=== PATIENT | female | born 1945 | race Caucasian/White ===

== ENCOUNTER 2018-03-30 08:35 | Outpatient (CLI) | payer MEDICARE, SELFPAY ==
[2018-03-30 09:56] LABS: Anion Gap 0.9 mmol/L (3-11); BUN 16 mg/dL (7-18); CO2 32.1 mmol/L (21.0-32.0); Calcium 8.9 mg/dL (8.5-10.1); Chloride 104 mmol/L (98-107); Estimated GFR 44.41 (mL/min/1.73m2); Glucose 84 mg/dL (70-100); Potassium 4.5 mmol/L (3.5-5.1); Sodium 137 mmol/L (136-145)
== END 2018-03-30 08:55 ==
PROVIDERS: PCP Family Medicine
DX: Z87.448 Personal history of other diseases of urinary system (principal)
CPT/HCPCS: 36415; 80048

== ENCOUNTER 2019-04-04 14:50 | Outpatient (CLI) | payer MEDICARE, SELFPAY ==
--- NOTE | 2019-04-04 13:00 | DI.RAD_ITS ---
SYMPTOMS/DIAGNOSIS: SHORTNESS OF BREATH, H/O OVARIAN CANCER IN REMISSION, R06.02 PA AND LATERAL CHEST: The heart is not enlarged. On the lateral view, there are streaky radiodensities projected anteriorly at the level of the cardiac silhouette; these could represent infiltrates in the lingula or right middle lobe. Otherwise, the lungs are generally clear. No pleural effusion is seen. Little if any evidence of infiltrate identified on the funnel film. CONCLUSION: Question lingular or right middle lobe areas of atelectasis, scarring or consolidation. These findings were not present on previous chest radiograph of 04/18/16. Chest CT may be considered for further evaluation considering the patient's history of ovarian carcinoma.
[2019-04-04 14:04] LABS: HCT 37.4 % (36.0-46.0); HGB 12.2 g/dL (12.0-15.5); Mean Corp. HGB Concentration 32.6 g/dL (32.0-36.0); Mean Corpuscular Hemoglobin 30.1 pg (27.0-33.0); Mean Corpuscular Volume 92.3 fL (80-95); Mean Platelet Volume 10.5 fL (8.0-11.0); Platelet Count 198 x1000/uL (130-400); RBC 4.05 m/cumm (4.00-5.20); RBC Distribution Width 13.4 % (11.7-14.6); White Blood Cell Count 5.74 k/cumm (4.4-10.8)
[2019-04-04 14:55] LABS: Iron 79 ug/dL (50-175)
[2019-04-04 15:03] LABS: ALT 40 U/L (14-59); AST 24 U/L (15-37); Albumin 3.4 g/dL (3.4-5.0); Alkaline Phosphatase 77 U/L (46-116); Anion Gap 7.3 mmol/L (3-11); BUN 19 mg/dL (7-18); Bilirubin, Total 0.4 mg/dL (0.2-1.0); CO2 28.7 mmol/L (21.0-32.0); CREATININE 1.19 mg/dL (0.55-1.02); Calcium 8.8 mg/dL (8.5-10.1); Chloride 105 mmol/L (98-107); Estimated GFR 44.72 (mL/min/1.73m2); Glucose 158 mg/dL (70-100); Sodium 141 mmol/L (136-145); TSH (W/Ref FT4) 1.43 uIU/mL (0.36-3.74); Total Protein 6.3 g/dL (6.4-8.2)
== END 2019-04-04 15:10 ==
PROVIDERS: PCP Family Medicine; Visit Provider Family Medicine
DX: R06.02 Shortness of breath (principal); C56.9 Malignant neoplasm of unspecified ovary; E78.00 Pure hypercholesterolemia, unspecified; J98.4 Other disorders of lung
CPT/HCPCS: 36415; 80053; 85027; 71046; 83540; 84443

== ENCOUNTER 2019-04-21 01:25 | Outpatient (CLI) | payer MEDICARE, SELFPAY ==
--- NOTE | 2019-04-21 09:30 | MERGE_ITS ---
*[facility]* *[facility]* [address] [place] [address] Date of study: 04/21/2019 Transthoracic Echocardiography M-mode, complete 2D, complete spectral Doppler, and color Doppler *STUDY CONCLUSIONS* Summary: 1. Left ventricle: The cavity size was normal. Wall thickness was normal. Systolic function was normal. The estimated ejection fraction was 60-65%. Wall motion was normal; there were no regional wall motion abnormalities. 2. Right ventricle: The cavity size was normal. Systolic function was normal. 3. Aortic valve: Trileaflet; normal thickness leaflets. There was mild regurgitation. 4. Mitral valve: There was mild regurgitation. 5. Inferior vena cava: The vessel was normal in size. The respirophasic diameter changes were in the normal range (greater than or equal to 50%), consistent with normal central venous pressure. *PATIENT PRESENTATION* Height: 165.1cm (65in ) S/D Pressure: 139 / 70 Weight: 60.8kg (133.7lb ) BSA: 1.67m^2 Test start time: 09:30 AM. Test stop time: 10:30 AM. CONSULTING Marilyn Kidd ORDERING Marilyn Kidd REFERRING Marilyn Kidd PERFORMING [facility] FIELD INSTALLATION TECHNICIAN Nadia Melvin *PROCEDURE DATA* Procedure information: This study was interpreted by [facility]. Pertinent images and digital data are archived for permanent storage and are available for subsequent review. Comparison was made to the study of June 2011. Study status: Routine. Transthoracic echocardiography. M-mode, complete 2D, complete spectral Doppler, and color Doppler. A Transthoracic Echocardiogram was performed. Scanning was performed from the parasternal, apical, subcostal, and suprasternal notch acoustic windows. Images were obtained using an [employer] 2000 cardiac ultrasound machine. Image quality was adequate. Study completion: The patient tolerated the procedure well. There were no complications. History: PMH: SOB. *CARDIAC ANATOMY* Left ventricle: The cavity size was normal. Wall thickness was normal. Systolic function was normal. The estimated ejection fraction was 60-65%. Wall motion was normal; there were no regional wall motion abnormalities. Findings consistent with diastolic dysfunction. There was no evidence of elevated ventricular filling pressure by Doppler parameters. Aortic valve: Trileaflet; normal thickness leaflets. Mobility was not restricted. Doppler: Transvalvular velocity was within the normal range. There was no stenosis. There was mild regurgitation. VTI ratio of LVOT to aortic valve: 0.89. Valve area (VTI): 2.6cm^2. Indexed valve area (VTI): 1.5cm^2/m^2. Peak velocity ratio of LVOT to aortic valve: 0.82. Valve area (Vmax): 2.4cm^2. Indexed valve area (Vmax): 1.4cm^2/m^2. Mean velocity ratio of LVOT to aortic valve: 0.8. Valve area (Vmean): 2.3cm^2. Indexed valve area (Vmean): 1.4cm^2/m^2. Mean gradient (S): 3.4mm Hg. Peak gradient (S): 7mm Hg. Aorta: Aortic root: The aortic root was normal in size. Ascending aorta: The ascending aorta was normal in size. Mitral valve: Mildly thickened leaflets. Mobility was not restricted. Doppler: Transvalvular velocity was within the normal range. There was no evidence for stenosis. There was mild regurgitation. Valve area by pressure half-time: 4cm^2. Indexed valve area by pressure half-time: 2.4cm^2/m^2. Peak gradient (D): 2.9mm Hg. Left atrium: The atrium was normal in size. Right ventricle: The cavity size was normal. Systolic function was normal. Pulmonic valve: Poorly visualized. Doppler: Transvalvular velocity was within the normal range. There was no evidence for stenosis. There was no significant regurgitation. Tricuspid valve: Structurally normal valve. Doppler: Transvalvular velocity was within the normal range. There was no evidence for stenosis. There was trivial regurgitation. Pulmonary artery: Poorly visualized. Pulmonary systolic pressure was within the normal range, in the range of 20mm Hg to 25mm Hg. Right atrium: The atrium was normal in size. Pericardium: There was no pericardial effusion. Systemic veins: Inferior vena cava: The vessel was normal in size. The respirophasic diameter changes were in the normal range (greater than or equal to 50%), consistent with normal central venous pressure. Measurements Left ventricle Value Reference LV ID, ED, PLAX 4.4 cm 3.5 - 6.0 LV ID, ES, PLAX 2.9 cm 2.1 - 4.0 LV PW thickness, ED, PLAX 0.8 cm LV end-diastolic volume, 1-p A2C 77 ml LV ejection fraction, 1-p A2C 69 % LV end-diastolic volume, 1-p A4C 68 ml LV ejection fraction, 1-p A4C 59 % LV e', lateral 0.081 m/sec LV E/e', lateral 11 LV e', medial 0.076 m/sec LV E/e', medial 11 LV e', average 0.078 m/sec LV E/e', average 11 Ventricular septum Value Reference IVS thickness, ED, PLAX 0.8 cm LVOT Value Reference LVOT ID, A-P 1.9 cm LVOT area 2.9 cm^2 LVOT peak velocity, S 1.08 m/sec LVOT mean velocity, S 0.68 m/sec LVOT VTI, S 26.7 cm LVOT peak gradient, S 4.6 mm Hg LVOT mean gradient, S 2.2 mm Hg Stroke volume (SV), LVOT DP 77 ml Stroke index (SV/bsa), LVOT DP 46 ml/m^2 Aortic valve Value Reference Aortic valve peak velocity, S 1.3 m/sec Aortic valve mean velocity, S 0.9 m/sec Aortic valve VTI, S 30.0 cm Aortic mean gradient, S 3.4 mm Hg Aortic peak gradient, S 7 mm Hg VTI ratio, LVOT/AV 0.89 Aortic valve area, VTI 2.6 cm^2 Velocity ratio, peak, LVOT/AV 0.82 Aortic valve area, peak velocity 2.4 cm^2 Velocity ratio, mean, LVOT/AV 0.8 Aortic valve area, mean velocity 2.3 cm^2 Aortic valve area/bsa, mean velocity 1.4 cm^2/m^2 Aortic regurg deceleration 140 cm/s^2 Aortic regurg pressure half-time 809 ms Aorta Value Reference Aortic root ID, ED 2.3 cm Ascending aorta ID, A-P, S 3.2 cm Left atrium Value Reference LA ID, A-P, ES 3.5 cm LA ID/bsa, A-P 2.1 cm/m^2 <=2.2 LA volume, ES, 2-p 28 ml LA volume/bsa, ES, 2-p 17 ml/m^2 LA/aortic root ratio 1.5 Mitral valve Value Reference Mitral E-wave peak velocity 0.85 m/sec Mitral A-wave peak velocity 0.58 m/sec Mitral deceleration time 191 ms 150 - 230 Mitral pressure half-time 55 ms Mitral peak gradient, D 2.9 mm Hg Mitral E/A ratio, peak 1.46 Mitral valve area, PHT, DP 4 cm^2 Tricuspid valve Value Reference Tricuspid regurg peak velocity 2.3 m/sec Tricuspid peak RV-RA gradient 22 mm Hg Right atrium Value Reference RA area, ES, A4C (L) 8.1 cm^2 8.3 - 19.5 Legend: (L) and (H) milla values outside specified reference range. I have personally reviewed the images and have reviewed and edited the reported findings. Electronically signed by Markus Bailon 04/21/2019 12:37
== END 2019-04-21 01:45 ==
PROVIDERS: PCP Family Medicine; Visit Provider Family Medicine
DX: R06.02 Shortness of breath (principal); I35.1 Nonrheumatic aortic (valve) insufficiency; I34.0 Nonrheumatic mitral (valve) insufficiency
CPT/HCPCS: 93306

== ENCOUNTER 2019-06-17 09:28 | Emergency (ER) | payer MEDICARE, SELFPAY ==
[2019-06-17 09:37] VITALS: BP 132/60; PULSE 71; RESP 18; TEMP 36.6; O2SAT 98
--- NOTE | 2019-06-17 10:01 | W.ED.GENAD ---
Discharge Plan Disposition Patient Disposition: HOME Condition: Stable Discharge Details Chief Complaint: Laceration Clinical Impression: Avulsion of skin of finger Primary Care Provider: Marilyn Kidd ED Provider: Shari June Home Meds and New Rx's Prescriptions: Continued Shingrix Adjuvant Component-PF Suspension 1 ml IM ONCE Qty: 0.5 RF: 1 calcium-magnesium 300-300 mg tablet 1 tab PO TID RF: 0 Co Q-10 (with Vit E) 1 EACH capsule 1 cap PO QPM RF: 0 cholecalciferol (vitamin D3) [Vitamin D3] 2,000 UNIT capsule 2,000 unit PO DAILY RF: 0 Fish Oil 1 EACH capsule,delayed release(DR/EC) 1 ea PO DAILY RF: 0 Green Tea (w/Met.Enhan.Blend) 1 EACH tablet 1 ea PO DAILY RF: 0 coriolus versicolor DAILY RF: 0 melatonin 10 mg tablet,ext release multiphase 20 mg PO HS RF: 0 polyethylene glycol 3350 [Miralax] 17 gram powder in packet 17 g PO BID Qty: 255 RF: 0 red yeast rice 600 mg capsule 1,200 mg PO QPM RF: 0 Discharge Instructions Instructions: Laceration (ED) Additional Instructions: Keep wound clean and dry. Do not remove the Gelfoam, let it fall off naturally as the skin heals underneath. If your dressing becomes wet or dirty, you may change the outer dressing but keep the Gelfoam in place. If the Gelfoam falls off, you can replace it and hold pressure and recover with outer dressing. Alternate Tylenol and Motrin as needed and directed for pain. If you notice any surrounding redness or swelling, apply topical antibiotic ointment. Follow-up with your primary care doctor in 1 week for wound check. Return to the emergency department or follow-up with your primary care doctor as soon as possible if you develop any fever, swelling or red line streaking up your extremity, or significant pain. Discharge Data Discharge Date/Time-TO BE ENTERED AT DEPARTURE: 06/17/19 10:58 Discharge Physician: Shari June Medical Decision Making 73-year-old female who presents with right fifth finger skin laceration sustained with a mandolin string when she was fixing her mandolin at home this morning. Right fifth finger with 1 x 2 cm skin avulsion extending through subcu tissue noted on medial aspect of finger pad. Oozing noted but no pulsatile bleeding. No bony injury or deformity noted. Neurovascular intact. Wound appears clean and dry. Area soaked and Gelfoam covered with phenylephrine applied and covered with tube gauze. Tetanus up-to-date. Patient advised to keep area clean and dry. Advised to follow-up with a primary care doctor in 1 week for reevaluation and to return here with any concerns. HPI General Mode of arrival: ambulatory. Date/Time Provider Initiated Documentation: 06/17/19 09:41. Limitations to Documentation: no limitations. Information obtained by: patient. History of Present Illness 73 year old F presents to the emergency department with the chief complaint of Finger laceration, Quality is described as aching, and is localized to the right and upper extremity. Patient reports no radiation. Patient started experiencing this hour(s) and it has been constant. No relieving factors improve symptom(s), No exacerbating factors reported . Patient did receive the following treatments prior to arrival, none Related Data Home Medications Medication Instructions Recorded Confirmed Co Q-10 (with Vit E) 1 cap PO QPM 12/07/12 06/17/19 Coriolus Versicolor DAILY 03/18/17 04/04/19 Fish Oil 1 ea PO DAILY 03/18/17 06/17/19 Green Tea (w/Met.Enhan.Blend) 1 ea PO DAILY 03/18/17 06/17/19 cholecalciferol (vitamin D3) 2,000 unit PO DAILY 03/18/17 06/17/19 [Vitamin D3] melatonin 10 mg tablet,extended 20 mg PO HS tab 04/04/18 06/17/19 release,multiphase adjuvant AS01B (PF)vial 1 of 2 1 ml IM ONCE #0.5 ml 04/04/19 06/17/19 calcium-magnesium 300 mg-300 mg 1 tab PO TID 04/04/19 06/17/19 tablet polyethylene glycol 3350 17 gram 17 g PO BID #255 gm 04/04/19 06/17/19 oral powder packet red yeast rice 600 mg capsule 1,200 mg PO QPM cap 04/04/19 06/17/19 Previous Rx's Medication Instructions Recorded adjuvant AS01B (PF)vial 1 of 2 1 ml IM ONCE #0.5 ml 04/04/19 Allergies Allergy/AdvReac Type Severity Reaction Status Date / Time adhesive Allergy Mild Skin Rash Unverified 06/17/19 09:40 General Stated Complaint: Laceration IAN: 4 Review of Systems All systems reviewed & are unremarkable except as noted in HPI and below PFSH Medical History Actinic dermatitis (Resolved 02/17/16) Acute pain of right shoulder (Resolved 01/24/16) Ankle pain (Resolved 02/15/14) Breast lump (Resolved) biopsy neg. Breast lump (Inactive) Carpal tunnel syndrome (Acute) R>L Cellulitis of right axilla (Resolved 01/28/16) Epithelial ovarian cancer, FIGO stage IIIC (Acute 06/06/15) History of tobacco use (Resolved) quit after 10 years History of tobacco use (Inactive) Hypercholesterolemia (Acute) on Red Rice Yeast Osteopenia (Acute) Other and unspecified angina pectoris (Resolved) 04/04/11 ED visit; unstable angina Ovarian mass (Resolved) 04/22/[address] 03/2015 Scarlet fever (Resolved) Scarlet fever (Inactive) Surgical History Appendectomy (~1965) Arthroplasty of knee (~1988) RIGHT Biopsy of breast NEG Bowel resection (04/18/16) Complete Hysterectomy large pelvic mass;ovarian carcinoma;omentum removal Extraction of cataract 09/03/17 RIGHT EYE; DR. RAINEY 09/17/17 LEFT EYE; DR. RAINEY H/O arthroscopy of knee (Resolved) 07/26/88 right H/O exploratory laparotomy (Resolved) 04/18/16 lysis of adhesions; resection of necrotic small intestine w/anastomosis; repair of an incidental ventral incisional hernia H/O eye surgery (Resolved) 04/23/16 intravitreal injection with Avastin Hernia Repair, Incisional (04/18/16) History of appendectomy (Inactive) History of arthroscopy of knee (Inactive) History of exploratory laparotomy (Inactive 04/18/16) History of eye surgery (Inactive 04/23/16) Hx of appendectomy (Resolved) S/P breast biopsy (Resolved) neg Status post breast biopsy (Inactive) Family History Mother , age 78 Essential hypertension Heart disease Hyperlipidemia Breast cancer Father , age 80 Heart disease Brother Hyperlipidemia Alcohol abuse Maternal Grandfather Heart disease Paternal Grandfather Heart disease Maternal Grandmother Cancer Paternal Grandmother Heart disease Brother Hyperlipidemia Melanoma Brother Heart attack Heart disease Alcohol abuse Stroke Social History Smoking/Tobacco Use Status: Former Tobacco Use Quit Date: 07/26/79 Tobacco: How many years used: 10 Alcohol Intake: former Drug use: Never Substance use type: does not use Household members: significant other Housing: house Communication Needs: None Do you need help understanding health information?: Rarely Pets and animals: No Sexually active: No Do you think of yourself as: lesbian/jarvis/homosexual What is your relationship status?: living with partner How often do you talk on the phone with friends or family?: three or more times per week How often do you get together with friends or relatives?: once per week How often do you attend mandaeism or roman catholic services?: decline to answer Do you belong to any clubs or organized social groups?: yes Panel score (0-1 are the most socially isolated patients): 3 What type of physical activity do you participate in: walking Duration: 45-60 minutes/day Frequency: 5-6 times per week Cat/Hindu: None Special cat needs: No Seatbelt use: always Helmet use: Yes Helmet use: always Drive intox or ride w/intox explosives truck driver: No Do you feel safe at home: Yes Exam Const General: cooperative, healthy appearing and no acute distress HENVT Head: normal to inspection Mouth: oral mucosae normal Eyes General: appearance normal, both eyes and all related structures Neck Neck: normal visual inspection Resp Effort & Inspection: normal respiratory effort and able to speak in complete sentences Cardio Rate: regular rate Skin General skin exam: no rashes or lesions noted Neuro General: alert, awake and oriented x3 Motor: muscle tone normal throughout Other: Motor/sensory grossly intact to left fifth finger. Extrem Hand/finger images: 1. 1 x 2 cm skin avulsion noted on the right medial aspect of the fifth finger pad. Moderate active oozing. No pulsatile bleeding. No obvious foreign bodies noted. No bony deformities or open bony injuries noted. Psych Appearance: grossly normal Affect: normal affect Course Vital Signs Vital signs: Vital Signs Temperature 97.9 F 06/17/19 09:37 Pulse 71 06/17/19 09:37 Respiratory Rate 18 06/17/19 09:37 Blood Pressure 132/60 06/17/19 09:37 Pulse Oximetry 98 06/17/19 09:37 Temperature 97.9 F 06/17/19 09:37 Temperature Source Skin 06/17/19 09:37 Pulse 71 06/17/19 09:37 Respiratory Rate 18 06/17/19 09:37 Respiratory Effort Non-Labored 06/17/19 09:40 Blood Pressure 132/60 06/17/19 09:37 Blood Pressure Position Sitting 06/17/19 09:37 Pulse Oximetry 98 06/17/19 09:37 Oxygen Delivery Method Room Air 06/17/19 09:37 Oxygen Flow Rate 0 06/17/19 09:37 Pain Level 2 06/17/19 09:37
[2019-06-17] MEDS: Gelatin SPONGE 12-7 MM PKT 1 EACH TP (10:37)
[2019-06-17 10:59] VITALS: BP 132/60; PULSE 71; RESP 18; TEMP 36.6; O2SAT 98
== END 2019-06-17 10:58 | disposition home or self-care (01) ==
PROVIDERS: Emergency Provider Physician Assistant; PCP Family Medicine
DX: S61.216A Laceration without foreign body of right little finger without damage to nail, initial encounter (principal); W27.4XXA Contact with kitchen utensil, initial encounter; Y93.G1 Activity, food preparation and clean up
CPT/HCPCS: 12001

== ENCOUNTER → 2019-06-29 11:22 | Outpatient (BNVA) | payer MEDICARE, SELFPAY | PROVIDERS: PCP Family Medicine; Referring Provider Family Medicine; Visit Provider Physical Therapy Assistant | DX: Z12.11 Encounter for screening for malignant neoplasm of colon (principal) ==

== ENCOUNTER 2020-05-01 01:08 | Outpatient (CLI) | payer MEDICARE, SELFPAY ==
[2020-05-01 11:51] LABS: ALT 40 U/L (14-59); AST 25 U/L (15-37); Albumin 3.6 g/dL (3.4-5.0); Alkaline Phosphatase 86 U/L (46-116); Anion Gap 3.8 mmol/L (3-11); BUN 20 mg/dL (7-18); Bilirubin, Total 0.4 mg/dL (0.2-1.0); CO2 31.2 mmol/L (21.0-32.0); CREATININE 1.09 mg/dL (0.55-1.02); Calcium 9.1 mg/dL (8.5-10.1); Chloride 106 mmol/L (98-107); Estimated GFR 49.34 (mL/min/1.73m2); Glucose 99 mg/dL (74-106); Potassium 4.5 mmol/L (3.5-5.1); Sodium 141 mmol/L (136-145); Total Protein 6.5 g/dL (6.4-8.2); Vitamin B12 217 pg/mL (193-986)
[2020-05-02 05:05] LABS: Vitamin D 25 Total 83.5 ng/ml (30-100)
== END 2020-05-01 01:28 ==
PROVIDERS: PCP Family Medicine; Visit Provider Family Medicine
DX: R53.83 Other fatigue (principal); M85.80 Other specified disorders of bone density and structure, unspecified site
CPT/HCPCS: 36415; 80053; 82306; 82607

== ENCOUNTER 2021-11-14 01:04 | Outpatient (CLI) | payer MEDICARE, SELFPAY ==
[2021-11-14 13:36] LABS: Source Nasal/Nares
[2021-11-14 21:40] LABS: COVID-19 PCR Negative (Negative)
== END 2021-11-14 01:05 | disposition home or self-care (01) ==
PROVIDERS: PCP Family Medicine; Visit Provider Surgery
DX: Z20.822 Contact with and (suspected) exposure to COVID-19 (principal); Z01.818 Encounter for other preprocedural examination
CPT/HCPCS: 87635; U0005

== ENCOUNTER 2022-02-09 02:12 | Outpatient (CLI) | payer MEDICARE, SELFPAY ==
--- OUTSIDE RECORDS SUMMARY | 2022-02-09 02:19 | XMS_ITS | Encounter Summary ---
:1945 [place] [address] Care Team Providers Name Role Phone Marilyn Kidd MD Primary Care Provider Reason for Visit Reason Comments Skin Lesion Follow-up Encounter Details Date Type Department Care Team Description 09/28/2018 Office Visit Dermatology at [facility] Shakira Fregoso [place] (actinic keratosis); Guillermo WALLACE Ink spot lentigo; [address] [facility] (seborrheic keratosis); [place] [address] [address] Lentigines; [phone] [facility] History of basa l cell carcinoma (BCC) [facility] [place], [place] [address] Social History Tobacco Use Types Packs/Day Years Used Date Former Smoker Cigarettes 0.5 12 Quit: 08/02/18 82 Smokeless Tobacco: Never Used Alcohol Use Standard Drinks/Week Comments No 0 (1 standard drink = 0.6 oz pure alcoho l) rare Alcohol Habits Answer Date Recorded How often do you have a drink containing alcohol? Not asked How many drinks containing alcohol do you have on a typical Not asked day when you are drinking? How often do you have six or more drinks on one occasion? No t asked Comment: rare 05/02/2015 Sex Assigned at Date Recorded Not on file documented as of this encounter Progress Notes Shakira Fregoso MD - 09/28/2018 7:30 AM EST DERMATOLOGY ESTABLISHED PATIENT NOTE Date of service: 09/28/2018 Neisha White : 1945 Provider: Shakira Fregoso MD Chief Complaint Patient presents with ??? Skin Lesion ??? Follow-up SKIN HX Patient prefers to minimize treatments unless absolutely necessary Left shoulder: Nodular BCC - biopsied by PCP (see can doc) Other: - Eczema - Hand dermatitis (ACD vs dyshidrotic eczema) - Acne rosacea - Actinic keratoses - Seborrheic keratoses - Harman angiomas Relevant Medical History: - Ovarian cancer ?? Family History: Skin cancer: Aunts, uncles Melanoma: Brother?, first cousin ?? Social History: Occupation: Retired HPI Neisha White is a 73 y.o. female, established patient last seen by Dr. Conway on 12/02/17 for a full skin exam. Here today to recheck an actinic keratosis on her left cheek. This lesion has never been treated as the patient prefers clinical monitoring. She also request a full skin exam while she is here today, no other concerns. ADR Allergies Allergen Reactions ??? Tegaderm [Transparent Dressings] Redness noted around skin from initial dressing. MEDS Current Outpatient Medications Medication Sig Dispense Refill ??? cholecalciferol, Vitamin D3, (VITAMIN D-3) 2,000 unit Tablet Take by mouth daily. ??? magnesium hydroxide (MAGNESIA ORAL) Take 500 mg by mouth daily. ??? fish oil-omega-3 fatty acids 1,000 mg Capsule Take 1 g by mouth daily. ??? Red Yeast Rice Extract 600 mg Capsule Take 1 capsule by mouth daily. ??? TURMERIC (CURCUMIN MISC) by Misc.(Non-Drug; Combo Route) route daily. ??? melatonin 5 mg Tablet Take 4 tablets by mouth nightly. ??? COLOSTRUM/SE/GR TEA/MUSH CMB1 ([id number]-[id number] ORAL) Take 2 Cans by mouth daily. ??? polyethylene glycol (MIRALAX) 17 gram Powder in Packet Take 17 g by mouth as needed. ??? Coenzyme H36-Wcpikde E 50-5 mg-unit Capsule Take 1 capsule by mouth daily. No current facility-administered medications for this visit. ROS General: feeling well Skin: denies other skin complaints EXAM General: NAD, pleasant, cooperative Skin: Patient was asked to undress to the level of her comfort. Verbalized that the provider's preference is for the patient to remove all clothing and that the provider will not examine areas patient elects to keep covered. Patient's decision was to remove bra and underwear for a total body skin exam. This includes examination of the scalp, hair, face, ears, neck, chest, breasts, abdomen, back, axillae, upper and lower extremities, hands, and feet. Buttocks and genitalia were examined with patient's consent. Significant skin findings: A. Right mid cheek x 1 right angle of the jaw x 1: 0.2-0.3cm scaly irregular pink papules. B. Left upper vermilion border: 3 mm brown macule composed of brown evenly pigmented macules C. Trunk and extremities: Scattered 0.4-0.6 cm pink-brown papules/plaques with waxy stuck-on appearance. D. Sun-exposed areas of the trunk and extremities: Scattered 0.3-0.6 cm light- brown, evenly pigmented, well-demarcated macules. E. Left shoulder tip: Well-healed surgical scar. ASSESSMENT/PLAN A. Actinic Keratoses - Explained etiology, natural history and premalignent potential of these lesions. - Discussed treatment options (LN2, 5-FU, PDT) and their respective risks and benefits. - Patient declined treatment today and prefers to watch and wait. - Noted that a surgical procedure would likely be needed if these were to progress to skin cancer. B. Ink Spot Lentigo - Discussed benign nature of lesion and provided reassurance. No treatment necessary at this time. C.Seborrheic Keratoses - Explained that these are hereditary and adult-acquired. Reassured patient of benign nature. No treatment necessary. - Discussed cosmetic removal with cryotherapy. Patient quoted $100 for removal of 1-10, and $200 forremoval of 11-20. Patient declined cosmetic removal today. - Advised patient to call if they become inflamed or irritated. D. Lentigines - Discussed benign nature of lesions and provided reassurance. No treatment necessary at this time. - Discussed nature of sun-induced photo-aging and skin cancers. Advised sun avoidance, protective clothing, and use of SPF 30+ broad-spectrum sunscreens. - Instructed patient to observe closely for skin damage/changes and call if such occur. E. H/O BCC - NER; will continue to monitor. FOLLOW UP: Based on pathology results. RTC in 1 year for a full skin exam; sooner if needed. Reminder placed in system to schedule. Instructed patient to call with questions or concerns. Note initiated by: Joanne Navarrete CMA ? Karmen Cagle, Clinical Scribe has performed the documentation for this encounter in the presence of and acting as a scribe for Dr. Shakira Fregoso. I performed the above scribed service and agree with the accuracy of the documentation in this encounter. 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
--- OUTSIDE RECORDS SUMMARY | 2022-02-09 02:19 | XMS_ITS | Encounter Summary ---
:1945 Author Organization [facility] [place] [address] Care Team Providers Name Role Phone Marilyn Kidd MD Primary Care Provider Encounter Details Date Type Department Care Team Description 11/24/2021 Orders Only Gynecology Oncology at [facility] O varian carcinosarcoma [facility] [place] [address] Social History Tobacco Use Types Packs/Day Years [...] on file documented as of this encounter Plan of Treatment Upcoming Encounters Date Type Specialty Care Team Description 02/27/2022 Appointment Radiology Marilyn Kidd MD [address] [place] [address] (Wo rk) documented as of this encounter Results (ABNORMAL) BUN (11/28/2021 4:23 PM EDT) athologist Signature BUN 21 (H) 8 - 18 [facility] mg/dL [facility] Specimen Anatomical Collection Method Collection Time Receive d Time (Source) Location / / Volume Laterality Blood 11/28/2021 4:23 PM 2 4:46 EDT PM EDT Resulting Agency Comment Spec In Lab Genie Garcia MD CHEMISTRY ORDERABLES Performing Organization Address City/State/[place] [address] (ABNORMAL) Creatinine (11/28/2021 4:23 PM EDT) Analysis Performed At [facility]o [facility] Time Signature Creatinine 1.26 (H) 0.70 - [place] 1.20 mg/dL [facility] Estimated GFR 42 (L) >=60 [place] mL/min/1.7 [facility] 3 [facility] LAB[facility]ATORY Comment: This patient? s estimated glomerular filtration rate (eGFR) is between 42 mL/min/1.73 m2 (patients with less muscl e mass) and 49 mL/min/1.73 m2 (patients with more muscle mass) as determined by the CKD-EPI equation. Assessment of eGFR is not appropriate when creatinine concentrations are rapidly changing. For clinical decisions where creatinine clearance will affect therapy, a 24-hour urine creatinine clearance may b e advised. Assignment of CKD stage 1 - 5 for patien ts with an eGFR near the transition point between stages may be based on cli nical assessment of muscle mass and symptoms in addition to eGFR. 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
--- OUTSIDE RECORDS SUMMARY | 2022-02-09 02:19 | XMS_ITS | Encounter Summary ---
:1945 Author Organization [facility] [place] [address] Care Team Providers Name Role Phone Marilyn Kidd MD Primary Care Provider Encounter Details Date Type Department Care Team Description 11/29/2020 Telephone Gynecology Oncology at [facility] [place] [address] Social History Tobacco Use Types Packs/Day [...] MD [address] [place] [address] (Wo rk) documented as of this encounter Visit Diagnoses Not on filedocumented in this encounter Care Teams Candles Pourer Relationship Specialty Start Date End Date Marilyn Kidd MD PCP - General 06/17/[address] [place] [address] documented as of this encounter
--- OUTSIDE RECORDS SUMMARY | 2022-02-09 02:19 | XMS_ITS | Encounter Summary ---
:1945 Author Organization [facility] [place] [address] Care Team Providers Name Role Phone Marilyn Kidd MD Primary Care Provider Reason for Referral Diagnostic Test (Routine) - Closed Specialty Diagnoses / Procedures Referred By Contact Refer red To Contact Radiology Diagnoses Malignant neoplasm of ovary, unspecified laterality Genie Garcia MD [facility] Rad Ct Scan Procedures CT Chest Abdomen Pelvis w Contrast (Generic) [facility] [place] [address] [place] [address] Referral ID Status Reason Start Date Expiration Date Visits V isits Requested Authorized [id number] Closed Specialty 11/29/2020 05/31/2022 1 1 Service Requested Reason for Visit Reason Onset Date Comments Other 11/28/2020 Encounter Details Date Type Department Care Team Description 11/28/2020 Telephone Gynecology Oncology at [facility] Genie Garcia MD Other [facility] [place] [address] GYNECOLOGIC ONCOLOGY [phone] [place] [id number] (Wo rk) Social History Tobacco Use Types Packs/Day Years [...] on file documented as of this encounter Miscellaneous Notes Telephone Encounter - Maggi Lindsey - 11/28/2020 4:03 PM EDT Please sign order Telephone Encounter - Maggi Lindsey - 11/28/2020 4:03 PM EDT Please sign order documented in this encounter Plan of Treatment Upcoming Encounters Date Type Specialty Care Team Description 02/27/2022 Appointment Radiology Marilyn Kidd MD [address] [place] [address] (Wo rk) documented as of this encounter Results CT Chest Abdomen Pelvis w Contrast (Generic) (11/28/2021 6:31 PM EDT) Anatomical Region Laterality Modality Abdomen, Pelvis Computed Tomography Specimen (Source) Anatomical Collection Method Collection Time Re ceived Time Location / / Volume Laterality 11/28/2021 6:49 PM EDT Impressions 12/01/2021 9:12 AM EDT 1. ??New tree-in-bud nodule within the a nterior aspect left upper lobe, could be infectious or inflammatory. Recommend co ntinued follow-up. 2. ??No evidence of metastatic disease. 3. ??Bowel containing ventral abdominal wall hernia without evidence of strangulation. I have personally reviewed the image(s) and the resident's interpretation and agree with the findings, Brandan Nix MD at 12/01/2021 9:12 AM Thank you for letting us participate in the care of this patient. ??If you are a health care provider and have any questi ons regarding this report, please contact the number below. ??For patients who have questions please contact the health respiratory care assistant that requested your imaging first. ? Electronically signed by: Brandan Nix MD , [facility] ([phone]), at 12/01/2021 9:12 AM Narrative 12/01/2021 9:12 AM EDT EXAMINATION: CT CHEST ABDOMEN PELVIS W CONTRAST (GENERIC) CLINICAL HISTORY: Ovarian cancer, assess treatment response assess for any disease progression TECHNIQUE: Helical CT of the chest, abdo men, and pelvis was performed following the intravenous administration of contra st. Administered 90.0 ml of OMNIPAQUE 350.00 mg/ml. Oral contrast was not admi nistered. COMPARISON: Chest abdomen and pelvis kennedy ing back to 12/07/2017 and March 2019 FINDINGS: Chest: Lungs and large airways: Slight improvem ent opacity at the medial segment of the right middle lobe. At the anterior aspec t of the left upper lobe, there is a new 10 x 3 mm tree-in-bud nodule series 4 im age 196.. Unchanged 8 mm nodule abutting the left major fissure, likely represent s a lymph node. No new pulmonary nodules. Pleura: No effusion. No pneumothorax. Heart/vasculature: No pericardial effusi on. Normal heart size. Lymph nodes: No enlarged lymph nodes. Mediastinum and chet: Symmetric thyroid gland without nodules. Abdomen/pelvis: Liver: Normal size and attenuation witho ut lesions. Bile ducts: No intrahepatic or extrahepa tic ductal dilatation. Gallbladder: No calcified gallstones. No rmal caliber wall. Pancreas: Normal attenuation without yon lyndsey dilatation. Spleen: Normal size and attenuation. Adrenals: Normal. Kidneys: Symmetric nephrograms. Normal s ize and location. There is a sub-5 mm area of low attenuation within the right interpolar kidney that is too small to characterize, but is favored to represen t benign simple cyst. Urinary Bladder: Normal contour. No foca l wall thickening. Vasculature: Moderate atherosclerosis wi thout significant stenosis. The celiac, common hepatic, splenic, SMA and MADISON are patent. Lymph Nodes: ??No enlarged lymph nodes. Bowel: Nondilated, no wall thickening. ? ? Peritoneum and mesentery: No ascites, fr ee air, or loculated fluid collection. No mesenteric inflammation. Abdominal wall: Unchanged unchanged austin l containing ventral abdominal wall hernia without bowel wall thickening or proximal bowel dilatation. Reproductive organs: Status post hystere ctomy. No adnexal masses. Osseous structures: No suspicious lesion s. Unchanged mild thoracolumbar degenerative changes. Procedure Note Brandan Nix MD - 12/01/2021Formatting o f this note might be different from the original. EXAMINATION: CT CHEST ABDOMEN PELVIS W C ONTRAST (GENERIC) CLINICAL HISTORY: Ovarian cancer, assess treatment response assess for any disease progression TECHNIQUE: Helical CT of the chest, abdo men, and pelvis was performed following the intravenous administration of contra st. Administered 90.0 ml of OMNIPAQUE 350.00 mg/ml. Oral contrast was not admi nistered. COMPARISON: Chest abdomen and pelvis kennedy ing back to 12/07/2017 and March 2019 FINDINGS: Chest: Lungs and large airways: Slight improvem ent opacity at the medial segment of the right middle lobe. At the anterior aspec t of the left upper lobe, there is a new 10 x 3 mm tree-in-bud nodule series 4 im age 196.. Unchanged 8 mm nodule abutting the left major fissure, likely represent s a lymph node. No new pulmonary nodules. Pleura: No effusion. No pneumothorax. Heart/vasculature: No pericardial effusi on. Normal heart size. Lymph nodes: No enlarged lymph nodes. Mediastinum and chet: Symmetric thyroid gland without nodules. Abdomen/pelvis: Liver: Normal size and attenuation witho ut lesions. Bile ducts: No intrahepatic or extrahepa tic ductal dilatation. Gallbladder: No calcified gallstones. No rmal caliber wall. Pancreas: Normal attenuation without yon lyndsey dilatation. Spleen: Normal size and attenuation. Adrenals: Normal. Kidneys: Symmetric nephrograms. Normal s ize and location. There is a sub-5 mm area of low attenuation within the right interpolar kidney that is too small to characterize, but is favored to represen t benign simple cyst. Urinary Bladder: Normal contour. No foca l wall thickening. Vasculature: Moderate atherosclerosis wi thout significant stenosis. The celiac, common hepatic, splenic, SMA and MADISON are patent. Lymph Nodes: No enlarged lymph nodes. Bowel: Nondilated, no wall thickening. Peritoneum and mesentery: No ascites, fr ee air, or loculated fluid collection. No mesenteric inflammation. Abdominal wall: Unchanged unchanged austin l containing ventral abdominal wall hernia without bowel wall thickening or proximal bowel dilatation. Reproductive organs: Status post hystere ctomy. No adnexal masses. Osseous structures: No suspicious lesion s. Unchanged mild thoracolumbar degenerative changes. IMPRESSION 1. New tree-in-bud nodule within the ant erior aspect left upper lobe, could be infectious or inflammatory. Recommend co ntinued follow-up. 2. No evidence of metastatic disease. 3. Bowel containing ventral abdominal wa ll hernia without evidence of strangulation. I have personally reviewed the image(s) and the resident's interpretation and agree with the findings, Brandan Nix MD at 12/01/2021 9:12 AM Thank you for letting us participate in the care of this patient. If you are a health care provider and have any questi ons regarding this report, please contact the number below. For patients w ho have questions please contact the health respiratory care assistant that requested your imaging first. Electronically signed by: Brandan Nix MD , [facility] ([phone]), at 12/01/2021 9:12 AM Genie Garcia MD IMG CT ORDERABLES documented in this encounter Visit Diagnoses Diagnosis Malignant neoplasm of ovary, unspecified laterality - Primary Malignant neoplasm of ovary, unspecified laterality documented in this encounter Care Teams Glue Wheel Operator Relationship Specialty Start Date End Date Marilyn Kidd MD PCP - General 06/17/[address] [place] [address] documented as of this encounter
--- OUTSIDE RECORDS SUMMARY | 2022-02-09 02:19 | XMS_ITS | Encounter Summary ---
:1945 [place] [address] Care Team Providers Name Role Phone Marilyn Kidd MD Primary Care Provider Encounter Details Date Type Department Care Team Description 11/28/2021 Laboratory Lab 3[address] [place] Ovarian [place] [address] Social History Tobacco Use Types Packs/Day Years [...] MD [address] [place], [place] [address] (Wo rk) documented as of this encounter Procedures Procedure Name Priority Date/Time Associated Diagnosis Comme nts HC CREATININE STAT 11/28/2021 4:23 PM Ovarian carcinosarcom a Results for this EDT procedure are i n the results section. HC UREA NITROGEN, STAT 11/28/2021 4:23 PM Ovarian carcinosa rcoma Results for this SERUM EDT procedure are i n the results section. documented in this encounter Results (ABNORMAL) Creatinine (11/28/2021 4:23 PM EDT) Analysis Performed At Patho logist Time Signature Creatinine 1.26 (H) 0.70 - [place] 1.20 mg/dL [facility] Estimated GFR 42 (L) >=60 [place] mL/min/1.[address] LABORATORY Comment: This patient? s estimated glomerular [...] Garcia MD CHEMISTRY ORDERABLES Performing Organization Address City/[facility]/[place] [address] (ABNORMAL) BUN (11/28/2021 4:23 PM EDT) P athologist Signature BUN 21 (H) 8 - 18 [place] mg/dL 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
--- OUTSIDE RECORDS SUMMARY | 2022-02-09 02:19 | XMS_ITS | Encounter Summary ---
:1945 Author Organization [facility] [place] [address] Care Team Providers Name Role Phone Marilyn Kidd MD Primary Care Provider Encounter Details Date Type Department Care Team Description 12/02/2021 Telephone Gynecology Oncology at [facility] Ursula Payne, [place] [address] Social History Tobacco Use Types Packs/Day [...] this encounter Miscellaneous Notes Telephone Encounter - Ursula Payne RN - 12/02/2021 9:23 AM EDT Nurse called patient and informed her that CT is negative for cancer. Unclear significance of lung finding, will defer follow up of lung to her PCP as it is not consistent with a metastasis of her cancer. Patient verbalized understanding and will follow up with PCP as recommended by MD. No further questions at this time. documented in this encounter Plan of Treatment Upcoming Encounters Date Type Specialty Care Team Description 02/27/2022 Appointment Radiology Marilyn Kidd MD [address] [place] [address] (Wo rk) documented as of this encounter Visit Diagnoses Not on filedocumented in this encounter Care Teams Comic Book Artist Relationship Specialty Start Date End Date Marilyn Kidd MD PCP - General 06/17/[address] [place], [place] [id number] documented as of this encounter
--- OUTSIDE RECORDS SUMMARY | 2022-02-09 02:19 | XMS_ITS | Encounter Summary ---
:1945 Author Organization [place] [address] Care Team Providers Name Role Phone Marilyn Kidd MD Primary Care Provider Reason for Referral Diagnostic Test (Routine) - Closed Specialty Diagnoses / Procedures Referred By Contact Refer red To Contact Radiology Diagnoses Ovarian carcinosarcoma Genie Garcia MD [facility] Rad Ct Scan Procedures CT Chest Abdomen Pelvis w Contrast (Generic) [facility] DR Lee [facility] GYNECOLOGIC ONCOLOGY [place], [place] [address] [place] [phone] Referral ID Status Reason Start Date Expiration Date Visits V isits Requested Authorized [id number] Closed Specialty 04/10/2019 04/09/2020 1 1 Service Requested Reason for Visit Diagnostic Test (Routine) - Closed Specialty Diagnoses / Procedures Referred By Contact Refer red To Contact Radiology Diagnoses Ovarian carcinosarcoma Genie Garcia MD [facility] Rad Ct Scan Procedures CT Chest Abdomen Pelvis w Contrast (Generic) [facility] GYNECOLOGIC ONCOLOGY [place], [place] [id number] [place] [phone] Referral ID Status Reason Start Date Expiration Date Visits V isits Requested Authorized [id number] Closed Specialty 04/10/2019 04/09/2020 1 1 Service Requested Encounter Details Date Type Department Care Team Description 04/12/[address] Scan at [facility] [place], Ovarian carcinosarcoma [facility] MD [address] [place], [place] C[place] [address] GYNECOLOGIC [phone] [place] [address] Social History Tobacco Use Types Packs/Day Years [...] on file documented as of this encounter Medications at Time of Discharge Medication Sig Dispensed Refills Start Date End Date Calcium-Magnesium 300-300 Take 1 tablet by 0 03/26 mg Tablet mouth. chromium/herbal complex Take by mouth. 0 03/18/20 17 no.238 (CHROMIUM-HERB NO.238 ORAL) cholecalciferol, Vitamin Take by mouth daily. 0 D3, (VITAMIN D-3) 2,000 unit Tablet magnesium hydroxide Take 500 mg by mouth 0 (MAGNESIA ORAL) daily. fish oil-omega-3 fatty Take 1 g by mouth 0 acids 1,000 mg Capsule daily. Red Yeast Rice Extract 600 Take 1 capsule by 0 mg Capsule mouth daily. TURMERIC (CURCUMIN MISC) by Misc.(Non-Drug; 0 Combo Route) route daily. melatonin 5 mg Tablet Take 4 tablets by 0 mouth nightly. COLOSTRUM/SE/GR TEA/MUSH Take 2 Cans by mouth 0 CMB1 daily. (PBVLDKWKK-SZ-OCLUE-MUSHRO OMCMB ORAL) polyethylene glycol Take 17 g by mouth as 0 (MIRALAX) 17 gram Powder needed. in Packet Coenzyme R45-Nyyhvnt E Take 1 capsule by 0 2012 50-5 mg-unit Capsule mouth daily. documented as of this encounter Plan of Treatment Upcoming Encounters Date Type Specialty Care Team Description 02/27/2022 Appointment Radiology Marilyn Kidd MD [address] [place] [address] (Wo rk) documented as of this encounter Procedures Procedure Name Priority Date/Time Associated Diagnosis Comme nts CT CHEST ABDOMEN Routine 04/12/2019 5:03 PM Ovarian carcinosar coma Results for this PELVIS W CONTRAST EDT procedure are in (GENERIC) the results section. documented in this encounter Results CT Chest Abdomen Pelvis w Contrast (Generic) (04/12/2019 5:03 PM EDT) Anatomical Region Laterality Modality Abdomen, Pelvis Computed Tomography Specimen (Source) Anatomical Location Collection Method / Collectio n Time Received Time / Laterality Volume Impressions 04/12/2019 6:05 PM EDT 1. ??New midline anterior pelvic wall hernia containing nonstrangulated loops of small bowel. 2. ?? Stable 8 mm lingular nodule, likel y in intrapulmonic lymph node. 3. ??Otherwise stable exam. No evidence of intra-abdominal or pelvic metastasis. Thank you for letting us participate in the care of this patient. For questions regarding this report, please contact e number below. ? Narrative 04/12/2019 6:05 PM EDT EXAMINATION: CT CHEST ABDOMEN PELVIS W CONTRAST (GENERIC) CLINICAL HISTORY: ovarian cancer with ne w dyspnea; assess disease NO oral contrast TECHNIQUE: Helical CT of the chest, abdo men, and pelvis was performed following the intravenous administration of contra st. Administered 59.0 ml of ??-- mg/ml. Oral contrast was administered. COMPARISON: 07/14/2018 FINDINGS: Chest: Lungs and large airways: Stable, 8 mm ov al nodule in the lingula, abutting the major fissure, likely in intrapulmonic l ymph node. RIGHT middle lobe focal scarring/atelectasis. No suspicious pulm onary nodules. Pleura: No effusion. Heart/vasculature: Normal. No gross pulm onary embolism. Lymph nodes: No enlarged lymph nodes. Mediastinum and chet: Normal. Abdomen/pelvis: Liver: Normal size and attenuation witho ut lesions. Bile ducts: Nondilated. Gallbladder: No calcified gallstones. No rmal caliber wall. Pancreas: Normal attenuation without yon lyndsey dilatation. Spleen: Normal. Adrenals: Normal. Kidneys: Normal. No renal collecting sys tem obstruction bilaterally. Stable. Urinary Bladder: Normal. Vasculature: No aneurysm. Lymph Nodes: ??No enlarged lymph nodes. Bowel: Nondilated, no wall thickening. ? ? Peritoneum and mesentery: No ascites, fr ee air, or loculated fluid collection. No mesenteric inflammation. Abdominal wall: Midline anterior pelvic wall hernia containing nonstrangulated loops of small bowel. This is new since the previous study. No small bowel obstruction. Reproductive organs: Surgically absent Osseous structures: No suspicious lesion s. Procedure Note Elia Hearn MD - 04/12/2019Form atting of this note might be different from the original. EXAMINATION: CT CHEST ABDOMEN PELVIS W CONTRAST (GENERIC) CLINICAL HISTORY: ovarian cancer with ne w dyspnea; assess disease NO oral contrast TECHNIQUE: Helical CT of the chest, abdo men, and pelvis was performed following the intravenous administration of contra st. Administered 59.0 ml of -- mg/ml. Oral contrast was administered. COMPARISON: 07/14/2018 FINDINGS: Chest: Lungs and large airways: Stable, 8 mm ov al nodule in the lingula, abutting the major fissure, likely in intrapulmonic l ymph node. RIGHT middle lobe focal scarring/atelectasis. No suspicious pulm onary nodules. Pleura: No effusion. Heart/vasculature: Normal. No gross pulm onary embolism. Lymph nodes: No enlarged lymph nodes. Mediastinum and chet: Normal. Abdomen/pelvis: Liver: Normal size and attenuation witho ut lesions. Bile ducts: Nondilated. Gallbladder: No calcified gallstones. No rmal caliber wall. Pancreas: Normal attenuation without yon lyndsey dilatation. Spleen: Normal. Adrenals: Normal. Kidneys: Normal. No renal collecting sys tem obstruction bilaterally. Stable. Urinary Bladder: Normal. Vasculature: No aneurysm. Lymph Nodes: No enlarged lymph nodes. Bowel: Nondilated, no wall thickening. Peritoneum and mesentery: No ascites, fr ee air, or loculated fluid collection. No mesenteric inflammation. Abdominal wall: Midline anterior pelvic wall hernia containing nonstrangulated loops of small bowel. This is new since the previous study. No small bowel obstruction. Reproductive organs: Surgically absent Osseous structures: No suspicious lesion s. IMPRESSION 1. New midline anterior pelvic wall dean ia containing nonstrangulated loops of small bowel. 2. Stable 8 mm lingular nodule, likely i n intrapulmonic lymph node. 3. Otherwise stable exam. No evidence of intra-abdominal or pelvic metastasis. Thank you for letting us participate in the care of this patient. For questions regarding this report, please contact e number below. Genie Garcia MD IMG CT ORDERABLES documented in this encounter Visit Diagnoses Diagnosis Ovarian carcinosarcoma Malignant neoplasm of ovary documented in this encounter Administered Medications Inactive Administered Medications - up to 3 most recent administrations Medication Order MAR Action Action Date Dose Rate Site iohexol (OMNIPAQUE) 350 mg/mL Given 04/12/2019 5:04 PM EDT 59 mL s solution 0-200 mL 0-200 mL, Intravenous, ONCE PRN, 1 dose, Starting on Wed04/12/19 at 1703, Until Wed04/12/19 at 1704, Per Protocol, Warning Vesicant/Irritant Medication , Radiology Contrast, Routine documented in this encounter Care Teams Machine Hose Cutter Relationship Specialty Start Date End Date Marilyn Kidd MD PCP - General 06/17/[address] [place] [address] documented as of this encounter
--- OUTSIDE RECORDS SUMMARY | 2022-02-09 02:19 | XMS_ITS | Encounter Summary ---
:1945 Author Organization [facility] [place] [address] Care Team Providers Name Role Phone Marilyn Kidd MD Primary Care Provider Reason for Visit Reason Comments Skin Check Encounter Details Date Type Department Care Team Description 10/17/2020 Office Visit Dermatology at [facility] Shakira Fregoso Le ntigines; Road MD History of basal cell carcinoma (BCC); [address] [facility] Seborrheic dermatitis; [place] [address] Seborrheic keratoses; [phone] [facility] Actinic keratos es; RD-DERMATOLOGY Ink spot lentigo [place], [place] [address] Social History Tobacco Use Types [...] encounter Progress Notes Shakira Fregoso MD - 10/17/2020 1:00 PM EDT DERMATOLOGY ESTABLISHED PATIENT CLINIC NOTE Date of Service: 10/17/2020 Neisha White : 1945 Provider: Shakira Fregoso MD Chief Complaint Patient presents with ??? Skin Check SKIN HX Personal History Y/N Date, location, treatment Melanoma No DN No SCC No BCC Yes 03/18/2017: left shoulder: nodular BCC (ED&C) AK or field cancerization therapy Yes 5FU/Carac: PDT: nicotinamide: [] Yes [] No Immunosuppression or malignancy Yes Ovarian cancer Blistering sunburns or tanning bed use Yes Blistering sunburns as a child Other (i.e., eczema, psoriasis) Yes Hand dermatitis (ACD vs dyshidrotic eczema), acne rosacea, eczema Relevant social history Family History Y/N Parents, siblings, children Melanoma Yes Brother (?), first cousin NMSC Yes Aunts, uncles Other Patient Preferences Preferred name Preferred contact method [] Home [] Cell [] myD-H [] Other: Permission to leave detailed message including results [x] Yes [] No Permission to discuss care with Ragini Jin Preferred pharmacy [facility] Procedure Screening Questions Y/N Allergies to lidocaine or epinephrine No Blood thinners No Pacemaker or defibrillator No HPI Neisha White is a 75 y.o. female, established patient last seen by me on 09/28/2018. Here today for a full skin exam with the following concerns: - She has concerning lesions on her face that were evaluated last visit that she would like looked at again today. The lesions are not bothersome to the patient but are still present. Last FSE: 09/28/2018 MEDS Current Outpatient Medications Medication Sig Dispense [...] by mouth nightly. ??? COLOSTRUM/SE/GR TEA/MUSH CMB1 (DMANYDTMJ-MR-JAFIC-MUSHROOMCMB ORAL) Take 2 Cans by mouth daily. ??? polyethylene glycol (MIRALAX) 17 gram Powder in Packet Take 17 g by mouth as needed. ??? Coenzyme Z62-Pgycfaq E 50-5 mg-unit Capsule Take 1 capsule by mouth daily. No current facility-administered medications for this visit. ADR Allergies Allergen Reactions ??? Tegaderm [Transparent Dressings] Redness noted around skin from initial dressing. ROS General: Feeling well Skin: Denies other skin complaints EXAM General: NAD, pleasant, cooperative Skin: Patient was asked to undress to the level of her comfort. Verbalized that the provider's preference is for the patient to remove all clothing and that the provider will not examine areas patient elects to keep covered. Patient's decision was to remove bra and keep underwear on and have the following examined: skin of the scalp, hair, face, ears, neck, chest, breasts, abdomen, back, axillae, upper and lower extremities, hands, and feet. Buttocks and genitalia were not examined. Areas of face under mask examined (COVID-19): [x] Yes [] No Significant Skin Findings: A. Scattered on the face: 0.2-0.3 cm scaly irregular pink papules. ?? B. Left upper vermilion border: 3 mm brown macule composed of brown evenly pigmented macules ?? C. Trunk and extremities: Scattered 0.4-0.6 cm pink-brown papules/plaques with waxy stuck-on appearance. ?? D. Sun-exposed areas of the trunk and extremities: Scattered 0.3-0.6 cm light- brown, evenly pigmented, well-demarcated macules. ?? E. Left shoulder tip: Well-healed surgical scar. F. Diffuse greasy, loosely adherent scale throughout scalp. ?? ASSESSMENT/PLAN A. Actinic Keratoses - Explained etiology, natural history and premalignent potential of these lesions. - Patient declined treatment today and prefers to watch and wait. ?? B. Ink Spot Lentigo C. Seborrheic Keratoses D. Lentigines ?? E. H/O BCC - NER; will continue to monitor. F. Seborrheic Dermatitis - Discussed etiology and therapeutic options. - Recommended using OTC anti-dandruff shampoo if desired several times weekly. Advised lathering it on and letting it sit for 5 minutes before rinsing. Follow Up: RTC in 1 year for: [x] FSE [] Follow up [] Note routed to unit secretary to schedule [x] Recall placed in scheduling system [] Appointment scheduled before exiting Note initiated by: Maggi Wellington I am documenting this encounter acting as the scribe for and in the presence of Dr. Fregoso: Yulisa MITTAL I performed the above scribed service and agree with the accuracy of the documentation in this encounter. Shakira Fregoso MD Department of Dermatology [facility] cc: Marilyn Kidd MD documented in this encounter Plan of Treatment Upcoming Encounters Date Type Specialty Care Team Description 02/27/2022 Appointment Radiology Marilyn Kidd MD [address] [place], [place] [address] (Wo rk) documented as of this encounter Visit Diagnoses Diagnosis Lentigines Other dyschromia History of basal cell carcinoma (BCC) Seborrheic dermatitis Seborrheic dermatitis, unspecified Seborrheic keratoses Actinic keratoses Actinic keratosis Ink spot lentigo documented in this encounter Care Teams Lacquer Spray Booth Operator Relationship Specialty Start Date End Date Marilyn Kidd MD PCP - General 06/17/[address] [place], [place] [address] documented as of this encounter
--- OUTSIDE RECORDS SUMMARY | 2022-02-09 02:19 | XMS_ITS | Encounter Summary ---
:1945 Author Organization [facility] [place] [address] Care Team Providers Name Role Phone Marilyn Kidd MD Primary Care Provider Reason for Visit Reason Comments Established f/u Encounter Details Date Type Department Care Team Description 11/22/2020 Office Visit Gynecology Oncology Placido Whipple an carcinosarcoma at [facility] MD Jr [facility] [address] [place] GYNECOLOGIC [address] ONCOLOGY [phone] [place], [place] [address] Social History Tobacco Use Types [...] on file documented as of this encounter Last Filed Vital Signs Vital Sign Reading Time Taken Comments Blood Pressure 138/56 11/22/2020 11:37 AM EDT Pulse 60 11/22/2020 11:37 AM EDT Temperature 36.6 ??C (97.9 ??F) 11/22/2020 11:37 AM EDT Respiratory Rate 16 11/22/2020 11:37 AM EDT Oxygen Saturation 100% 11/22/2020 11:37 AM EDT Inhaled Oxygen Concentration - - Weight 64.5 kg (142 lb 1.6 oz) 11/22/2020 11:37 AM EDT Height 162.6 cm (5' 4) 11/22/2020 11:37 AM EDT Body Mass Index 24.39 11/22/2020 11:37 AM EDT documented in this encounter Progress Notes Jr Whipple MD - 11/22/2020 11:40 AM EDT Division [place] [address] Follow up Visit: Patient Active Problem List Diagnosis Code ??? 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 CA-125 304 05/06/15- Debulking to no gross residual of IIIC ovarian carcinosarcoma 06/03/15- IP port placed following MD Esequiel consult 06/06/15- 07/2015: 3 cycyles of IV/IP chemo switch to IV chemo 2/2 toxicity 08/09/15-09/2015 IV carbo AUC 5 and taxol 175mg/m2, completed 3 cycels then switched to IV for increasing creatinine, fatigue, and electrolyte abnormalities 11/01/15- completion CT with no evidence of disease 02/2016- Small bowel obstruction 2/2 hernia. Repaired at OSH with small bowel resection Subjective: Neisha White comes to the office today for worsening shortness of breath. 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 She continues to feel well overall, but has gradually worsening shortness of breath. She hasnoticed that she now becomes short of breath with less exertion now than she did a year ago. No chest pain. She occasionally has coughing fits, which is new for her, but these are generally rare. She has also noted increasing fatigue with feeling like she needs frequent naps. She has been moving her bowels regularly. She does have periodic abdominal cramping pain that lasts for ~6hrs that she relates to intermittent bowel obstructions. Review of Systems All other systems reviewed and are negative. Objective: Vitals: 11/22/20 1137 BP: 138/56 Patient Position: Sitting Pulse: 60 Resp: 16 Temp: 36.6 ??C (97.9 ??F) TempSrc: Temporal SpO2: 100% Weight: 64.5 kg (142 lb 1.6 oz) Height: 162.6 cm (5' 4) Body mass index is 24.39 kg/m??. Body surface area is 1.71 meters squared. Physical Exam Constitutional: She is oriented to person, place, and time. She appears well- developed and well-nourished. Cardiovascular: Normal rate, regular rhythm, normal heart sounds and intact distal pulses. Exam reveals no gallop and no friction rub. No murmur heard. Pulmonary/Chest: Effort normal and breath sounds normal. No respiratory distress. She has no wheezes. She has no rales. She exhibits no tenderness. Abdominal: Soft. She exhibits no distension and no mass. There is no abdominal tenderness. There is no rebound and no guarding. Palpable 2cm hernia just inferior to her umbilicus under her prior incision Genitourinary: Genitourinary Comments: declined Musculoskeletal: General: No tenderness, deformity or edema. Neurological: She is alert and oriented to person, place, and time. GOG performance status= 0 Assessment and Plan: Neisha White is a 75 y.o. year old with stage IIIC ovarian carcinosarcoma who is here today with worsening shortness of breath and fatigue. Plan for a CT scan to assess for any disease progression. If this is negative she will seek a work up for SOB. JR WHIPPLE MD documented in this encounter Plan of Treatment Upcoming Encounters Date Type Specialty Care Team Description 02/27/2022 Appointment Radiology Marilyn Kdid MD [address] [place] [address] (Wo rk) documented as of this encounter Visit Diagnoses Diagnosis Ovarian carcinosarcoma Malignant neoplasm of ovary documented in this encounter Care Teams Corporate Director Relationship Specialty Start Date End Date Marilyn Kidd MD PCP - General 06/17/10 [address] [place] [address] documented as of this encounter
--- OUTSIDE RECORDS SUMMARY | 2022-02-09 02:19 | XMS_ITS | Encounter Summary ---
:1945 Author Organization [facility] [place] [address] Care Team Providers Name Role Phone Marilyn Kidd MD Primary Care Provider Encounter Details Date Type Department Care Team Description 05/27/2020 Telephone [place]ology [place] [facility] [place] [address] Social History Tobacco Use Types Packs/Day [...] this encounter Miscellaneous Notes Telephone Encounter - Jac Collins - 05/27/2020 4:31 PM EST Placed outgoing phone call to patient in order to schedule a procedure. Phone Call Outcome: Left voicemail asking for return call. This was the 2nd attempt documented in this encounter Plan of Treatment Upcoming Encounters Date Type Specialty Care Team Description 02/27/2022 Appointment Radiology Marilyn Kidd MD [address] [place], [place] [phone] (Wo rk) documented as of this encounter Visit Diagnoses Not on filedocumented in this encounter Care Teams Multiple Drum Sander Relationship Specialty Start Date End Date Marilyn Kidd MD PCP - General 06/17/[address] [place], [place] [id number] documented as of this encounter
--- OUTSIDE RECORDS SUMMARY | 2022-02-09 02:19 | XMS_ITS | Encounter Summary ---
:1945 Author Organization [facility] [place] [address] Care Team Providers Name Role Phone Marilyn Kidd MD Primary Care Provider Encounter Details Date Type Department Care Team Description 05/14/2020 Telephone Gastroenterology at [facility] [place] [address] Social History Tobacco Use Types Packs/Day [...] Notes Telephone Encounter - Jac Collins - 05/14/2020 4:30 PM EDT Placed outgoing phone call to patient in order to schedule a procedure. Phone Call Outcome: Left voicemail asking for return call. This was the 1st attempt documented in this encounter Plan of Treatment Upcoming Encounters Date Type Specialty Care Team Description 02/27/2022 Appointment Radiology Marilyn Kidd MD [address] [place], [place] [id number] (Wo rk) documented as of this encounter Visit Diagnoses Not on filedocumented in this encounter Care Teams Oil [employer] Principal Relationship Specialty Start Date End Date Marilyn Kidd MD PCP - General 06/17/[address] [place] [address] documented as of this encounter
--- OUTSIDE RECORDS SUMMARY | 2022-02-09 02:19 | XMS_ITS | Clinical Summary ---
:1945 Author Organization [facility] [place] [address] Care Team Providers Name Role Phone Marilyn Kidd MD Primary Care Provider Allergies Active Allergy Reactions Severity Noted Date Comments Transparent Dressings 06/07/2015 Rednes s noted around skin from initial dressin g. Medications Medication Sig Dispensed Refills Start Date End Date Status Coenzyme F48-[id number] E Take 1 capsule by 0 3 Active 50-5 mg-unit Capsule mouth daily. polyethylene glycol Take 17 g by 0 Active (MIRALAX) 17 gram mouth as needed. Powder in Packet Red Yeast Rice Extract Take 1 capsule by 0 Active 600 mg Capsule mouth daily. TURMERIC (CURCUMIN by 0 A ctive MISC) Misc.(Non-Drug; Combo Route) route daily. melatonin 5 mg Tablet Take 4 tablets by 0 Active mouth nightly. COLOSTRUM/SE/GR Take 2 Cans by 0 Active TEA/MUSH CMB1 mouth daily. (VPAMWHKUC-HT-USRSK-MUS HROOMB ORAL) fish oil-omega-3 fatty Take 1 g by mouth 0 Active acids 1,000 mg Capsule daily. cholecalciferol, Take by mouth 0 Active Vitamin D3, (VITAMIN daily. D-3) 2,000 unit Tablet magnesium hydroxide Take 500 mg by 0 Active (MAGNESIA ORAL) mouth daily. Calcium-Magnesium Take 1 tablet by 0 04/04/2019 Active 300-300 mg Tablet mouth. bisacodyl EC (Dulcolax, Take by mouth. 0 06/29/2019 Active bisacodyl,) 5 mg Tablet, Delayed Release (E.C.) chromium/herbal complex Take by mouth. 0 03/18/2017 Active no.238 (CHROMIUM-HERB NO.238 ORAL) Active Problems Problem Noted Date Ovarian carcinosarcoma 06/13/2015 Overview: 05/02/15- seen in office for palpable abd ominal mass concerning for malignancy on CT. CA-125 304 05/06/15- Debulking to no gross residual of IIIC ovarian carcinosarcoma 06/03/15- IP port placed following MD And erson consult 06/06/15- 07/2015: 3 cycyles of IV/IP lucho mo switch to IV chemo 2/2 toxicity 08/09/15-09/2015 IV carbo AUC 5 and taxol 175mg/m2, completed 3 cycels then switched to IV for increasing creatinine, fatigue, and electrolyte abnormalities Resolved Problems Problem Noted Date Resolved Date Ovarian carcinosarcoma 06/13/2015 08/30/2015 Epithelial ovarian cancer, FIGO stage IIIC 06/05/2015 06/13/2015 Pelvic mass 05/02/2015 09/20/2015 Encounters Date Type Specialty Care Team Description 12/02/2021 Telephone Gynecology Oncology Ursula Payne, EVER 11/28/2021 Laboratory Lab Ovarian carcino sarcoma Appointment 11/28/2021 Hospital Encounter Radiology Horton-Rya Malignan t neoplasm of nGenie MD ovary, unspecif ied laterality 11/24/2021 Orders Only Gynecology Oncology Kerry, Ovarian carcinosarcoma Ursula, EVER from Last 3 Months Immunizations Name Administration Dates Next Due Influenza Vaccine PF, Quadrivalent 05/27/2020, 06/14/2019, 1 08/21/2017, 05/11/2017, 04/23/2016, 04/26/2015 Influenza Vaccine, Unspecified 05/02/2015 Formulation Pneumococcal Polyvalent 23 01/22/2014 Td Vaccine, Absorbed, PF, Adult 04/04/2018, 11/28/2007 Tdap Vaccine 11/28/2007 Zoster Vaccine, Live 07/05/2020 Zoster, Recombinant 04/18/2020 Family History Medical History Relation Comments Melanoma Brother Breast Cancer Maternal Aunt 1 Breast Cancer Maternal Aunt 2 Skin Cancer Maternal Aunt 3 Cancer Maternal Aunt 4 Mesothelioma Breast Cancer Maternal Cousin 1 Cervical Cancer Maternal Cousin 1 Lymphoma Maternal Cousin 1 Breast Cancer Maternal Cousin 2 Skin Cancer Maternal Cousin 3 Cancer Maternal Cousin 4 Eye cancer Breast Cancer Mother Relation Status Comments Brother Alive Father Alive Maternal Aunt 1 Maternal Aunt 2 Maternal Aunt 3 Maternal Aunt 4 Maternal Cousin 1 Maternal Cousin 2 Maternal Cousin 3 Maternal Cousin 4 Maternal Grandfather Maternal Grandmother Mother Paternal Grandfather Paternal Grandmother Social History Tobacco Use Types Packs/Day Years [...] Assigned at Date Recorded Not on file Last Filed Vital Signs Vital Sign Reading [...] Mass Index 24.39 11/22/2020 11:37 AM EDT Plan of Treatment Upcoming Encounters Date Type Specialty Care Team Description 02/27/2022 Appointment Radiology Marilyn Kidd MD [address] [place] [address] (Wo rk) Health Maintenance Due Date Last Done Comments Covid-19 Vaccine (#1) 1952 Hepatitis C Screening 1965 Breast Cancer Share Decision 1987 Needed Colonoscopy 1992 Bone Density Scan 2012 Pneumoccocal Vaccine: 65+ (2 - 01/22/2015 01/22/2014 PCV) Zoster vaccine (2 of 2) 08/30/2020 07/05/2020, 04/18/2020 Influenza (Flu) vaccine (1 of 1 - 03/26/2022 05/27/2020, , Influenza standard series) 06/21/2018, Additiona l history exists Breast Cancer screening 10/17/2022 10/17/2020, 08/10/2018, 08/09/2017, Additional history exists Tetanus vaccine 04/04/2028 04/04/2018, 11/28/2007, 11/28/2007 Tdap adult Completed 11/28/2007 Medical Devices Implanted Type Area Crisis Mental Health Therapist Device Shelf Model / Identifier Expiration Serial / Date Lot Port,Ifsn,Mri,Plst,1 Lmn,9.6fr ([id number]) - [id number] Bard Access 08/26/2019 [id number] / Implanted: Qty: 1 on 06/03/2015 by Genie Garcia MD at [facility] Systems - 12 / Explanted Type Area Crisis Mental Health Therapist Device Shelf Model / Identifier Expiration Serial / Date Lot Port,Ct,Low Profile,Vaccess ([id number])-06/03/2015 IMPLANTS Left: Bard Access 03/24/2017 / Implanted: Qty: 1 on 06/03/2015 by Kevan Carrasco APRN [employer] - 611 / Explanted: Qty: 1 on 02/04/2018 by Jung Rogers, ARIEL [id number] Description: left IJ Vaccess low profile 6f power injectable Procedures Procedure Name Priority Date/Time Associated Diagnosis Comme nts ORDS - PROVIDER 01/21/2022 12:00 CARE SCAN AM EDT CT CHEST ABDOMEN Routine 11/28/2021 6:31 PM Malignant neoplasm of Results for this PELVIS W CONTRAST EDT ovary, unspecified proc edure are in (GENERIC) laterality the results section. HC CREATININE STAT 11/28/2021 4:23 PM Ovarian carcinosarcom a Results for this EDT procedure are i n the results section. HC UREA NITROGEN, STAT 11/28/2021 4:23 PM Ovarian carcinosa rcoma Results for this SERUM EDT procedure are i n the results section. from Last 3 Months Results SCAN DOC: ORDS - PROVIDER CARE (01/21/2022 12:00 AM EDT) Narrative This result has an attachment that is no t available. Unknown MEDIA MGR SCAN EXT ORDR/RSLT CT Chest Abdomen Pelvis w Contrast (Generic) [...] who have questions please contact the health career development engineer that requested your imaging first. ? Narrative 12/01/2021 9:12 AM EDT EXAMINATION: CT [...] ho have questions please contact the health career development engineer that requested your imaging first. Genie Garcia MD IMG CT ORDERABLES (ABNORMAL) Creatinine (11/28/2021 4:23 PM EDT) Analysis Performed At Patho logist Time Signature Creatinine 1.26 (H) 0.70 - [place] KO 1.20 mg/dL [facility] Estimated GFR 42 (L) >=60 [facility] mL/min/1.7 [facility] 3 [facility] LABORATORY Comment: This patient? s estimated glomerular [...] Organization Address City/State/[place] [address] (ABNORMAL) BUN (11/28/2021 4:23 PM EDT) athologist Signature BUN 21 (H) 8 - 18 [place] KO mg/dL [facility] Specimen Anatomical Collection Method Collection Time Receive d Time (Source) Location / / Volume Laterality Blood 11/28/2021 4:23 PM 2 4:46 EDT PM EDT Resulting Agency Comment Spec In Lab Genie Garcia MD CHEMISTRY ORDERABLES Performing Organization Address City/State/ZIP [place] [address] from Last 3 Months Insurance Payer Benefit Plan / Subscriber ID Effective Phone Address T ype Group Dates MEDICARE MEDICARE PART A [id number] 2012-Prese [phone] [facility] [place] [id number] AARP SUPPLEMENT AARP SUPPLEMENT [id number] 2012-[place]se [address] [place] [address] (Home) [place] [address] Advance Directives Documents on File Type Date Recorded Patient Machine Adjuster Leader Explanati on Advance Directives and Living 05/06/2015 2:14 PM Will Latest Code Status on File Code Status Date Activated Date Inactivated Comments Full Code 02/04/2018 12:46 PM 02/05/2018 4:40 AM Does patient have capacity to make decision: Yes Full Code 06/03/2015 10:17 AM 06/04/2015 4:38 AM Does patient have capacity to make decision: Yes Full Code 06/03/2015 7:23 AM 06/03/2015 10:17 AM Does patient have capacity to make decision: Yes Full Code 05/06/2015 6:05 PM 05/12/2015 12:50 PM Does patient have capacity to make decision: Yes Care Teams Administrative Coordinator Relationship Specialty Start Date End Date Marilyn Kidd MD PCP - General 06/17/[address] [place] [address]
--- OUTSIDE RECORDS SUMMARY | 2022-02-09 02:20 | XMS_ITS | Encounter Summary ---
:1945 Author Organization [facility] [place] [address] Care Team Providers Name Role Phone Marilyn Kidd MD Primary Care Provider Reason for Visit Reason Comments Dermatitis Encounter Details Date Type Department Care Team Description 08/09/2017 [facility] dermat[facility] [address] [place] [address] [facility] [place], [place] [address] (Wo rk) Social History Tobacco Use Types [...] on file documented as of this encounter Patient Instructions Patient InstructionsGayle Concepcion LPN - 08/09/2017 3:20 PM EST Sensitive Skin Care You have been diagnosed with a condition that requires a sensitive skin care regimen. It is very important to follow this plan as outlined below. ?? Discontinue ALL current personal care products. This includes soap, body wash, shampoo and conditioner, fragrance, nail frisian, lotions and creams, laundry soap and fabric softener. ?? Take short, cool showers. Use soap only where absolutely needed. Pat skin dry. ?? Immediately after bathing, apply moisturizing cream to body and hands. ?? Use only the following personal care products. They are are recommended by our clinic because they have been extensively tested and are least likely to cause distress to your skin. ?? Soap: Dove Unscented Bar Soap or Vanicream bar soap ?? Moisturizer: CeraVe cream, CeraVe lotion, CeraVe lite lotion, Vanicream cream ?? Clothing detergent: All Free and Clear. Do not use dry sheets or fabric softener. Rx: Augmented betamethasone cream twice daily for flares x 3 - 4 days - may wear cotton gloves with cream at night documented in this encounter Progress Notes Debra Conway W - 08/09/2017 3:20 PM EST Images from the original note were not included. DERMATOLOGY - ESTABLISHED PATIENT FOLLOW-UP Date of service: 08/09/2017 Neisha White : 1945, 71 y.o. CC: hand dermatitis HPI: Neisha White is a 71 y.o. female last seen by Dr. Fregoso on 03/31/17. - she has had two flares of hand dermatitis, with the first being in April of 2017. The second occurred in recent weeks. It begins with itchy blisters which eventually break from scratching, dry up and peel. She has been treating with OTC Cortisone cream with minimal improvement. She uses multiple soaps for cleansing and does not moisturize after every hand washing. She has Cetaphil moisturizing cream which she uses on occasion. She denies any eczema or other skin diseases. No history of sensitive skin. She does ride a bike and kayak but not at this time of year. She does drive her Prius, uses two hands. She does swim in an indoor pool. No personal or family history of psoriasis. Relevant Skin History: Eczema Acne / rosacea Nodular BCC, left shoulder, recently bx by PCP(scan doc) ? Family History: Aunts and uncles -skin cancers Brother -melanoma? First cousin- melanoma Current Outpatient Prescriptions: ??? docusate sodium (COLACE) 100 mg Capsule, Take 100 mg by mouth 2 times daily., Disp: , Rfl: ??? fish oil-omega-3 fatty acids 1,000 mg Capsule, Take 1 g by mouth daily., Disp: , Rfl: ??? ergocalciferol (DRISDOL) 8,000 unit/mL Drops, Take 4,000 Units by mouth 2 times daily., Disp: , Rfl: ??? Red Yeast Rice Extract 600 mg Capsule, Take 1 capsule by mouth daily., Disp: , Rfl: ??? TURMERIC (CURCUMIN MISC), by Misc.(Non-Drug; Combo Route) route daily., Disp: , Rfl: ??? melatonin 5 mg Tablet, Take 4 tablets by mouth nightly., Disp: , Rfl: ??? COLOSTRUM/SE/GR TEA/MUSH CMB1 ([id number]-NO-RXBCU-MUSHROOMCMB ORAL), Take 2 Cans by mouth daily., Disp: , Rfl: ??? polyethylene glycol (MIRALAX) 17 gram Powder in Packet, Take 17 g by mouth as needed., Disp: , Rfl: ??? Coenzyme O16-Soxexce E 50-5 mg-unit Capsule, Take 1 capsule by mouth daily., Disp: , Rfl: Allergies Allergen Reactions ??? Tegaderm [Transparent Dressings] Redness noted around skin from initial dressing. Review of Systems: - General: Feels well. - Skin: No other skin concerns. Examination: - Constitutional: Patient was alert, well-appearing and in no noticeable distress. - Skin: an abbreviated exam of her hands was done. Diagnosis/Skin findings/Assessment/Plan: 1. Hand dermatitis, favor allergic contact dermatitis vs dyshidrotic eczema - [place] lichenified plaques on bilateral thenar eminences. No psoriasiform nail changes. - reviewed sensitive skin care: short luke-warm showers, minimal soap use, heavy daily moisturization with bland lotion, reviewed list of recommended skin products - patch testing is discussed as a potential testing tool in the future. - Rx: Augmented betamethasone cream twice daily for flares x 3 days - may wear cotton gloves with cream at night - keep a diary of flares and possible exposures RTC: 4 months, sooner as needed The following photos were obtained with patient consent: Note initiated by GAYLE CONCEPCION LPN. I am documenting this encounter acting as the scribe for and in the presence of Debra Conway MD I performed the above scribed service and agree with the accuracy of the documentation in this encounter. Reviewed and signed by Debra Conway MD Resident in Dermatology [facility] Patient seen and evaluated with staff hse advisor: Odalys Gomez MD Section of Dermatology [facility] Odalys Gomez MD - 08/09/2017 3:20 PM EST I directly supervised Dr. Debra Conway during this office visit. Dr. Conway presented the history and physical exam to me. I then saw and examined this patient with Dr. Conway. We reviewed the history and pertinent details and I confirmed the physical findings. I agree with the details of the history and physical exam as documented in Dr. Forte note. Odalys Gomez MD Staff Physician documented in this encounter Plan of Treatment Upcoming Encounters Date Type Specialty Care Team Description 02/27/2022 Appointment Radiology Marilyn Kidd MD [address] [place] [address] (Wo rk) documented as of this encounter Visit Diagnoses Diagnosis Hand dermatitis Contact dermatitis and other eczema, due to unspecified cause documented in this encounter Care Teams Teacher Education Director Relationship Specialty Start Date End Date Marilyn Kidd MD PCP - General 06/17/[address] [place] [address] documented as of this encounter
--- OUTSIDE RECORDS SUMMARY | 2022-02-09 02:20 | XMS_ITS | Encounter Summary ---
:1945 Author Organization [facility] Address [address] [place] [address] Care Team Providers Name Role Phone Marilyn Kidd MD Primary Care Provider Reason for Visit Reason Comments Follow-up Encounter Details Date Type Department Care Team Description 05/22/2016 Office Visit Gynecology Oncology Placido Whipple at [facility] [place] Jr carcinosarcoma, [facility] uns pecified laterality [address] [place] [address] ONCOLOGY [phone] [place], [place] [address] Social History Tobacco Use Types [...] Sign Reading Time Taken Comments Blood Pressure 115/51 05/22/2016 10:34 AM EDT Pulse 68 05/22/2016 10:34 AM EDT Temperature 36.6 ??C (97.9 ??F) 05/22/2016 10:34 AM EDT Respiratory Rate 18 05/22/2016 10:34 AM EDT Oxygen Saturation 99% 05/22/2016 10:34 AM EDT Inhaled Oxygen Concentration - - Weight 63.3 kg (139 lb 8.8 oz) 05/22/2016 10:34 AM EDT Height 164.4 cm (5' 4.72) 05/22/2016 10:34 AM EDT Body Mass Index 23.42 05/22/2016 10:34 AM EDT documented in this encounter Progress Notes Jr Whipple MD - 05/22/2016 10:30 AM EDT Division [place] [address] Follow up Visit: Patient Active Problem List [...] White comes to the office today for her surveillance exam 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 She has intermittent pain and discomfort related to eating. She continues to require stool softeners. She has had significant improvementin her GI symptoms from alternative therapies. ROS is otherwise negative. Review of Systems HENT: Negative. Eyes: Negative. Respiratory: Negative. Cardiovascular: Negative. Gastrointestinal: Negative. Endocrine: Negative. Genitourinary: Negative. Musculoskeletal: Negative. Skin: Negative. Allergic/Immunologic: Negative. Hematological: Negative. Psychiatric/Behavioral: Negative. Objective: Vitals: 05/22/16 1034 BP: 115/51 Patient Position: Sitting Pulse: 68 Resp: 18 Temp: 36.6 ??C (97.9 ??F) TempSrc: Oral SpO2: 99% Weight: 63.3 kg (139 lb 8.8 oz) Height: 164.4 cm (5' 4.72) Body mass index is 23.42 kg/(m^2). Body surface area is 1.7 meters squared. Physical Exam Constitutional: She is oriented to person, place, and time. She appears well- developed and well-nourished. Cardiovascular: Normal rate, regular rhythm, normal heart sounds and intact distal pulses. Pulmonary/Chest: Effort normal and breath sounds normal. No respiratory distress. She has no wheezes. She has no rales. Abdominal: Soft. Bowel sounds are normal. She exhibits no distension. There is no tenderness. There is no rebound and no guarding. Genitourinary: Genitourinary Comments: Normal external genitalia (labia majora and minora, vaginal introitus, urethral meatus). Atrophic vaginal mucosa. Vaginal cuff is well healed. No visible lesions or nodularity. On bimanual exam no palpable nodules or pelvic masses. On rectovaginal exam no palpable masses or nodularity. No thickening of the rectovaginal septum. Musculoskeletal: Normal range of motion. She exhibits no edema or tenderness. Neurological: She is alert and oriented to person, place, and time. GOG performance status= 0 Labs: Within normal limits CA 125 Date Value Ref Range Status 02/06/2016 17.7 <=35.0 unit/mL Final 11/01/2015 15.0 <=35.0 unit/mL Final Assessment and Plan: Neisha White is a 70 y.o. year old with stage IIIC ovarian carcinosarcoma who is here today [facility]. She is doing well. She has declined to get surveillance CA-125s. She would like to seeme in 4 months. LALIT on exam today. - RTC 4 mos - Refer to genetic counselor JR WHIPPLE MD documented in this encounter Plan of Treatment Upcoming Encounters Date Type Specialty Care Team Description 02/27/2022 Appointment Radiology Marilyn Kidd MD [address] [place] [address] (Wo rk) documented as of this encounter Visit Diagnoses Diagnosis Ovarian carcinosarcoma, unspecified late rality documented in this encounter Care Teams Farm Mechanic Relationship Specialty Start Date End Date Marilyn Kidd MD PCP - General 06/17/[address] [place], [place] [id number] documented as of this encounter
--- OUTSIDE RECORDS SUMMARY | 2022-02-09 02:20 | XMS_ITS | Encounter Summary ---
:1945 Author Organization [facility] Address [address] [place] [address] Care Team Providers Name Role Phone Marilyn Kidd MD Primary Care Provider Reason for Visit Reason Comments Established p/chemo f/u with ctscan Encounter Details Date Type Department Care Team Description 11/01/2015 Office Visit Gynecology Oncology Placido Whipple [place] [facility] MD Jr carcinosarcoma, [facility] uns pecified laterality Drive [address] [place]YNECOLOGIC [address] ONCOLOGY [phone] [place], [place] [address] Social History Tobacco Use Types [...] Sign Reading Time Taken Comments Blood Pressure 124/68 11/01/2015 11:44 AM EDT Pulse 66 11/01/2015 11:44 AM EDT Temperature 36.8 ??C (98.2 ??F) 11/01/2015 11:44 AM EDT Respiratory Rate 18 11/01/2015 11:44 AM EDT Oxygen Saturation 98% 11/01/2015 11:44 AM EDT Inhaled Oxygen Concentration - - Weight 65.3 kg (143 lb 15.4 oz) 11/01/2015 11:44 AM EDT Height - - Body Mass Index 24.16 09/20/2015 9:00 AM EST documented in this encounter Progress Notes Jr Whipple MD - 11/04/2015 1:48 PM EDT Division of [place] [address] Follow up Visit: Patient Active Problem List Diagnosis Code ??? 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 She is doing well. She does have some neuropathy in her feet, but declines medications at this point. No nausea, early satiety, abdominal pain, vaginal bleeding, diarrhea or constipation. Review of Systems Constitutional: Positive for fatigue. HENT: Negative. Eyes: Negative. Respiratory: Negative. Cardiovascular: Negative. Gastrointestinal: Negative. Endocrine: Negative. Genitourinary: Negative. Musculoskeletal: Negative. Skin: Negative. Allergic/Immunologic: Negative. Neurological: Positive for numbness. Hematological: Negative. Psychiatric/Behavioral: Negative. Objective: Filed Vitals: 11/01/15 1144 BP: 124/68 Pulse: 66 Temp: 36.8 ??C (98.2 ??F) Resp: 18 Weight: 65.3 kg (143 lb 15.4 oz) SpO2: 98% Body mass index is 24.16 kg/(m^2). There is no height on file to calculate BSA. Physical Exam Constitutional: She is oriented to [...] is no rebound and no guarding. Genitourinary: Atrophic vaginal mucosa, no lesions within vagina or at vaginal apex. On bimanual exam there are no palpable masses. No thickening of the rectovaginal septum or nodularity felt on rectovaginal exam. Musculoskeletal: Normal range of motion. She exhibits no edema or tenderness. Neurological: She is alert and oriented to person, place, and time. GOG performance status= 0 Labs: Within normal limits CA 125 Date Value Ref Range Status 11/01/2015 15.0 <=35.0 unit/mL Final 09/18/2015 15* Final Assessment and Plan: Neisha White is a 70 y.o. year old with stage IIIC ovarian carcinosarcoma who is here today [facility]. She is doing well aside from some residual fatigue and neuropathy. CA-125 is wnl. We reviewed symptoms of recurrence and surveillance plan for q 3 month exam and CA-125 for 2 years then every 6 months for a total of 5 years. - RTC 3 mos for exam and CA-125 - will call if needs to be seen sooner JR WHIPPLE MD documented in this encounter Plan of Treatment Upcoming Encounters Date Type Specialty Care Team Description 02/27/2022 Appointment Radiology Marilyn Kidd MD [address] [facility] [place] [address] (Wo rk) documented as of this encounter Visit Diagnoses Diagnosis Ovarian carcinosarcoma, unspecified late rality documented in this encounter Care Teams Medical Doctor Relationship Specialty Start Date End Date Marilyn Kidd MD PCP - General 06/17/[address] [place] [address] documented as of this encounter
--- OUTSIDE RECORDS SUMMARY | 2022-02-09 02:20 | XMS_ITS | Encounter Summary ---
:1945 Author Organization [facility] [place] [address] Care Team Providers Name Role Phone Marilyn Kidd MD Primary Care Provider Encounter Details Date Type Department Care Team Description 12/03/2017 Orders Only Gynecology Oncology at [facility] Genie Garcia MD [facility] [place] [address] GYNECOLOGIC ONCOLOGY [phone] [place], [place] [address] (Wo rk) Social History Tobacco [...] MD [address] [place], [place] [address] (Wo rk) documented as of this encounter Visit Diagnoses Not on filedocumented in this encounter Care Teams Investor Relations Manager Relationship Specialty Start Date End Date Marilyn Kidd MD PCP - General 06/17/[address] [place] [address] documented as of this encounter
--- OUTSIDE RECORDS SUMMARY | 2022-02-09 02:20 | XMS_ITS | Encounter Summary ---
:1945 Author Organization [facility] [place] [address] Care Team Providers Name Role Phone Marilyn Kidd MD Primary Care Provider Reason for Referral Diagnostic Test (Routine) - Closed Specialty Diagnoses / Procedures Referred By Contact Refer red To Contact Radiology Diagnoses Malignant neoplasm of ovary, unspecified laterality Genie Garcia Mh Interventionl Rad Procedures [place] [address] [place] [address] Referral ID Status Reason Start Date Expiration Date Visits V isits Requested Authorized [id number] Closed Specialty 01/31/2018 01/31/2019 1 1 Service Requested Reason for Visit Diagnostic Test (Routine) - Closed Specialty Diagnoses / Procedures Referred By Contact Refer red To Contact Radiology Diagnoses Malignant neoplasm of ovary, unspecified laterality Genie Garcia Mh Interventionl Rad Procedures [place] [address] [place] [address] Referral ID Status Reason Start Date Expiration Date Visits V isits Requested Authorized [id number] Closed Specialty 01/31/2018 01/31/2019 1 1 Service Requested Encounter Details Date Type Department Care Team Description 02/04/2018 Hospital Encounter Radiology at [facility] [place] Radha, Pre-op testing; [facility] MD Genie Malignant neoplasm of ovary, unspecified laterality [address] [place], [place] [address] GYNECOLOGIC [phone] [place] [address] Social History Tobacco Use Types Packs/Day Years [...] Sign Reading Time Taken Comments Blood Pressure 127/48 02/04/2018 2:30 PM EDT Pulse 54 02/04/2018 1:00 PM EDT Temperature 36.4 ??C (97.6 ??F) 02/04/2018 2:30 PM EDT Respiratory Rate 16 02/04/2018 2:30 PM EDT Oxygen Saturation 96% 02/04/2018 2:30 PM EDT Inhaled Oxygen Concentration - - Weight - - Height - - Body Mass Index - - documented in this encounter Discharge Instructions Discharge InstructionsElia Rivero RN - 02/04/2018 2:36 PM EDT [facility] V[facility] and Interventional Radiology Discharge Instructions for your Chest Port Removal Activity: ??? Relax for the next 24 hours Diet: ??? Drink plenty of fluids. ??? Resume your regular diet Bandage: There is a sterile dressing consisting of small gauze with a clear dressing (Tegaderm or [id number]). This dressing should be left in place for 48 hours. If the clear dressing becomes loose you should place tape over the edges to secure it in place. No tub baths, swimming or whirlpools for 1 week. No showering for 48 hours. Note: If you have steri-strips beneath your dressing, simply allow them to fall off. Do not peel them off. There may be [place]-castaneda (skin glue) also, allow this to flake off. Do not pick this off. Bathing: Do not take a shower until 48 hours after your port is removed; after this time you may shower with the dressing in place, then remove it and pat your skin dry. After 48 hours, we recommend that you cover the area with THE AQUA GUARD PROVIDED for 1 week while showering, facing away from the shower stream. You may use a bandaid to cover the site after the 48 hours are up if there is any drainage. No tub baths, whirlpools or swimming for one week following port removal. Pain: Apply ice bag to site (s) at 30 minute intervals (30 minutes on and 30 minutes off) for 24 hours?? . May use as needed for pain and/or bruising after 24 hours. When to call your healthcare provider: ??? If you notice bleeding from the incision on your chest, you should lie flat and apply firm pressure over the site for 10-15 minutes, keeping the site covered and call your doctor. If you are still bleeding after 10-15 minutes, reapply pressure, and have someone drive you to the nearest Emergency De partment, or call 911. ??? If you develop pain, redness, drainage or swelling at or around chest incision site. ??? If you develop a fever equal to or greater than 101 degrees Fahrenheit. When to call the Interventional Radiology Department: Please call with any questions or concerns. Ifit is during regular office hours, please call [phone]. If it is after regular office hours, oron weekends or holidays, please call [phone] and ask to speak to the Hand Sign Writer on callfor Interventional Radiology. You have received medication during your procedure to help lessen anxiety and keep you comfortable.These medications affect judgement and reaction time. We recommend that you do not drive, operate equipment, sign any important documents, or smoke unattended for 24 hours following your procedure. Because of the sedation, be careful on stairs, as you may be unsteady on your feet. You may resume your regular diet as tolerated. Revised 08/09/15 documented in this encounter Medications at Time of Discharge Medication Sig Dispensed Refills Start Date End Date chromium/herbal complex Take by mouth. 0 03/18/20 17 no.238 (CHROMIUM-HERB NO.238 ORAL) fish oil-omega-3 fatty Take 1 g by mouth 0 acids 1,000 mg Capsule daily. Red Yeast Rice Extract 600 Take 1 capsule by 0 mg Capsule mouth daily. TURMERIC (CURCUMIN MISC) by Misc.(Non-Drug; 0 Combo Route) route daily. melatonin 5 mg Tablet Take 4 tablets by 0 mouth nightly. COLOSTRUM/SE/GR TEA/MUSH Take 2 Cans by mouth 0 CMB1 daily. (DVZRNYWVM-AM-UCXVT-MUSHRO OMCMB ORAL) polyethylene glycol Take 17 g by mouth as 0 (MIRALAX) 17 gram Powder needed. in Packet Coenzyme T72-Qvqanre E Take 1 capsule by 0 2012 50-5 mg-unit Capsule mouth daily. documented as of this encounter Progress Notes Nazario Smith RN - 02/04/2018 2:06 PM EDT PT SUPINE FOR PORT REMOVAL WITH NO SEDAITON. NO ISSUES. Nazario Smith RN - 02/01/2018 9:29 AM EDT [facility] NURSING DATABASE Name: NEISHA WHITE Date of : 1945 AGE 72 y.o. Address: [address] [place] [phone] (home) Mobile: Telephone Information: Referring Provider: Genie Garcia REASON FOR VISIT: Order Questions Answers Where will study be performed? [facility] [120] Reason for exam and clinical history: pt request Exam/Procedure requested: mediport removal Is the patient on anticoagulant / anitplatelet therapy ? No Date/time of procedure: Pertinent info from Pre-call (if any): Labs ordered: Med's stopped: COPY/PASTE Procedure Plan from provider's note, bottom of MD workup Allergies Allergen Reactions ??? Tegaderm [Transparent Dressings] Redness noted around skin from initial dressing. Pertinent PMH: Patient Active Problem List Diagnosis Code ??? 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 BREAST BIOPSY Right 09/2004 FCD ??? HYSTERECTOMY ??? OVARY REMOVAL ??? PRO AMANDA SALP-OOPH W/OMENTECT, [place], RAD DISSECT N/A 05/06/2015 @HYSTERECTOMY, [place]AR[place], BSO, DEBULKING performed by Genie Garcia MD at [facility] OR ??? PRO INSERTION TUNNEL INTRAPERITONEAL CATH W SUBQ PORT N/A 06/03/2015 INTRAPERITONEAL CATHETER INSERTION W\SUB-Q PORT performed by Genie Garcia MD at [facility] MAIN OR ??? PRO RELEASE URETER, RETROPER FIBROSIS Left 05/06/2015 @URETEROLYSIS WITH OR WITHOUT REPOSITIONING OF URETER FOR RETROPERITONEAL FIBROSIS performed by Genie Garcia MD at [facility] MAIN OR ??? PRO REMOVAL OF OMENTUM N/A 05/06/2015 @OMENECTOMY performed by Genie Garcia MD at [facility] OR ? ? PRO UNLISTED PX ABD PRTM&OMENTUM N/A 05/06/2015 LAPAROTOMY, EXCISION LESION, PERITONEUM performed by Genie Garcia MD at [facility] OR Date/Procedure Med's given/comments 06/03/15 Single lumen mediport placement LOT#:[id number] Local lidocaine only, per pt's request. Pt received 2g Ancef IV for procedure just BUSINESS ASSISTANT to angio dept. Tolerated well. 02/04/18 PORT REMOVAL NO ISSUES ??2 GRAMS ANCEF NO SEDATION PER PT REQUEST ? Laboratory Results: Lab Results Component Value Date CREATININE 1.14 (EXTERNAL/ABN) 09/18/2015 Lab Results Component Value Date K 3.9 (External Lab) 09/18/2015 Lab Results Component Value Date PLATELET 212 (External Lab) 09/18/2015 Medications: Prior to Admission medications Medication Sig Start Date End Date Taking? Authorizing Provider fish oil-omega-3 fatty acids 1,000 mg Capsule Take 1 g by mouth daily. PROVIDER, HISTORICAL Red Yeast Rice Extract 600 mg Capsule Take 1 capsule by mouth daily. PROVIDER, HISTORICAL TURMERIC (CURCUMIN MISC) by Misc.(Non-Drug; Combo Route) route daily. PROVIDER, HISTORICAL melatonin 5 mg Tablet Take 4 tablets by mouth nightly. PROVIDER, HISTORICAL COLOSTRUM/SE/GR TEA/MUSH CMB1 (WIHLHCYNY-JX-SGYZM-MUSHROOMCMB ORAL) Take 2 Cans by mouth daily. PROVIDER, HISTORICAL polyethylene glycol (MIRALAX) 17 gram Powder in Packet Take 17 g by mouth as needed. PROVIDER, HISTORICAL Coenzyme Z84-Hcgkpfa E 50-5 mg-unit Capsule Take 1 capsule by mouth daily. 12/07/12 PROVIDER, HISTORICAL documented in this encounter H&P Notes Jung Rogers APRN - 02/01/2018 12:44 PM EDT Images from the original note were not included. INTERVENTIONAL RADIOLOGY FOCUSED H&P and PRE-PROCEDURE NOTE: PCP: Marilyn Kidd MD Referring Provider: Genie Garcia Planned Procedure: Mediport removal Procedure Indication: Patient request Presenting Diagnosis/ Complaint: Neisha White is a 72 y.o. female with a PMHx significant for stage IIIc ovarian carcinosarcoma s/p debulking, 3 cycles of IV/IP chemo and 3 cycles IV chemo. The patient has requested removal of the Mediport and has elected not to pursue additional imaging or laboratory f/u with FISCAL ANALYST Onc at this time. Note: Tegaderm allergy Past Medical/Surgical History: Patient Active Problem List Diagnosis Code ??? 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 Ovarian cancer 2014 chemo/[place] Past Surgical History: Procedure Laterality Date ??? BREAST BIOPSY Right 09/2004 FCD ??? HYSTERECTOMY ??? OVARY REMOVAL ??? PRO AMANDA SALP-OOPH W/OMENTECT, [place], RAD DISSECT N/A 05/06/2015 @HYSTERECTOMY, [place], BSO, DEBULKING performed by Genie Garcia MD at [facility] MAIN OR ??? PRO INSERTION TUNNEL INTRAPERITONEAL CATH W SUBQ PORT N/A 06/03/2015 INTRAPERITONEAL CATHETER INSERTION W\SUB-Q PORT performed by Genie Garcia MD at [facility] MAIN OR ??? PRO RELEASE URETER, RETROPER FIBROSIS Left 05/06/2015 @URETEROLYSIS WITH OR WITHOUT REPOSITIONING OF URETER FOR RETROPERITONEAL FIBROSIS performed by Genie Garcia MD at [facility] MAIN OR ??? PRO REMOVAL OF OMENTUM N/A 05/06/2015 @OMENECTOMY performed by Genie Garcia MD at [facility] MAIN OR ? ? PRO UNLISTED PX ABD PRTM&OMENTUM N/A 05/06/2015 LAPAROTOMY, EXCISION LESION, PERITONEUM performed by Genie Garcia MD at [facility] MAIN OR Medications: Current Outpatient Prescriptions on File Prior to Encounter Medication Sig Dispense Refill ??? fish oil-omega-3 fatty acids 1,000 mg Capsule Take 1 g by mouth daily. ??? Red Yeast Rice Extract 600 mg Capsule Take 1 capsule by mouth daily. ??? TURMERIC (CURCUMIN MISC) by Misc.(Non-Drug; Combo Route) route daily. ??? melatonin 5 mg Tablet Take 4 tablets by mouth nightly. ??? COLOSTRUM/SE/GR TEA/MUSH CMB1 (CLCYGQMOI-BO-GOUXN-MUSHROOMCMB ORAL) Take 2 Cans by mouth daily. ??? polyethylene glycol (MIRALAX) 17 gram Powder in Packet Take 17 g by mouth as needed. ??? Coenzyme R88-Nilspmp E 50-5 mg-unit Capsule Take 1 capsule by mouth daily. No current facility-administered medications on file prior to encounter. Allergies: Tegaderm [transparent dressings] Social History and Habits: Social History Social History ??? Marital status: Single Spouse name: N/A ??? Number of children: N/A ??? Years of education: N/A Occupational History ??? Not on file. Social History Main Topics ??? Smoking status: Former Smoker Packs/day: 0.50 Years: 12.00 Types: Cigarettes Quit date: 08/02/1979 ??? Smokeless tobacco: Never Used ??? Alcohol use No Comment: rare ??? Drug use: No ??? Sexual activity: Not on file Other Topics Concern ??? Not on file Social History Narrative Significant Family History: Family History Problem Relation Age of Onset ??? Breast Cancer Mother 60 ??? Breast Cancer Maternal Aunt 50 ??? Breast Cancer Maternal Aunt 50 ??? Melanoma Brother 60 ??? Skin Cancer Maternal Aunt ??? Cancer Maternal Aunt 88 Mesothelioma ??? Cervical Cancer Maternal Cousin 30 ??? Lymphoma Maternal Cousin 40 ??? Breast Cancer Maternal Cousin 60 ??? Breast Cancer Maternal Cousin 50 ??? Skin Cancer Maternal Cousin ??? Cancer Maternal Cousin 30 Eye cancer Pertinent ROS: as per HPI Labs: Lab Results Component Value Date WBC 3.52 (EXTERNAL/ABN) 09/18/2015 ANC 2310 (External Lab) 09/18/2015 HCT 30.2 (EXTERNAL/ABN) 09/18/2015 PLATELET 212 (External Lab) 09/18/2015 BUN 30 (EXTERNAL/ABN) 09/18/2015 CREATININE 1.14 (EXTERNAL/ABN) 09/18/2015 ALKPHOS 77 (External Lab) 09/18/2015 AST 19 (External Lab) 09/18/2015 ALBUMIN 3.5 (External Lab) 09/18/2015 BILIDIR 0.1 06/07/2015 BILITOT 0.29 (External Lab) 09/18/2015 ALT 36 (External Lab) 09/18/2015 PROT 6.5 (External Lab) 09/18/2015 Imaging: IR Mediport placement 06/03/15 Physical Exam: Pending (to be performed in angio the day of procedure) ASA: Pending (to be assessed in angio the day of procedure) Mallampati Class: Pending (to be assessed in angio the day of procedure) Assessment: 72 y.o. female who presents to IR for Mediport removal. Plan: Plan Planned procedure: Mediport removal Labs to be performed day of procedure: PLT Prophylactic antibiotic : Ancef Additional medications for procedure: Lidocaine (bupivacaine with epinephrine ) Planned access site: R chest wall Position: Supine Consent: Pending 02/01/2018 documented in this encounter Plan of Treatment Upcoming Encounters Date Type Specialty Care Team Description 02/27/2022 Appointment Radiology Marilyn Kidd MD [address] [address] (Wo rk) documented as of this encounter Procedures Procedure Name Priority Date/Time Associated Diagnosis Comme nts IR MEDIPORT REMOVAL Routine 02/04/2018 2:33 PM Malignant neopl asm Results for this EDT of ovary, procedure are i n unspecified the results laterality section. documented in this encounter Results IR Mediport Removal (02/04/2018 2:33 PM EDT) Anatomical Region Laterality Modality X-Ray Angiography Specimen (Source) Anatomical Location Collection Method / Collectio n Time Received Time / Laterality Volume Narrative 02/04/2018 5:08 PM EDT VASCULAR AND INTERVENTIONAL RADIOLOGY PROCEDURE NOTE Procedure: Removal of right chest port Indication for Procedure: Patient to dis continue therapy. ?? Consent: After discussing the risks (inc luding infection, hemorrhage, damage to surrounding structures) and be nefits, the patient consented to the procedure. Method of Sedation: None Technique: Prior to beginning the proced ure, a standard time out Moment of Truth was performed to confirm all k aspects (including the patient's identity, informed consent, wa dical record number, allergies, planned procedure and laterality if appr opriate) all of which were correct. The right chest over the port w as prepped sterile. Maximum sterile barrier technique was used throu gh out the procedure. The skin anesthetized with 1% lidocaine as well a s bupivacaine 0.25% with epinephrine. Blunt and sharp dissection used to remove, intact, the single lumen port. Removal of the port reservoi r, hub, and catheter from the patient were confirmed by their identifi cation outside the patient. The wound was copiously irrigated. The pocke t was closed using a two layer technique with absorbable suture materia l (2-0 vicryl deep interrupted and 4-0 vicryl running subcuticular). Skin c losed with indermil. Medications: Lidocaine 1% <10 mL SQ, BUp ivacaine-EPINEPHrine 0.25 %-1:200,000 ??< 20 mL SQ Antibiotic Prophylaxis: none EBL: <5 cc Complications: ??No immediate Impression: Successful removal of the multicare healtht chest port. ?? Sql Ssis Developer(s): Resident/Fellow: ??Lupe Associate Provider: Jung Rogers APRN Attending: Andrews Nation, Dr. Sparrow, was not present for th e procedure. Genie Garcia MD IMG IR ORDERABLES Platelet count (02/04/2018 11:54 AM EDT) P athologist Signature Platelets 206 145 - 357 ESTEVAN CONNELL x10(3)/[facility] LABORATORY Plat Immature 2.9 0.0 - 7.4 ESTEVAN CONNELL % % [facility] LABORATORY Comment: Limitation of the Immature Platelet Frac tion (IPF)-May be less reliable when the platelet count is less than 83p554/u L due to statistical imprecision. The IPF value provides an assessment of the Bone Marrow production status. ??It is useful in differentiating Thrombocyto penia caused by platelet destruction/consumption versus decreased production. It also helps to determine the imminent release of platelets and ca n be therefore a helpful parameter in Chemotherapy and Bone marrow transplant patients. ELEVATED IPF value: ?? When the bone marrow is in a state of over production such as when increased destruction and consumption are the unde rlying issue. ?? When the marrow is recovering post ch emotherapy or bone marrow transplant. LOW to NORMAL IPF value: ?? When the bone marrow in not respondin g and is in a decreased state of production. References: [employer] The Clinical Value of the Immature Platelet Fraction (IPF) in Cell Recovery Document Number 10-1143 12/2010 [employer] The Role of the Imm ature Platelet Fraction (IPF) in the Differential Diagnosis of Thrombocytopen ia, Document [id number] V012/04/13 P012/06 Specimen Anatomical Collection Method Collection Time Receive d Time (Source) Location / / Volume Laterality Blood specimen 02/04/2018 11:54 8 (specimen) AM EDT 12:16 PM EDT Resulting Agency Comment Spec In Lab Genie Garcia MD HEMATOLOGY ORDERABLES Performing Organization Address City/State/ZIP Code Phon e Number [facility] [place] [address] documented in this encounter Visit Diagnoses Diagnosis Pre-op testing Preoperative examination, unspecified Malignant neoplasm of ovary, unspecified laterality documented in this encounter Administered Medications Inactive Administered Medications - up to 3 most recent administrations Medication Order MAR Action Action Date Dose Rate Site ceFAZolin (ANCEF) 2g in New Bag 02/04/2018 1:00 PM EDT 2 g 200 mL/hr dextrose 5% 100 mL 2 g, Intravenous, ONCE, 1 dose, On Wed02/04/18 at 1300, Administer over 30 Minutes, Redose every 3 hours if CrCl is greater than 20. Redose every 8 hours if CrCl is less than 20., Day of Surgery (Day of Procedure), Indication for (Active or Suspected): Prophylaxis documented in this encounter Care Teams Lumber Carrier Relationship Specialty Start Date End Date Marilyn Kidd MD PCP - General 06/17/[address] [place] [address] documented as of this encounter
--- OUTSIDE RECORDS SUMMARY | 2022-02-09 02:20 | XMS_ITS | Encounter Summary ---
:1945 Author Organization [facility] [place] [address] Care Team Providers Name Role Phone Marilyn Kidd MD Primary Care Provider Reason for Visit Reason Comments Follow-up Encounter Details Date Type Department Care Team Description 09/25/2016 Office Visit Gynecology Oncology Placido Whipple at [facility] MD Jr carcinosarcoma, left [facility] [address] [place] GYNECOLOGIC [address] ONCOLOGY [phone] [place], [place] [address] Social History Tobacco Use Types [...] Sign Reading Time Taken Comments Blood Pressure 141/63 09/25/2016 11:04 AM EST Pulse 63 09/25/2016 11:04 AM EST Temperature - - Respiratory Rate 18 09/25/2016 11:04 AM EST Oxygen Saturation 97% 09/25/2016 11:04 AM EST Inhaled Oxygen Concentration - - Weight 64.1 kg (141 lb 5 oz) 09/25/2016 11:04 AM EST Height 164.4 cm (5' 4.72) 09/25/2016 11:04 AM EST Body Mass Index 23.72 09/25/2016 11:04 AM EST documented in this encounter Progress Notes Jr Whipple MD - 09/25/2016 11:00 AM EST Division [place] [address] Follow up Visit: Patient Active Problem List [...] and 3 cycles IV chemo. She is now1 year s/p completion of her treatment. 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 She has otherwise had an uneventful remission. She continues to feel well overall. She has regular bowel movements as long as she is careful with her diet. No chest/pain/shortness of breath. No nausea, emesis. Review of Systems HENT: Negative. Eyes: Negative. Respiratory: Negative. Cardiovascular: Negative. Gastrointestinal: Negative. Endocrine: Negative. Genitourinary: Negative. Musculoskeletal: Negative. Skin: Negative. Allergic/Immunologic: Negative. Hematological: Negative. Psychiatric/Behavioral: Negative. Objective: Vitals: 09/25/16 1104 BP: 141/63 Pulse: 63 Resp: 18 SpO2: 97% Weight: 64.1 kg (141 lb 5 oz) Height: 164.4 cm (5' 4.72) Body mass index is 23.72 kg/(m^2). Body surface area is 1.71 meters squared. [...] distension and no mass. There is no tenderness. There is no reboundand no guarding. Genitourinary: Genitourinary Comments: Normal external genitalia (labia majora and minora, vaginal introitus, urethral meatus). Atrophic vaginal mucosa. Vaginal cuff is well healed. No visible lesions or nodularity. On bimanual exam no palpable nodules or pelvic masses. On rectovaginal exam no palpable masses or nodularity. No thickening of the rectovaginal septum. Neurological: She is alert and oriented to person, place, and time. GOG performance status= 0 Assessment and Plan: Neisha White is a 71 y.o. year old with stage IIIC ovarian carcinosarcoma who is here today [facility]. She is doing well. She has declined to get surveillance CA-125s. At this point she will plan to call with issues and does not feel that she would like to get surveillance exams. - Will call the office if she experiences symptoms of recurrence. JR WHIPPLE MD documented in this encounter Plan of Treatment Upcoming Encounters Date Type Specialty Care Team Description 02/27/2022 Appointment Radiology Marilyn Kidd MD [address] [place] [address] (Wo rk) documented as of this encounter Visit Diagnoses Diagnosis Ovarian carcinosarcoma, left documented in this encounter Care Teams Bobbin Stripper Relationship Specialty Start Date End Date Marilyn Kidd MD PCP - General 06/17/[address] [place], [place] [address]Y [facility] [address] [place] [address] documented as of this encounter
--- OUTSIDE RECORDS SUMMARY | 2022-02-09 02:20 | XMS_ITS | Encounter Summary ---
:1945 Author Organization [facility] [place] [address] Care Team Providers Name Role Phone Marilyn Kidd MD Primary Care Provider Encounter Details Date Type Department Care Team Description 10/18/2015 Orders Only [facility] MD Genie unspecified laterality [facility] [place] [address] GYNECOLOGIC [phone] ONCOLOGY [place] [id number] Social History Tobacco Use Types Packs/Day Years [...] MD [address] [place], [place] [id number] (Wo rk) documented as of this encounter Results Cancer Antigen 125 (11/01/2015 9:36 AM EDT) P athologist Signature CA 125 15.0 <=35.0 [facility] unit/mL [facility] Specimen Anatomical Collection Method Collection Time Receive d Time (Source) Location / / Volume Laterality Blood specimen 11/01/2015 9:36 AM 016 9:51 (specimen) EDT AM EDT Resulting Agency Comment Spec In Lab Genie Garcia MD CHEMISTRY ORDERABLES Performing Organization Address City/State/Z[place] [address] documented in this encounter Visit Diagnoses Diagnosis Ovarian CA, unspecified laterality documented in this encounter Care Teams Line Fisher Relationship Specialty Start Date End Date Marilyn Kidd MD PCP - General 06/17/[address] [place] [address] documented as of this encounter
--- OUTSIDE RECORDS SUMMARY | 2022-02-09 02:20 | XMS_ITS | Encounter Summary ---
:1945 Author Organization [facility] [place] [address] Care Team Providers Name Role Phone Marilyn Kidd MD Primary Care Provider Encounter Details Date Type Department Care Team Description 01/07/2017 Orders Only [facility] MD Genie unspecified laterality [facility] [address] [place] [address] GYNECOLOGIC [phone] ONCOLOGY [place] [phone] Social History Tobacco Use Types Packs/Day Years [...] MD [address], [place] [phone] (Wo rk) documented as of this encounter Results Cancer Antigen 125 (01/11/2017 11:28 AM EDT) P athologist Signature CA 125 15.3 <=38.1 [facility] unit/mL [facility] Comment: CA 125 Reference Interval ??Postmenopausal: 6.2 to 31.5 U/mL. ??Premenopausal: 6.9 to 45.9 U/mL. ??Pre and Postmenopausal subjects combi pippa: 6.4 to 38.1 U/mL. Specimen Anatomical Collection Method Collection Time Receive d Time (Source) Location / / Volume Laterality Blood specimen 01/11/2017 11:28 7 (specimen) AM EDT 11:41 AM EDT Resulting Agency Comment Spec In Lab Genie Garcia MD CHEMISTRY ORDERABLES Performing Organization Address City/State/ZIP Code Phon e Number [place] [phone] [address] documented in this encounter Visit Diagnoses Diagnosis Ovarian CA, unspecified laterality documented in this encounter Care Teams [employer] Counter Person Relationship Specialty Start Date End Date Marilyn Kidd MD PCP - General 06/17/[address] [place] [address] documented as of this encounter
--- OUTSIDE RECORDS SUMMARY | 2022-02-09 02:20 | XMS_ITS | Encounter Summary ---
:1945 Author Organization [facility] [place] [address] Care Team Providers Name Role Phone Marilyn Kidd MD Primary Care Provider Reason for Visit Reason Comments Established pain Encounter Details Date Type Department Care Team Description 11/24/2017 Office Visit Gynecology Oncology Ryan Whipple mixed at [facility] MD Jr Mullerian tumor of [facility] rig ht ovary Drive [address] [place] GYNECOLOGIC [address] ONCOLOGY [phone] [place], [place] [address] Social History Tobacco Use Types [...] Sign Reading Time Taken Comments Blood Pressure 120/61 11/24/2017 12:52 PM EDT Pulse 56 11/24/2017 12:52 PM EDT Temperature 37.2 ??C (98.9 ??F) 11/24/2017 12:52 PM EDT Respiratory Rate 14 11/24/2017 12:52 PM EDT Oxygen Saturation 100% 11/24/2017 12:52 PM EDT Inhaled Oxygen Concentration - - Weight 66.7 kg (147 lb 0.8 oz) 11/24/2017 12:52 PM EDT Height 164.4 cm (5' 4.72) 11/24/2017 12:52 PM EDT Body Mass Index 24.68 11/24/2017 12:52 PM EDT documented in this encounter Progress Notes Jr Whipple MD - 11/24/2017 1:00 PM EDT Division [place] [address] Follow up Visit: Patient Active Problem List [...] White comes to the office today for follow up 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 She continues to feel well overall, but has noticed more fatigue recently. She set up this appointment specifically for back pain, but that has resolved. No chest/pain/shortness of breath. No nausea, emesis. She is eating a regular diet and having regular BMs. Review of Systems HENT: Negative. Eyes: Negative. Respiratory: Negative. Cardiovascular: Negative. Gastrointestinal: Negative. Endocrine: Negative. Genitourinary: Negative. Musculoskeletal: Negative. Skin: Negative. Allergic/Immunologic: Negative. Hematological: Negative. Psychiatric/Behavioral: Negative. Objective: Vitals: 11/24/17 1252 BP: 120/61 Patient Position: Sitting Pulse: 56 Resp: 14 Temp: 37.2 ??C (98.9 ??F) SpO2: 100% Weight: 66.7 kg (147 lb 0.8 oz) Height: 164.4 cm (5' 4.72) Body mass index is 24.68 kg/(m^2). Body surface area is 1.75 meters squared. Physical Exam Constitutional: She is [...] tenderness. There is no reboundand no guarding. Palpable 2cm hernia just inferior to her umbilicus under her prior incision Genitourinary: Genitourinary Comments: declined Musculoskeletal: She exhibits no edema, tenderness or deformity. Neurological: She is alert and oriented to person, place, and time. GOG performance status= 0 Assessment and Plan: Neisha White is a 72 y.o. year old with stage IIIC ovarian carcinosarcoma who is here today forfollow up. I offered her labs including a CA-125 and/or a CT scan. We discussed the pros and cons ofa CT scan. She is now >1yr s/p her treatment and therefore may be a candidate for secondary debulking, but unclear if this would lead to any survival advantage. Currently she does not want to proceed with labs or CT. She will call the office if she does want to pursue a CT scan. 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
--- OUTSIDE RECORDS SUMMARY | 2022-02-09 02:20 | XMS_ITS | Encounter Summary ---
:1945 Author Organization [facility] [place] [address] Care Team Providers Name Role Phone Marilyn Kidd MD Primary Care Provider Reason for Visit Reason Onset Date Comments Chest Pain 07/04/2018 Encounter Details Date Type Department Care Team Description 07/04/2018 Telephone Hematology and Oncol ogy at [facility] [place] [address] Social History Tobacco Use Types Packs/Day [...] this encounter Miscellaneous Notes Telephone Encounter - Kenzie Harvey RN - 07/04/2018 9:36 AM EST Pt calls concerned about a new chest pain. States it started over a week ago after doing some activity that I don't usually do. States the pain is under her left breast and has been consistent. Asking if she can have a CT scan and an appointment with Dr Garcia. documented in this encounter Plan of Treatment Upcoming Encounters Date Type Specialty Care Team Description 02/27/2022 Appointment Radiology Marilyn Kidd MD [address] [place], [place] [phone] (Wo rk) documented as of this encounter Visit Diagnoses Not on filedocumented in this encounter Care Teams Interface Developer Relationship Specialty Start Date End Date Marilyn Kidd MD PCP - General 06/17/[address] [place], [place] [phone] documented as of this encounter
--- OUTSIDE RECORDS SUMMARY | 2022-02-09 02:20 | XMS_ITS | Encounter Summary ---
:1945 Author Organization [facility] [place] [address] Care Team Providers Name Role Phone Marilyn Kidd MD Primary Care Provider Encounter Details Date Type Department Care Team Description 08/10/2018 Hospital Encounter Mammography/DXA at Marilyn Kidd , Screening breast [facility] [place] MD examination [address] [address] [phone] Social History Tobacco Use Types Packs/Day Years [...] 2 Cans by mouth 0 CMB1 daily. (GCVHVBRLK-SV-ZLTUA-MUSHRO OMCMB ORAL) polyethylene glycol Take 17 g by mouth as 0 (MIRALAX) 17 gram Powder needed. in Packet Coenzyme J75-Vevhjsq E Take 1 capsule by 0 2012 50-5 mg-unit Capsule mouth daily. documented as of this encounter Plan of Treatment Upcoming Encounters Date Type Specialty Care Team Description 02/27/2022 Appointment Radiology Marilyn Kidd MD [address] [facility] [place] [address] (Wo rk) documented as of this encounter Procedures Procedure Name Priority Date/Time Associated Diagnosis Comme nts MAMMO SCREENING CAD Routine 08/10/2018 9:20 AM Screening breas t Results for this AND FEDERICO BILATERAL EST examination procedure are in the results section. documented in this encounter Results Mammo Screening Cad and Federico Bilateral (08/10/2018 9:20 AM EST) Anatomical Region Laterality Modality Breast Bilateral Mammography Specimen (Source) Anatomical Location Collection Method / Collectio n Time Received Time / Laterality Volume Narrative 08/10/2018 9:37 AM EST BILATERAL MAMMOGRAPHY REASON FOR EXAM: Screening TECHNIQUE: CC and MLO views were obtaine d of each breast using standard 2-D mammography as well as 3-D tomosynth esis. Computer aided detection was used. This is compared with prior images . FINDINGS: There are scattered areas of f ibroglandular density. There are no suspicious microcalcifications, bozena s, or areas of distortion. The pattern is stable. CONCLUSION: No mammographic evidence of malignancy. RECOMMENDATION: Medical organizations ag ree that annual screening mammography beginning at age 40 saves th e most lives. The risks of screening are negligible compared to dyi ng from breast cancer or suffering from more aggressive treatment required when detected at a later stage. No woman is at low risk for breast cancer. Some women, because of their family history, a genetic tendency, or c ertain other factors, should be screened with breast MRI along with mamm ograms. (The number of women who fall into this category is very small). The patient and health care provider should discuss the patient hist ory and decide if earlier screening and breast MRI are appropriate . Screening should continue as long as a woman is in good health and is expected to live 10 years or longer. Screening mammography may not de tect 10-15% of breast cancers. Women should report any breast changes t o a health care provider right away. A result letter has been sent to this pa mati by the [facility]. BIRADS CATEGORY 1: NEGATIVE Marilyn Kidd MD IMG MAMMO ORDERABLES documented in this encounter Visit Diagnoses Diagnosis Screening breast examination (Not by Claritza mogram) Other screening breast examination documented in this encounter Care Teams Beading Sawyer Relationship Specialty Start Date End Date Marilyn Kidd MD PCP - General 06/17/[address] [place] [address] documented as of this encounter
--- OUTSIDE RECORDS SUMMARY | 2022-02-09 02:20 | XMS_ITS | Encounter Summary ---
:1945 Author Organization [facility] [place] [address] Care Team Providers Name Role Phone Marilyn Kidd MD Primary Care Provider Encounter Details Date Type Department Care Team Description 11/01/2015 Orders Only Gynecology Oncology at [facility] [place], unspecified laterality; [facility] MD Genie Vitamin D deficiency [facility] [place] [address] GYNECOLOGIC [phone] ONCOLOGY [place] [address] Social History Tobacco Use Types Packs/Day Years [...] MD [address] [place] [address] (Wo rk) documented as of this encounter Results (ABNORMAL) VIT D Total Evaluation (11/01/2015 12:50 PM EDT) P athologist Signature 25-OH Vit D 25 (L) 30 - 100 [facility] Total ng/mL [facility] Comment: Deficient <10 ng/mL Insufficient 10 to 29 ng/mL Sufficient 30 to 100 ng/mL Potential Intoxication >100 ng/mL According to the US National Osteoporosi s Foundation, Vitamin D concentrations >30 ng/mL are sufficient to protect bone health. ??The National Kidney Foundation has similarly stated that pat ients with Vitamin D concentrations <30ng/mL should be considered to be insu fficient or deficient. http://iPAYst/CoContestnatlkidneyfoundat ion http://iPAYst/CoContestVitD The [employer] Vitamin D Immunoassay detec ts both 25-OH Vitamin D2 and 25-OH Vitamin D3, but only a total Vitamin D c oncentration is reported. Specimen Anatomical Collection Method Collection Time Receive d Time (Source) Location / / Volume Laterality Blood specimen 11/01/2015 12:50 6 1:05 (specimen) PM EDT PM EDT Resulting Agency Comment Spec In Lab Genie Garcia MD CHEMISTRY ORDERABLES Performing Organization Address City/State/[place] [address] documented in this encounter Visit Diagnoses Diagnosis Ovarian CA, unspecified laterality Vitamin D deficiency Unspecified vitamin D deficiency documented in this encounter Care Teams Collision Worker Relationship Specialty Start Date End Date Marilyn Kidd MD PCP - General 06/17/[address] [place] [address] documented as of this encounter
--- OUTSIDE RECORDS SUMMARY | 2022-02-09 02:20 | XMS_ITS | Encounter Summary ---
:1945 Author Organization [facility] [place] [address] Care Team Providers Name Role Phone Marilyn Kidd MD Primary Care Provider Reason for Referral Diagnostic Test (Routine) - Closed Specialty Diagnoses / Procedures Referred By Contact Refer red To Contact Radiology Diagnoses Ovarian cancer, unspecified laterality [facility] [employer] [address] [facility] Rad Ct Scan Procedures CT Chest, Abdomen, & Pelvis With Contrast (GENERIC) [place] [address] [place] [address] Referral ID Status Reason Start Date Expiration Date Visits V isits Requested Authorized [id number] Closed Specialty 11/01/2015 10/31/2016 1 1 Service Requested Reason for Visit Reason Onset Date Comments Other 09/20/2015 Encounter Details Date Type Department Care Team Description 09/20/2015 Telephone Gynecology Oncology at [facility] [place] [address] Social History Tobacco Use Types Packs/Day [...] this encounter Miscellaneous Notes Telephone Encounter - Marzena Camarillo - 09/20/2015 11:24 AM EST Please sign order documented in this encounter Plan of Treatment Upcoming Encounters Date Type Specialty Care Team Description 02/27/2022 Appointment Radiology Marilyn Kidd MD [address] [place] [address] (Wo rk) documented as of this encounter Results CT Chest, Abdomen, & Pelvis With Contrast (GENERIC) (11/01/2015 10:03 AM EDT) Anatomical Region Laterality Modality Computed Tomography Specimen (Source) Anatomical Location Collection Method / Collectio n Time Received Time / Laterality Volume Impressions 11/01/2015 10:13 AM EDT IMPRESSION: No evidence of local or distant disease recurrence. Narrative 11/01/2015 10:13 AM EDT EXAMINATION: CT CHEST ABDOMEN AND PELVIS WITH CONTRAST CLINICAL HISTORY: ovarian cancer, p/chem o, ? response TECHNIQUE: Helical CT of the chest, abdo men, and pelvis was performed following intravenous administration of 110 ml of Omnipaque 350 and oral contrast. COMPARISON: None FINDINGS: Chest Lungs and large airways: No pulmonary me tastasis. Small foci of scarring seen in the right middle lobe and lingula. Pleura: No effusion Heart: Normal size, no pericardial effus ion Mediastinum and chet: No lymphadenopathy . MediPort catheter noted with tip in the superior vena cava. Abdomen/pelvis Liver: Within normal limits. Bile ducts: Normal caliber Gallbladder: No calcified gallstones. No rmal caliber wall. Pancreas: Normal Spleen: Normal Adrenals: Normal Kidneys: Normal Lymph nodes: No enlarged abdominal or pe lvic lymph nodes Bowel: Normal caliber, no wall thickenin g Peritoneum and mesentery: No ascites or free air, no fluid collection. No evidence of peritoneal metastasis. A per itoneal MediPort is noted with the tip abutting the inferior surface of the drew er. Reproductive organs: Surgically absent t here has been interval surgical removal of a previously noted large pelvic mass. Osseous structures: No suspicious lesion s. Procedure Note Elia Hearn MD - 11/01/2015Form atting of this note might be different from the original. EXAMINATION: CT CHEST ABDOMEN AND PELVI S WITH CONTRAST CLINICAL HISTORY: ovarian cancer, p/chem o, ? response TECHNIQUE: Helical CT of the chest, abdo men, and pelvis was performed following intravenous administration of 110 ml of Omnipaque 350 and oral contrast. COMPARISON: None FINDINGS: Chest Lungs and large airways: No pulmonary me tastasis. Small foci of scarring seen in the right middle lobe and lingula. Pleura: No effusion Heart: Normal size, no pericardial effus ion Mediastinum and chet: No lymphadenopathy . MediPort catheter noted with tip in the superior vena cava. Abdomen/pelvis Liver: Within normal limits. Bile ducts: Normal caliber Gallbladder: No calcified gallstones. No rmal caliber wall. Pancreas: Normal Spleen: Normal Adrenals: Normal Kidneys: Normal Lymph nodes: No enlarged abdominal or pe lvic lymph nodes Bowel: Normal caliber, no wall thickenin g Peritoneum and mesentery: No ascites or free air, no fluid collection. No evidence of peritoneal metastasis. A per itoneal MediPort is noted with the tip abutting the inferior surface of the drew er. Reproductive organs: Surgically absent t here has been interval surgical removal of a previously noted large pelvic mass. Osseous structures: No suspicious lesion s. IMPRESSION IMPRESSION: No evidence of local or distant disease recurrence. Authorizing Provider Result Nae Garcia MD IMG CT ORDERABLES documented in this encounter Visit Diagnoses Diagnosis Ovarian cancer, unspecified laterality Ovarian cancer, unspecified laterality documented in this encounter Care Teams Change House Attendant Relationship Specialty Start Date End Date Marilyn Kidd MD PCP - General 06/17/[address] [place] [address] [address] [place] [address] documented as of this encounter
--- OUTSIDE RECORDS SUMMARY | 2022-02-09 02:20 | XMS_ITS | Encounter Summary ---
:1945 Author Organization [facility] [place] [address] Care Team Providers Name Role Phone Marilyn Kidd MD Primary Care Provider Encounter Details Date Type Department Care Team Description 02/06/2016 Hospital Encounter Hematology and Ovarian carcinosarcoma, Oncology at [facility] unspecified laterality [facility] (Primary Dx) [place] [address] Social History Tobacco Use Types Packs/Day [...] Sig Dispensed Refills Start Date End Date fish oil-omega-3 fatty Take 1 g by mouth 0 acids 1,000 mg Capsule daily. Red Yeast Rice Extract 600 Take 1 capsule by 0 mg Capsule mouth daily. TURMERIC (CURCUMIN MISC) by Misc.(Non-Drug; 0 Combo Route) route daily. melatonin 5 mg Tablet Take 4 tablets by 0 mouth nightly. COLOSTRUM/SE/GR TEA/MUSH Take 2 Cans by 0 CMB1 mouth daily. (FJGVAJAIM-CW-BOECQ-MUSHRO OMCMB ORAL) polyethylene glycol Take 17 g by mouth 0 (MIRALAX) 17 gram Powder as needed. in Packet Coenzyme J70-Xctjkyu E Take 1 capsule by 0 2012 50-5 mg-unit Capsule mouth daily. ergocalciferol (DRISDOL) Take 4,000 Units by 0 11/24/2017 8,000 unit/mL Drops mouth 2 times daily. documented as of this encounter Progress Notes Amanda Montana RN - 02/06/2016 8:52 AM EDT Patient Name: Neisha White Patient Age: 70 y.o. Birthdate: 1945 Admit date: 02/06/2016 Attending Physician: No att. providers found Access visit. See MAR and/or flowsheet. documented in this encounter Plan of Treatment Upcoming Encounters Date Type Specialty Care Team Description 02/27/2022 Appointment Radiology Marilyn Kidd MD [address] [facility] [address] [place] [address] (Wo rk) documented as of this encounter Procedures Procedure Name Priority Date/Time Associated Diagnosis Comme nts CANCER ANTIGEN 125 Routine 02/06/2016 8:45 AM Ovarian Res ults for this EDT carcinosarcoma, procedure ar e in unspecified the results laterality section. documented in this encounter Results Cancer Antigen 125 (02/06/2016 8:45 AM EDT) athologist Signature CA 125 17.7 <=35.0 [facility] unit/mL [facility] Specimen Anatomical Collection Method Collection Time Receive d Time (Source) Location / / Volume Laterality Blood specimen 02/06/2016 8:45 AM 016 9:02 (specimen) EDT AM EDT Resulting Agency Comment Spec In Lab Genie Garcia MD CHEMISTRY ORDERABLES Performing Organization Address City/State/ZIP [place] [address] documented in this encounter Visit Diagnoses Diagnosis Ovarian carcinosarcoma, unspecified late rality - Primary documented in this encounter Administered Medications Inactive Administered Medications - up to 3 most recent administrations Medication Order MAR Action Action Date Dose Rate Site heparin, porcine 100 unit/mL Given 02/06/2016 8:51 AM EDT 500 Un its flush 500 Units 500 Units, Intravenous, ONCE, 1 dose, On Alejandra 02/06/16 at 0845, Routine sodium chloride 0.9 % flush 20 mL New Bag 02/06/2016 8:51 AM EDT 20 mLs 20 mL, Intravenous, CONTINUOUS PRN, Starting on Alejandra 02/06/16 at 0828, Until Wed02/07/16 at 0435, Pharmacy Grad Intern, Routine documented in this encounter Care Teams House Mover Relationship Specialty Start Date End Date Marilyn Kidd MD PCP - General 06/17/[address] [place] [address] documented as of this encounter
--- OUTSIDE RECORDS SUMMARY | 2022-02-09 02:20 | XMS_ITS | Encounter Summary ---
:1945 Author Organization [facility] [place] [address] Care Team Providers Name Role Phone Marilyn Kidd MD Primary Care Provider Reason for Visit Reason Onset Date Comments Basal Cell Carcinoma 03/26/2017 of shoulder Encounter Details Date Type Department Care Team Description 03/26/2017 Telephone Gynecology Oncology at Hanna Rubio Basal Cell Carcinoma [facility] Marquez RN (of shoulder) [place] [address] Social History Tobacco Use Types Packs/Day [...] this encounter Miscellaneous Notes Telephone Encounter - Hanna Rubio RN - 03/26/2017 10:57 AM EDT Neisha White called to report that she has been diagnosed with basal cell cancer from a site on her shoulder. Biopsy taken by her PCP. She will be seeing Shakira Hameed, a operating theatre technician. documented in this encounter Plan of Treatment Upcoming Encounters Date Type Specialty Care Team Description 02/27/2022 Appointment Radiology Marilyn Kidd MD [address] [place], [place] [id number] (Wo rk) documented as of this encounter Visit Diagnoses Not on filedocumented in this encounter Care Teams Locomotive Engineer Diesel Relationship Specialty Start Date End Date Marilyn Kidd MD PCP - General 06/17/[address] [place], [place] [id number] documented as of this encounter
--- OUTSIDE RECORDS SUMMARY | 2022-02-09 02:20 | XMS_ITS | Encounter Summary ---
:1945 [place] [address] Care Team Providers Name Role Phone Marilyn Kidd MD Primary Care Provider Reason for Visit Reason Comments Skin Check Encounter Details Date Type Department Care Team Description 12/02/2017 Office Visit Dermatology at Debra [place], [place] (actinic keratosis); Guillermo WALLACE Harman angioma; [address] [facility] [place] (seborrheic keratosis); [place] [address] [address] [address] History of basal cell carcinoma [phone] [facility] [place], [place] [address] Social History Tobacco Use Types [...] documented as of this encounter Progress Notes Debra Conway - 12/02/2017 11:30 AM EDT Images from the original note were not included. DERMATOLOGY - ESTABLISHED PATIENT FOLLOW-UP Date of service: 12/02/2017 Neisha White : 1945, 72 y.o. Chief Complaint: Chief Complaint Patient presents with ??? Skin Check HPI: Neisha White is a 72 y.o. female last seen by myself on 08/09/2017. Ms. White returns today for a full skin exam. She had a pre cancer on her right cheek that she would like checked today. Is pretty good about her sun protection. Relevant Skin History: Eczema Acne / rosacea Nodular BCC, left shoulder, recently bx by PCP(scan doc) Prefers to minimize treatments unless absolutely necessary Hx ovarian cancer ?? Family History: Aunts and uncles -skin cancers Brother -melanoma? First cousin- melanoma Social History: - Retired Medications: Current Outpatient Prescriptions Medication Sig Dispense Refill ??? fish oil-omega-3 fatty acids 1,000 mg Capsule Take 1 g by mouth daily. ??? Red Yeast Rice Extract 600 mg Capsule Take 1 capsule by mouth daily. ??? TURMERIC (CURCUMIN MISC) by Misc.(Non-Drug; Combo Route) route daily. ??? melatonin 5 mg Tablet Take 4 tablets by mouth nightly. ??? COLOSTRUM/SE/GR TEA/MUSH CMB1 (KUWACDEUN-DI-UOLHC-MUSHROOMCMB ORAL) Take 2 Cans by mouth daily. ??? polyethylene glycol (MIRALAX) 17 gram Powder in Packet Take 17 g by mouth as needed. ??? Coenzyme F45-Fkumhwr E 50-5 mg-unit Capsule Take 1 capsule by mouth daily. No current facility-administered medications for this visit. Allergies: Allergies Allergen Reactions ??? Tegaderm [Transparent Dressings] Redness noted around skin from initial dressing. Review of Systems: - General: Feels well. - Skin: No other skin concerns. Examination: - Constitutional: Patient was alert, well-appearing and in no noticeable distress. - Skin: Skin examination of the scalp, face, ears, neck, back, chest, abdomen, right and left upper extremities, right and left lower extremities, hands, feet, and buttocks was normal with the exception of the findings listed below. Genitalia not examined. Diagnosis/Skin findings/Assessment/Plan: 1. AK - left cheek,left scientology,right cheek:pink gritty papules - Pt chooses not to treat today and monitor clinically 2. SK- extremities:Multiple 0.4-0.6cm brown papules with waxy, stuck-on appearance. Milia-like cysts, comedone-like openings and/or fissuring on dermoscopy. - Benign; reassurance provided 3. Harman Angioma(s) - Multiple 0.2-0.4cm bright red, well-demarcated papules - Benign; reassurance provided 4. History of BCC - Left Shoulder Tip:well healed scar - no evidence of reoccurance RTC: 1 year,FSE Note initiated by Linda Austin LPN. I performed the above scribed service and agree with the accuracy of the documentation in this encounter. Reviewed and signed by: Debra Conway MD Resident in Dermatology [facility] Patient seen and evaluated with staff senior abap developer: Odalys Gomez MD Section of Dermatology [facility] Odalys Gomez MD - 12/02/2017 11:30 AM EDT I directly supervised Dr. Debra Conway during [...] 02/27/2022 Appointment Radiology Marilyn Kidd MD [address] [facility] [address] [place] [address] (Wo rk) documented as of this encounter Visit Diagnoses Diagnosis [place] (actinic keratosis) Actinic keratosis Harman angioma Nevus, non-neoplastic SK (seborrheic keratosis) Other seborrheic keratosis History of basal cell carcinoma Personal history of other malignant neop lasm of skin documented in this encounter Care Teams Store Shopper Relationship Specialty Start Date End Date Marilyn Kidd MD PCP - General 06/17/[address] [place] [address] documented as of this encounter
--- OUTSIDE RECORDS SUMMARY | 2022-02-09 02:20 | XMS_ITS | Encounter Summary ---
:1945 Author Organization [facility] [place] [address] Care Team Providers Name Role Phone Marilyn Kidd MD Primary Care Provider Encounter Details Date Type Department Care Team Description 02/06/2016 Orders Only Gynecology Oncology [facility]anna [facility] [place] [facility] [place], RN carcinosarcoma, [facility] [place] [id number] Social History Tobacco Use Types Packs/Day Years [...] Marilyn Kidd MD [address] [facility] 1 [place] [address] (Wo rk) documented as of this encounter Results Cancer Antigen 125 (02/06/2016 8:45 AM EDT) athologist Signature CA 125 17.7 <=35.0 [place] unit/mL [facility] Specimen Anatomical Collection Method Collection Time Receive d Time (Source) Location / / Volume Laterality Blood specimen 02/06/2016 8:45 AM 016 9:02 (specimen) EDT AM EDT Resulting Agency Comment Spec In Lab Genie Garcia MD CHEMISTRY ORDERABLES Performing Organization Address City/State/[place] [address] documented in this encounter Visit Diagnoses Diagnosis Ovarian carcinosarcoma, unspecified late rality documented in this encounter Care Teams Restaurant And Bar Manager Relationship Specialty Start Date End Date Marilyn Kidd MD PCP - General 06/17/[address] [place] [address] documented as of this encounter
--- OUTSIDE RECORDS SUMMARY | 2022-02-09 02:20 | XMS_ITS | Encounter Summary ---
:1945 Author Organization [facility] [place] [address] Care Team Providers Name Role Phone Marilyn Kidd MD Primary Care Provider Reason for Referral Diagnostic Test (Routine) - Closed Specialty Diagnoses / Procedures Referred By Contact Refer red To Contact Radiology Diagnoses Ovarian cancer, unspecified laterality [facility] Sales Audit Clerk [address]k [facility] Rad Ct Scan Procedures CT Chest, Abdomen, & Pelvis With Contrast (GENERIC) [place] [address] [place] [address] Referral ID Status Reason Start Date Expiration Date Visits V isits Requested Authorized [id number] Closed Specialty 11/01/2015 10/31/2016 1 1 Service Requested Reason for Visit Diagnostic Test (Routine) - Closed Specialty Diagnoses / Procedures Referred By Contact Refer red To Contact Radiology Diagnoses Ovarian cancer, unspecified laterality [facility] Sales Audit Clerk 3k [facility] Rad Ct Scan Procedures CT Chest, Abdomen, & Pelvis With Contrast (GENERIC) [place] [address] [place] [address] Referral ID Status Reason Start Date Expiration Date Visits V isits Requested Authorized [id number] Closed Specialty 11/01/2015 10/31/2016 1 1 Service Requested Encounter Details Date Type Department Care Team Description 11/01/[address] [place] [facility] [place]Le[facility]ardo, Ovarian cancer, [facility] MD Genie [address] [facility] laterality [place], [place] CENTER [address] GYNECOLOGIC [phone] [place] [address] Social History Tobacco Use Types Packs/Day Years [...] Sig Dispensed Refills Start Date End Date polyethylene glycol Take 17 g by mouth as 0 (MIRALAX) 17 gram Powder needed. in Packet Coenzyme U73-Zwyyvvd E Take 1 capsule by 0 2012 50-5 mg-unit Capsule mouth daily. documented as of this encounter Plan of Treatment Upcoming Encounters Date Type Specialty Care Team Description 02/27/2022 Appointment Radiology Marilyn Kidd MD [address] [place] [address] (Wo rk) documented as of this encounter Procedures Procedure Name Priority Date/Time Associated Diagnosis Comme nts CT CHEST ABDOMEN Routine 11/01/2015 10:03 AM Ovarian cancer, R esults for this PELVIS W CONTRAST EDT unspecified procedure are in (GENERIC) laterality the results section. documented in this encounter Results CT Chest, Abdomen, & [...] evidence of local or distant disease recurrence. Genie Garcia MD IMG CT ORDERABLES documented in this encounter Visit Diagnoses Diagnosis Ovarian cancer, unspecified laterality documented in this encounter Administered Medications Inactive Administered Medications - up to 3 most recent administrations Medication Order MAR Action Action Date Dose Rate Site iohexol (OMNIPAQUE) 350 mg/mL Given 11/01/2015 10:00 AM EDT 17,5 00 mg solution 17,500 mg 17,500 mg (50 mL), Oral, ONCE PRN, 1 dose, Starting on Wed11/01/15 at 0959, Until Wed11/01/15 at 1000, Per Protocol, Routine iohexol (OMNIPAQUE) 350 mg/mL solution Given 11/01/2015 10:01 AM EDT 38,500 mg 38,500 mg 38,500 mg (110 mL), Intravenous, ONCE PRN, 1 dose, Starting on Wed11/01/15 at 0959, Until Wed11/01/15 at 1001, Per Protocol, Routine documented in this encounter Care Teams Brick Setter Relationship Specialty Start Date End Date Marilyn Kidd MD PCP - General 06/17/[address] [place] [address] documented as of this encounter
--- OUTSIDE RECORDS SUMMARY | 2022-02-09 02:20 | XMS_ITS | Encounter Summary ---
:1945 Author Organization [facility] [place] [address] Care Team Providers Name Role Phone Marilyn Kidd MD Primary Care Provider Encounter Details Date Type Department Care Team Description 10/06/2016 [facility] [place] [address] HEMATOLOGY/ONCOLOGY [phone] [address]PT[address] [place] [phone] (Wo rk) Social History Tobacco Use Types [...] this encounter Miscellaneous Notes Telephone Encounter - Lore Arango - 10/06/2016 10:06 AM EDT Left message asking Neisha to call me back to go over her genetic test results. documented in this encounter Plan of Treatment Upcoming Encounters Date Type Specialty Care Team Description 02/27/2022 Appointment Radiology Marilyn Kidd MD [address] [place] [address] (Wo rk) documented as of this encounter Visit Diagnoses Not on filedocumented in this encounter Care Teams Rhit Relationship Specialty Start Date End Date Marilyn Kidd MD PCP - General 06/17/10 [facility] [address] [place], [place] [id number] documented as of this encounter
--- OUTSIDE RECORDS SUMMARY | 2022-02-09 02:20 | XMS_ITS | Encounter Summary ---
:1945 Author Organization [facility] [place] [address] Care Team Providers Name Role Phone Marilyn Kidd MD Primary Care Provider Encounter Details Date Type Department Care Team Description 04/17/2016 External Results Radiology Library at [facility] Provider, [place] [address] Social History Tobacco Use Types Packs/Day [...] MD [address] [place], [place] [address] (Wo rk) documented as of this encounter Procedures Procedure Name Priority Date/Time Associated Diagnosis Comme nts MAMMOGRAM SCAN Routine 04/09/2015 documented in this encounter Results Scan Doc: Mammogram (04/09/2015) Anatomical Region Laterality Modality Other Narrative This result has an attachment that is no t available. Scanning Provider MEDIA MGR SCAN EXT ORDR/RSLT documented in this encounter Visit Diagnoses Not on filedocumented in this encounter Care Teams Quality Assurance Monitor Final Relationship Specialty Start Date End Date Marilyn Kidd MD PCP - General 06/17/[address] [place] [address] documented as of this encounter
--- OUTSIDE RECORDS SUMMARY | 2022-02-09 02:20 | XMS_ITS | Encounter Summary ---
:1945 [place] [address] Care Team Providers Name Role Phone Marilyn Kidd MD Primary Care Provider Encounter Details Date Type Department Care Team Description 04/09/2016 Hospital Encounter Radiology Library at [facility] [place] [address] DIAGNOSIC RADIOLOGY [phone] [place] [id number] (Wo rk) Social History Tobacco Use Types [...] 2 Cans by 0 CMB1 mouth daily. (TLAHHGEVE-WD-LMUPU-MUSHRO OMCMB ORAL) polyethylene glycol Take 17 g by mouth 0 (MIRALAX) 17 gram Powder as needed. in Packet Coenzyme N10-Slsbdrj E Take 1 capsule by 0 2012 50-5 mg-unit Capsule mouth daily. ergocalciferol (DRISDOL) Take 4,000 Units by 0 11/24/2017 8,000 unit/mL Drops mouth 2 times daily. documented as of this encounter Plan of Treatment Upcoming Encounters Date Type Specialty Care Team Description 02/27/2022 Appointment Radiology Marilyn Kidd MD [address] [place] [address] (Wo rk) documented as of this encounter Procedures Procedure Name Priority Date/Time Associated Diagnosis Comme nts FILM LIBRARY Routine 04/09/2016 12:00 AM Pain Results for this STORAGE ONLY MAMMO EDT procedure are in the results section. documented in this encounter Results Film Library- Storage only Mammo (04/09/2016 12:00 AM EDT) Specimen (Source) Anatomical Location Collection Method / Collectio n Time Received Time / Laterality Volume Narrative [facility] - 04/21/2016 11:59 AM EDT This exam is for storage only and is aut o-finalizing. Jose Nunez MD IMG FILM LIBRARY ORDERABLES Performing Organization Address City/State/ZIP Code Phon e Number [place], [place] documented in this encounter Visit Diagnoses Diagnosis Pain Generalized pain documented in this encounter Care Teams Fisheries Officer Relationship Specialty Start Date End Date Marilyn Kidd MD PCP - General 06/17/[address] [place] [address] documented as of this encounter
--- OUTSIDE RECORDS SUMMARY | 2022-02-09 02:20 | XMS_ITS | Encounter Summary ---
:1945 Author Organization [facility] [place] [address] Care Team Providers Name Role Phone Marilyn Kidd MD Primary Care Provider Reason for Visit Reason Onset Date Comments Back Pain 11/23/2017 Encounter Details Date Type Department Care Team Description 11/23/2017 Telephone Hematology and Oncol ogy at [facility] [place] [address] Social History Tobacco Use Types Packs/Day [...] Telephone Encounter - Kenzie Harvey RN - 11/23/2017 9:29 AM EDT Neisha returned my call stating she has been having right back and butt pain. She has been seeing achiropractor for this but it is not getting better. Declines a CT scan at this time stating nothingis bothering me enough to get chemo. Neisha will see Dr Garcia tomorrow. documented in this encounter Plan of Treatment Upcoming Encounters Date Type Specialty Care Team Description 02/27/2022 Appointment Radiology Marilyn Kidd MD [address] [place], [place] [phone] (Wo rk) documented as of this encounter Visit Diagnoses Not on filedocumented in this encounter Care Teams Roustabout Head Relationship Specialty Start Date End Date Marilyn Kidd MD PCP - General 06/17/[address] [place], [place] [phone] documented as of this encounter
--- OUTSIDE RECORDS SUMMARY | 2022-02-09 02:20 | XMS_ITS | Encounter Summary ---
:1945 Author Organization [facility] [place] [address] Care Team Providers Name Role Phone Marilyn Kidd MD Primary Care Provider Reason for Visit Reason Comments Established f/u; CT Encounter Details Date Type Department Care Team Description 07/15/2018 Office Visit Gynecology Oncology Ryan Whipple mixed at [facility] MD Jr Mullerian tumor of [facility] ova ry, unspecified Drive [address] [place] G[place]OLOGIC [address] ONCOLOGY [phone] [place] [place], [place] [address] Social History Tobacco Use Types [...] Sign Reading Time Taken Comments Blood Pressure 166/70 07/15/2018 11:52 AM EST Pulse 63 07/15/2018 11:52 AM EST Temperature 36.7 ??C (98.1 ??F) 07/15/2018 11:52 AM EST Respiratory Rate 14 07/15/2018 11:52 AM EST Oxygen Saturation 100% 07/15/2018 11:52 AM EST Inhaled Oxygen Concentration - - Weight 59.9 kg (132 lb 0.9 oz) 07/15/2018 11:52 AM EST Height 164.4 cm (5' 4.72) 07/15/2018 11:52 AM EST Body Mass Index 22.16 07/15/2018 11:52 AM EST documented in this encounter Progress Notes Jr Whipple MD - 07/15/2018 11:00 AM EST Division [place] [address] Follow up Visit: Patient Active Problem List [...] White comes to the office today for new chest pain. 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 She continues to feel well overall. Over the past ~1-2 weeks she has developed pain in her left inferior/anterior chest adjacent to her sternum . The pain is exacerbated by turning and is reproduced with palpation. No associated skin changes. No shortness of breath. Review of Systems HENT: Negative. Eyes: Negative. Respiratory: Negative. Cardiovascular: Negative. Gastrointestinal: Negative. Endocrine: Negative. Genitourinary: Negative. Musculoskeletal: Negative. Skin: Negative. Allergic/Immunologic: Negative. Hematological: Negative. Psychiatric/Behavioral: Negative. Objective: Vitals: 07/15/18 1152 BP: 166/70 Patient Position: Sitting Pulse: 63 Resp: 14 Temp: 36.7 ??C (98.1 ??F) TempSrc: Tympanic SpO2: 100% Weight: 59.9 kg (132 lb 0.9 oz) Height: 164.4 cm (5' 4.72) Body mass index is 22.16 kg/m??. Body surface area is 1.65 meters squared. Physical Exam Constitutional: She is oriented to person, place, and time. She appears well- developed and well-nourished. Cardiovascular: Normal rate, regular rhythm, normal heart sounds and intact distal pulses. Exam reveals no gallop and no friction rub. No murmur heard. Pulmonary/Chest: Effort normal and breath sounds normal. No respiratory distress. She has no wheezes. She has no rales. She exhibits tenderness (tender to palpation of left sterocoastal joint. No palpable nodule.). Abdominal: Soft. She exhibits no distension and no mass. There is no tenderness. There is no reboundand no guarding. Palpable 2cm hernia just inferior to her umbilicus under her prior incision Genitourinary: Genitourinary Comments: declined Musculoskeletal: She exhibits no edema, tenderness or deformity. Neurological: She is alert and oriented to person, place, and time. GOG performance status= 0 EXAMINATION: CT CHEST ABDOMEN PELVIS W CONTRAST (GENERIC) ?? CLINICAL HISTORY: ovarian cancer with new pain under left breast; assess disease ?? TECHNIQUE: Helical CT of the chest, abdomen, and pelvis was performed following intravenous administration of 73 ml of Omnipaque 350 Oral contrast was administered. ?? COMPARISON: CT chest abdomen pelvis 12/07/2017, and 11/01/2015 ?? FINDINGS: ?? Chest: Lungs and large airways: Stable triangular 7-8mm density abutting the major fissure in the lingula. Previously seen nodular density adjacent to this appears less conspicuous on today's examination and measures approximately 3 mm compared to 5 mm previously (series 4, image 46). Stable focal scarring in the right middle lobe. No new pulmonary nodules. Pleura: No effusion. Heart/vasculature: Normal. Interval removal of right chest port. Lymph nodes: No enlarged lymph nodes. Mediastinum and chet: Normal. ?? Abdomen/pelvis: Liver: Stable area of hypodensity within the right hepatic lobe near the falciform ligament, which likely represents focal fatty sparing. Bile ducts: Nondilated. Gallbladder: No calcified gallstones. Normal caliber wall. Pancreas: Normal attenuation without ductal dilatation. Spleen: Normal. Adrenals: Normal. Kidneys: Stable subcentimeter hypodensity within the left midpole, too small to characterize, but likely represent simple cysts. No collecting system dilation. Urinary Bladder: Normal. ?? Vasculature: No aneurysm. Scattered calcified atherosclerotic plaque throughout the abdominal aorta. Lymph Nodes: No enlarged lymph nodes. Bowel: Nondilated, no wall thickening. Moderate fecal load. Peritoneum and mesentery: No ascites, free air, or loculated fluid collection. No mesenteric inflammation. No evidence of peritoneal metastases. Abdominal wall: Focal right anterior abdominal wall defect measuring approximately 2.3 cm, with a small loop of small bowel adjacent to it, with no herniation. ?? Reproductive organs: Post hysterectomy. No adnexal masses present. Osseous structures: No suspicious lesions. ?? IMPRESSION 1. No evidence of intra-abdominal or pelvic metastasis. 2. Stable 7 mm triangular nodule within the lingula. The nodular density adjacent to it appears less conspicuous on today's examination. Recommend 6 month follow-up to evaluate for stability. 3. No abnormality in the region of the LEFT breast to explain the patient's pain. ?? I have personally reviewed the image(s) and the residents interpretation and agree with the findings, Jd Sparrow at 07/14/2018 5:40 PM ?? Assessment and Plan: Neisha White is a 72 y.o. year old with stage IIIC ovarian carcinosarcoma who is here today left chest wall pain. Most consistent with costochondritis. CT with few stable pulmonary nodules, but otherwise LALIT. Neisha continues to wish to follow up prn pain/sx of recurrence. JR WHIPPLE MD documented in this encounter Plan of Treatment Upcoming Encounters Date Type Specialty Care Team Description 02/27/2022 Appointment Radiology Marilyn Kidd MD [address] [place] [address] (Wo rk) documented as of this encounter Visit Diagnoses Diagnosis Malignant mixed Mullerian tumor of ovary , unspecified laterality documented in this encounter Care Teams Electric Transfer Operator Relationship Specialty Start Date End Date Marilyn Kidd MD PCP - General 06/17/[address] [place], [place] [phone] documented as of this encounter
--- OUTSIDE RECORDS SUMMARY | 2022-02-09 02:20 | XMS_ITS | Encounter Summary ---
:1945 Author Organization [facility] [place] [address] Care Team Providers Name Role Phone Marilyn Kidd MD Primary Care Provider Reason for Visit Reason Comments Follow-up ip port removal Encounter Details Date Type Department Care Team Description 12/04/2015 Procedure visit Gynecology [place]cology [place]sy [place] [facility] [place] Genie carcin[place], [facility] [address] [place], [place] GYNECOLOGIC [id number] ONCOLOGY [phone] [place], [place] [address] Social History Tobacco Use Types [...] Sign Reading Time Taken Comments Blood Pressure 135/94 12/04/2015 2:09 PM EDT Pulse 81 12/04/2015 2:09 PM EDT Temperature 36.9 ??C (98.4 ??F) 12/04/2015 2:09 PM EDT Respiratory Rate 20 12/04/2015 2:09 PM EDT Oxygen Saturation 98% 12/04/2015 2:09 PM EDT Inhaled Oxygen Concentration - - Weight 64.9 kg (143 lb 1.3 oz) 12/04/2015 2:09 PM EDT Height 164.4 cm (5' 4.72) 12/04/2015 2:09 PM EDT Body Mass Index 24.01 12/04/2015 2:09 PM EDT documented in this encounter Progress Notes Linda Smith MD - 12/04/2015 2:09 PM EDT Division of [place] [address] Follow up Visit: Patient Active Problem List Diagnosis Code ??? 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 She is doing well. Looking forward to traveling this weekend. Objective: Filed Vitals: 12/04/15 1409 BP: 135/94 Pulse: 81 Temp: 36.9 ??C (98.4 ??F) TempSrc: Temporal Resp: 20 Height: 164.4 cm (5' 4.72) Weight: 64.9 kg (143 lb 1.3 oz) SpO2: 98% Body mass index is 24.01 kg/(m^2). Body surface area is 1.72 meters squared. Procedure Note Preop Diagnosis: Desires IP port removal Postop Diagnosis: Same After verbal consent and confirmation of the patient's identity and a verbal time out, the IP Port was removed. The skin was prepped with alcohol and the incision overlying the port was infiltrated was1% Lidocaine and Epinephrine. The skin was then prepped with Betadine and draped. The previous incision was entered with a scalpel. The prolene anchoring sutures were removed x 3 and then the port withthe attached tubing was removed. The pocket was closed with 3-0 Vicryl in the deep layer and a running subcuticular of 4-0 Vicryl was used to close the skin. Steri-strips and a dry sterile dressings were then applied. The patient tolerated the procedure well and was instructed in the care of the dressing and incision. Signs of infection were reviewed. GOG performance status= 0 Labs: Within normal limits CA 125 Date Value Ref Range Status 11/01/2015 15.0 <=35.0 unit/mL Final 09/18/2015 15* Final Assessment and Plan: Neisha White is a 70 y.o. year old with stage IIIC ovarian carcinosarcoma who is here today forport removal. Uncomplicated. We reviewed symptoms of recurrence and surveillance plan for q 3 month exam and CA-125 for 2 years then every 6 months for a total of 5 years. - RTC 3 mos from last exam for exam and CA-125 - will call if needs to be seen sooner Patient was seen and discussed with Dr. Genie SMITH MD PGY3 12/04/2015 I was present for the entire above procedure. Genie Garcia MD documented in this encounter Plan of Treatment Upcoming Encounters Date Type Specialty Care Team Description 02/27/2022 Appointment Radiology Marilyn Kidd MD [address] [place] [address] (Wo rk) documented as of this encounter Visit Diagnoses Diagnosis Ovarian carcinosarcoma, unspecified late rality documented in this encounter Care Teams Dust Collector Attendant Relationship Specialty Start Date End Date Marilyn Kidd MD PCP - General 06/17/[address] [place] [address] documented as of this encounter
--- OUTSIDE RECORDS SUMMARY | 2022-02-09 02:20 | XMS_ITS | Encounter Summary ---
:1945 Author Organization [facility] [place] [address] Care Team Providers Name Role Phone Marilyn Kidd MD Primary Care Provider Reason for Referral Diagnostic Test (Routine) - Closed Specialty Diagnoses / Procedures Referred By Contact Refer red To Contact Radiology Diagnoses Malignant neoplasm of ovary, unspecified laterality Genie Garcia Mh mh Interventionl Rad Procedures IR Medipedro [place] [address] [place] [address] Referral ID Status Reason Start Date Expiration Date Visits V isits Requested Authorized [id number] Closed Specialty 01/31/2018 01/31/2019 1 1 Service Requested Encounter Details Date Type Department Care Team Description 01/31/2018 Orders Only Gynecology Oncology at Karla Garcia lignant neoplasm of [facility] MD Genie ovary, unspecified [facility] [place] [address] GYNECOLOGIC [phone] ONCOLOGY [place], [place] [address] Social History Tobacco Use Types [...] MD [address] [place] [address] (Wo rk) documented as of this encounter Results IR Mediport Removal (02/04/2018 [...] Truth was performed to confirm all k ey aspects (including the patient's identity, informed consent, wi dical record number, allergies, planned procedure and [...] ??No immediate Impression: Successful removal of the ri ght chest port. ?? Education And Outreach Coordinator(s): Resident/Fellow: ??Lupe Associate Provider: Jung Rogers APRN Attending: Andrews Nation, Dr. Sparrow, was not present for th e procedure. Genie Garcia MD IMG IR ORDERABLES documented in this encounter Visit Diagnoses Diagnosis Malignant neoplasm of ovary, unspecified laterality Pre-op testing Preoperative examination, unspecified Malignant neoplasm of ovary, unspecified laterality documented in this encounter Care Teams Television News Photographer Relationship Specialty Start Date End Date Marilyn Kidd MD PCP - General 06/17/10 [address] [place] [address] documented as of this encounter
--- OUTSIDE RECORDS SUMMARY | 2022-02-09 02:20 | XMS_ITS | Encounter Summary ---
:1945 Author Organization [facility] [place] [address] Care Team Providers Name Role Phone Marilyn Kidd MD Primary Care Provider Reason for Visit Reason Onset Date Comments Results 01/12/2017 Encounter Details Date Type Department Care Team Description 01/12/2017 Telephone [place]cology [place] [facility] [place] [address] Social History Tobacco Use Types Packs/Day [...] Telephone Encounter - Kenzie Harvey RN - 01/12/2017 8:27 AM EDT Relayed normal CA-125 to pt Telephone Encounter - Hanna Rubio RN - 01/12/2017 8:23 AM EDT Telephone call to Rocael White to report CA 125 result as listed below. Mailbox is full on mobile phone and home phone is busy. Will continue to try to call. Results for ROCAEL WHITE ( ) as of 01/12/2017 08:24 Ref. Range 01/11/2017 11:28 CA 125 Latest Ref Range: <=38.1 unit/mL 15.3 documented in this encounter Plan of Treatment Upcoming Encounters Date Type Specialty Care Team Description 02/27/2022 Appointment Radiology Marilyn Kdid MD [address] [place] [address] (Wo rk) documented as of this encounter Visit Diagnoses Not on filedocumented in this encounter Care Teams Box Spring Maker Relationship Specialty Start Date End Date Marilyn Kidd MD PCP - General 06/17/[address] [place], [place] [id number] documented as of this encounter
--- OUTSIDE RECORDS SUMMARY | 2022-02-09 02:20 | XMS_ITS | Encounter Summary ---
:1945 Author Organization [facility] [address] Care Team Providers Name Role Phone Marilyn Kidd MD Primary Care Provider Encounter Details Date Type Department Care Team Description 09/18/2016 Notes Only Hematology and Oncology at Gamaliel Zazueta MD [facility] [facility] HEMATOLOGY/[place] [address] [place] [address] [phone] (Wo rk) Social History Tobacco Use Types [...] documented as of this encounter Progress Notes Gamaliel Randle MD - 09/18/2016 10:19 AM EST I have reviewed the patient's record and given personal and/or family history of cancer she should be seen by genetic counselor. This will be scheduled for next week. documented in this encounter Plan of Treatment Upcoming Encounters Date Type Specialty Care Team Description 02/27/2022 Appointment Radiology Marilyn Kidd MD [address] [place], [place] [id number] (Wo rk) documented as of this encounter Visit Diagnoses Not on filedocumented in this encounter Care Teams Program Admin Relationship Specialty Start Date End Date Marilyn Kidd MD PCP - General 06/17/10 [facility] [address] [place], [place] [id number] documented as of this encounter
--- OUTSIDE RECORDS SUMMARY | 2022-02-09 02:20 | XMS_ITS | Encounter Summary ---
:1945 Author Organization [facility] [place] [address] Care Team Providers Name Role Phone Marilyn Kidd MD Primary Care Provider Encounter Details Date Type Department Care Team Description 01/11/2017 Hospital Encounter Hematology and Ovarian ca, unspecified laterality; [place] [facility] [place]varian carcinosarcoma, [place] [address] Social History Tobacco Use Types Packs/Day [...] 2 Cans by 0 CMB1 mouth daily. (BDZBKOIPE-DD-SWMFY-MUSHRO OMCMB ORAL) polyethylene glycol Take 17 g by mouth 0 (MIRALAX) 17 gram Powder as needed. in Packet Coenzyme N38-Lzispbf E Take 1 capsule by 0 2012 50-5 mg-unit Capsule mouth daily. docusate sodium (COLACE) Take 100 mg by 0 11/24/2017 100 mg Capsule mouth 2 times daily. ergocalciferol (DRISDOL) Take 4,000 Units by 0 11/24/2017 8,000 unit/mL Drops mouth 2 times daily. documented as of this encounter Progress Notes Claudia Reza RN - 01/11/2017 11:24 AM EDT Patient Name: Neisha White Patient Age: 71 y.o. Birthdate: 1945 Admit date: 01/11/2017 Attending Physician: No att. providers found Access visit. See MAR and/or flowsheet. documented in this encounter Plan of Treatment Upcoming Encounters Date Type Specialty Care Team Description 02/27/2022 Appointment Radiology Marilyn Kidd MD [address] [facility] [address] [place] [address] (Wo rk) documented as of this encounter Procedures Procedure Name Priority Date/Time Associated Diagnosis Comme nts CANCER ANTIGEN 125 Routine 01/11/2017 11:28 AM Ovarian ca, Re sults for this EDT unspecified procedure are i n laterality the results section. documented in this encounter Results Cancer Antigen 125 (01/11/2017 11:28 AM EDT) athologist Signature CA 125 15.3 <=38.1 ESTEVAN KO unit/mL [facility] Comment: CA 125 Reference Interval ??Postmenopausal: 6.2 to 31.5 U/mL. ??Premenopausal: 6.9 to 45.9 U/mL. ??Pre and Postmenopausal subjects combi pippa: 6.4 to 38.1 U/mL. Specimen Anatomical Collection Method Collection Time Receive d Time (Source) Location / / Volume Laterality Blood specimen 01/11/2017 11:28 01/11/201 7 (specimen) AM EDT 11:41 AM EDT Resulting Agency Comment Spec In Lab Genie Garcia MD CHEMISTRY ORDERABLES Performing Organization Address City/State/ZIP Code Phon e Number [place] [phone] documented in this encounter Visit Diagnoses Diagnosis Ovarian CA, unspecified laterality Ovarian carcinosarcoma, unspecified late rality documented in this encounter Care Teams Lead Python Developer Relationship Specialty Start Date End Date Marilyn Kidd MD PCP - General 06/17/[address] [place] [address] documented as of this encounter
--- OUTSIDE RECORDS SUMMARY | 2022-02-09 02:20 | XMS_ITS | Encounter Summary ---
:1945 Author Organization [facility] [address] Care Team Providers Name Role Phone Marilyn Kidd MD Primary Care Provider Encounter Details Date Type Department Care Team Description 01/15/2017 Office Visit Gynecology Oncology Placido Whipple at [facility] MD Jr carcinosarcoma, right [facility] [address] [place], [place] GYNECOLOGIC [address] ONCOLOGY [phone] [place], [place] [address] Social History Tobacco Use Types [...] Sign Reading Time Taken Comments Blood Pressure 132/72 01/15/2017 12:13 PM EDT Pulse 54 01/15/2017 12:13 PM EDT Temperature 36.7 ??C (98.1 ??F) 01/15/2017 12:13 PM EDT Respiratory Rate 14 01/15/2017 12:13 PM EDT Oxygen Saturation 100% 01/15/2017 12:13 PM EDT Inhaled Oxygen Concentration - - Weight 64.6 kg (142 lb 6.7 oz) 01/15/2017 12:13 PM EDT Height - - Body Mass Index 23.9 09/25/2016 11:04 AM EST documented in this encounter Progress Notes Jr Whipple MD - 01/15/2017 12:00 PM EDT Division [place] [address] Follow up Visit: Patient Active Problem List [...] to the office today for her surveillance 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 She continues to feel well overall. She has regular bowel movements as long as she is careful with her diet. No chest/pain/shortness of breath. No nausea, emesis. She does have abdominal pain ~ once per month that usually resolves spontaneously. She cannot identify any triggers for the pain. She was not planning to pursue surveillance, but her ovarian cancer support group encouraged her to return to see me. Review of Systems HENT: Negative. Eyes: Negative. Respiratory: Negative. Cardiovascular: Negative. Gastrointestinal: Negative. Endocrine: Negative. Genitourinary: Negative. Musculoskeletal: Negative. Skin: Negative. Allergic/Immunologic: Negative. Hematological: Negative. Psychiatric/Behavioral: Negative. Objective: Vitals: 01/15/17 1213 BP: 132/72 Patient Position: Sitting Pulse: 54 Resp: 14 Temp: 36.7 ??C (98.1 ??F) SpO2: 100% Weight: 64.6 kg (142 lb 6.7 oz) Body mass index is 23.9 kg/(m^2). Body surface area is 1.72 meters squared. Physical Exam Constitutional: She is [...] no reboundand no guarding. Genitourinary: Genitourinary Comments: declined Neurological: She is alert and oriented to person, place, and time. GOG performance status= 0 CA-125 15.3 Assessment and Plan: Neisha White is a 71 y.o. year old with stage IIIC ovarian carcinosarcoma who is here today [facility]. She is doing well. She would like to return prn for symptoms. I did offer to order a CT to further work up her abdominal pain and evaluate if cancer is a cause of her pain, but she is declining at this time. She will call the office if her pain becomes worse. JR WHIPPLE MD documented in this encounter Plan of Treatment Upcoming Encounters Date Type Specialty Care Team Description 02/27/2022 Appointment Radiology Marilyn Kidd MD [address] [place] [address] (Wo rk) documented as of this encounter Visit Diagnoses Diagnosis Ovarian carcinosarcoma, right documented in this encounter Care Teams Jewelry Jobber Relationship Specialty Start Date End Date Marilyn Kidd MD PCP - General 06/17/[address] [place] [address] documented as of this encounter
--- OUTSIDE RECORDS SUMMARY | 2022-02-09 02:20 | XMS_ITS | Encounter Summary ---
:1945 Author Organization [facility] [place] [address] Care Team Providers Name Role Phone Marilyn Kidd MD Primary Care Provider Reason for Visit Reason Onset Date Comments Hip Pain 11/02/2017 Encounter Details Date Type Department Care Team Description 11/02/2017 Telephone Hematology and Oncol ogy at [facility] [place] [address] Social History Tobacco Use Types Packs/Day [...] Telephone Encounter - Kenzie Harvey RN - 11/02/2017 9:33 AM EDT Pt calls c/o right hip, pelvis and low back pain for the last couple of months. Asking to be seen. Appointment made. documented in this encounter Plan of Treatment Upcoming Encounters Date Type Specialty Care Team Description 02/27/2022 Appointment Radiology Marilyn Kidd MD [address] [place] [address] (Wo rk) documented as of this encounter Visit Diagnoses Not on filedocumented in this encounter Care Teams Senior Quality Manager Relationship Specialty Start Date End Date Marilyn Kidd MD PCP - General 06/17/[address] [place] [address] documented as of this encounter
--- OUTSIDE RECORDS SUMMARY | 2022-02-09 02:20 | XMS_ITS | Encounter Summary ---
:1945 Author Organization [facility] [place] [address] Care Team Providers Name Role Phone Marilyn Kidd MD Primary Care Provider Encounter Details Date Type Department Care Team Description 09/25/2016 Hospital Encounter Hematology [place] [address] Social History Tobacco Use Types Packs/Day [...] 2 Cans by 0 CMB1 mouth daily. (XGJERBFQZ-KO-ECIPO-MUSHRO OMCMB ORAL) polyethylene glycol Take 17 g by mouth 0 (MIRALAX) 17 gram Powder as needed. in Packet Coenzyme Y89-Hzprdrp E Take 1 capsule by 0 2012 [...] MD [address] [place] [address] (Wo rk) documented as of this encounter Visit Diagnoses Not on filedocumented in this encounter Care Teams Check Processing Clerk Relationship Specialty Start Date End Date Marilyn Kidd MD PCP - General 06/17/[address] [place], [place] [id number] documented as of this encounter
--- OUTSIDE RECORDS SUMMARY | 2022-02-09 02:20 | XMS_ITS | Encounter Summary ---
:1945 Author Organization [facility] [place] [address] Care Team Providers Name Role Phone Marilyn Kidd MD Primary Care Provider Reason for Visit Reason Comments Genetic Evaluation Ovarian Carcinosarcoma Consultation (Routine) - Closed Specialty Diagnoses / Procedures Referred By Contact Refer red To Contact Genetics / Hematology Diagnoses Ovarian cancer Genie Garcia, [facility] Hem Onc 3k and Oncology Procedures Consult [facility] [address] [place] GYNECOLOGIC ONCOLOGY [address] [place] [address] Referral ID Status Reason Start Date Expiration Date Visits Requ ested Visits Authorized [id number] Closed 05/25/2016 05/25/2017 1 1 Encounter Details Date Type Department Care Team Description 09/25/2016 Office Visit Hematology and [place], Ovarian cancer, unspecified laterality; Oncology at [facility] Lore Aiken Family history of malignant neoplasm of breast [place], [place] HEMATOLOGY/ONCOLOG [address] [address] DEPT. [phone] [place], [place] [address] Social History Tobacco Use Types [...] documented as of this encounter Progress Notes Lore Arango - 09/25/2016 9:00 AM EST Ms. White was seen by Lore Arango MS, [facility] at the request of Genie Garcia MD,to advise regarding possible heritable predisposition to cancer. I spent 35 minutes of this face to face encounter with the patient gathering medical and family history and discussing the likelihood of a genetic predisposition to cancer and the option of genetic testing. Reason for referral/Chief complaint Personal history of ovarian cancer and family history of breast cancer. Medical history Cancer hx and treatment: Ovarian carcinosarcoma diagnosed at 69, treated with surgery and chemo therapy Age at 1st menses: 14 Age at 1st child: N/A Menopause status: Postmenopausal Oral contraceptive use: None Hormone replacement therapy use: None Current cancer screening: Colonoscopy, mammography Family History of Cancer Problem Relation Age of Onset ??? Breast Cancer Mother 60's ??? Breast Cancer Maternal Aunt #1 50 ??? Breast Cancer Maternal Aunt #2 50 ??? Melanoma Brother 60's ??? Skin Cancer Maternal Aunt #3 ??? Mesothelioma Maternal Aunt #4 88 ??? Cervical Cancer Maternal Cousin #1, Whitney 30's ??? Lymphoma Maternal Cousin #1, Whitney 40's ??? Breast Cancer Maternal Cousin #1, Whitney 60's ??? Breast Cancer Maternal Cousin #2 50's ??? Skin Cancer Maternal Cousin #3 ??? Eye Cancer Maternal Cousin #4 30's Maternal ethnic background is [place], non-Nondenominational. Paternal ethnic background is Nan, [place], non-Nondenominational. Genetic risk assessment Panel genetic testing for an inherited predisposition to ovarian cancer was discussed. The risks, benefits and limitations of panel genetic testing were reviewed. Neisha opted for testing with the Breast/Trolley Car Overhauler Panel, a next generation sequencing panel that simultaneously analyzes 23 genes, including BRCA1 and BRCA2, that contribute to increased risk for ovarian and other cancers. Neisha opted for testing and was consented. Her blood sample was drawn today and sent to [facility]. Insurance pre-authorization and testing will take approximately 3-4 weeks. Neisha will be contactedvia telephone once her test results become available. If positive, we will schedule an in person follow-up appointment. At that time, we will discuss with Neisha the implications that this test resultmay have for her, as well as her family members. We will also provide Neisha with screening guidelines for cancer prevention and early detection, as well as answer any questions she may have. Screening Recommendations We will readdress the issue of screening upon the receipt of Neisha???s genetic test result. documented in this encounter Plan of Treatment Upcoming Encounters Date Type Specialty Care Team Description 02/27/2022 Appointment Radiology Marilyn Kidd MD [address] [place], [place] [id number] (Wo rk) documented as of this encounter Visit Diagnoses Diagnosis Ovarian cancer, unspecified laterality Family history of malignant neoplasm of breast documented in this encounter Care Teams Enrobing Machine Corder Relationship Specialty Start Date End Date Marilyn Kidd MD PCP - General 06/17/[address] [place], [place] [id number] documented as of this encounter
--- OUTSIDE RECORDS SUMMARY | 2022-02-09 02:20 | XMS_ITS | Encounter Summary ---
:1945 Author Organization [facility] [place] [address] Care Team Providers Name Role Phone Marilyn Kidd MD Primary Care Provider Encounter Details Date Type Department Care Team Description 05/22/2016 Hospital Encounter Mammography at [facility] Marilyn Kidd, Visit for screening [facility] MD mammogram Drive [address] [place] [address] [address] [facility] 1 [address] [place], [place] [phone] [id number] Social History Tobacco Use Types Packs/Day Years [...] 2 Cans by 0 CMB1 mouth daily. (FJCNCNEBI-RD-QAOTU-MUSHRO OMCMB ORAL) polyethylene glycol Take 17 g by mouth 0 (MIRALAX) 17 gram Powder as needed. in Packet Coenzyme T74-Mjkvnnb E Take 1 capsule by 0 2012 [...] Radiology Marilyn Kidd MD [address] [facility] 1 [place] [address] (Wo rk) documented as of this encounter Procedures Procedure Name Priority Date/Time Associated Diagnosis Comme nts MAMMO SCREENING CAD Routine 05/22/2016 9:37 AM Visit for margarito varma Results for this AND FEDERICO BILATERAL EDT mammogram procedure are in the results section. documented in this encounter Results Mammo Screen CAD and Federico Bilat (Generic) (05/22/2016 9:37 AM EDT) Anatomical Region Laterality Modality Breast Bilateral Mammography Specimen (Source) Anatomical Location Collection Method / Collectio n Time Received Time / Laterality Volume Narrative 05/22/2016 10:57 AM EDT BILATERAL MAMMOGRAPHY REASON FOR EXAM: Screening TECHNIQUE: [...] CONCLUSION: No mammographic evidence of malignancy. RECOMMENDATION: The [employer] and The Society of Breast Imaging recommend annual screenin g beginning at age 40 for the general female population. Screening amanda uld continue as long as a woman is in good health and is expected to live 1 0 more years or longer. All women should be familiar with the known benefi ts, limitations, and potential harms linked to breast cancer screening. They should also know how their breasts normally look and feel and repor t any breast changes to a health care provider right away. Some women - b ecause of their family history, a genetic tendency, or certain other facto rs - should be screened with MRIs along with mammograms. (The number of wo men who fall into this category is very small.) The patient and health care provider should discuss the patient history and decide if earlier sc reening and breast MRI are appropriate. A result letter has been sent to this pa katherinent by the [facility]. BIRADS CATEGORY 1: NEGATIVE Marilyn Kidd MD IMG MAMMO ORDERABLES documented in this encounter Visit Diagnoses Diagnosis Visit for screening mammogram Other screening mammogram documented in this encounter Care Teams Seismograph Chief Relationship Specialty Start Date End Date Marilyn Kidd MD PCP - General 06/17/[address] [place] [address] [address] [place] [address] documented as of this encounter
--- OUTSIDE RECORDS SUMMARY | 2022-02-09 02:20 | XMS_ITS | Encounter Summary ---
:1945 Author Organization [facility] Address [place] [id number] Care Team Providers Name Role Phone Marilyn Kidd MD Primary Care Provider Reason for Referral Diagnostic Test (Routine) - Closed Specialty Diagnoses / Procedures Referred By Contact Refer red To Contact Radiology Diagnoses Malignant mixed Mullerian tumor of ovary, unspecified laterality Genie Garcia MD [facility] Rad Ct Scan Procedures CT Chest Abdomen Pelvis w Contrast (Generic) [facility] [place] [address] [place] [address] Referral ID Status Reason Start Date Expiration Date Visits V isits Requested Authorized [id number] Closed Specialty 07/04/2018 07/04/2019 1 1 Service Requested Encounter Details Date Type Department Care Team Description 07/04/2018 Orders Only Gynecology Oncology at Karla Garcia lignant mixed [facility] [place] Genie Mullerian tumor of [facility] ova ry, unspecified [place] [address] GYNECOLOGIC [phone] ONCOLOGY [place], [place] [address] Social History Tobacco Use Types [...] MD [address] [place] [address] (Wo rk) documented as of this encounter Results CT Chest Abdomen Pelvis w Contrast (Generic) (07/14/2018 3:43 PM EST) Anatomical Region Laterality Modality Abdomen, Pelvis Computed Tomography Specimen (Source) Anatomical Location Collection Method / Collectio n Time Received Time / Laterality Volume Impressions 07/14/2018 5:40 PM EST 1. ??No evidence of intra-abdominal or pelvic metastasis. 2. ??Stable 7 mm triangular nodule withi n the lingula. The nodular density adjacent to it appears less conspicuous on today's examination. Recommend 6 month follow-up to evaluate for stabilit y. 3. ??No abnormality in the region of the LEFT breast to explain the patient's pain. I have personally reviewed the image(s) and the residents interpretation and agree with the findings, Jd le at 07/14/2018 5:40 PM Narrative 07/14/2018 5:40 PM EST EXAMINATION: CT CHEST ABDOMEN PELVIS W CONTRAST (GENERIC) CLINICAL HISTORY: ovarian cancer with ne w pain under left breast; assess disease TECHNIQUE: Helical CT of the chest, abdo men, and pelvis was performed following intravenous administration of 73 ml of O mnipaque 350 Oral contrast was administered. COMPARISON: CT chest abdomen pelvis 12/07, and 11/01/2015 FINDINGS: Chest: Lungs and large airways: Stable triangul ar 7-8mm density abutting the major fissure in the lingula. Previously seen nodular density adjacent to this appears less conspicuous on today's examination and measures approximately 3 mm compared to 5 mm previously (series 4, image 46). Stable focal scarring in the right middle lobe. No new pulmonary nodules. Pleura: No effusion. Heart/vasculature: Normal. Interval manjit elke of right chest port. Lymph nodes: No enlarged lymph nodes. Mediastinum and chet: Normal. Abdomen/pelvis: Liver: Stable area of hypodensity within the right hepatic lobe near the falciform ligament, which likely represe nts focal fatty sparing. Bile ducts: Nondilated. Gallbladder: No calcified gallstones. No rmal caliber wall. Pancreas: Normal attenuation without yon lyndsey dilatation. Spleen: Normal. Adrenals: Normal. Kidneys: Stable subcentimeter hypodensit y within the left midpole, too small to characterize, but likely represent simpl e cysts. No collecting system dilation. Urinary Bladder: Normal. Vasculature: No aneurysm. Scattered calc ified atherosclerotic plaque throughout the abdominal aorta. Lymph Nodes: ??No enlarged lymph nodes. Bowel: Nondilated, no wall thickening. M oderate fecal load. Peritoneum and mesentery: No ascites, fr ee air, or loculated fluid collection. No mesenteric inflammation. No evidence of peritoneal metastases. Abdominal wall: Focal right anterior abd ominal wall defect measuring approximately 2.3 cm, with a small loop of small bowel adjacent to it, with no herniation. Reproductive organs: Post hysterectomy. No adnexal masses present. Osseous structures: No suspicious lesion s. Procedure Note Jd Sparrow MD - 07/14/2018Form atting of this note might be different from the original. EXAMINATION: CT CHEST ABDOMEN PELVIS W CONTRAST (GENERIC) CLINICAL HISTORY: ovarian cancer with ne w pain under left breast; assess disease TECHNIQUE: Helical CT of the chest, abdo men, and pelvis was performed following intravenous administration of 73 ml of O mnipaque 350 Oral contrast was administered. COMPARISON: CT chest abdomen pelvis 12/07, and 11/01/2015 FINDINGS: Chest: Lungs and large airways: Stable triangul ar 7-8mm density abutting the major fissure in the lingula. Previously seen nodular density adjacent to this appears less conspicuous on today's examination and measures approximately 3 mm compared to 5 mm previously (series 4, image 46). Stable focal scarring in the right middle lobe. No new pulmonary nodules. Pleura: No effusion. Heart/vasculature: Normal. Interval manjit elke of right chest port. Lymph nodes: No enlarged lymph nodes. Mediastinum and chet: Normal. Abdomen/pelvis: Liver: Stable area of hypodensity within the right hepatic lobe near the falciform ligament, which likely represe nts focal fatty sparing. Bile ducts: Nondilated. Gallbladder: No calcified gallstones. No rmal caliber wall. Pancreas: Normal attenuation without yon lyndsey dilatation. Spleen: Normal. Adrenals: Normal. Kidneys: Stable subcentimeter hypodensit y within the left midpole, too small to characterize, but likely represent simpl e cysts. No collecting system dilation. Urinary Bladder: Normal. Vasculature: No aneurysm. Scattered calc ified atherosclerotic plaque throughout the abdominal aorta. Lymph Nodes: No enlarged lymph nodes. Bowel: Nondilated, no wall thickening. M oderate fecal load. Peritoneum and mesentery: No ascites, fr ee air, or loculated fluid collection. No mesenteric inflammation. No evidence of peritoneal metastases. Abdominal wall: Focal right anterior abd ominal wall defect measuring approximately 2.3 cm, with a small loop of small bowel adjacent to it, with no herniation. Reproductive organs: Post hysterectomy. No adnexal masses present. Osseous structures: No suspicious lesion s. IMPRESSION 1. No evidence of intra-abdominal or pel candido metastasis. 2. Stable 7 mm triangular nodule within the lingula. The nodular density adjacent to it appears less conspicuous on today's examination. Recommend 6 month follow-up to evaluate for stabilit y. 3. No abnormality in the region of the L EFT breast to explain the patient's pain. I have personally reviewed the image(s) and the residents interpretation and agree with the findings, Jd le at 07/14/2018 5:40 PM Genie Garcia MD IMG CT ORDERABLES documented in this encounter Visit Diagnoses Diagnosis Malignant mixed Mullerian tumor of ovary , unspecified laterality Malignant mixed Mullerian tumor of ovary , unspecified laterality documented in this encounter Care Teams Exercise Physiology Professor Relationship Specialty Start Date End Date Marilyn Kidd MD PCP - General 06/17/[address] [place] [address] documented as of this encounter
--- OUTSIDE RECORDS SUMMARY | 2022-02-09 02:20 | XMS_ITS | Encounter Summary ---
:1945 Author Organization [facility] [place] [address] Care Team Providers Name Role Phone Marilyn Kidd MD Primary Care Provider Reason for Referral Diagnostic Test (Routine) - Closed Specialty Diagnoses / Procedures Referred By Contact Refer red To Contact Radiology Diagnoses Malignant mixed Mullerian tumor of ovary, unspecified laterality Genie Garcia MD [facility] Rad Ct Scan Procedures CT Chest Abdomen Pelvis w Contrast (Generic) [facility] [place] [address] [place] [address] Referral ID Status Reason Start Date Expiration Date Visits V isits Requested Authorized [id number] Closed Specialty 07/04/2018 07/04/2019 1 1 Service Requested Reason for Visit Diagnostic Test (Routine) - Closed Specialty Diagnoses / Procedures Referred By Contact Refer red To Contact Radiology Diagnoses Malignant mixed Mullerian tumor of ovary, unspecified laterality Genie Garcia MD [facility] Rad Ct Scan Procedures CT Chest Abdomen Pelvis w Contrast (Generic) [facility] [place] [address] [place] [address] Referral ID Status Reason Start Date Expiration Date Visits V isits Requested Authorized [id number] Closed Specialty 07/04/2018 07/04/2019 1 1 Service Requested Encounter Details Date Type Department Care Team Description 07/14/[address] Scan at [facility] Horton-Leobardo, Malignant mixed [facility] MD Genie Mullerian tumor of [facility] ovary, unspecified [place], [place] [address] laterality [address] GYNECOLOGIC [phone] [place] [address] Social History Tobacco Use Types Packs/Day Years [...] 2 Cans by mouth 0 CMB1 daily. (OFHZIXHWB-WT-FQJPJ-MUSHRO OMCMB ORAL) polyethylene glycol Take 17 g by mouth as 0 (MIRALAX) 17 gram Powder needed. in Packet Coenzyme Y76-Dqpiflw E Take 1 capsule by 0 2012 50-5 mg-unit Capsule mouth daily. documented as of this encounter Plan of Treatment Upcoming Encounters Date Type Specialty Care Team Description 02/27/2022 Appointment Radiology Marilyn Kidd MD [address] [place] [address] (Wo rk) documented as of this encounter Procedures Procedure Name Priority Date/Time Associated Diagnosis Comme nts CT CHEST ABDOMEN Routine 07/14/2018 3:43 PM Malignant mixed Re sults for this PELVIS W CONTRAST EST Mullerian tumor of proc edure are in (GENERIC) ovary, unspecified the resul ts laterality section. documented in this encounter Results CT [...] , unspecified laterality documented in this encounter Administered Medications Inactive Administered Medications - up to 3 most recent administrations Medication Order MAR Action Action Date Dose Rate Site iohexol (OMNIPAQUE) 350 mg/mL Given 07/14/2018 3:44 PM EST 73 mL s solution 0-200 mL 0-200 mL, Intravenous, ONCE PRN, 1 dose, Starting on Alejandra 18 at 1543, Until Alejandra 1218 at 1544, Per Protocol, Warning Vesicant/Irritant Medication , Radiology Contrast, Routine iohexol (OMNIPAQUE) 350 mg/mL solution 0-50 Given 07/14/2018 1:30 PM EST 50 mLs mL 0-50 mL, Oral, ONCE PRN, 1 dose, Starting on Alejandra 07/14/18 at 1543, Until Alejandra 07/14/18 at 1330, Per Protocol, Warning Vesicant/Irritant Medication , Radiology Contrast, Routine documented in this encounter Care Teams Audio Production Engineer Relationship Specialty Start Date End Date Marilyn Kidd MD PCP - General 06/17/[address] [place] [address] documented as of this encounter
--- OUTSIDE RECORDS SUMMARY | 2022-02-09 02:20 | XMS_ITS | Encounter Summary ---
:1945 Author Organization [facility] [place] [address] Care Team Providers Name Role Phone Marilyn Kidd MD Primary Care Provider Encounter Details Date Type Department Care Team Description 09/21/2016 Orders Only Gynecology Oncology at Arlin Garcia vitamin D level [facility] MD Genie [facility] [place] [address] GYNECOLOGIC [phone] ONCOLOGY [place] [id number] (Wo rk) Social History Tobacco Use Types [...] MD [address] [place], [place] [address] (Wo rk) documented as of this encounter Results Vitamin D, 25-Hydroxy (09/25/2016 10:58 AM EST) P athologist Signature 25-OH Vit D 40 30 - 100 [facility] Total ng/mL [facility] Comment: Deficient <10 ng/mL Insufficient 10 to 29 ng/mL Sufficient 30 to 100 ng/mL Potential Intoxication >100 ng/mL According to the US National Osteoporosi s Foundation, Vitamin D concentrations >30 ng/mL are sufficient to protect bone health. ??The National Kidney Foundation has similarly stated that pat ients with Vitamin D concentrations <30ng/mL should be considered to be insu fficient or deficient. http://[employer]/Weever Appsnatlkidneyfoundat ion http://[employer]/Weever AppsVitD The IDS iSYS Vitamin D Immunoassay detec ts both 25-OH Vitamin D2 and 25-OH Vitamin D3, but only a total Vitamin D c oncentration is reported. Specimen Anatomical Collection Method Collection Time Receive d Time (Source) Location / / Volume Laterality Blood specimen 09/25/2016 10:58 7 3:37 (specimen) AM EST PM EST Resulting Agency Comment Spec In Lab Genie Garcia MD CHEMISTRY ORDERABLES Performing Organization Address City/State/[place] [address] documented in this encounter Visit Diagnoses Diagnosis Low vitamin D level documented in this encounter Care Teams Weight Calculator Relationship Specialty Start Date End Date Marilyn Kidd MD PCP - General 06/17/[address] [place] [address] documented as of this encounter
--- OUTSIDE RECORDS SUMMARY | 2022-02-09 02:20 | XMS_ITS | Encounter Summary ---
:1945 Author Organization [facility] [place] [address] Care Team Providers Name Role Phone Marilyn Kidd MD Primary Care Provider Encounter Details Date Type Department Care Team Description 02/04/2018 Hospital Encounter Hematology and Oncology [place] [address] Social History Tobacco Use Types Packs/Day [...] 2 Cans by mouth 0 CMB1 daily. (WHHNAYYUA-NL-FWFHE-MUSHRO OMCMB ORAL) polyethylene glycol Take 17 g by mouth as 0 (MIRALAX) 17 gram Powder needed. in Packet Coenzyme S55-Erprysr E Take 1 capsule by 0 2012 50-5 mg-unit Capsule mouth daily. documented as of this encounter Plan of Treatment Upcoming Encounters Date Type Specialty Care Team Description 02/27/2022 Appointment Radiology Marilyn Kidd MD [address] [place] [address] (Wo rk) documented as of this encounter Procedures Procedure Name Priority Date/Time Associated Diagnosis Comme nts PLATELET COUNT STAT 02/04/2018 11:54 AM Pre-op testing Resu lts for this EDT procedure are i n the results section . documented in this encounter Results Platelet count (02/04/2018 11:54 AM EDT) athologist Signature Platelets 206 145 - 357 [facility] KO x10(3)/[facility] LABORATORY Plat Immature 2.9 0.0 - 7.4 VuzixCK % % [facility] Comment: Limitation of the Immature Platelet Frac tion (IPF)-May be less reliable when the platelet count is less than 90a376/u L due to statistical imprecision. The IPF [...] in a decreased state of production. References: [employer] The Clinical Value of the Immature Platelet Fraction (IPF) in Cell Recovery Document Number [id number] 12/2010 [employer] The Role of the Imm ature Platelet Fraction (IPF) in the Differential Diagnosis of Thrombocytopen ia, Document [id number] V05 P0514 Specimen Anatomical Collection Method Collection Time Receive d Time (Source) Location / / Volume Laterality Blood specimen 02/04/2018 11:54 8 (specimen) AM EDT 12:16 PM EDT Resulting Agency Comment Spec In Lab Genie Garcia MD HEMATOLOGY ORDERABLES Performing Organization Address City/State/[place] [address] documented in this encounter Visit Diagnoses Diagnosis Pre-op testing Preoperative examination, unspecified documented in this encounter Care Teams Locomotive Mechanic Apprentice Relationship Specialty Start Date End Date Marilyn Kidd MD PCP - General 06/17/[address] [place] [address] documented as of this encounter
--- OUTSIDE RECORDS SUMMARY | 2022-02-09 02:20 | XMS_ITS | Encounter Summary ---
:1945 Author Organization [facility] [place] [address] Care Team Providers Name Role Phone Marilyn Kidd MD Primary Care Provider Encounter Details Date Type Department Care Team Description 09/25/2016 Hospital Encounter Hematology and Ovarian carcinosarcoma, unspecified laterality; Oncology at [facility] Low vitamin D level; [facility] Ovarian c ancer, unspecified laterality; Drive Family history of [place] [address] Social History Tobacco Use Types Packs/Day [...] 2 Cans by 0 CMB1 mouth daily. (VIUMBLCEF-IE-VKWDW-MUSHRO OMCMB ORAL) polyethylene glycol Take 17 g by mouth 0 (MIRALAX) 17 gram Powder as needed. in Packet Coenzyme R90-Oicnilx E Take 1 capsule by 0 2012 50-5 mg-unit Capsule mouth daily. docusate sodium (COLACE) Take 100 mg by 0 11/24/2017 100 mg Capsule mouth 2 times daily. ergocalciferol (DRISDOL) Take 4,000 Units by 0 11/24/2017 8,000 unit/mL Drops mouth 2 times daily. documented as of this encounter Progress Notes Dolores Hamilton RN - 09/25/2016 12:08 PM EST Cath chi removed. Brisk blood return noted. Port terminally flushed. Dolores Hamilton RN - 09/25/2016 10:44 AM EST Patient Name: Neisha White Patient Age: 71 y.o. Birthdate: 1945 Admit date: 09/25/2016 Attending Physician: No att. providers found Patient's port accessed. Flushed well. No blood return noted. Cath chi instilled. Patient to have labs drawn peripherally and return to have cath chi taken out after MD appt. documented in this encounter Plan of Treatment Upcoming Encounters Date Type Specialty Care Team Description 02/27/2022 Appointment Radiology Marilyn Kidd MD [address] [place] [address] (Wo rk) documented as of this encounter Procedures Procedure Name Priority Date/Time Associated Diagnosis Comme nts VITAMIN D, Routine 09/25/2016 10:58 AM Low vitamin D level R esults for this 25-HYDROXY EST procedure are i n the results section. documented in this encounter Results Vitamin D, 25-Hydroxy (09/25/2016 10:58 AM EST) P athologist Signature 25-OH Vit D 40 30 - 100 [facility] Total ng/mL [facility] Comment: Deficient <10 ng/mL Insufficient 10 to 29 ng/mL Sufficient 30 to 100 ng/mL Potential Intoxication >100 ng/mL According to the US National Osteoporosi s Foundation, Vitamin D concentrations >30 ng/mL are sufficient to protect bone health. ??The National Kidney Foundation has similarly stated that pat ients with Vitamin D concentrations <30ng/mL should be considered to be insu fficient or deficient. http://uchoose/DHStartupxplorenatlkidneyfoundat ion http://uchoose/ProactaVitD The IDS iSYS Vitamin D Immunoassay detec [...] Organization Address City/State/ZIP Code Phon e Number [place] [phone] [address] documented in this encounter Visit Diagnoses Diagnosis Ovarian carcinosarcoma, unspecified late rality Low vitamin D level Ovarian cancer, unspecified laterality Family history of malignant neoplasm of breast documented in this encounter Administered Medications Inactive Administered Medications - up to 3 most recent administrations Medication Order MAR Action Action Date Dose Rate Site alteplase (CATHFLO) injection 2 mg Given 09/25/2016 10:44 AM EST 2 mg 2 mg, INTRA-CATHETER, ONCE, 1 dose, On Wed09/25/16 at 1100, Instill into occluded lumen as directed., Routine documented in this encounter Care Teams Cardiology Teacher Relationship Specialty Start Date End Date Marilyn Kidd MD PCP - General 06/17/[address] [place] [address] documented as of this encounter
--- OUTSIDE RECORDS SUMMARY | 2022-02-09 02:21 | XMS_ITS | Encounter Summary ---
:1945 Author Organization [facility] [place] [address] Care Team Providers Name Role Phone Marilyn Kidd MD Primary Care Provider Encounter Details Date Type Department Care Team Description 07/18/2015 Office Visit Gynecology Oncology [place] Whipple [place] [facility], [facility] uns pecified later[address] [place] G[place]OLOGIC [phone] ONCOLOGY [phone] [place] [address] Social History Tobacco Use Types Packs/Day Years [...] documented as of this encounter Progress Notes Jr Whipple MD - 07/18/2015 10:09 AM EST Division of [place] [address] Pre-chemotherapy Visit: Patient Active Problem List Diagnosis Code ??? Pelvic mass R19.00 ??? 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 Oncology history: 05/02/15- seen in office for palpable abdominal mass concerning for malignancy on CT. CA-125 304 05/06/15- Debulking to no gross residual of IIIC ovarian carcinosarcoma 06/03/15- IP port placed following MD Esequiel consult 06/06/15- present: IV/IP chemo Subjective: Neisha White comes to the office today before cycle # 3 of IV/IP chemotherapy. She did better this cycle than last and in particular has felt great the past week. She denies nausea, vomiting, diarrhea, fever, chills, dysuria, shortness of breath, rashes, cough/cold symptoms, mouth sores or sore throat. Stable numbness/tingling in her hands/feet, not dropping anything, no tripping. Grade 1 neuropathy. Review of Systems Constitutional: Positive for appetite change and fatigue. HENT: Positive for nosebleeds. Respiratory: Positive for cough. Cardiovascular: Negative. Gastrointestinal: Negative. Endocrine: Negative. Musculoskeletal: Positive for arthralgias. Skin: Negative. Allergic/Immunologic: Negative. Neurological: Negative. Hematological: Negative. Psychiatric/Behavioral: Negative. Objective: There were no vitals filed for this visit. There is no weight on file to calculate BMI. There is no height or weight on file to calculate BSA. Physical Exam [...] There is no rebound and no guarding. Musculoskeletal: Normal range of motion. She exhibits no edema or tenderness. Neurological: She is alert and oriented to person, place, and time. GOG performance status= 0 CTCAE Toxicity grading for the prior cycle: Neutrophils: 0- Normal / not present Hemoglobin: 0- Normal / not present Platelets: 0- Normal / not present Creatinine: 1- > ULN - 1.5 ULN Fatigue: 1- Mild fatigue over baseline Hand-foot: 0- Normal / not present Nausea: 1- Loss of appetite without alteration in eating habits Vomitin- Normal / not present Neuropathy (sensory): 2- Sensory alteration or paresthesia (including tingling), interfering with function, but not interfering with ADL Labs: Within normal limits CA 125 Date Value Ref Range Status 06/26/2015 28* Final 06/07/2015 52.4* <=35.0 unit/mL Final Assessment and Plan: Neisha White is a 69 y.o. year old with stage IIIC ovarian carcinosarcoma who is here today forcycle 3 of IV/IP Taxol/Cisplatin. Her creatinine increased after cycle 1 and has remained elevated. In addition her albumin is low at 2.9. Plan today after discussion with pharmacy and the patient is to dose reduce her IP cisplatin by ~20% (Cis 60mg/m2) and proceed with chemotherapy today as scheduled. Neisha is disappointed that her dose will go down this week. Discussed that if she continues to feel well and her counts recover we could increase her dose with her next cycle. RTC one week. - Cont IVF on Mondays - Cycle 3 day 8 next week JR WHIPPLE MD documented in this encounter Plan of Treatment Upcoming Encounters Date Type Specialty Care Team Description 02/27/2022 Appointment Radiology Marilyn Kidd MD [address] [place], [place] [id number] (Wo rk) documented as of this encounter Visit Diagnoses Diagnosis Ovarian carcinosarcoma, unspecified late rality documented in this encounter Care Teams Tire Mold Tester Relationship Specialty Start Date End Date Marilyn Kidd MD PCP - General 06/17/[address] [place], [place] [phone] documented as of this encounter
--- OUTSIDE RECORDS SUMMARY | 2022-02-09 02:21 | XMS_ITS | Encounter Summary ---
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 Genie Garcia, [facility] [place] [facility] 3k Procedures CONSULT [facility] [place] ON[place]OG[place] [phone] [place] [address] Referral ID Status Reason Start Date Expiration Date Visits Requ ested Visits Authorized [id number] Closed 07/24/2015 07/23/2016 1 1 Encounter Details Date Type Department Care Team Description 08/30/2015 Hospital Encounter Hematology and Ovarian carcinosarcoma, Oncology at [facility] [place] [address] Social History Tobacco Use Types Packs/Day [...] by mouth as 0 (MIRALAX) 17 gram needed. Powder in Packet Coenzyme L83-Anlzhfq E Take 1 capsule by 0 2012 50-5 mg-unit Capsule mouth daily. dronabinol (MARINOL) 5 Take 1 capsule by 30 capsule 3 201411/01/2015 mg Capsule mouth 2 times daily (before meals). dexamethasone Take 5 tablets by 90 tablet 3 06/04/2015 04/0 02/2016 (DECADRON) 4 mg mouth the night before TabletIndications: chemotherapy and take Ovarian cancer, 5 tablets in the unspecified laterality morning before leaving for your chemo appointment. dexamethasone Take one tablet by 60 tablet 1 06/04/201502/2016 (DECADRON) 4 mg mouth TWO times a day TabletIndications: for 2 days after Ovarian cancer, chemo. unspecified laterality prochlorperazine Take 1 tablet by mouth 30 tablet 5 015 11/01/2015 (COMPAZINE) 10 mg twice a day for 3 days TabletIndications: after chemo. May take Ovarian cancer, every 6 hrs as needed unspecified laterality for nausea. LORazepam (ATIVAN) 0.5 Take 1 tablet by mouth 30 tablet 0 1 08/04/2014 11/01/2015 mg TabletIndications: every 6 hrs as needed Ovarian cancer, for nausea that is not unspecified laterality controlled with prochlorperazine & ondansetron. May swallow or place under tongue. ondansetron (ZOFRAN) 8 Take 1 tablet by mouth 20 tablet 5 1 08/04/2014 11/01/2015 mg Tablet every 8 hours as needed for Nausea. Do not take for 72 hours after chemotherapy. acetaminophen (TYLENOL) Take 2 tablets by 30 tablet 1 05/1211/01/2015 325 mg Tablet mouth every 6 hours as needed for Pain. oxyCODONE (ROXICODONE) Take 1-2 tablets by 30 tablet 0 04/2511/01/2015 5 mg Tablet mouth every 4 hours as needed for Pain. senna-docusate Take 2 tablets by 60 tablet 1 05/12/201502/2016 (PERICOLACE) 8.6-50 mg mouth 2 times daily. Tablet documented as of this encounter Progress Notes Alvarado Mcclure RN - 08/30/2015 11:13 AM EST Patient Name: Neisha White Patient Age: 69 y.o. Birthdate: 1945 Admit date: 08/30/2015 Attending Physician: No att. providers found Neisha White, 69 y.o. female with diagnosis of ovarian cancer is here for chemotherapy infusionof carbo/taxol. PROTOCOL: n CYCLE: 2 DAY: 1 S: Pt. offers no complaints at this time. O: Chemotherapy orders independently verified for correct drug name, route and dosage per patient's height, weight and BSA by Alvarado Mcclure RN and onsite pharmacist REACTIONS (DESCRIPTION, TIME, INTERVENTION AND EFFECTIVENESS) none A: Pt. Tolerated treatment well. Neisha White confirms that all questions and issues have been addressed. P: Return to clinic per routine. documented in this encounter Plan of Treatment Upcoming Encounters Date Type Specialty Care Team Description 02/27/2022 Appointment Radiology Marilyn Kidd MD [address] [facility] [address] [place] [address] (Wo rk) documented as of this encounter Visit Diagnoses Diagnosis Ovarian carcinosarcoma, unspecified late rality documented in this encounter Administered Medications Inactive Administered Medications - up to 3 most recent administrations Medication Order MAR Action Action Date Dose Rate Site CARBOplatin (PARAPLATIN) 367 New Bag 08/30/2015 4:18 PM EST 367 mg 573.4 mL/hr mg in dextrose 5% 286.7 mL chemo infusion 367 mg (rounded from 366.5 mg, Target AUC = 5), Intravenous, ONCE, 1 dose, On Wed08/30/15 at 1245, Administer over 30 Minutes, Hold Parameters: CARBOplatin, Call provider for serum creatinine less than (mg/dL): .4, Call provider for serum creatinine greater than (mg/dL): 1.5 dexamethasone (DECADRON) injection 10 mg Given 08/30/2015 12:10 PM EST 10 mg 10 mg, Intravenous, ONCE, 1 dose, On Wed08/30/15 at 1145, Administer 30 minutes prior to PACLitaxel diphenhydrAMINE (BENADRYL) injection 12.5 Given 08/30/2015 1 2:23 PM EST 12.5 mg mg 12.5 mg, Intravenous, ONCE, 1 dose, On Wed08/30/15 at 1245, Routine famotidine (PEPCID) injection 20 mg Given 08/30/2015 12:15 PM EST 20 mg 20 mg, Intravenous, ONCE, 1 dose, On Wed08/30/15 at 1145, Administer 30 minutes prior to PACLitaxel heparin, porcine 100 unit/mL flush 500 Given 08/30/2015 4:51 PM EST 500 Units Units 500 Units, Intravenous, ONCE PRN, Starting on Wed08/30/15 at 1055, Until 08/31/15 at 0436, Line Care, Refer to Intravenous (IV) Procedure: Accessing Implanted Vascular Access Devices (928) procedure and/or Intravenous (IV) Job Aid: Adult Flushing & Catheter Care (8031) job aid for additional information regarding guidelines and administration., Routine ondansetron (ZOFRAN) tablet 16 mg Given 08/30/2015 12:09 PM EST 16 mg 16 mg, Oral, ONCE, 1 dose, On Wed08/30/15 at 1145, Administer prior to chemotherapy, Routine PACLitaxel (TAXOL) 291 mg in New Bag 08/30/2015 1:02 PM EST 291 mg 182.8 mL/hr dextrose 5% Non-PVC 548.5 mL chemo infusion 291 mg (rounded from 290.5 mg = 175 mg/m2/dose ? 1.66 m2 Treatment Plan BSA from Recorded weight), Intravenous, ONCE, 1 dose, On Wed08/30/15 at 1245, Administer over 3 Hours pegfilgrastim (NEULASTA) Given 08/30/2015 4:55 PM EST 6 mg Abdominal Tissue injection 6 mg 6 mg, Subcutaneous, ONCE, 1 dose, On Wed08/30/15 at 1145, Routine sodium chloride 0.9 % flush 20 mL Given 08/30/2015 4:51 PM EST 20 mLs 20 mL, Intravenous, DAILY PRN, Starting on Wed08/30/15 at 1039, Until 08/31/15 at 0436, for the accessing and continued maintenance of an Implantable Port device, Routine sodium chloride 0.9% infusion New Bag 08/30/2015 12:00 PM EST 1,000 mLs 500 mL/hr 1,000 mL (1 L), Intravenous, ONCE, 1 dose, On Wed08/30/15 at 1200 documented in this encounter Care Teams Importer Exporter Relationship Specialty Start Date End Date Marilyn Kidd MD PCP - General 06/17/[address] [place] [address] documented as of this encounter
--- OUTSIDE RECORDS SUMMARY | 2022-02-09 02:21 | XMS_ITS | Encounter Summary ---
:1945 Author Organization [facility] [place] [address] Care Team Providers Name Role Phone Marilyn Kidd MD Primary Care Provider Encounter Details Date Type Department Care Team Description 08/28/2015 External Results [facility]necology [facility]cology at [facility] [place] [address] Social History Tobacco Use Types Packs/Day [...] MD [address] [place] [address] (Wo rk) documented as of this encounter Procedures Procedure Name Priority Date/Time Associated Diagnosis Comme nts EXTERNAL LAB CBC CMP Routine 08/28/2015 Results for this THYROID RESULTS PANEL proced ure are in the results section . documented in this encounter Results (ABNORMAL) CBC / CMP / Thyroid External Results (08/28/2015) [facility] gist Method Time Signature WBC 3.06 (EXTERNAL/ ABN) Hemoglobin 10.6 12.0 - (EXTERNAL/ 16.0 ABN) Hematocrit 32.6 36.0 - (EXTERNAL/ 46.0 ABN) MCV 89.1 82.0 - (External 108.0 Lab) Platelets 149 (EXTERNAL/ ABN) Sodium 140 137 - 147 (External Lab) Potassium 4.2 3.4 - 5.3 (External Lab) Chloride 105 99 - 108 (External Lab) CO2 31 22 - 29 (External Lab) BUN 27 (EXTERNAL/ ABN) Creatinine 1.08 (EXTERNAL/ ABN) Estimated GFR 50.6 (External Lab) Glucose Lvl 88 (External Lab) Calcium 9.1 8.7 - (External 10.7 Lab) Total Protein 6.9 6.4 - 8.2 (External Lab) Albumin 3.4 3.5 - 5.0 (EXTERNAL/ ABN) Total Bilirubin 0.24 (External Lab) Alk Phos 92 (External Lab) AST 17 13 - 35 (External Lab) ALT 28 7 - 35 (External Lab) Neutrophils % 60 46 - 78 (External Lab) Neutr Abs (ANC) 1,850 (External Lab) CA 125 17 (External Lab) Specimen (Source) Anatomical Location Collection Method / Collectio n Time Received Time / Laterality Volume 08/28/2015 Narrative This result has an attachment that is no t available. Genie Garcia MD POINT OF CARE TEST ORDERABLE S documented in this encounter Visit Diagnoses Not on filedocumented in this encounter Care Teams Upper Leather Cutter Relationship Specialty Start Date End Date Marilyn Kidd MD PCP - General 06/17/[address] [place] [address] documented as of this encounter
--- OUTSIDE RECORDS SUMMARY | 2022-02-09 02:21 | XMS_ITS | Encounter Summary ---
:1945 Author Organization [facility] [place] [address] Care Team Providers Name Role Phone Marilyn Kidd MD Primary Care Provider Encounter Details Date Type Department Care Team Description 06/28/2015 Telephone Gynecology Oncology at [facility] [place] [address] Social History Tobacco Use Types Packs/Day Years [...] this encounter Miscellaneous Notes Telephone Encounter - Deedee Goddard - 06/28/2015 1:30 PM EST Called [facility] to schedule lower doppler, right leg but they are booked until 07/08. I faxed order over and the pt is going to call on Wednesday to see if they can squeeze her in or if anycancellations. They have her on the wait list. I provided pt with [facility]'s phone # as well as mine so she can call me if she doesn't get an appt. So at that time I can find another location for her to have this done. Provided a copy of the order for her to hand carry in case. documented in this encounter Plan of Treatment Upcoming Encounters Date Type Specialty Care Team Description 02/27/2022 Appointment Radiology Marilyn Kidd MD [address] [place], [place] [phone] (Wo rk) documented as of this encounter Visit Diagnoses Not on filedocumented in this encounter Care Teams Tankerman Relationship Specialty Start Date End Date Marilyn Kidd MD PCP - General 06/17/[address] [place], [place] [phone] documented as of this encounter
--- OUTSIDE RECORDS SUMMARY | 2022-02-09 02:21 | XMS_ITS | Encounter Summary ---
:1945 Author Organization [facility] [place] [address] Care Team Providers Name Role Phone Marilyn Kidd MD Primary Care Provider Encounter Details Date Type Department Care Team Description 07/30/2015 External [facility] [place] [address] Social History Tobacco Use Types Packs/Day Years [...] MD [address] [place], [place] [phone] (Wo rk) documented as of this encounter Procedures Procedure Name Priority Date/Time Associated Diagnosis Comme nts CBC (WITH DIFF) Routine 07/30/2015 Results for this procedure are in the resu lts section. documented in this encounter Results (ABNORMAL) CBC (with Diff) (07/30/2015) Patholo gist Method Time Signature WBC 18.27 (External Lab) Hemoglobin 9.9 (A) 12.0 - 16.0 Hematocrit 30.6 (A) 36.0 - 46.0 Platelets 229 (External Lab) Neutrophil % 70 (External Lab) Band % 9 (External Lab) Neutr Abs (ANC) 14,430 (External Lab) Specimen (Source) Anatomical Location Collection Method / Collectio n Time Received Time / Laterality Volume Blood specimen 07/30/2015 (specimen) Genie Garcia MD HEMATOLOGY ORDERABLES documented in this encounter Visit Diagnoses Not on filedocumented in this encounter Care Teams Gaming Floor Supervisor Relationship Specialty Start Date End Date Marilyn Kidd MD PCP - General 06/17/[address] [place] [address] documented as of this encounter
--- OUTSIDE RECORDS SUMMARY | 2022-02-09 02:21 | XMS_ITS | Encounter Summary ---
:1945 Author Organization [place] [address] Care Team Providers Name Role Phone Marilyn Kidd MD Primary Care Provider Reason for Visit Reason Onset Date Comments Results 09/19/2015 Encounter Details Date Type Department Care Team Description 09/19/2015 Telephone Gynecology Oncology at [facility] [place] [place] [address] Social History Tobacco Use Types Packs/Day [...] Telephone Encounter - Hanna Rubio RN - 09/19/2015 3:52 PM EST Telephone call to Rocael Cindy to report lab results as listed below. Rocael was not available and I reported the labs to Ragini. Results for ROCAEL WHITE ( ) as of 09/19/2015 15:52 Ref. Range 09/18/2015 00:00 WBC Unknown 3.52 (EXTERNAL/ABN) Hemoglobin Latest Ref Range: 12.0-16.0 10.0 (EXTERNAL/ABN) Hematocrit Latest Ref Range: 36.0-46.0 30.2 (EXTERNAL/ABN) MCV Latest Ref Range: 82.0-108.0 91.5 (External Lab) Platelets Unknown 212 (External Lab) Neutr Abs (ANC) Unknown 2310 (External Lab) Neutrophils % Latest Ref Range: 46-78 66 (External Lab) Sodium Latest Ref Range: 137-147 144 (External Lab) Potassium Latest Ref Range: 3.4-5.3 3.9 (External Lab) Chloride Latest Ref Range: 99-108 107 (External Lab) CO2 Latest Ref Range: 22-29 30 (External Lab) BUN Unknown 30 (EXTERNAL/ABN) Creatinine Unknown 1.14 (EXTERNAL/ABN) Estimated GFR Unknown 47.4 (EXTERNAL/ABN) Glucose Lvl Unknown 69 (EXTERNAL/ABN) Calcium Latest Ref Range: 8.7-10.7 8.9 (External Lab) Total Protein Latest Ref Range: 6.4-8.2 6.5 (External Lab) Albumin Latest Ref Range: 3.5-5.0 3.5 (External Lab) Total Bilirubin Unknown 0.29 (External Lab) Alk Phos Unknown 77 (External Lab) AST Latest Ref Range: 13-35 19 (External Lab) ALT Latest Ref Range: 7-35 36 (External Lab) CA 125 Unknown 15 (External Lab) documented in this encounter Plan of Treatment Upcoming Encounters Date Type Specialty Care Team Description 02/27/2022 Appointment Radiology Marilyn Kidd MD [address] [place], [place] [phone] (Wo rk) documented as of this encounter Visit Diagnoses Not on filedocumented in this encounter Care Teams Systems Development Manager Relationship Specialty Start Date End Date Marilyn Kidd MD PCP - General 06/17/[address] [place], [place] [phone] documented as of this encounter
--- OUTSIDE RECORDS SUMMARY | 2022-02-09 02:21 | XMS_ITS | Encounter Summary ---
:1945 Author Organization [facility] [place] [address] Care Team Providers Name Role Phone Marilyn Kidd MD Primary Care Provider Encounter Details Date Type Department Care Team Description 07/01/2015 Hospital Encounter Radiology Library at [facility], [place] [address] Social History Tobacco Use Types Packs/Day [...] Sig Dispensed Refills Start Date End Date Coenzyme Y97-Cqgdyxc E Take 1 capsule by 0 2012 [...] daily. Tablet documented as of this encounter Plan of Treatment Upcoming Encounters Date Type Specialty Care Team Description 02/27/2022 Appointment Radiology Marilyn Kidd MD [address] [place] [address] (Wo rk) documented as of this encounter Procedures Procedure Name Priority Date/Time Associated Comments Diagnosis FILM LIBRARY STORAGE Routine 07/01/2015 12:00 AM Pain Results for this ONLY ULTRASOUND EST procedure andrew mccrary in STUDY the results section. documented in this encounter Results Film Library- Storage only Ultrasound Study (07/01/2015 12:00 AM EST) Specimen (Source) Anatomical Location Collection Method / Collectio n Time Received Time / Laterality Volume Narrative RAD - 07/01/2015 8:28 PM EST See PACS for result report. Dr Jarvis Love [facility] FILM LIBRARY ORDERABLES Performing Organization Address City/State/ZIP Code Phon e Number [place], [place] documented in this encounter Visit Diagnoses Diagnosis Pain Generalized pain documented in this encounter Care Teams Miniature Model Maker Relationship Specialty Start Date End Date Marilyn Kidd MD PCP - General 06/17/[address] [place] [address] documented as of this encounter
--- OUTSIDE RECORDS SUMMARY | 2022-02-09 02:21 | XMS_ITS | Encounter Summary ---
:1945 Author Organization [facility] [place] [address] Care Team Providers Name Role Phone Marilyn Kidd MD Primary Care Provider Encounter Details Date Type Department Care Team Description 06/28/2015 Hospital Encounter XRay at [facility] Horton-Leobardo, Carcinosarcoma [address] [place] [address] [place] [address] [facility] [phone] GYNECOLOGIC ONCOLOGY [place], [place] [address] Social History Tobacco Use Types [...] Dispensed Refills Start Date End Date Coenzyme T08-Ydfegft E Take 1 capsule by 0 2012 [...] MD [address] [place] [address] (Wo rk) documented as of this encounter Procedures Procedure Name Priority Date/Time Associated Diagnosis Comme nts XR CHEST PA AND Routine 06/28/2015 9:32 AM Carcinosarcoma Resu lts for this LATERAL EST procedure are i n the results section. documented in this encounter Results XR Chest Routine PA & Lateral (06/28/2015 9:32 AM EST) Anatomical Region Laterality Modality Chest N/A Digital Radiography Specimen (Source) Anatomical Location Collection Method / Collectio n Time Received Time / Laterality Volume Impressions 06/28/2015 9:46 AM EST IMPRESSION: No active cardiopulmonary pathology identified. Narrative 06/28/2015 9:46 AM EST EXAMINATION: XR CHEST ROUTINE PA AND LATERAL CLINICAL HISTORY: cough, on chemo for ca rcinosarcoma TECHNIQUE: PA and lateral views of the c hest. ? COMPARISON: None. FINDINGS: MediPort central venous access catheter tip mid SVC. The lungs appear clear. The cardiomediastinal silhouette, chet, pulmonary vessels, and pleura are within normal limits. No significant oss eous findings are seen. Procedure Note Ivana Zavaleta MD - 06/28/2015Formatt ing of this note might be different from the original. EXAMINATION: XR CHEST ROUTINE PA AND LAT ERAL CLINICAL HISTORY: cough, on chemo for ca rcinosarcoma TECHNIQUE: PA and lateral views of the c hest. COMPARISON: None. FINDINGS: MediPort central venous access catheter tip mid SVC. The lungs appear clear. The cardiomediastinal silhouette, chet, pulmonary vessels, and pleura are within normal limits. No significant oss eous findings are seen. IMPRESSION IMPRESSION: No active cardiopulmonary pa thology identified. Genie Garcia MD IMG DX ORDERABLES documented in this encounter Visit Diagnoses Diagnosis Carcinosarcoma Other malignant neoplasm without specifi cation of site documented in this encounter Care Teams Pulmonologist Relationship Specialty Start Date End Date Marilyn Kidd MD PCP - General 06/17/[address] [place] [address] documented as of this encounter
--- OUTSIDE RECORDS SUMMARY | 2022-02-09 02:21 | XMS_ITS | Encounter Summary ---
:1945 Author Organization [facility] [place] [address] Care Team Providers Name Role Phone Marilyn Kidd MD Primary Care Provider Encounter Details Date Type Department Care Team Description 07/03/2015 Orders Only Gynecology Oncology at [facility] Genie Garcia MD [facility] [place] [address] GYNECOLOGIC ONCOLOGY [phone] [place] [id number] (Wo rk) Social History Tobacco Use Types [...] MD [address] [place], [place] [address] (Wo rk) documented as of this encounter Visit Diagnoses Not on filedocumented in this encounter Care Teams Stair Builder Relationship Specialty Start Date End Date Marilyn Kidd MD PCP - General 06/17/[address] [place] [address] documented as of this encounter
--- OUTSIDE RECORDS SUMMARY | 2022-02-09 02:21 | XMS_ITS | Encounter Summary ---
:1945 Author Organization [facility] [place] [address] Care Team Providers Name Role Phone Marilyn Kidd MD Primary Care Provider Reason for Visit Reason Onset Date Comments Results 09/06/2015 Encounter Details Date Type Department Care Team Description 09/06/2015 Telephone Gynecology Oncology at [facility] Kenzie Harvey, [place] [address] Social History Tobacco Use Types Packs/Day [...] Telephone Encounter - Kenzie Harvey RN - 09/06/2015 1:12 PM EST Relayed following results to pt. Recent Results (from the past 72 hour(s)) CBC (with Diff) Result Value Ref Range WBC 2.04 (External Lab) Hemoglobin 10.0 (A) 12.0 - 16.0 Hematocrit 30.6 (A) 36.0 - 46.0 Platelets 132 (External Lab) Neutrophil % 32.2 (External Lab) Neutr Abs (ANC) 660 (EXTERNAL/ABN) documented in this encounter Plan of Treatment Upcoming Encounters Date Type Specialty Care Team Description 02/27/2022 Appointment Radiology Marilyn Kidd MD [address] [place] [address] (Wo rk) documented as of this encounter Visit Diagnoses Not on filedocumented in this encounter Care Teams Sider Relationship Specialty Start Date End Date Marilyn Kidd MD PCP - General 06/17/[address] [place] [address] documented as of this encounter
--- OUTSIDE RECORDS SUMMARY | 2022-02-09 02:21 | XMS_ITS | Encounter Summary ---
:1945 Author Organization [facility] [place] [address] Care Team Providers Name Role Phone Marilyn Kidd MD Primary Care Provider Encounter Details Date Type Department Care Team Description 07/23/2015 External Results [facility] [place] [address] Social History Tobacco Use Types Packs/Day Years [...] MD [address] [place], [place] [id number] (Wo rk) documented as of this encounter Procedures Procedure Name Priority Date/Time Associated Diagnosis Comme nts EXTERNAL LAB CBC CMP Routine 07/23/2015 Results for this THYROID RESULTS PANEL proced ure are in the results section . documented in this encounter Results (ABNORMAL) CBC / CMP / Thyroid External Results (07/23/2015) [facility] gist Method Time Signature WBC 4.15 (External Lab) Hemoglobin 11.1 (A) 12.0 - 16.0 Hematocrit 33.9 (A) 36.0 - 46.0 Platelets 250 (External Lab) Sodium 137 137 - 147 (External Lab) Potassium 4.5 3.4 - 5.3 (External Lab) Chloride 100 99 - 108 (External Lab) CO2 30 (A) 22 - 29 BUN 35 (EXTERNAL/ ABN) Creatinine 1.28 (EXTERNAL/ ABN) Calcium 8.6 (A) 8.7 - 10.7 Total Protein 6.1 (A) 6.4 - 8.2 Albumin 3.2 (A) 3.5 - 5.0 Total Bilirubin 0.46 (External Lab) Alk Phos 93 (External Lab) AST 16 13 - 35 (External Lab) ALT 29 7 - 35 (External Lab) Neutrophil % 79.3 (External Lab) Neutr Abs (ANC) 3,290 (External Lab) Specimen (Source) Anatomical Location Collection Method / Collectio n Time Received Time / Laterality Volume 07/23/2015 Genie Garcia MD POINT OF CARE TEST ORDERABLE S documented in this encounter Visit Diagnoses Not on filedocumented in this encounter Care Teams Tourist Adviser Relationship Specialty Start Date End Date Marilyn Kidd MD PCP - General 06/17/[address] [place] [address] documented as of this encounter
--- OUTSIDE RECORDS SUMMARY | 2022-02-09 02:21 | XMS_ITS | Encounter Summary ---
:1945 Author Organization [facility] [place] [address] Care Team Providers Name Role Phone Marilyn Kidd MD Primary Care Provider Encounter Details Date Type Department Care Team Description 07/24/2015 Orders Only Gynecology Oncology at [facility] Genie Garcia MD [facility] [place] [address] GYNECOLOGIC ONCOLOGY [phone] [place], [place] [address] (Wo rk) Social History Tobacco [...] documented as of this encounter Progress Notes Genie Garcia MD - 07/24/2015 3:11 PM EST Spoke with patient regarding current symptoms and lab findings. She did have a syncopal episode at home 2 days ago and continues to feel poorly with weakness and dizziness, although improving slowly. Her labs are essentially stable, although her creatinine continues to rise slowly despite aggressive hydration. At this point I think we should abandon IP chemo and switch to IV only carbo/taxol including skipping her IP taxol due tomorrow given how poorly she is feeling. She is amenable to this plan. Orders changed. Will start with Carbo AUC 5 and taxol 175mg/m2. documented in this encounter Plan of Treatment Upcoming Encounters Date Type Specialty Care Team Description 02/27/2022 Appointment Radiology Marilyn Kidd MD [address] [place] [address] (Wo rk) documented as of this encounter Visit Diagnoses Not on filedocumented in this encounter Care Teams Repairer Evaporator Relationship Specialty Start Date End Date Marilyn Kidd MD PCP - General 06/17/[address] [place] [address] documented as of this encounter
--- OUTSIDE RECORDS SUMMARY | 2022-02-09 02:21 | XMS_ITS | Encounter Summary ---
:1945 Author Organization [facility] [place] [place] [address] Care Team Providers Name Role Phone Marilyn Kidd MD Primary Care Provider Reason for Visit Reason Comments Chemotherapy carbo/taxol Encounter Details Date Type Department Care Team Description 08/09/2015 Office Visit Gynecology Oncology Placido Whipple at [facility] MD Jr carcinosarcoma, [facility] uns pecified laterality [address] [place] GYNECOLOGIC [phone] ONCOLOGY [phone] [place], [place] [address] Social History Tobacco Use Types [...] Sign Reading Time Taken Comments Blood Pressure 140/70 08/09/2015 7:59 AM EST Pulse 94 08/09/2015 7:59 AM EST Temperature 36.9 ??C (98.4 ??F) 08/09/2015 7:59 AM EST Respiratory Rate 18 08/09/2015 7:59 AM EST Oxygen Saturation 98% 08/09/2015 7:59 AM EST Inhaled Oxygen Concentration - - Weight 61 kg (134 lb 7.7 oz) 08/09/2015 7:59 AM EST Height 164.4 cm (5' 4.72) 08/09/2015 7:59 AM EST Body Mass Index 22.57 08/09/2015 7:59 AM EST documented in this encounter Progress Notes Jr Whipple MD - 08/09/2015 8:13 AM EST Division [place] [address] Pre-chemotherapy Visit: Patient Active Problem List Diagnosis [...] chemo switch to IV chemo 2/2 toxicity 08/09/15- Started IV carbo AUC 5 and taxol 175mg/m2 Subjective: Neisha White comes to the office today before cycle # 4 of adjuvant chemotherapy her first 3 cycles were IV/IP and she is being switched to IV due to toxicity. She did better this cycle than last and in particular has felt great the past week. She denies nausea, vomiting, diarrhea, fever, chills, dysuria, shortness of breath, rashes, cough/cold symptoms, mouth sores or sore throat. Stable numbness/tingling in her hands/feet, not dropping anything, no tripping. Grade 1 neuropathy. Review of Systems Constitutional: Positive for fatigue. HENT: Negative. Eyes: Negative. Cardiovascular: Negative. Gastrointestinal: Negative. Endocrine: Negative. Genitourinary: Negative. Musculoskeletal: Positive for arthralgias. Skin: Negative. Allergic/Immunologic: Negative. Neurological: Negative. Hematological: Negative. Psychiatric/Behavioral: Negative. Objective: Filed Vitals: 08/09/15 0759 BP: 140/70 Pulse: 94 Temp: 36.9 ??C (98.4 ??F) Resp: 18 Height: 164.4 cm (5' 4.72) Weight: 61 kg (134 lb 7.7 oz) SpO2: 98% Body mass index is 22.57 kg/(m^2). Body surface area is 1.67 meters squared. Physical Exam Constitutional: She is [...] Hand-foot: 0- Normal / not present Nausea: 0- Normal / not present Vomitin- Normal / not present Neuropathy (sensory): 1- Asymptomatic; loss of deep tendon reflexes or paresthesia (including tingling) but not interfering with function Labs: Within normal limits CA 125 Date Value Ref Range Status 07/17/2015 24* Final 06/26/2015 28* Final Assessment and Plan: Neisha White is a 69 y.o. year old with stage IIIC ovarian carcinosarcoma who is here today forcycle 4 of Taxol/Carboplatin now switching to IV. After her third cycle of IV/IP she continued to feel poorly, her creatinine remained elevated and she was unable to get Day 8 IP chemo. For these reasons and her episode of unexplained syncope we are switching to IV chemotherapy only. She will see how she feels regarding need for IV hydration. No neulasta with this cycle, will check labs 2 weeks from today. JR WHIPPLE MD documented in this encounter Plan of Treatment Upcoming Encounters Date Type Specialty Care Team Description 02/27/2022 Appointment Radiology Marilyn Kidd MD [address] [place], [place] [id number] (Wo rk) documented as of this encounter Visit Diagnoses Diagnosis Ovarian carcinosarcoma, unspecified late rality documented in this encounter Care Teams Clipping Marker Relationship Specialty Start Date End Date Marilyn Kidd MD PCP - General 06/17/[address] [place], [place] [id number] documented as of this encounter
--- OUTSIDE RECORDS SUMMARY | 2022-02-09 02:21 | XMS_ITS | Encounter Summary ---
:1945 Author Organization [place] [address] Care Team Providers Name Role Phone Marilyn Kidd MD Primary Care Provider Encounter Details Date Type Department Care Team Description 07/31/2015 Office Visit Hematology and Oncology Naye Galvez , [place] [address] Social History Tobacco Use Types Packs/Day [...] Sign Reading Time Taken Comments Blood Pressure - - Pulse - - Temperature - - Respiratory Rate - - Oxygen Saturation - - Inhaled Oxygen Concentration - - Weight 60 kg (132 lb 4.4 oz) 07/31/2015 9:01 AM EST Height 162.3 cm (5' 3.9) 07/31/2015 9:01 AM EST Body Mass Index 22.78 07/31/2015 9:01 AM EST documented in this encounter Progress Notes Naye Galvez, RD - 07/31/2015 8:20 AM EST [facility] Initial Dietitian Assessment Seen By: Naye Galvez, MS, RD, LD Referred by: tearoom host Team Reason for visit: Nutrition Consult Patient and diagnosis: Pt with ovarian cancer. Starting IV only carbo/taxol Oncology history: 05/02/15- seen in office for palpable abdominal mass concerning for malignancy on CT. CA-125 304 05/06/15- Debulking to no gross residual of IIIC ovarian carcinosarcoma 06/03/15- IP port placed following MD Iraheta consult 06/06/15- IV/IP chemo Assessment: HPI: Patient Active Problem List Diagnosis Code ??? Pelvic mass R19.00 ??? 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 Ovarian carcinosarcoma C56.9 Meds: Noted Labs: Noted 07/30 Ht: Wt: 60kg today 07/31 Wt Hx: Wt Readings from Last 3 Encounters: 07/18/15 60 kg (132 lb 4.4 oz) 07/18/15 60.147 kg (132 lb 9.6 oz) 06/28/15 61 kg (134 lb 7.7 oz) UBW: ~140lb % UBW: 94% IBW: +/- 10% % IBW: BMI: ___ Edema ___ Ascites ___Muscle wasting Calorie needs: ~1500kcal Protein needs: ~60-80g Reports MD Iraheta advised ~70-80g pro following surgery Fluid needs: ~2L Food Intake: Eating healthy meals TID Supplements/Frequency: Teas, vitamins, or other nutritional supplements: Food allergies or avoidances: Appetite: marinol- not using regularly Nausea: denies- did use compazine previously with IP chemotx Vomiting: denies Chewing: Dentition: Swallowing: Phlegm: Taste Changes: + Bowels: constipation Food availability/purchasing, meal planning and preparation: Depression: Social Support: here today with partner Economic Issues: Physical Activity: + Level of Motivation/Readiness to Change: Nutrition Diagnosis: Met with pt and partner today. Weight stable over past month; ~94%UBW. Answered questions to the best of my ability re: nutrition and ovarian Ca, protein needs, bowels, etc. Discussed foods to help support RBC's. Constipation-encouraged good sources of dietary fiber (recipes, prunes, F/V, etc), fluids, and bowel meds prn. Also discussed tips for management of dysgeusia- encouraged to continue tryingnew foods/flavors. Nutrition Goals: LBM preservation Educational Handouts provided: NCM: Anemia, Recipes for Constipation, Power Pudding for Regularity, Protein Handout, ODS Iron-List of Iron rich foods Monitoring and Evaluation: Will follow up with Ms. Bustamante prn, per pt request. More than 50 of this 60 minute visit was spent in direct patient nutrition counseling. I have provided her with my card and contact information should she have any questions in the mean time. Thank you for this consult. Naye Galvez RD - 07/31/2015 8:20 AM EST Note started in error. documented in this encounter Plan of Treatment Upcoming Encounters Date Type Specialty Care Team Description 02/27/2022 Appointment Radiology Marilyn Kidd MD [address] [place], [place] [phone] (Wo rk) documented as of this encounter Visit Diagnoses Diagnosis Dietary counseling Dietary surveillance and counseling documented in this encounter Care Teams Director Food And Beverage Relationship Specialty Start Date End Date Marilyn Kidd MD PCP - General 06/17/[address] [place], [place] [address] documented as of this encounter
--- OUTSIDE RECORDS SUMMARY | 2022-02-09 02:21 | XMS_ITS | Encounter Summary ---
:1945 Author Organization [facility] [place] [address] Care Team Providers Name Role Phone Marilyn Kidd MD Primary Care Provider Reason for Visit Reason Onset Date Comments Dizziness 07/22/2015 Encounter Details Date Type Department Care Team Description 07/22/2015 Telephone Gynecology Oncology at [facility] [place] [address] Social History Tobacco Use Types Packs/Day [...] Telephone Encounter - Kenzie Harvey RN - 07/22/2015 11:18 AM EST Caller: Azul CURTIS from [facility] infusion Learning Needs Assessment Reviewed: yes Subjective Patient presents with: Dizziness Objective/Assessment Symptom onset: last night Location: n/a Duration: episode of dizziness and syncope last night while walking to the bathroom Characteristics: syncope Aggravating factors: ambulating Relieving factors: n/a Timing: n/a Severity: n/a Pertinent Past Medical History: Azul calls to report pt told her she had dizziness and passed out last night while walking to the bathroom. Denies injury. She is getting 1 L NS today as planned. Denies dizziness at this time. Denies shortness of breath. BP 102/63 P 84 R 18 O2 sat 100% room air. Plan Intervention/Plan/ Follow Up: Pt will call for any further dizziness or concerns. Pt agrees. documented in this encounter Plan of Treatment Upcoming Encounters Date Type Specialty Care Team Description 02/27/2022 Appointment Radiology Marilyn Kidd MD [address] [place], [place] [phone] (Wo rk) documented as of this encounter Visit Diagnoses Not on filedocumented in this encounter Care Teams Gericare Aide Relationship Specialty Start Date End Date Marilyn Kidd MD PCP - General 06/17/[address] [place], [place] [phone] documented as of this encounter
--- OUTSIDE RECORDS SUMMARY | 2022-02-09 02:21 | XMS_ITS | Encounter Summary ---
:1945 Author Organization [facility] [address] Care Team Providers Name Role Phone Marilyn Kidd MD Primary Care Provider Reason for Visit Medication Prior Authorization (Routine) - Closed Specialty Diagnoses / Procedures Referred By Contact Refer red To Contact Genie Garcia MD [facility] [place] [address] Referral ID Status Reason Start Date Expiration Date Visits Requ ested Visits Authorized [id number] Closed 06/05/2015 06/04/2016 1 1 Encounter Details Date Type Department Care Team Description 07/05/2015 Hospital Encounter Hematology and Ovarian carcinosarcoma, Oncology at [facility] [place] [address] Social History Tobacco Use Types Packs/Day [...] Sign Reading Time Taken Comments Blood Pressure 144/72 07/05/2015 1:40 PM EST Pulse 91 07/05/2015 1:40 PM EST Temperature 36.8 ??C (98.2 ??F) 07/05/2015 1:40 PM EST Respiratory Rate 20 07/05/2015 1:40 PM EST Oxygen Saturation 100% 07/05/2015 1:40 PM EST Inhaled Oxygen Concentration - - Weight - - Height - - Body Mass Index - - documented in this encounter Medications at Time of Discharge Medication Sig Dispensed Refills Start Date End Date Coenzyme B96-[id number] E Take 1 capsule by 0 2012 50-5 mg-unit Capsule mouth daily. dronabinol (MARINOL) 5 Take 1 capsule by 30 capsule 3 201411/01/2015 mg Capsule mouth 2 times daily (before meals). dexamethasone Take 5 tablets by 90 tablet 3 06/04/201502/2016 (DECADRON) 4 mg mouth the night before [...] encounter Progress Notes Amanda Montana RN - 07/05/2015 5:42 PM EST Patient Name: Neisha White Patient Age: 69 y.o. Birthdate: 1945 Admit date: 07/05/2015 Attending Physician: No att. providers found Neisha White, 69 y.o. female with diagnosis of Ovarian Ca is here for chemotherapy infusion of IP taxol. CYCLE: 2 DAY: 8 S: Pt. offers no complaints at this time. O: Chemotherapy orders independently verified for correct drug name, route and dosage per patient's height, weight and BSA by Amanda Montana RN and onsite pharmacist REACTIONS (DESCRIPTION, TIME, INTERVENTION AND EFFECTIVENESS) None A: Pt. Tolerated treatment well. Neisha White confirms that all questions and issues have been addressed. P: Return to clinic as scheduled documented in this encounter Plan of Treatment Upcoming Encounters Date Type Specialty Care Team Description 02/27/2022 Appointment Radiology Marilyn Kidd MD [address] [facility] [address] [place] [address] (Wo rk) documented as of this encounter Visit Diagnoses Diagnosis Ovarian carcinosarcoma, left documented in this encounter Administered Medications Inactive Administered Medications - up to 3 most recent administrations Medication Order MAR Action Action Date Dose Rate Site dexamethasone (DECADRON) injection Given 07/05/2015 2:28 PM EST 10 mg 10 mg 10 mg, Intravenous, ONCE, 1 dose, On Wed07/05/15 at 1330, Administer 30 minutes prior to PACLitaxel diphenhydrAMINE (BENADRYL) injection 12. 5 mg Given 07/05/2015 2:25 PM EST 12.5 mg 12.5 mg, Intravenous, ONCE, 1 dose, On Wed07/05/15 at 1330, Administer 30 minutes prior to PACLitaxel, Routine famotidine (PEPCID) injection 20 mg Given 07/05/2015 2:37 PM EST 20 mg 20 mg, Intravenous, ONCE, 1 dose, On Wed07/05/15 at 1330, Administer 30 minutes prior to PACLitaxel heparin, porcine 100 unit/mL flush 500 Given 07/05/2015 5:19 PM EST 500 Units Units 500 Units, Intravenous, ONCE PRN, Starting on Wed07/05/15 at 1330, Until 07/06/15 at 0435, Line Care, Refer to Intravenous (IV) Procedure: Accessing Implanted Vascular Access Devices (014) procedure and/or Intravenous (IV) Job Aid: Adult Flushing & Catheter Care (4546) job aid for additional information regarding guidelines and administration., Routine PACLitaxel (TAXOL) 99 mg in sodium chloride New Bag 06/25 3:22 PM EST 99 mg 0.9% Non-PVC 1,016.5 mL chemo infusion 99 mg (60 mg/m2/dose ? 1.65 m2 Treatment Plan BSA from Recorded weight), Intraperitoneal, ONCE, 1 dose, On Wed07/05/15 at 1430, Administer over 120 minutes or less. Warm PACLitaxel per procedure. After the IP chemotherapy instillation, the patient should be instructed to change positions every 15 minutes to allow for adequate distribution of the chemotherapy within the peritoneal cavity for 1 to 2 hours. Left side, right side, back, left side. Per Intraperitoneal (IP) Chemotherapy Administration Using an Implanted Port Procedure palonosetron (ALOXI) injection 0.25 mg Given 07/05/2015 2:25 PM EST 0.25 mg 0.25 mg, Intravenous, ONCE, 1 dose, On Wed07/05/15 at 1330, Administer over 30 seconds. Administer prior to chemotherapy, Routine pegfilgrastim (NEULASTA) injection 6 mg Given 07/05/2015 5:12 PM EST 6 mg 6 mg, Subcutaneous, ONCE, 1 dose, On Wed07/05/15 at 1600, Routine sodium chloride 0.9 % flush 5-20 mL Given 07/05/2015 5:18 PM EST 20 mLs 5-20 mL, Intravenous, EVERY 1 MIN PRN, Starting on Wed07/05/15 at 1330, Until 07/06/15 at 0435, Line Care, Flush pertains to all indwelling lines. Flush per protocol found in the job aid using the link provided on this medication record. Refer to Intravenous (IV) Job Aid: Adult Flushing & Catheter Care (1604) job aid for additional information regarding guidelines and administration., Routine sodium chloride 0.9% infusion New Bag 07/05/2015 2:59 PM EST 500 mLs 1,000 mL, Intraperitoneal, ONCE, 1 dose, On Wed07/05/15 at 1330, Access Intraperitoneal (IP) port and infuse warmed sodium chloride 0.9% 500 mL as fast as possible immediately prior to IP chemotherapy sodium chloride 0.9% infusion New Bag 07/05/2015 5:10 PM EST 500 mLs 500 mL, Intraperitoneal, ONCE, 1 dose, On Wed07/05/15 at 1530, Access Intraperitoneal (IP) port and infuse warmed sodium chloride 0.9% 500 mL as fast as possible immediately following IP chemotherapy documented in this encounter Care Teams Seam Taper Machine Relationship Specialty Start Date End Date Marilyn Kidd MD PCP - General 06/17/[address] [place] [address] [address] [place] [address] documented as of this encounter
--- OUTSIDE RECORDS SUMMARY | 2022-02-09 02:21 | XMS_ITS | Encounter Summary ---
:1945 Author Organization [facility] [place] [address] Care Team Providers Name Role Phone Marilyn Kidd MD Primary Care Provider Encounter Details Date Type Department Care Team Description 07/17/2015 Orders Only Gynecology Oncology at [facility], [facility] MD Genie unspecified laterality [address] [place] [address] GYNECOLOGIC [phone] ONCOLOGY [place] [id number] Social History Tobacco Use Types Packs/Day Years [...] MD [address] [place], [place] [address] (Wo rk) documented as of this encounter Visit Diagnoses Diagnosis Ovarian CA, unspecified laterality documented in this encounter Care Teams Director Of Estate Relationship Specialty Start Date End Date Marilyn Kidd MD PCP - General 06/17/[address] [place] [address] documented as of this encounter
--- OUTSIDE RECORDS SUMMARY | 2022-02-09 02:21 | XMS_ITS | Encounter Summary ---
:1945 Author Organization [place] [address] Care Team Providers Name Role Phone Marilyn Kidd MD Primary Care Provider Reason for Visit Reason Comments Chemotherapy carbo/taxol Encounter Details Date Type Department Care Team Description 08/30/2015 Office Visit Gynecology Oncology Placido Garcia at [facility] MD Genie carcinosarcoma, [facility] uns pecified laterality [address] [place]ECOLOGIC [phone] ONCOLOGY [phone] [place], [place] [address] Social History Tobacco Use Types [...] Sign Reading Time Taken Comments Blood Pressure 136/72 08/30/2015 9:31 AM EST Pulse 100 08/30/2015 9:31 AM EST Temperature 36.4 ??C (97.5 ??F) 08/30/2015 9:31 AM EST Respiratory Rate 18 08/30/2015 9:31 AM EST Oxygen Saturation 97% 08/30/2015 9:31 AM EST Inhaled Oxygen Concentration - - Weight 62.4 kg (137 lb 9.1 oz) 08/30/2015 9:31 AM EST Height 164.4 cm (5' 4.72) 08/30/2015 9:31 AM EST Body Mass Index 23.09 08/30/2015 9:31 AM EST documented in this encounter Progress Notes Vania Romero MD - 08/30/2015 9:33 AM EST Division of Gynecologic Oncology? [facility]? [address]? [place] [address]? Pre-chemotherapy Visit: Patient Active Problem List Diagnosis Code ??? Pelvic mass R19.00 ??? Ovarian carcinosarcoma C56.9 Reason for visit:?? Neisha Whiet is seen today in anticipation of chemotherapy clearance for??primary ovarian cancer. Oncology history: 05/02/15- seen in [...] comes to the office today before cycle #5 of adjuvant chemotherapy her first 3 cycles were IV/IP then she was switched to IV due to toxicity. She states that the week following her last cycle was the longest, slowest, worse one yet. She did come to the infusion suite for IV hydration. Neuropathy was worse than ever. Bottom of her feet had pins and needles and also had new neuropathic pain in an anklet distribution bilaterally. She describes jabs of pain in her calves, like knives. Buckling at her ankles/knees, although she never tripped or stumbled. Neuropathy has since decreased, but is still present. No nausea, but limited appetite. She does consistently eat and drink. She denies nausea, vomiting, diarrhea, fever, chills, dysuria, shortness of breath, rashes, cough/cold symptoms, mouth sores or sore throat.??Walks 2-3 miles every day and has some SOB with inclines. Stable numbness/tingling in her hands/feet, not dropping anything, no tripping. Review of Systems Constitutional: Positive for fatigue. HENT: Negative.?? Eyes: Negative.?? Cardiovascular: Negative.?? Gastrointestinal: Negative.?? Endocrine: Negative.?? Genitourinary: Negative.?? Musculoskeletal: Positive for arthralgias. Skin: Negative.?? Allergic/Immunologic: Negative.?? Neurological: Negative.?? Hematological: Negative.?? Psychiatric/Behavioral: Negative.? Objective: Blood pressure 136/72, pulse 100, temperature 36.4 ??C (97.5 ??F), resp. rate 18, height 164.4 cm (5' 4.72), weight 62.4 kg (137 lb 9.1 oz), SpO2 97 %. Body surface area is 1.69 meters squared. Physical Exam Constitutional: She is oriented to person, place, and time. She appears well- developed and well-nourished. Cardiovascular: Normal rate, regular rhythm, normal heart sounds and intact distal pulses.?? Pulmonary/Chest: Effort normal and breath sounds normal. No respiratory distress. She has no wheezes. She has no rales. Abdominal: Soft. She exhibits no distension. There is no tenderness. There is no rebound and no guarding. Well healed midline scar. Mild numbness surrounding scar. Musculoskeletal: Normal range of motion. She exhibits no edema or tenderness. Neurological: She is alert and oriented to person, place, and time. GOG performance status= 0 CTCAE Toxicity grading for the prior cycle: Neutrophils: 1- >1,500 -2,000 Hemoglobin: 0- Normal / not present Platelets: [...] interfering with function Labs: Within normal limits Results for orders placed or performed in visit on 08/28/15 CBC / CMP / Thyroid External Results Result Value Ref Range WBC 3.06 (EXTERNAL/ABN) Hemoglobin 10.6 (EXTERNAL/ABN) 12.0 - 16.0 Hematocrit 32.6 (EXTERNAL/ABN) 36.0 - 46.0 MCV 89.1 (External Lab) 82.0 - 108.0 Platelets 149 (EXTERNAL/ABN) Sodium 140 (External Lab) 137 - 147 Potassium 4.2 (External Lab) 3.4 - 5.3 Chloride 105 (External Lab) 99 - 108 CO2 31 (External Lab) 22 - 29 BUN 27 (EXTERNAL/ABN) Creatinine 1.08 (EXTERNAL/ABN) Estimated GFR 50.6 (External Lab) Glucose Lvl 88 (External Lab) Calcium 9.1 (External Lab) 8.7 - 10.7 Total Protein 6.9 (External Lab) 6.4 - 8.2 Albumin 3.4 (EXTERNAL/ABN) 3.5 - 5.0 Total Bilirubin 0.24 (External Lab) Alk Phos 92 (External Lab) AST 17 (External Lab) 13 - 35 ALT 28 (External Lab) 7 - 35 Neutrophils % 60 (External Lab) 46 - 78 Neutr Abs (ANC) 1850 (External Lab) CA 125 17 (External Lab) CA 125?? Date?? Value?? Ref Range?? Status?? 07/17/2015?? 24*? Final?? 06/26/2015?? 28*? Final?? Assessment and Plan: Neisha White is a 69 y.o. with stage IIIC ovarian carcinosarcoma who is here today for cycle #5of Taxol/Carboplatin. After her third cycle of IV/IP she continued to feel poorly, her creatinine remained elevated and she was unable to get Day 8 IP chemo. We will continue IV chemotherapy only. No neulasta with last cycle. Given drop in WBCs, recommend Neulasta with this cycle. CT scan 6 weeks after last cycle of chemo. Reinforced that it is OK to continue gentle walks/ yoga, but she should be focused on rest and healing and avoid strenuous exercise. Pt seen and discussed/plan formulated with Dr. Garcia, Imagery Analyst/onc Attending. VANIA ROMERO MD PGY4 08/30/2015 I have seen and examined the patient and reviewed and edited the resident's above history and I agree with the details as written. The assessment and plan were formulated in discussion with me and I agree with them as documented. Genie Garcia MD documented in this encounter Plan of Treatment Upcoming Encounters Date Type Specialty Care Team Description 02/27/2022 Appointment Radiology Marilyn Kidd MD [address] [place], [place] [id number] (Wo rk) documented as of this encounter Visit Diagnoses Diagnosis Ovarian carcinosarcoma, unspecified late rality documented in this encounter Care Teams Board Certified Arts Therapist Relationship Specialty Start Date End Date Marilyn Kidd MD PCP - General 06/17/[address] [place], [place] [phone] documented as of this encounter
--- OUTSIDE RECORDS SUMMARY | 2022-02-09 02:21 | XMS_ITS | Encounter Summary ---
:1945 Author Organization [facility] [place] [address] Care Team Providers Name Role Phone Marilyn Kidd MD Primary Care Provider Encounter Details Date Type Department Care Team Description 08/07/2015 External [facility] [place] [address] Social History Tobacco Use Types Packs/Day Years [...] MD [address] [place], [place] [id number] (Wo rk) documented as of this encounter Procedures Procedure Name Priority Date/Time Associated Diagnosis Comme nts EXTERNAL LAB CBC CMP Routine 08/07/2015 Results for this THYROID RESULTS PANEL proced ure are in the results section . documented in this encounter Results (ABNORMAL) CBC / CMP / Thyroid External Results (08/07/2015) [facility] gist Method Time Signature WBC 5.48 (External Lab) Hemoglobin 10.3 (A) 12.0 - 16.0 Hematocrit 31.5 (A) 36.0 - 46.0 Platelets 224 (External Lab) Sodium 142 137 - 147 (External Lab) Potassium 4.0 3.4 - 5.3 (External Lab) Chloride 103 99 - 108 (External Lab) CO2 32 (A) 22 - 29 BUN 30 (External Lab) Creatinine 1.15 (External Lab) Calcium 8.6 (A) 8.7 - 10.7 Magnesium 1.8 (External Lab) Total Protein 6.3 (A) 6.4 - 8.2 Albumin 3.1 (A) 3.5 - 5.0 Total Bilirubin 0.19 (External Lab) Alk Phos 118 (External Lab) AST 14 13 - 35 (External Lab) ALT 24 7 - 35 (External Lab) Neutrophil % 66.7 (External Lab) Neutr Abs (ANC) 3,660 (External Lab) CA 125 18 (External Lab) Specimen (Source) Anatomical Location Collection Method / Collectio n Time Received Time / Laterality Volume 08/07/2015 Genie Garcia MD POINT OF CARE TEST ORDERABLE S documented in this encounter Visit Diagnoses Not on filedocumented in this encounter Care Teams Malariologist Relationship Specialty Start Date End Date Marilyn Kidd MD PCP - General 06/17/[address] [place] [address] documented as of this encounter
--- OUTSIDE RECORDS SUMMARY | 2022-02-09 02:21 | XMS_ITS | Encounter Summary ---
:1945 Author Organization [facility] [place] [address] Care Team Providers Name Role Phone Marilyn Kidd MD Primary Care Provider Encounter Details Date Type Department Care Team Description 07/23/2015 External Results [place] [address] Social History Tobacco Use Types Packs/Day Years [...] MD [address] [place] [address] (Wo rk) documented as of this encounter Visit Diagnoses Not on filedocumented in this encounter Care Teams Mortgage Closing Clerk Relationship Specialty Start Date End Date Marilyn Kidd MD PCP - General 06/17/[address] [place] [address] documented as of this encounter
--- OUTSIDE RECORDS SUMMARY | 2022-02-09 02:21 | XMS_ITS | Encounter Summary ---
:1945 Author Organization [facility] [place] [address] Care Team Providers Name Role Phone Marilyn Kidd MD Primary Care Provider Reason for Visit Reason Onset Date Comments Results 08/28/2015 Encounter Details Date Type Department Care Team Description 08/28/2015 Telephone Gynecology Oncology at [facility] [place] [address] Social History Tobacco Use Types Packs/Day [...] Telephone Encounter - Hanna Rubio RN - 08/28/2015 4:35 PM EST Telephone call to Rocael White to report lab results as listed below. Results for ROCAEL WHITE ( ) as of 08/28/2015 16:35 Ref. Range 08/28/2015 00:00 WBC Unknown 3.06 (EXTERNAL/ABN) Hemoglobin Latest Ref Range: 12.0-16.0 10.6 (EXTERNAL/ABN) Hematocrit Latest Ref Range: 36.0-46.0 32.6 (EXTERNAL/ABN) MCV Latest Ref Range: 82.0-108.0 89.1 (External Lab) Platelets Unknown 149 (EXTERNAL/ABN) Neutr Abs (ANC) Unknown 1850 (External Lab) Neutrophils % Latest Ref Range: 46-78 60 (External Lab) Sodium Latest Ref Range: 137-147 140 (External Lab) Potassium Latest Ref Range: 3.4-5.3 4.2 (External Lab) Chloride Latest Ref Range: 99-108 105 (External Lab) CO2 Latest Ref Range: 22-29 31 (External Lab) BUN Unknown 27 (EXTERNAL/ABN) Creatinine Unknown 1.08 (EXTERNAL/ABN) Estimated GFR Unknown 50.6 (External Lab) Glucose Lvl Unknown 88 (External Lab) Calcium Latest Ref Range: 8.7-10.7 9.1 (External Lab) Total Protein Latest Ref Range: 6.4-8.2 6.9 (External Lab) Albumin Latest Ref Range: 3.5-5.0 3.4 (EXTERNAL/ABN) Total Bilirubin Unknown 0.24 (External Lab) Alk Phos Unknown 92 (External Lab) AST Latest Ref Range: 13-35 17 (External Lab) ALT Latest Ref Range: 7-35 28 (External Lab) documented in this encounter Plan of Treatment Upcoming Encounters Date Type Specialty Care Team Description 02/27/2022 Appointment Radiology Marilyn Kidd MD [address] [place], [place] [id number] (Wo rk) documented as of this encounter Visit Diagnoses Not on filedocumented in this encounter Care Teams Packaging Line Attendant Relationship Specialty Start Date End Date Marilyn Kidd MD PCP - General 06/17/[address] [place] [address] documented as of this encounter
--- OUTSIDE RECORDS SUMMARY | 2022-02-09 02:21 | XMS_ITS | Encounter Summary ---
:1945 Author Organization [facility] [place] [address] Care Team Providers Name Role Phone Marilyn Kidd MD Primary Care Provider Reason for Visit Reason Onset Date Comments Neuropathy 08/22/2015 Encounter Details Date Type Department Care Team Description 08/22/2015 Telephone Gynecology Oncology at [facility] [place] [address] Social History Tobacco Use Types Packs/Day [...] Telephone Encounter - Hanna Rubio RN - 08/22/2015 9:11 AM EST Caller: Neisha White Learning Needs Assessment Reviewed: Yes Subjective Patient presents with: Neuropathy Objective/Assessment Symptom onset: since chemotherapy started Location: bottoms of feet now Duration: weeks Characteristics: neuropathy was on bottom of feet and heels up to top of feet and ankles with stabbing jabs to her calfs, at times her knees would buckle, now it is just on bottom of feet; also, fingertips are still numb Aggravating factors: pressure Relieving factors: rest Timing: day 14 of cycle #1 of carboplatin and paclitaxel; received 2.5 cycles of IV/IP paclitaxel/cisplatin Severity: improving to only fingertips and bottoms of feet now Pertinent Past Medical History: Neisha called to report she is now taking: One teaspoon of mushroom powder (12 different mushrooms) twice daily Curcumin with biotin 1000 mg twice daily And going to start Accupuncture prior to her chemo next week. She has been doing yoga all along. She has a friend who told her that Gabapentin helps with neuropathy, but Neisha doesn't want to start that yet. Plan Intervention/Plan/ Follow Up: Neisha just wanted our office to be updated re: supplements she is taking. Will call with any further questions/concerns. documented in this encounter Plan of Treatment Upcoming Encounters Date Type Specialty Care Team Description 02/27/2022 Appointment Radiology Marilyn Kidd MD [address] [place], [place] [phone] (Wo rk) documented as of this encounter Visit Diagnoses Not on filedocumented in this encounter Care Teams Warehouse Engineer Relationship Specialty Start Date End Date Marilyn Kidd MD PCP - General 06/17/[address] [place], [place] [phone] documented as of this encounter
--- OUTSIDE RECORDS SUMMARY | 2022-02-09 02:21 | XMS_ITS | Encounter Summary ---
:1945 Author Organization [facility] [place] [address] Care Team Providers Name Role Phone Marilyn Kidd MD Primary Care Provider Encounter Details Date Type Department Care Team Description 07/05/2015 Hospital Encounter Hematology and Ovarian carcinosarcoma, Oncology at [facility] [place] [address] Social History Tobacco Use Types Packs/Day [...] Dispensed Refills Start Date End Date Coenzyme K11-Chyfrmo E Take 1 capsule by 0 2012 [...] documented as of this encounter Progress Notes Linda Odell RN - 07/05/2015 1:27 PM EST Patient Name: Neisha White Patient Age: 69 y.o. Birthdate: 1945 Admit date: 07/05/2015 Attending Physician: No att. providers found Access visit. See MAR and/or flowsheet. 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
--- OUTSIDE RECORDS SUMMARY | 2022-02-09 02:21 | XMS_ITS | Encounter Summary ---
:1945 Author Organization [facility] [place] [address] Care Team Providers Name Role Phone Marilyn Kidd MD Primary Care Provider Encounter Details Date Type Department Care Team Description 07/18/2015 Hospital Encounter Hematology and Ovarian carcinosarcoma, Oncology at [facility] unspecified laterality [facility] (Primary Dx) [place] [address] Social History Tobacco Use Types Packs/Day [...] Weight 60 kg (132 lb 4.4 oz) 07/18/2015 8:09 AM EST Height - - Body Mass Index 22.2 06/28/2015 8:04 AM EST documented in this encounter Medications at Time of Discharge Medication Sig Dispensed Refills Start Date End Date Coenzyme P89-Krcejnm E Take 1 capsule by 0 2012 50-5 mg-unit Capsule mouth daily. dronabinol (MARINOL) 5 Take 1 capsule by 30 capsule 3 201411/01/2015 mg Capsule mouth 2 times daily (before meals). dexamethasone Take 5 tablets by 90 tablet 3 06/04/2015 0402/2016 (DECADRON) 4 mg mouth the night before [...] documented as of this encounter Progress Notes Tez Mcgarry RN - 07/18/2015 8:27 AM EST Patient Name: Neisha White Patient Age: 69 y.o. Birthdate: 1945 Admit date: 07/18/2015 Attending Physician: Sudarshan Mcguire MD Access visit. Mediport accessed without incident. See MAR and/or flowsheet. documented in this encounter Plan of Treatment Upcoming Encounters Date Type Specialty Care Team Description 02/27/2022 Appointment Radiology Marilyn Kidd MD [address] [place], [place] [address] (Wo rk) documented as of this encounter Visit Diagnoses Diagnosis Ovarian carcinosarcoma, unspecified late rality - Primary documented in this encounter Administered Medications Inactive Administered Medications - up to 3 most recent administrations Medication Order MAR Action Action Date Dose Rate Site sodium chloride 0.9 % flush 10 mL Given 07/18/2015 8:10 AM EST 20 mLs 10 mL, Intravenous, DAILY PRN, Starting on Alejandra 07/18/15 at 0814, Until Wed07/19/15 at 0435, for the accessing and continued maintenance of an Implantable Port device, Routine documented in this encounter Care Teams Radiology Physician Assistant Relationship Specialty Start Date End Date Marilyn Kidd MD PCP - General 06/17/[address] [place], [place] [address] documented as of this encounter
--- OUTSIDE RECORDS SUMMARY | 2022-02-09 02:21 | XMS_ITS | Encounter Summary ---
:1945 Author Organization [facility] [place] [address] Care Team Providers Name Role Phone Marilyn Kidd MD Primary Care Provider Reason for Visit Reason Onset Date Comments Results 07/30/2015 Encounter Details Date Type Department Care Team Description 07/30/2015 Telephone Gynecology Oncology at [facility] Kenzie Harvey, [place] [address] Social History Tobacco Use Types Packs/Day [...] Telephone Encounter - Kenzie Harvey RN - 07/30/2015 1:02 PM EST Relayed following results to pt Recent Results (from the past 24 hour(s)) CBC (with Diff) Result Value Ref Range WBC 18.27 (External Lab) Hemoglobin 9.9 (A) 12.0 - 16.0 Hematocrit 30.6 (A) 36.0 - 46.0 Platelets 229 (External Lab) Neutrophil % 70 (External Lab) Band % 9 (External Lab) Neutr Abs (ANC) 78196 (External Lab) documented in this encounter Plan of Treatment Upcoming Encounters Date Type Specialty Care Team Description 02/27/2022 Appointment Radiology Marilyn Kidd MD [address] [place] [address] (Wo rk) documented as of this encounter Visit Diagnoses Not on filedocumented in this encounter Care Teams Refrigeration Operator Relationship Specialty Start Date End Date Marilyn Kidd MD PCP - General 06/17/[address] [place] [address] documented as of this encounter
--- OUTSIDE RECORDS SUMMARY | 2022-02-09 02:21 | XMS_ITS | Encounter Summary ---
:1945 Author Organization [facility] [place] [address] Care Team Providers Name Role Phone Marilyn Kidd MD Primary Care Provider Encounter Details Date Type Department Care Team Description 08/09/2015 Hospital Encounter Hematology and Ovarian carcinosarcoma, Oncology at [facility] [place] unspecified laterality [facility] (Primary Dx[facility] [place] [address] Social History Tobacco Use Types Packs/Day [...] Dispensed Refills Start Date End Date Coenzyme O03-Rtjnzld E Take 1 capsule by 0 2012 [...] encounter Progress Notes Amanda Montana RN - 08/09/2015 9:12 AM EST Patient Name: Neisha White Patient Age: 69 y.o. Birthdate: 1945 Admit date: 08/09/2015 Attending Physician: No att. providers found Access visit. See MAR and/or flowsheet. documented in this encounter Plan of Treatment Upcoming Encounters Date Type Specialty Care Team Description 02/27/2022 Appointment Radiology Marilyn Kidd MD [address] [place], [place] [address] (Wo rk) documented as of this encounter Visit Diagnoses Diagnosis Ovarian carcinosarcoma, unspecified late rality - Primary documented in this encounter Administered Medications Inactive Administered Medications - up to 3 most recent administrations Medication Order MAR Action Action Date Dose Rate Site sodium chloride 0.9 % flush 10 mL Given 08/09/2015 9:02 AM EST 20 mLs 10 mL, Intravenous, DAILY PRN, Starting on Wed08/09/15 at 0858, Until 08/10/15 at 0437, for the accessing and continued maintenance of an Implantable Port device, Routine documented in this encounter Care Teams Director Sales Support Relationship Specialty Start Date End Date Marilyn Kidd MD PCP - General 06/17/[address] [place], [place] [address] documented as of this encounter
--- OUTSIDE RECORDS SUMMARY | 2022-02-09 02:21 | XMS_ITS | Encounter Summary ---
:1945 Author Organization [facility] [place] [address] Care Team Providers Name Role Phone Marilyn Kidd MD Primary Care Provider Reason for Visit Reason Comments Chemotherapy Treatment/Therapy Plan Authorization (Routine) - Closed Specialty Diagnoses / Procedures Referred By Contact Refer red To Contact Gynecology Oncology Diagnoses Ovarian carcinosarcoma Ovarian carcinosarcoma Genie Garcia, [facility] Software Sales Representative 3k Procedures CONSULT [facility] [address] [place] GYNECOLOGIC ONCOLOGY [phone] [place] [address] Referral ID Status Reason Start Date Expiration Date Visits Requ ested Visits Authorized [id number] Closed 07/24/2015 07/23/2016 1 1 Encounter Details Date Type Department Care Team Description 08/09/2015 Hospital Encounter Hematology and Ovarian carcinosarcoma, Oncology at [facility] [place] [place] [address] Social History Tobacco Use Types Packs/Day [...] 17 gram needed. Powder in Packet Coenzyme F88-Megndiy E Take 1 capsule by 0 2012 [...] documented as of this encounter Progress Notes Hafsa Pereyra RN - 08/09/2015 11:11 AM EST Patient Name: Neisha White Patient Age: 69 y.o. Birthdate: 1945 Admit date: 08/09/2015 Attending Physician: No att. providers found TIME TREATMENT STARTED: 930 TIME TREATMENT ENDED: 1445 Neisha White, 69 y.o. female with diagnosis of ovarian cancer is here for chemotherapy infusionof carbo and taxol. CYCLE: 1 DAY: 1 S: Pt. offers no complaints at this time. She reports she is no longer getting IP chemo as it was causing kidney damage. O: Chemotherapy orders independently verified for correct drug name, route and dosage per patient's height, weight and BSA by Zee CURTIS and onsite pharmacist. IV ACCESS: Mediport PREMEDS/HYDRATION: 1 L NS, Decadron, Benadryl, Pepcid, Zofran TREATMENT: Taxol and Carboplatin Neulasta ordered but per Dr. Garcia pt is not to get it today. REACTIONS (DESCRIPTION, TIME, INTERVENTION AND EFFECTIVENESS) none A: Pt. Tolerated treatment well. Neisha White confirms that all questions and issues have been addressed. P: Return to clinic per routine. documented in this encounter Plan of Treatment Upcoming Encounters Date Type Specialty Care Team Description 02/27/2022 Appointment Radiology Marilyn Kidd MD [address] [facility] [address] [place] [address] (Wo rk) documented as of this encounter Visit Diagnoses Diagnosis Ovarian carcinosarcoma, unspecified late rality documented in this encounter Administered Medications Inactive Administered Medications - up to 3 most recent administrations Medication Order MAR Action Action Date Dose Rate Site CARBOplatin (PARAPLATIN) 352 New Bag 08/09/2015 2:04 PM EST 352 mg 570.4 mL/hr mg in dextrose 5% 285.2 mL chemo infusion 352 mg (Target AUC = 5), Intravenous, ONCE, 1 dose, On Wed08/09/15 at 1030, Administer over 30 Minutes, Hold Parameters: CARBOplatin, Call provider for serum creatinine less than (mg/dL): .4, Call provider for serum creatinine greater than (mg/dL): 1.5 dexamethasone (DECADRON) injection 10 mg Given 08/09/2015 10:01 AM EST 10 mg 10 mg, Intravenous, ONCE, 1 dose, On Wed08/09/15 at 0930, Administer 30 minutes prior to PACLitaxel diphenhydrAMINE (BENADRYL) injection 25 mg Given 08/09/2015 10:07 AM EST 12.5 mg 25 mg, Intravenous, ONCE, 1 dose, On Wed08/09/15 at 0930, Administer 30 minutes prior to PACLitaxel, Routine famotidine (PEPCID) injection 20 mg Given 08/09/2015 10:04 AM EST 20 mg 20 mg, Intravenous, ONCE, 1 dose, On Wed08/09/15 at 0930, Administer 30 minutes prior to PACLitaxel ondansetron (ZOFRAN) tablet 16 mg Given 08/09/2015 10:00 AM EST 16 mg 16 mg, Oral, ONCE, 1 dose, On Wed08/09/15 at 0930, Administer prior to chemotherapy, Routine PACLitaxel (TAXOL) 291 mg in New Bag 08/09/2015 10:43 AM EST 291 m g 182.8 mL/hr dextrose 5% Non-PVC 548.5 mL chemo infusion 291 mg (rounded from 290.5 mg = 175 mg/m2/dose ? 1.66 m2 Treatment Plan BSA from Recorded weight), Intravenous, ONCE, 1 dose, On Wed08/09/15 at 1030, Administer over 3 Hours sodium chloride 0.9% infusion New Bag 08/09/2015 10:00 AM EST 1,000 mLs 1,000 mL, Intravenous, ONCE, 1 dose, On Wed08/09/15 at 0930 documented in this encounter Care Teams Guard Sergeant Relationship Specialty Start Date End Date Marilyn Kidd MD PCP - General 06/17/[address] [place] [address] documented as of this encounter
--- OUTSIDE RECORDS SUMMARY | 2022-02-09 02:21 | XMS_ITS | Encounter Summary ---
:1945 Author Organization [facility] [place] [address] Care Team Providers Name Role Phone Marilyn Kidd MD Primary Care Provider Encounter Details Date Type Department Care Team Description 08/07/2015 Orders Only Gynecology Oncology at [facility] Genie Garcia MD [facility] [place] [address] GYNECOLOGIC ONCOLOGY [phone] [place] [id number] (Wo rk) Social History Tobacco Use Types [...] MD [address] [place], [place] [address] (Wo rk) documented as of this encounter Visit Diagnoses Not on filedocumented in this encounter Care Teams Senior Ui Designer Relationship Specialty Start Date End Date Marilyn Kidd MD PCP - General 06/17/[address] [place] [address] documented as of this encounter
--- OUTSIDE RECORDS SUMMARY | 2022-02-09 02:21 | XMS_ITS | Encounter Summary ---
:1945 Author Organization [facility] [place] [address] Care Team Providers Name Role Phone Marilyn Kidd MD Primary Care Provider Encounter Details Date Type Department Care Team Description 09/06/2015 External Results [facility] [place] [address] Social History Tobacco Use Types Packs/Day [...] MD [address] [place], [place] [id number] (Wo rk) documented as of this encounter Procedures Procedure Name Priority Date/Time Associated Diagnosis Comme nts CBC (WITH DIFF) Routine 09/06/2015 Results for this procedure are in the resu lts section. documented in this encounter Results (ABNORMAL) CBC (with Diff) (09/06/2015) [facility] Method Time Signature WBC 2.04 (External Lab) Hemoglobin 10.0 (A) 12.0 - 16.0 Hematocrit 30.6 (A) 36.0 - 46.0 Platelets 132 (External Lab) Neutrophil % 32.2 (External Lab) Neutr Abs (ANC) 660 (EXTERNAL/ ABN) Specimen (Source) Anatomical Location Collection Method / Collectio n Time Received Time / Laterality Volume Blood specimen 09/06/2015 (specimen) Genie Garcia MD HEMATOLOGY ORDERABLES documented in this encounter Visit Diagnoses Not on filedocumented in this encounter Care Teams Component Lab Tech Relationship Specialty Start Date End Date Marilyn Kidd MD PCP - General 06/17/[address] [place] [address] documented as of this encounter
--- OUTSIDE RECORDS SUMMARY | 2022-02-09 02:21 | XMS_ITS | Encounter Summary ---
:1945 Author Organization [facility] [place] [address] Care Team Providers Name Role Phone Marilyn Kidd MD Primary Care Provider Encounter Details Date Type Department Care Team Description 09/19/2015 External Results [facility]cology [facility] at [facility] [place] [address] Social History Tobacco Use Types Packs/Day [...] [address] [place] [address] (Wo rk) documented as of this encounter Procedures Procedure Name Priority Date/Time Associated Diagnosis Comme nts EXTERNAL LAB CBC CMP Routine 09/18/2015 Results for this THYROID RESULTS PANEL proced ure are in the results section . documented in this encounter Results (ABNORMAL) CBC / CMP / Thyroid External Results (09/18/2015) [facility] gist Method Time Signature WBC 3.52 (EXTERNAL/ ABN) Hemoglobin 10.0 12.0 - (EXTERNAL/ 16.0 ABN) Hematocrit 30.2 36.0 - (EXTERNAL/ 46.0 ABN) MCV 91.5 82.0 - (External 108.0 Lab) Platelets 212 (External Lab) Sodium 144 137 - 147 (External Lab) Potassium 3.9 3.4 - 5.3 (External Lab) Chloride 107 99 - 108 (External Lab) CO2 30 22 - 29 (External Lab) BUN 30 (EXTERNAL/ ABN) Creatinine 1.14 (EXTERNAL/ ABN) Estimated GFR 47.4 (EXTERNAL/ ABN) Glucose Lvl 69 (EXTERNAL/ ABN) Calcium 8.9 8.7 - (External 10.7 Lab) Total Protein 6.5 6.4 - 8.2 (External Lab) Albumin 3.5 3.5 - 5.0 (External Lab) Total Bilirubin 0.29 (External Lab) Alk Phos 77 (External Lab) AST 19 13 - 35 (External Lab) ALT 36 7 - 35 (External Lab) Neutrophils % 66 46 - 78 (External Lab) Neutr Abs (ANC) 2,310 (External Lab) CA 125 15 (External Lab) Specimen (Source) Anatomical Location Collection Method / Collectio n Time Received Time / Laterality Volume 09/18/2015 Narrative This result has an attachment that is no t available. Genie Garcia MD POINT OF CARE TEST ORDERABLE S documented in this encounter Visit Diagnoses Not on filedocumented in this encounter Care Teams Closing Manager Relationship Specialty Start Date End Date Marilyn Kidd MD PCP - General 06/17/[address] [place] [address] documented as of this encounter
--- OUTSIDE RECORDS SUMMARY | 2022-02-09 02:21 | XMS_ITS | Encounter Summary ---
:1945 Author Organization [facility] [place] [address] Care Team Providers Name Role Phone Marilyn Kidd MD Primary Care Provider Reason for Visit Reason Onset Date Comments Results 08/22/2015 Encounter Details Date Type Department Care Team Description 08/22/2015 Telephone Gynecology Oncology at [facility] Kenzie Harvey, [place] [address] Social History Tobacco Use Types Packs/Day [...] Telephone Encounter - Kenzie Harvey RN - 08/22/2015 3:13 PM EST Message left with following results Recent Results (from the past 72 hour(s)) CBC (with Diff) Result Value Ref Range WBC 2.26 (EXTERNAL/ABN) Hemoglobin 9.5 (A) 12.0 - 16.0 Hematocrit 29.4 (A) 36.0 - 46.0 Platelets 197 (External Lab) Neutrophil % 51.3 (External Lab) Neutr Abs (ANC) 1160 (External Lab) documented in this encounter Plan of Treatment Upcoming Encounters Date Type Specialty Care Team Description 02/27/2022 Appointment Radiology Marilyn Kidd MD [address] [place] [address] (Wo rk) documented as of this encounter Visit Diagnoses Not on filedocumented in this encounter Care Teams Casing Cooker Relationship Specialty Start Date End Date Marilyn Kidd MD PCP - General 06/17/[address] [place] [address] documented as of this encounter
--- OUTSIDE RECORDS SUMMARY | 2022-02-09 02:21 | XMS_ITS | Encounter Summary ---
:1945 Author Organization [facility] [place] [address] Care Team Providers Name Role Phone Marilyn Kidd MD Primary Care Provider Reason for Visit Reason Comments Dehydration Encounter Details Date Type Department Care Team Description 07/25/2015 Hospital Encounter Hematology and Ovarian carcinosarcoma, [place]cology [place] [facility] [place] [address] Social History Tobacco Use Types Packs/Day [...] Sign Reading Time Taken Comments Blood Pressure 126/50 07/25/2015 8:22 AM EST Pulse 104 07/25/2015 8:22 AM EST Temperature 36.5 ??C (97.7 ??F) 07/25/2015 8:22 AM EST Respiratory Rate 18 07/25/2015 8:22 AM EST Oxygen Saturation 100% 07/25/2015 8:22 AM EST Inhaled Oxygen Concentration - - Weight - - Height - - Body Mass Index - - documented in this encounter Medications at Time of Discharge Medication Sig Dispensed Refills Start Date End Date Coenzyme G08-Cldoedn E Take 1 capsule by 0 2012 [...] encounter Progress Notes Alvarado Mcclure RN - 07/25/2015 8:18 AM EST Patient Name: Neisha White Patient Age: 69 y.o. Birthdate: 1945 Admit date: 07/25/2015 Attending Physician: No att. providers found Neisha White, 69 y.o. female with diagnosis of ovarian cancer is here for a infusion of normal saline and neulasta. S: Pt. offers no complaints at this time. O: Orders independently verified for correct drug name, route and dosage by Alvarado Mcclure RN and onsite pharmacist REACTIONS (DESCRIPTION, TIME, INTERVENTION AND EFFECTIVENESS) none A: Pt. Tolerated treatment well. Neisha White confirms that all questions and issues have been addressed. P: Return to clinic per routine. documented in this encounter Miscellaneous Notes Addendum Note - Alvarado Mcclure RN - 07/25/2015 10:04 AM ESTEncounter addended by: Alvarado Mcclure RN on: 07/25/2015 10:04 AM
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 Administered Medications Inactive Administered Medications - up to 3 most recent administrations Medication Order MAR Action Action Date Dose Rate Site heparin, porcine 100 unit/mL Given 07/25/2015 9:48 AM EST 500 Un its flush 500 Units 500 Units, Intravenous, ONCE PRN, Starting on Alejandra 07/25/15 at 0746, Until Wed07/26/15 at 0438, Routine pegfilgrastim (NEULASTA) Given 07/25/2015 9:47 AM EST 6 mg Abdominal Tissue injection 6 mg 6 mg, Subcutaneous, ONCE, 1 dose, On Alejandra 07/25/15 at 0830, Bring to room temperature 15-30 mins before administration., Routine sodium chloride 0.9% infusion New Bag 07/25/2015 8:31 AM EST 999 mL/hr 999 mL/hr 999 mL/hr, Intravenous, CONTINUOUS, Starting on Alejandra 07/25/15 at 0830, Until Alejandra 07/25/15 at 0929 documented in this encounter Care Teams Electro Plater Relationship Specialty Start Date End Date Marilyn Kidd MD PCP - General 06/17/[address] [place] [address] documented as of this encounter
--- OUTSIDE RECORDS SUMMARY | 2022-02-09 02:21 | XMS_ITS | Encounter Summary ---
:1945 Author Organization [facility] [place] [address] Care Team Providers Name Role Phone Marilyn Kidd MD Primary Care Provider Encounter Details Date Type Department Care Team Description 07/17/2015 External Results [facility] [place] [address] Social History Tobacco Use Types Packs/Day Years [...] MD [address] [place], [place] [id number] (Wo rk) documented as of this encounter Procedures Procedure Name Priority Date/Time Associated Diagnosis Comme nts EXTERNAL LAB CBC CMP Routine 07/17/2015 Results for this THYROID RESULTS PANEL proced ure are in the results section . documented in this encounter Results (ABNORMAL) CBC / CMP / Thyroid External Results (07/17/2015) [facility] gist Method Time Signature Sodium 140 137 - 147 (External Lab) Potassium 4.0 3.4 - 5.3 (External Lab) Chloride 104 99 - 108 (External Lab) CO2 30 (A) 22 - 29 BUN 25 (External Lab) Creatinine 1.17 (External Lab) Calcium 9.0 8.7 - 10.7 (External Lab) Magnesium 1.9 (External Lab) Total Protein 6.8 6.4 - 8.2 (External Lab) Albumin 2.9 (A) 3.5 - 5.0 Total Bilirubin 0.16 (External Lab) Alk Phos 124 (External Lab) AST 17 13 - 35 (External Lab) ALT 27 7 - 35 (External Lab) CA 125 24 (External Lab) Specimen (Source) Anatomical Location Collection Method / Collectio n Time Received Time / Laterality Volume 07/17/2015 Genie Garcia MD POINT OF CARE TEST ORDERABLE S documented in this encounter Visit Diagnoses Not on filedocumented in this encounter Care Teams Gas Torch Solderer Relationship Specialty Start Date End Date Marilyn Kidd MD PCP - General 06/17/[address] [place] [address] documented as of this encounter
--- OUTSIDE RECORDS SUMMARY | 2022-02-09 02:21 | XMS_ITS | Encounter Summary ---
:1945 Author Organization [facility] [place] [address] Care Team Providers Name Role Phone Marilyn Kidd MD Primary Care Provider Encounter Details Date Type Department Care Team Description 08/22/2015 External Results [place] [address] Social History Tobacco Use Types Packs/Day Years [...] MD [address] [place] [address] (Wo rk) documented as of this encounter Visit Diagnoses Not on filedocumented in this encounter Care Teams News Specialist Relationship Specialty Start Date End Date Marilyn Kidd MD PCP - General 06/17/[address] [place] [address] documented as of this encounter
--- OUTSIDE RECORDS SUMMARY | 2022-02-09 02:21 | XMS_ITS | Encounter Summary ---
:1945 Author Organization [facility] [place] [address] Care Team Providers Name Role Phone Marilyn Kidd MD Primary Care Provider Reason for Visit Reason Onset Date Comments Results 07/17/2015 Encounter Details Date Type Department Care Team Description 07/17/2015 Telephone Gynecology Oncology at [facility] Kenzie Harvey, [place] [address] Social History Tobacco Use Types Packs/Day [...] Telephone Encounter - Kenzie Harvey RN - 07/17/2015 3:31 PM EST Message left with following results. Recent Results (from the past 72 hour(s)) CBC / CMP / Thyroid External Results Result Value Ref Range Sodium 140 (External Lab) 137 - 147 Potassium 4.0 (External Lab) 3.4 - 5.3 Chloride 104 (External Lab) 99 - 108 CO2 30 (A) 22 - 29 BUN 25 (External Lab) Creatinine 1.17 (External Lab) Calcium 9.0 (External Lab) 8.7 - 10.7 Magnesium 1.9 (External Lab) Total Protein 6.8 (External Lab) 6.4 - 8.2 Albumin 2.9 (A) 3.5 - 5.0 Total Bilirubin 0.16 (External Lab) Alk Phos 124 (External Lab) AST 17 (External Lab) 13 - 35 ALT 27 (External Lab) 7 - 35 CBC / CMP / Thyroid External Results Result Value Ref Range WBC 7.71 (External Lab) Hemoglobin 10.3 (A) 12.0 - 16.0 Hematocrit 32.0 (A) 36.0 - 46.0 Platelets 238 (External Lab) Phosphorus 3.6 (External Lab) 2.5 - 4.9 Neutrophil % 74.5 (External Lab) Neutr Abs (ANC) 5730 (External Lab) documented in this encounter Plan of Treatment Upcoming Encounters Date Type Specialty Care Team Description 02/27/2022 Appointment Radiology Marilyn Kidd MD [address] [place], [place] [id number] (Wo rk) documented as of this encounter Visit Diagnoses Not on filedocumented in this encounter Care Teams Package Collector Relationship Specialty Start Date End Date Marilyn Kidd MD PCP - General 06/17/[address] [place], [place] [id number] documented as of this encounter
--- OUTSIDE RECORDS SUMMARY | 2022-02-09 02:21 | XMS_ITS | Encounter Summary ---
:1945 Author Organization [facility] [place] [address] Care Team Providers Name Role Phone Marilyn Kidd MD Primary Care Provider Encounter Details Date Type Department Care Team Description 08/22/2015 External Results [facility] [place] [address] Social History Tobacco Use Types Packs/Day [...] MD [address] [place], [place] [address] (Wo rk) documented as of this encounter Procedures Procedure Name Priority Date/Time Associated Diagnosis Comme nts CBC (WITH DIFF) Routine 08/22/2015 Results for this procedure are in the resu lts section. documented in this encounter Results (ABNORMAL) CBC (with Diff) (08/22/2015) Patholo gist Method Time Signature WBC 2.26 (EXTERNAL/ ABN) Hemoglobin 9.5 (A) 12.0 - 16.0 Hematocrit 29.4 (A) 36.0 - 46.0 Platelets 197 (External Lab) Neutrophil % 51.3 (External Lab) Neutr Abs (ANC) 1,160 (External Lab) Specimen (Source) Anatomical Location Collection Method / Collectio n Time Received Time / Laterality Volume Blood specimen 08/22/2015 (specimen) Genie Garcia MD HEMATOLOGY ORDERABLES documented in this encounter Visit Diagnoses Not on filedocumented in this encounter Care Teams Head Setter Relationship Specialty Start Date End Date Marilyn Kidd MD PCP - General 06/17/[address] [place] [address] documented as of this encounter
--- OUTSIDE RECORDS SUMMARY | 2022-02-09 02:21 | XMS_ITS | Encounter Summary ---
:1945 Author Organization [facility] [place] [address] Care Team Providers Name Role Phone Marilyn Kidd MD Primary Care Provider Encounter Details Date Type Department Care Team Description 09/20/2015 Hospital Encounter Hematology and Ovarian carcinosarcoma, Oncology at [facility] [place] [address] Social History Tobacco Use Types Packs/Day [...] 17 gram needed. Powder in Packet Coenzyme D52-Uclydcs E Take 1 capsule by 0 2012 [...] encounter Progress Notes Amanda Montana RN - 09/20/2015 10:14 AM EST Patient Name: Neisha White Patient Age: 70 y.o. Birthdate: 1945 Admit date: 09/20/2015 Attending Physician: No att. providers found Access visit. See MAR and/or flowsheet. documented in this encounter Plan of Treatment Upcoming Encounters Date Type Specialty Care Team Description 02/27/2022 Appointment Radiology Marilyn Kidd MD [address] [place] [address] (Wo rk) documented as of this encounter Visit Diagnoses Diagnosis Ovarian carcinosarcoma, unspecified late rality documented in this encounter Administered Medications Inactive Administered Medications - up to 3 most recent administrations Medication Order MAR Action Action Date Dose Rate Site sodium chloride 0.9 % flush 20 mL New Bag 09/20/2015 10:13 AM EST 20 mLs 20 mL, Intravenous, CONTINUOUS PRN, Starting on Wed09/20/15 at 0715, Until 09/21/15 at 0436, Dba, Routine documented in this encounter Care Teams Mds Rn Relationship Specialty Start Date End Date Marilyn Kidd MD PCP - General 06/17/[address] [place], [place] [id number] documented as of this encounter
--- OUTSIDE RECORDS SUMMARY | 2022-02-09 02:21 | XMS_ITS | Encounter Summary ---
:1945 Author Organization [facility] [place] [address] Care Team Providers Name Role Phone Marilyn Kidd MD Primary Care Provider Reason for Visit Treatment/Therapy Plan Authorization (Routine) - Closed Specialty Diagnoses / Procedures Referred By Contact Refer red To Contact Gynecology Oncology Diagnoses Ovarian carcinosarcoma Ovarian carcinosarcoma Genie Garcia, [facility] Procedures CONSULT Formerly [facility] [address] [place] [facility] [id number] [place] [address] Referral ID Status Reason Start Date Expiration Date Visits Requ ested Visits Authorized [id number] Closed 07/24/2015 07/23/2016 1 1 Encounter Details Date Type Department Care Team Description 09/20/2015 Hospital Encounter Hematology and Ovarian carcinosarcoma, [place] [facility] [place] [address] Social History Tobacco Use Types Packs/Day [...] 17 gram needed. Powder in Packet Coenzyme [id number] E Take 1 capsule by 0 2012 [...] documented as of this encounter Progress Notes Joanie Rocha RN - 09/20/2015 10:59 AM EST Patient Name: Neisha White Patient Age: 70 y.o. Birthdate: 1945 Admit date: 09/20/2015 Attending Physician: No att. providers found TIME TREATMENT STARTED: 1030 TIME TREATMENT ENDED: 1530 Neisha White, 70 y.o. female with diagnosis of ovarian cancer is here for chemotherapy infusionof carbo/taxol and neulasta. PROTOCOL: None CYCLE: 3 WEEK: 1 DAY: 1 S: Pt. offers no complaints at this time. O: Chemotherapy orders independently verified for correct drug name, route and dosage per patient's height, weight and BSA by Joanie Rocha RN and onsite pharmacist REACTIONS (DESCRIPTION, TIME, INTERVENTION AND EFFECTIVENESS) None, pt premedicated with zofran, decadron, benadryl, and pepcid. 1L fluid bolus administered. A: Pt. Tolerated treatment well. Neisha White confirms that all questions and issues have been addressed. P: Return to clinic as scheduled. documented in this encounter Plan of Treatment Upcoming Encounters Date Type Specialty Care Team Description 02/27/2022 Appointment Radiology Marilyn Kidd MD [address] [facility] [address] [place] [address] (Wo rk) documented as of this encounter Visit Diagnoses Diagnosis Ovarian carcinosarcoma, unspecified late rality documented in this encounter Administered Medications Inactive Administered Medications - up to 3 most recent administrations Medication Order MAR Action Action Date Dose Rate Site CARBOplatin (PARAPLATIN) 351 New Bag 09/20/2015 2:43 PM EST 351 mg 570.2 mL/hr mg in dextrose 5% 285.1 mL chemo infusion 351 mg (rounded from 350.5 mg, Target AUC = 5), Intravenous, ONCE, 1 dose, On Wed09/20/15 at 1115, Administer over 30 Minutes, Hold Parameters: CARBOplatin, Call provider for serum creatinine less than (mg/dL): .4, Call provider for serum creatinine greater than (mg/dL): 1.5 dexamethasone (DECADRON) injection 10 mg Given 09/20/2015 10:42 AM EST 10 mg 10 mg, Intravenous, ONCE, 1 dose, On Wed09/20/15 at 1015, Administer 30 minutes prior to PACLitaxel diphenhydrAMINE (BENADRYL) injection 12.5 Given 09/20/2015 1 0:51 AM EST 12.5 mg mg 12.5 mg, Intravenous, ONCE, 1 dose, On Wed09/20/15 at 1015, Administer 30 minutes prior to PACLitaxel, Routine famotidine (PEPCID) injection 20 mg Given 09/20/2015 10:48 AM EST 20 mg 20 mg, Intravenous, ONCE, 1 dose, On Wed09/20/15 at 1015, Administer 30 minutes prior to PACLitaxel heparin, porcine 100 unit/mL flush 500 Given 09/20/2015 3:21 PM EST 500 Units Units 500 Units, Intravenous, ONCE, 1 dose, On Wed09/20/15 at 0745, Routine ondansetron (ZOFRAN) tablet 16 mg Given 09/20/2015 10:41 AM EST 16 mg 16 mg, Oral, ONCE, 1 dose, On Wed09/20/15 at 1015, Administer prior to chemotherapy, Routine PACLitaxel (TAXOL) 291 mg in New Bag 09/20/2015 11:31 AM EST 291 m g 182.8 mL/hr dextrose 5% Non-PVC 548.5 mL chemo infusion 291 mg (rounded from 290.5 mg = 175 mg/m2/dose ? 1.66 m2 Treatment Plan BSA from Recorded weight), Intravenous, ONCE, 1 dose, On Wed09/20/15 at 1115, Administer over 3 Hours pegfilgrastim (NEULASTA) injection 6 mg Given 09/20/2015 3:24 PM EST 6 mg 6 mg, Subcutaneous, ONCE, 1 dose, On Wed09/20/15 at 1015, Routine sodium chloride 0.9% infusion New Bag 09/20/2015 10:56 AM EST 1,000 mLs 1,000 mL (1 L), Intravenous, ONCE, 1 dose, On Wed09/20/15 at 1015 documented in this encounter Care Teams Assistant Property Manager Relationship Specialty Start Date End Date Dobbertin, Marilyn, MD PCP - General 06/17/[address] [place] [address] documented as of this encounter
--- OUTSIDE RECORDS SUMMARY | 2022-02-09 02:21 | XMS_ITS | Encounter Summary ---
:1945 Author Organization [facility] [place] [address] Care Team Providers Name Role Phone Marilyn Kidd MD Primary Care Provider Reason for Visit Reason Onset Date Comments Results 08/08/2015 Encounter Details Date Type Department Care Team Description 08/08/2015 Telephone Gynecology [place] [facility] [place] Harvey, [place] [address] Social History Tobacco Use Types Packs/Day [...] Telephone Encounter - Kenzie Harvey RN - 08/08/2015 8:17 AM EST Relayed following results to pt Recent Results (from the past 72 hour(s)) CBC / CMP / Thyroid External Results Result Value Ref Range WBC 5.48 (External Lab) Hemoglobin 10.3 (A) 12.0 - 16.0 Hematocrit 31.5 (A) 36.0 - 46.0 Platelets 224 (External Lab) Sodium 142 (External Lab) 137 - 147 Potassium 4.0 (External Lab) 3.4 - 5.3 Chloride 103 (External Lab) 99 - 108 CO2 32 (A) 22 - 29 BUN 30 (External Lab) Creatinine 1.15 (External Lab) Calcium 8.6 (A) 8.7 - 10.7 Magnesium 1.8 (External Lab) Total Protein 6.3 (A) 6.4 - 8.2 Albumin 3.1 (A) 3.5 - 5.0 Total Bilirubin 0.19 (External Lab) Alk Phos 118 (External Lab) AST 14 (External Lab) 13 - 35 ALT 24 (External Lab) 7 - 35 Neutrophil % 66.7 (External Lab) Neutr Abs (ANC) 3660 (External Lab) documented in this encounter Plan of Treatment Upcoming Encounters Date Type Specialty Care Team Description 02/27/2022 Appointment Radiology Marilyn Kidd MD [address] [place], [place] [id number] (Wo rk) documented as of this encounter Visit Diagnoses Not on filedocumented in this encounter Care Teams Client Strategist Relationship Specialty Start Date End Date Marilyn Kidd MD PCP - General 06/17/[address] [place], [place] [id number] documented as of this encounter
--- OUTSIDE RECORDS SUMMARY | 2022-02-09 02:22 | XMS_ITS | Encounter Summary ---
:1945 Author Organization [facility] [place] [address] Care Team Providers Name Role Phone Marilyn Kidd MD Primary Care Provider Encounter Details Date Type Department Care Team Description 06/03/2015 Surgery Main Operating Room Radha INTRA PERITONEAL CATHETER Fabby Prescott MD INSERTION W\SUB-[facility] [place] [address] ONCOLOGY [phone] [place], [place] [address] Social History Tobacco Use Types [...] Sign Reading Time Taken Comments Blood Pressure 127/53 06/03/2015 9:30 AM EST Pulse 55 06/03/2015 9:30 AM EST Temperature 36.6 ??C (97.9 ??F) 06/03/2015 9:12 AM EST Respiratory Rate 14 06/03/2015 9:30 AM EST Oxygen Saturation 100% 06/03/2015 9:30 AM EST Inhaled Oxygen Concentration - - Weight 56.7 kg (125 lb) 06/03/2015 6:18 AM EST Height 165.1 cm (5' 5) 06/03/2015 6:18 AM EST Body Mass Index 20.8 06/03/2015 6:18 AM EST documented in this encounter Discharge Instructions Discharge InstructionsMoVictorina chaudhary RN - 06/03/2015 12:10 PM EST POST ANESTHESIA INSTRUCTIONS Go home, rest, use caution on stairs. Change positions slowly. Do not smoke if you are alone. Diet light to regular as tolerated today. If nausea occurs start with clear liquids and progress slowly. No driving, operating machinery, alcoholic beverages and no important decisions for 24 hours. Monitor IV site for signs and symptoms of infection: increasing redness, swelling, foul drainage, ifoccurs contact M.D. Patients who have had endotrachial tubes (this tube, used by anesthesia department, is passed down your throat after you are asleep, to ensure safe air passage during your operation). A sore throat is normal due to the tube. Cold liquids or soothing lozenges will help ease the discomfort. The generalized muscle aches are due to the medication given to you just before the tube is inserted. As the medication wears off, you may develop muscle soreness, which usually goes away in 12-24 hours. Patient InstructionsCarterMarjorie MD - 06/03/2015 9:05 AM EST PATIENT DISCHARGE INSTRUCTIONS Call your doctor if you develop: ?? A fever over 101 degrees ?? Severe pain that does not get better after you take pain medicine. ?? Increasing pain, redness, or discharge at incision sites ?? Vomiting that does not stop Activity level: ?? No heavy lifting, pushing or pulling for 6 weeks. ?? No lifting more than a gallon of milk until post-operative visit. No high intensity cardio activity. Bathing: ?? Please do not submerge any incision in a bath for more than 10 minutes ?? You may shower, let the water roll over you and pat dry, do not scrub ?? You may remove the pieces of tape over your small incisions in 7 days if they do not come off on their own in the shower ?? You may remove the large bandage after 24 hours. Diet: ?? You can eat your normal diet. If your stomach is upset, try bland, low-fat foods like plain rice,broiled chicken, toast, and yogurt. ?? Drink plenty of fluids (unless your doctor tells you not to). ?? You may want to use a stool softener such as Colace twice daily and Metamucil or Citrucel once ortwice daily to keep your bowel movements soft and regular. Medications: For pain, we recommend you take the following: - ibuprofen 600mg every 6 hours as needed for pain - acetaminophen 650mg every 6 hours as needed for pain - oxycodone 5mg as often as every 4 hours, when you need it for pain that breaks through the ibuprofen. . Please do not feel as though you have to take all available doses of this medication. When you are no longer requiring oxycodone, if you have extra doses remaining you should contact your pharmacist to inquire about safe disposal. This medication is not safe to keep in your drug cabinet. Use of prescription narcotics by anyone other than the person to whom they are prescribed is a felon y. Driving: ?? Do not drive until you are off of all narcotic medications and you are not feeling pain. Follow-up care is a mcarthur part of your treatment and safety. Be sure to make and go to all appointments, and call your doctor if you are having problems. It???s also a good idea to know your test resultsand keep a list of the medicines you take. documented in this encounter Medications at Time of Discharge Medication Sig Dispensed Refills Start Date End Date Coenzyme Q00-Jtonbnm E Take 1 capsule by mouth 0 12/07/2012 50-5 mg-unit Capsule daily. dexamethasone Take 5 tablets by mouth 90 tablet 3 5 11/01/2015 (DECADRON) 4 mg the night before TabletIndications: chemotherapy and take 5 Ovarian cancer, tablets in the morning unspecified laterality before leaving for your chemo appointment. dexamethasone Take one tablet by 60 tablet 1 06/04/201502/2016 (DECADRON) 4 mg mouth TWO times a day TabletIndications: for 2 days after chemo. Ovarian cancer, unspecified laterality prochlorperazine Take 1 tablet by [...] chemotherapy. acetaminophen (TYLENOL) Take 2 tablets by mouth 30 tablet 1 05/12/2015 11/01/2015 325 mg Tablet every 6 hours as needed for Pain. oxyCODONE (ROXICODONE) Take 1-2 tablets by 30 tablet 0 04/2511/01/2015 5 mg Tablet mouth every 4 hours as needed for Pain. senna-docusate Take 2 tablets by mouth 60 tablet 1 05/12/20 15 11/01/2015 (PERICOLACE) 8.6-50 mg 2 times daily. Tablet documented as of this encounter Progress Notes Melida Ramirez PA - 06/03/2015 7:47 AM EST Images from the original note were not included. PRE-PROCEDURE VIR NOTE Date of : 1945 Age: 69 y.o. 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 Pre-Sedation Assessment: Assessment: Cardiovascular: Rhythm: Regular Rate: Normal Pulmonary: Breath sounds clear to auscultation ASA: 3: Patient with severe systemic disease Mallampati: II: tonsillar pillars are blocked by the tongue Sedation Plan: moderate (conscious sedation) The sedation plan, its benefits and risks, and alternatives were discussed with the patient. The planned procedure, its benefits and risks, and alternatives were discussed with the patient. Thepatient consented to the procedur documented in this encounter H&P Notes Marjorie Acosta MD - 06/03/2015 7:17 AM EST Interval H&P ID: Neisha White is a 69 y.o. with carcinosarcoma ovarian cancer who is s/p CHRISTY/BSO debulking aand omentectomy on 05/06/2015. She is here for IP port placement for chemotherapy S: Since her surgery, Neisha reports that she presented to [facility] for a second opinion. They agreed that IP chemotherapy was indicated. We do not have those records as of yet. She is otherwise recovering well from surgery. Her pain is well controlled. Her appetite is still decreased and improving and she is feeling some pulling or tightness in her abdomen at times. She is moving her bowels and urinating appropriately. No other complaints. ROS: all other systems reviewed and negative Past medical, surgical, family, social history reviewed and in chart, no changes except as above No Known Allergies No current facility-administered medications on file prior to encounter. Current Outpatient Prescriptions on File Prior to Encounter Medication Sig Dispense Refill ??? acetaminophen (TYLENOL) 325 mg Tablet Take 2 tablets by mouth every 6 hours as needed for Pain. 30 tablet 1 ??? ibuprofen (ADVIL;MOTRIN) 600 mg Tablet Take 1 tablet by mouth every 6 hours as needed for Pain. 50 tablet 0 ??? oxyCODONE (ROXICODONE) 5 mg Tablet Take 1-2 tablets by mouth every 4 hours as needed for Pain. 30 tablet 0 ??? senna-docusate (PERICOLACE) 8.6-50 mg Tablet Take 2 tablets by mouth 2 times daily. 60 tablet 1 ??? Coenzyme U13-Vazwuau E 50-5 mg-unit Capsule Take 1 capsule by mouth daily. Objective: Filed Vitals: 06/03/15 0618 BP: 124/63 Pulse: 68 Temp: 36.2 ??C (97.2 ??F) Resp: 16 Gen: NAD, pleasant CV: RRR no M/R/G Pulm: CTAB no wheezes or crackles Abd: soft, non-distended, well healed vertical midline scar, clean/dry/intact Ext: no edema or tenderness A/P: Neisha White is a 69 y.o. with carcinosarcoma ovarian cancer who is s/p CHRISTY/BSO debulking aand omentectomy on 05/06/2015. She is recovering well post-operatively, here for IP port placement. - appropriate to proceed with planned surgery - pt consented. Reviewed the procedure in detail including the alternatives, benefits and risks including bleeding, infection, pain, scarring, damage to surrounding tissue. MARJORIE ACOSTA MD PGY2 06/03/2015 documented in this encounter Miscellaneous Notes Op Note - Jr Garcia MD - 06/03/2015 9:48 AM EST [facility] Operative Note Patient Name: Neisha White : [id number] MR#: [id number] Case Date: 06/03/2015 Surgeon: Surgeon(s) and Role: * Jr Garcia MD - Primary * Marjorie Acosta MD Preoperative diagnosis: OVARIAN CANCER Postoperative diagnosis: OVARIAN CANCER Procedure(s): Diagnostic laparoscopy INTRAPERITONEAL CATHETER INSERTION W\SUB-Q PORT Anesthesia: General Estimated Blood Loss: minimal Specimens removed during surgery: None Drains: Intraperitoneal port placed Surgical Closure: Primary Closure - closure of ALL tissue levels during the original surgery regardless of wires, wickes, drains, or other devices extruding through the incision Disposition: awakened from anesthesia, extubated and taken to the recovery room in a stable condition, having suffered no apparent untoward event. 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 The patient was taken to the operating room where she was put to sleep under general anesthesia. SHe was placed in dorsal supine. Her abdomen was prepped and the patient was draped. A surgical time out was performed. The peritoneal cavity was entered under driect visualization using an omniview 5mm trocar. Pneumoperitoneum was obtained. A second 5mm trocar was placed in the left mid abdomen. Diagnostic laparoscopy was performed with findings as noted in the brief op note. A 4cm incision was made on the right side in the mid clavicular line over the distal 2 ribs. The was carried down to the fascia and a pocket was made for the port. 3 2-0 proline sutures were placed, but not tied down. A site was selected for insertion into the peritoneal cavity 2cm above the ASIS. I small incison was made and the port catheterwas tunneled just superficial to the fascia and exited through the skin at the inserion site. A hollow needle was then inserted into the peritoneal cavity under direct visualization. A wire was advanced and the needle was removed. The introducer/dialtor were inserted over the wire and then the wire and dilator were removed. The catheter was cut to 40cm and introduced into the periotneal cavity. The introducer was removed and the catheter was fully advanced and placed in the paracolic gutter. The port was then sutured down and flushed with minimal resistance. All instruments were removed from the abdomen. The port incision was irrigated and closed with 3-0 vicryl to close the subcutaneous fat and the skin of all incisions was closed with 4-0 monocryl. The patient tolerated the procedure well. Sponge, needle, and instrument counts were correct X 2. Infection Bundle used? N/A Attestation: Case Date: 06/03/2015 I was present and I participated during the entire procedure (does not need to include opening and closing). JR GARCIA MD 06/03/2015 Brief Op Note - Jr Garcia MD - 06/03/2015 9:41 AM EST Brief Operative Note Patient Name: Neisha White : [id number] MR#: [id number] Case Date: 06/03/2015 Surgeon: Surgeon(s) and Role: * Jr Garcia MD - Primary * Marjorie Acosta MD Preoperative diagnosis: OVARIAN CANCER Postoperative diagnosis: OVARIAN CANCER Procedure(s): Diagnostic laparoscopy, INTRAPERITONEAL CATHETER INSERTION W\SUB-Q PORT Anesthesia: General Findings: Dense adhesions of her small bowel to her anterior abd wall in the midline. Otherwise no adhesions. Complications: none Fluids: 700 Estimated Blood Loss: minimal Drains: Intraperitoneal port inserted Disposition: awakened from anesthesia, extubated and taken to the recovery room in a stable condition, having suffered no apparent untoward event. Condition: doing well without problems Infection Bundle used? N/A Attestation: Case Date: 06/03/2015 I was present and I participated during the entire procedure (does not need to include opening and closing). (Please see the Surgical Encounter Summary for any Implant and Specimen details pertinent to this patient.) documented in this encounter Plan of Treatment Upcoming Encounters Date Type Specialty Care Team Description 02/27/2022 Appointment Radiology Marilyn Kidd MD [address] [facility] [address] [place] [address] (Wo rk) documented as of this encounter Procedures Procedure Name Priority Date/Time Associated Comments Diagnosis ECG SCAN 06/17/2015 12:00 AM EST HEMOGRAM Routine 06/03/2015 12:20 Results for this PM EST procedure are i n the results section. DIFFERENTIAL, AUTOMATED Routine 06/03/2015 12:20 Results for this PM EST procedure are i n the results section. CBC (WITH DIFF) Routine 06/03/2015 12:20 PM EST COMPREHENSIVE METABOLIC Routine 06/03/2015 12:20 Results for this PANEL (NON-FASTING) PM EST procedur e are in the results section. INTRAPERITONEAL CATHETER 06/03/2015 7:48 OVARIAN CANCE R INSERTION W\SUB-Q PORT AM EST (WRVU 7.08) documented in this encounter Results SCAN DOC: ECG (06/17/2015 12:00 AM EST) Narrative This result has an attachment that is no t available. Scanning Provider MEDIA MGR SCAN EXT ORDR/RSLT (ABNORMAL) Differential, Automated (06/03/2015 12:20 PM EST) [facility] gist Method Time Signature Neutrophils % 92.8 % CERNER MILLENNIUM Neutr Abs (ANC) 6.05 1.50 - CERNER 6.30 MILLENNIUM x10(3)/mcL Lymphocytes % 6.4 % CERNER MILLENNIUM Lymphocytes Abs 0.4 (L) 1.0 - 3.6 CERNER x10(3)/mcL MILLENNIUM Monocytes % 0.6 % CERNER MILLENNIUM Monocyte Abs 0.0 (L) 0.2 - 1.0 CERNER x10(3)/mcL MILLENNIUM Eosinophils % 0.0 % CERNER MILLENNIUM Eosinophils Abs 0.0 0.0 - 0.5 CERNER x10(3)/mcL MILLENNIUM Basophils % 0.2 % CERNER MILLENNIUM Basophils Abs 0.0 0.0 - 0.2 CERNER x10(3)/mcL MILLENNIUM Immature Gran % 0.00 % CERNER MILLENNIUM Comment: Immature granulocytes(IG's)percentage an d absolute count will include metamyelocytes, myelocytes, and promyelo cytes. Blood smears from CBCs yielding IG's will be scanned manually for concor dance. If this scan disagrees with the automated IG or if promyelocytes are not ed, a manual differential will be performed. Nena Gran Abs 0.00 0.00 - 0.05 x10(3)/mcL CER NER MILLENNIUM Specimen Anatomical Collection Method Collection Time Receive d Time (Source) Location / / Volume Laterality Blood specimen 06/03/2015 12:20 5 (specimen) PM EST 12:42 PM EST Resulting Agency Comment Spec In Lab Jr Garcia MD HEMATOLOGY ORDERABLES Performing Organization Address City/State/[place] [address] CERNER MILLENNIUM (ABNORMAL) Hemogram (06/03/2015 12:20 PM EST) athologist Signature WBC 6.5 4.0 - 10.0 CERNER x10(3)/mcL MILLENNIUM RBC 4.23 3.93 - CERNER 5.22 MILLENNIUM x10(6)/mcL Hemoglobin 12.2 11.2 - CERNER 15.7 gm/dL MILLENNIUM Hematocrit 38.4 34.0 - CERNER 45.0 % MILLENNIUM MCV 90.8 79.0 - CERNER 94.0 fL MILLENNIUM MCH 28.8 26.6 - CERNER 32.2 pg MILLENNIUM MCHC 31.8 (L) 32.0 - CERNER 36.5 gm/dL MILLENNIUM Platelets 193 145 - 370 CERNER x10(3)/mcL MILLENNIUM RDWSD 46.3 (H) 35.0 - CERNER 46.0 fL MILLENNIUM RDWCV 14.0 10.9 - CERNER 14.4 % MILLENNIUM MPV 11.9 9.0 - 12.0 CERNER fL MILLENNIUM Specimen Anatomical Collection Method Collection Time Receive d Time (Source) Location / / Volume Laterality Blood specimen 06/03/2015 12:20 5 (specimen) PM EST 12:42 PM EST Resulting Agency Comment Spec In Lab Jr Garcia MD HEMATOLOGY ORDERABLES Performing Organization Address City/State/[place] [address] [facility] MILLENNIUM (ABNORMAL) Comprehensive metabolic panel (non-fasting) (06/03/2015 12:20 PM EST) athologist Signature Glucose Lvl 113 65 - 199 CERNER mg/dL MILLENNIUM Comment: Diabetes: >=200 mg/dL plus symp toms BUN 19 (H) 8 - 18 mg/dL CERNER MILLENNIUM Creatinine 0.94 0.70 - 1.20 mg/dL CERNER MILL ENNIUM Comment: Please note that the pediatric reference intervals supplied above were not validated at [facility]. Results from pediatri c patients should be interpreted in conjunction to the patient's age, height and muscle mass. Sodium 142 135 - 145 mmol/L CERNER SHANTHI NIUM Potassium Not Perf 3.5 - 5.0 mmol/L CERNER SHANTHI NIUM Comment: Unable to quantitate due to sample hemol ysis. ??Sample redraw suggested. Called by:hp _, Read back by:elroy osuna on _, Date/Time:06/03/15 14:23. Please note: ??Patients with WBC >100,00 0 may have falsely elevated Potassium levels. ??For accurate Potassium quantif ication in these patients send serum separator tube (gold top) for subsequent determinations. ??Contact the Clinical Chemistry Laboratory if there are any qu estions. Chloride 104 98 - 107 mmol/L CERNER MILLENN IUM CO2 24 22 - 31 mmol/L CERNER MILLENNI UM Anion Gap 14 5 - 15 mmol/L CERNER MILLENNIU M Calcium 9.0 8.5 - 10.5 mg/dL CERNER SHANTHI NIUM Total Protein 6.4 6.1 - 8.0 gm/dL CERNER MIL LENNIUM Albumin 3.7 3.2 - 5.2 gm/dL CERNER MILLENN IUM AST Not Perf 0 - 30 unit/L CERNER MILLENNIU M Comment: Unable to quantitate due to sample hemol ysis. ??Sample redraw suggested. Called by:bc _, Read back by:leroy osuna on _, Date/Time:06/03/15 14:23. ALT 25 0 - 30 unit/L CERNER MILLENNIU M Alk Phos 61 40 - 104 unit/L CERNER MILLENN IUM Total Bilirubin 0.2 0.2 - 1.3 mg/dL CERNER M ILLENNIUM Bili, Direct Not Perf 0.0 - 0.3 mg/dL CERNER MILL ENNIUM Comment: Unable to quantitate due to sample hemol ysis. ??Sample redraw suggested. Called by:bc _, Read back by:elroy osuna on _, Date/Time:06/03/15 14:23. Estimated GFR 59 (L) >=60 CERNER MILLENNIU M Comment: This estimated GFR (eGFR) value was calc ulated using the MDRD equation which has been validated on patients between t he ages of 18 and 70. The MDRD should not be used to assess kidney function in patients < 18 years of age or in patients with extremes of body mass, or in patients with acute kidney failure. This value should be multiplied by 1.2 f or patients. For further information please copy and past e the following links into your internet browser. http://Gazemetrix/DHnkdep http://Gazemetrix/DHMCnkf Specimen Anatomical Collection Method Collection Time Receive d Time (Source) Location / / Volume Laterality Blood specimen 06/03/2015 12:20 5 (specimen) PM EST 12:42 PM EST Resulting Agency Comment Spec In Lab Jr Garcia MD CHEMISTRY ORDERABLES Performing Organization Address City/State/[place] [address] [facility] documented in this encounter Visit Diagnoses Not on filedocumented in this encounter Administered Medications Inactive Administered Medications - up to 3 most recent administrations Medication Order MAR Action Action Date Dose Rate Site BUpivacaine (PF) Given 06/03/2015 8:52 AM 37.5 mg 19- Surgical Site (MARCAINE) 0.25 % (2.5 EST mg/mL) injection ONCE PRN, Starting on Wed06/03/15 at 0852, Until Wed06/03/15 at 0941, Intra-Operative (Intra-Procedure), Routine sodium chloride 0.9% infusion New Bag 06/03/2015 6:47 AM EST 100 mL/hr 100 mL/hr 100 mL/hr, Intravenous, CONTINUOUS, Starting on Wed06/03/15 at 0645, Until Wed06/03/15 at 0941, Day of Surgery (Day of Procedure) documented in this encounter Active and Recently Administered Medications Times are shown in EST. Scheduled Medication Order 06/02/2015 06/03/2015 06/04/2015 BUpivacaine-EPINEPHrine 0.25 %-1:200,000 injection 20 mL (CA NCELED) 1103 (Given - Provider: Kevan Carrasco APRN) 20 mL (50 mg), Infiltration, ONCE, 1 dos e, Wed06/03/15 at 0930, For use in Interventional Radiology (IR) only for procedural sedation with direct provider supervision and verbal order., Angio/IR (Intra-Procedure), Routine ceFAZolin (ANCEF) 2g in dextrose 5% 50 mL (COMPLETED) 0802 (Given - Provider: Hanna Nolen MD) 2 g, Intravenous, ONCE, 1 dose, 06/03 at 0645, for 30 Minutes, Redose every 3 hours if CrCl is greater than 20. Redose every 8 hours if CrCl is less than 20., Day of Surgery (Day of Procedure), Indication for (Active or Suspected): Prophylaxis Continuous Medication Order 06/02/2015 06/03/2015 06/04/2015 sodium chloride 0.9% infusion (CANCELED) 0647 (New Bag - Provider: Cindy Calderón, RN) 100 mL/hr, at 100 mL/hr, Intravenous, CO NTINUOUS, Starting Wed06/03/15 at 0645, Until Wed06/03/15 at 0941, Day of Surgery (Day of Procedure) PRN Medication Order 06/02/2015 06/03/2015 06/04/2015 BUpivacaine (PF) (MARCAINE) 0.25 % (2.5 mg/mL) injection (CA NCELED) 0852 (Given - Provider: Jr Garcia MD) ONCE PRN, Starting Wed06/03/15 at 0852, Until Wed06/03/15 at 0941, Intra- Operative (Intra-Procedure), Routine documented in this encounter Care Teams Rotary Cutter Relationship Specialty Start Date End Date Marilyn Kidd MD PCP - General 06/17/[address] [place] [address] documented as of this encounter
--- OUTSIDE RECORDS SUMMARY | 2022-02-09 02:22 | XMS_ITS | Encounter Summary ---
:1945 Author Organization [place] [address] Care Team Providers Name Role Phone Marilyn Kidd MD Primary Care Provider Reason for Visit Reason Onset Date Comments VNA Calls 06/14/2015 Encounter Details Date Type Department Care Team Description 06/14/2015 Telephone Gynecology Oncology at [facility] [place] [phone] Social History Tobacco Use Types Packs/Day [...] Telephone Encounter - Kenzie Harvey RN - 06/14/2015 3:30 PM EST Call to [facility] to set up home infusions of IV fluids after day 1 and day 8 chemo. Wasinformed by intake at [facility] that Medicare will not pay for pt's to receive IV fluids at home. Call topt who does not want to pay out of pocket and would be able to go to [facility] for fluids. Orders and demographics faxed to [facility]. documented in this encounter Plan of Treatment Upcoming Encounters Date Type Specialty Care Team Description 02/27/2022 Appointment Radiology Marilyn Kidd MD [address] [place], [place] [id number] (Wo rk) documented as of this encounter Visit Diagnoses Not on filedocumented in this encounter Care Teams Dairy Products Maker Relationship Specialty Start Date End Date Marilyn Kidd MD PCP - General 06/17/[address] [place], [place] [id number] documented as of this encounter
--- OUTSIDE RECORDS SUMMARY | 2022-02-09 02:22 | XMS_ITS | Encounter Summary ---
:1945 Author Organization [place] [address] Care Team Providers Name Role Phone Marilyn Kidd MD Primary Care Provider Encounter Details Date Type Department Care Team Description 06/13/2015 Orders Only Gynecology Oncology at [facility] MD Genie carcinosarcoma, left [facility] [place] [phone] GYNECOLOGIC [phone] ON[address]OGY [place] [id number] Social History Tobacco Use Types Packs/Day Years [...] MD [address] [place], [place] [address] (Wo rk) documented as of this encounter Visit Diagnoses Diagnosis Ovarian carcinosarcoma, left documented in this encounter Care Teams Warp Dyeing Vat Tender Relationship Specialty Start Date End Date Marilyn Kidd MD PCP - General 06/17/[address] [place] [address] documented as of this encounter
--- OUTSIDE RECORDS SUMMARY | 2022-02-09 02:22 | XMS_ITS | Encounter Summary ---
:1945 Author Organization [facility] [place] [address] Care Team Providers Name Role Phone Marilyn Kidd MD Primary Care Provider Encounter Details Date Type Department Care Team Description 06/05/2015 Orders Only [place] [facility] [place] MD [facility] [place] [address] GYNECOLOGIC ONCOLOGY [phone] [place] [id number] (Wo rk) Social History Tobacco Use Types [...] MD [address] [place], [place] [address] (Wo rk) documented as of this encounter Visit Diagnoses Not on filedocumented in this encounter Care Teams Buckle Sorter Relationship Specialty Start Date End Date Marilyn Kidd MD PCP - General 06/17/[address] [place] [address] documented as of this encounter
--- OUTSIDE RECORDS SUMMARY | 2022-02-09 02:22 | XMS_ITS | Encounter Summary ---
:1945 [place] [address] Care Team Providers Name Role Phone Marilyn Kidd MD Primary Care Provider Encounter Details Date Type Department Care Team Description 06/03/2015 Anesthesia Event Main Operating Room Markie Macias [facility] MD [facility] [place] [address] [place] [address] [phone] (Wo rk) Anesthesia Record Procedure Summary Procedure Name Responsible Anesthesia Start Anesthesia Stop Anesthesiologist Time Time INTRAPERITONEAL CATHETER Hanna oNlen MD 06/03/15 0746 06/03/15 0922 INSERTION W\SUB-Q PORT (WRVU 7.08) (N/A Abdomen) Events Date Time Event Comment 06/03/2015 0652 0746 Start 0747 AN Verify 0750 An Start Data 0759 An Induction 0800 An Intubation 0802 Anesthesia Ready 0911 Extubation/LMA Out To Delete (sk ip) the Extubation event, click the X below. 0911 an stop data 0918 Recovery or ICU Handoff Patient care was transferred to the destination unit staff after review of the patient's medica l history, current anesthetic/surgi arlet status and plan, according to the Provider Handoff Checklist. 0922 Stop Name Total fentaNYL 200 mcg Propofol 150 mg Rocuronium 50 mg Ondansetron 4 mg Dexamethasone 4 mg Neostigmine 5 mg Glycopyrrolate 0.6 mg ceFAZolin (ANCEF) 2g in dextrose 5% 50 mL 2 g Ketorolac 30 mg Lactated Ringers 0 mL Agents Name O2 Air N2O Sevoflurane (et) Blood No blood administrations on file. Lines, Drains, and Airways Type Details Placement Removal Incision 06/03/15; abdomen; 06/03/15 0000 by laparoscopic punctures Dina Joe RN (specify); multiple trocar sites. Implanted Port - 06/03/15; lower rib 06/03/15 0000 by Single Lumen area, right; pressure Liana Villarreal (non-apheresis) injectable catheter; EVER Aiken peritoneal cavity; Dr. Garcia Incision 05/06/15; abdomen; 05/06/15 0000 by 06/03/15 091 1 by vertical; 06/03/15; 0911 Linda Herrera Br own, Surekha Aden RN RN PIV 06/03/15; 0647; 06/03/15 0647 by 06/03/15 1250 b y metacarpal vein left Cindy Calderón RN Zwike lmaier, (top of hand); Elia Clarke RN snoh-gnz-shqocv catheter system; 18 gauge, 1 in length; intradermal injection, tolerated well; no longer indicated; 06/03/15; 1250 ETT Mask Ventilation: Easy 06/03/15 0800 by 06/03/15 0911 by (1); ETT Type: Cuffed; Hanna Nolen Kathleen ETT Size: 7 mm; Jose Alfredo Herrera MD H, Blade: 2; Notes: Asleep, Pre-O2, Stylette; Attempts: 1; Laryngoscopy Grade: 1; ETT Placement Verified By: Auscultation, Capnometry; Secured at Teeth: 22 cm; Inserted by: gloria documented in this encounter Social History Tobacco Use Types Packs/Day Years [...] on file documented as of this encounter OR Notes Anesthesia Postprocedure Evaluation - Hanna Nolen MD - 06/03/2015 5:13 PM EST Patient: Neisha White Procedure(s) Performed: Procedure(s): INTRAPERITONEAL CATHETER INSERTION W\SUB-Q PORT Actual Anesthetic: general Patient location: PACU Post-op pain: Adequate analgesia Post-op nausea: no nausea or vomiting Last Vitals: Filed Vitals: 06/03/15 0930 BP: 127/53 Pulse: 55 Temp: Resp: 14 Post-op cardiovascular and respiratory status: is stable Level of consciousness: awake, alert and oriented Complications: no apparent complications and tolerated the procedure well Fluid Status: normal Anesthesia Preprocedure Evaluation - Hanna Nolen MD - 06/03/2015 6:49 AM EST Pre-Anesthesia Evaluation for: Neisha White a 69 y.o. female. Procedure(s): INTRAPERITONEAL CATHETER INSERTION W\SUB-Q PORT Patient Active Problem List Diagnosis ??? Pelvic mass No past medical history on file. Past Surgical History Procedure Laterality Date ??? Pro azael salp-ooph w/omentect, garland, rad dissect N/A 05/06/2015 @HYSTERECTOMY, GARLAND, BSO, DEBULKING performed by Genie Garcia MD at [facility] MAIN OR ? ? Pro unlisted px abd prtm&omentum N/A 05/06/2015 LAPAROTOMY, EXCISION LESION, PERITONEUM performed by Genie Garcia MD at [facility] MAIN OR ??? Pro release ureter, retroper fibrosis Left 05/06/2015 @URETEROLYSIS WITH OR WITHOUT REPOSITIONING OF URETER FOR RETROPERITONEAL FIBROSIS performed by Genie Garcia MD at [facility] MAIN OR ??? Pro removal of omentum N/A 05/06/2015 @OMENECTOMY performed by Genie Garcia MD at [facility] MAIN OR History Substance Use Topics ??? Smoking status: Former Smoker -- 0.50 packs/day for 12 years Types: Cigarettes Quit date: 08/02/1979 ??? Smokeless tobacco: Never Used ??? Alcohol Use: No Comment: rare History Drug Use No No Known Allergies Medications: MAR and/or home medications have been reviewed. Physical Exam: Filed Vitals: 06/03/15 0618 BP: 124/63 Pulse: 68 Temp: 36.2 ??C (97.2 ??F) Resp: 16 Body mass index is 20.8 kg/(m^2). Height: 165.1 cm (5' 5) Weight - Scale: 56.7 kg (125 lb) Airway Assessment: Mallampati: II TM distance: >3 FB Neck ROM: full Cardiovascular Assessment: Pulmonary Assessment: Dental Assessment: - normal exam Misc Assessment: Anesthesia Plan: ASA 2 general, with a(n) intravenous induction 69 yo fit nonsmoker s/p GARLAND BSO for ovarian Ca now presents for placement of IP catheter in anticipation of chemotherapy. Patient known to me from prior OR; prefers no versed. Discussed risks/benefits GA, ETT vs LMA pending surgical approach (open vs laparoscopic). Informed Consent: Anesthetic plan and risks discussed with patient. PAT Staff Note documented in this encounter Plan of Treatment Upcoming Encounters Date Type Specialty Care Team Description 02/27/2022 Appointment Radiology Marilyn Kidd MD [address] [facility] [place] [address] (Wo rk) documented as of this encounter Visit Diagnoses Not on filedocumented in this encounter Administered Medications Inactive Administered Medications - up to 3 most recent administrations Medication Order MAR Action Action Date Dose Rate Site ceFAZolin (ANCEF) 2g in dextrose 5% Given 06/03/2015 8:02 AM EST 2 g 50 mL 2 g, Intravenous, ONCE, 1 dose, On 06/03/15 at 0645, Administer over 30 Minutes, Redose every 3 hours if CrCl is greater than 20. Redose every 8 hours if CrCl is less than 20., Day of Surgery (Day of Procedure), Indication for (Active or Suspected): Prophylaxis dexamethasone (DECADRON) injection Given 06/03/2015 7:59 AM EST 4 mg PRN, Starting on Wed06/03/15 at 0759, Until Wed06/03/15 at 0932, Anesthesia Intra-op, Routine fentaNYL 50 mcg/mL multi-dose injection Given 06/03/2015 8:46 AM EST 50 mcg PRN, Starting on Wed06/03/15 at 0759, Until Wed06/03/15 at 0932, Pain, Anesthesia Intra-op, Routine Given 06/03/2015 8:31 AM EST 50 mcg Given 06/03/2015 7:59 AM EST 100 mcg glycopyrrolate (ROBINUL) multi-dose inje ction Given 06/03/2015 8:54 AM EST 0.6 mg PRN, Starting on Wed06/03/15 at 0854, Until Wed06/03/15 at 0932, Anesthesia Intra-op, Routine ketorolac (TORADOL) injection Given 06/03/2015 8:49 AM EST 30 mg PRN, Starting on Wed06/03/15 at 0849, Until Wed06/03/15 at 0932, Pain, Anesthesia Intra-op, Routine lactated ringers infusion New Bag 06/03/2015 7:46 AM EST CONTINUOUS PRN, Starting on Wed06/03/15 at 0746, Until Wed06/03/15 at 0932, Anesthesia Intra-op neostigmine (PROSTIGMINE) multi-dose inj ection Given 06/03/2015 8:54 AM EST 5 mg PRN, Starting on Wed06/03/15 at 0854, Until Wed06/03/15 at 0932, Anesthesia Intra-op, Routine ondansetron (ZOFRAN) injection Given 06/03/2015 8:48 AM EST 4 mg PRN, Starting on Wed06/03/15 at 0848, Until Wed06/03/15 at 0932, Nausea, Anesthesia Intra-op, Routine propofol (DIPRIVAN) 10 mg/mL bolus injection Given 03/2015 7:59 AM EST 150 mg (Anesthesia) PRN, Starting on Wed06/03/15 at 0759, Until Wed06/03/15 at 0932, Anesthesia Intra-op rocuronium (ZEMURON) multi-dose injectio n Given 06/03/2015 7:59 AM EST 50 mg PRN, Starting on Wed06/03/15 at 0759, Until Wed06/03/15 at 0932, Anesthesia Intra-op, Routine documented in this encounter Care Teams Home Health Care Case Manager Relationship Specialty Start Date End Date Marilyn Kidd MD PCP - General 06/17/[address] [place] [address] documented as of this encounter
--- OUTSIDE RECORDS SUMMARY | 2022-02-09 02:22 | XMS_ITS | Encounter Summary ---
:1945 Author Organization [facility] Address [facility] [place] [address] Care Team Providers Name Role Phone Marilyn Kidd MD Primary Care Provider Encounter Details Date Type Department Care Team Description 06/03/2015 - Hospital Encounter PACU at [facility], 06/04/2015 [facility] [address] [place], [place] ONCOLOGY [address] [place] [address] [phone] Social History Tobacco Use Types Packs/Day Years [...] documented in this encounter Discharge Instructions Discharge InstructionsVictorina Abdul RN - 06/03/2015 12:10 PM EST POST [...] usually goes away in 12-24 hours. Patient InstructionsCarMarjorie green MD - 06/03/2015 9:05 AM EST PATIENT [...] Dispensed Refills Start Date End Date Coenzyme Y94-Nkvwuim E Take 1 capsule by mouth 0 [...] Physician (if different): Wilder SHAY Indication: Needs [facility] venous access for chemotherapy Planned Procedure: Single [...] times daily. 60 tablet 1 ??? Coenzyme G87-Kswuxnb E 50-5 mg-unit Capsule Take 1 capsule [...] Garcia MD - 06/03/2015 9:48 AM EST [facility] Operative Note Patient Name: Neisha White : [id number] MR#: [id number] Case Date: 06/03/2015 Surgeon: Surgeon(s) and Role: [...] Operative Note Patient Name: Neisha White : [id number] MR#: [id number] Case Date: 06/03/2015 Surgeon: Surgeon(s) and Role: [...] MD [address] [place] [address] (Wo rk) documented as of this encounter [...] (ABNORMAL) Differential, Automated (06/03/2015 12:20 PM EST) Patholo gist Method Time Signature Neutrophils % 92.8 [...] yielding IG's will be scanned manually for vesna dominguez. If this scan disagrees with the automated [...] Organization Address City/State/[place] [address] CERNER MILLENNIUM (ABNORMAL) Hemogram (06/03/2015 12:20 PM EST) P athologist Signature WBC 6.5 4.0 - 10.0 [...] Organization Address City/State/[place] [address] CERNER MILLENNIUM (ABNORMAL) Comprehensive metabolic panel (non-fasting) (06/03/2015 12:20 PM EST) athologist Signature Glucose Lvl 113 65 - 199 CERNER mg/dL MILLENNIUM Comment: Diabetes: >=200 mg/dL plus symp toms BUN 19 (H) 8 - 18 mg/dL CERNER MILLENNIUM Creatinine 0.94 0.70 - 1.20 mg/dL CERNER MILL ENNIUM Comment: Please note that the pediatric reference intervals supplied above were not validated at [facility]. Results from pediatri c patients should be [...] back by:elroy osuna on _, Date/Time:06/03/15 14:23. ALT 25 [...] the following links into your internet browser. [email or web address]/DHnkdep [email or web address]/DHMCnkf Specimen Anatomical Collection Method Collection Time Receive d Time (Source) Location / / Volume Laterality Blood specimen 06/03/2015 12:20 5 (specimen) PM EST 12:42 PM EST Resulting Agency Comment Spec In Lab Jr Garcia MD CHEMISTRY ORDERABLES Performing Organization Address City/State/[place] [address] [facility] documented in this encounter Visit Diagnoses Not on filedocumented in this encounter Administered Medications Inactive Administered Medications - up to 3 most recent administrations Medication Order MAR Action Action Date Dose Rate Site sodium chloride 0.9% New Bag 06/03/2015 6:47 AM EST 100 mL/hr 100 mL/hr infusion 100 mL/hr, Intravenous, CONTINUOUS, Starting on Wed06/03/15 [...] (CANCELED) 0647 (New Bag - Provider: Cindy Calderón RN) 100 mL/hr, at 100 mL/hr, Intravenous, [...] Routine documented in this encounter Care Teams Adolescent Medicine Specialist Relationship Specialty Start Date End Date Marilyn Kidd MD PCP - General 06/17/10 [facility] [address] [place] [address] documented as of this encounter
--- OUTSIDE RECORDS SUMMARY | 2022-02-09 02:22 | XMS_ITS | Encounter Summary ---
:1945 Author Organization [facility] [place] [address] Care Team Providers Name Role Phone Marilyn Kidd MD Primary Care Provider Reason for Visit Reason Comments Ovarian Cancer Chemotherapy Medication Prior Authorization (Routine) - Closed Specialty Diagnoses / Procedures Referred By Contact Refer red To Contact Genie Garcia MD [facility] [place] [address] Referral ID Status Reason Start Date Expiration Date Visits Requ ested Visits Authorized [id number] Closed 06/05/2015 06/04/2016 1 1 Encounter Details Date Type Department Care Team Description 06/07/2015 Hospital Encounter Hematology and Epithel ial [place] [facility] [place] [address] Social History Tobacco Use Types Packs/Day [...] Sign Reading Time Taken Comments Blood Pressure 130/58 06/07/2015 9:10 AM EST Pulse 73 06/07/2015 9:10 AM EST Temperature 36.6 ??C (97.9 ??F) 06/07/2015 9:10 AM EST Respiratory Rate 18 06/07/2015 9:10 AM EST Oxygen Saturation 100% 06/07/2015 9:10 AM EST Inhaled Oxygen Concentration - - Weight - - Height - - Body Mass Index - - documented in this encounter Discharge Instructions Patient InstructionsLiana Villarreal RN - 06/07/2015 3:40 PM EST Results for ROCAEL WHITE ( ) as of 06/07/2015 15:27 Ref. Range 05/10/2015 03:50 05/10/2015 14:12 05/11/2015 04:37 05/12/2015 04:24 06/03/2015 11:34 06/03/2015 12:20 06/07/2015 08:45 WBC Latest Range: 4.0-10.0 x10(3)/mcL 6.8 6.5 RBC Latest Range: 3.93-5.22 x10(6)/mcL 2.73 (L) 4.23 Hemoglobin Latest Range: 11.2-15.7 gm/dL 8.0 (L) 12.2 Hematocrit Latest Range: 34.0-45.0 % 24.9 (L) 38.4 MCV Latest Range: 79.0-94.0 fL 91.2 90.8 MCH Latest Range: 26.6-32.2 pg 29.3 28.8 MCHC Latest Range: 32.0-36.5 gm/dL 32.1 31.8 (L) RDWSD Latest Range: 35.0-46.0 fL 44.8 46.3 (H) RDWCV Latest Range: 10.9-14.4 % 13.6 14.0 Platelets Latest Range: 145-370 x10(3)/mcL 217 193 MPV Latest Range: 9.0-12.0 fL 10.1 11.9 Neutr Abs (ANC) Latest Range: 1.50-6.30 x10(3)/mcL 5.38 6.05 Neutrophils % Latest Units: % 79.8 92.8 Immature Gran % Latest Units: % 0.00 0.00 Lymphocytes % Latest Units: % 11.4 6.4 Monocytes % Latest Units: % 6.2 0.6 Eosinophils % Latest Units: % 2.5 0.0 Basophils % Latest Units: % 0.1 0.2 Nena Gran Abs Latest Range: 0.00-0.05 x10(3)/mcL 0.00 0.00 Lymphocytes Abs Latest Range: 1.0-3.6 x10(3)/mcL 0.8 (L) 0.4 (L) Monocyte Abs Latest Range: 0.2-1.0 x10(3)/mcL 0.4 0.0 (L) Eosinophils Abs Latest Range: 0.0-0.5 x10(3)/mcL 0.2 0.0 Basophils Abs Latest Range: 0.0-0.2 x10(3)/mcL 0.0 0.0 Sodium Latest Range: 135-145 mmol/L 141 141 139 142 136 Potassium Latest Range: 3.5-5.0 mmol/L 3.8 3.8 3.2 (L) Not Perf 4.3 Chloride Latest Range: 98-107 mmol/L 102 101 101 104 100 CO2 Latest Range: 22-31 mmol/L 21 (L) 20 (L) 26 24 25 Anion Gap Latest Range: 5-15 mmol/L 18 (H) 20 (H) 12 14 11 BUN Latest Range: 8-18 mg/dL 11 11 10 19 (H) 19 (H) Creatinine Latest Range: 0.70-1.20 mg/dL 0.89 0.92 0.79 0.94 0.87 Estimated GFR Latest Range: >=60 >60 >60 >60 59 (L) >60 Glucose Lvl Latest Range: 65-199 mg/dL 67 83 98 113 172 Calcium Latest Range: 8.5-10.5 mg/dL 8.4 (L) 8.2 (L) 8.2 (L) 9.0 9.5 Magnesium Latest Range: 0.69-1.07 mmol/L 0.79 0.78 0.73 0.86 Phosphorus Latest Range: 2.5-4.5 mg/dL 2.4 (L) Total Protein Latest Range: 6.1-8.0 gm/dL 6.4 7.1 Albumin Latest Range: 3.2-5.2 gm/dL 3.7 4.2 Total Bilirubin Latest Range: 0.2-1.3 mg/dL 0.2 <0.2 (L) Bili, Direct Latest Range: 0.0-0.3 mg/dL Not Perf 0.1 Alk Phos Latest Range: 40-104 unit/L 61 63 AST Latest Range: 0-30 unit/L Not Perf 17 ALT Latest Range: 0-30 unit/L 25 21 CA 125 Latest Range: <=35.0 unit/mL 52.4 (H) IR MEDIPORT PLACEMENT/EXCHANGE No range found Rpt documented in this encounter Medications at Time of Discharge Medication Sig Dispensed Refills Start Date End Date Coenzyme U40-Ttmfzia E Take 1 capsule by mouth 0 [...] documented as of this encounter Progress Notes Liana Villarreal RN - 06/07/2015 10:00 AM EST Patient Name: Rocael White Patient Age: 69 y.o. Birthdate: 1945 Admit date: 06/07/2015 Attending Physician: No att. providers found TIME TREATMENT STARTED: 0900 TIME TREATMENT ENDED: 1740 Rocael White, 69 y.o. female with diagnosis of ovarian cancer is here for chemotherapy infusionof IV paclitaxel and IP cisplatin. PROTOCOL: no CYCLE: 1 DAY: 1 S: Pt. offers no complaints at this time. Patient recorded urine output throughout treatment for total of 2265 mls. O: Chemotherapy orders independently verified for correct drug name, route and dosage per patient's height, weight and BSA by Merle CURTIS and onsite pharmacist REACTIONS (DESCRIPTION, TIME, INTERVENTION AND EFFECTIVENESS) none A: Pt. Tolerated treatment well. Rocael White confirms that all questions and issues have been addressed. P: Return to clinic as scheduled. Greta Huntley RN - 06/06/2015 11:49 AM EST Patient Name: Rocael White Patient Age: 69 y.o. Birthdate: 1945 Admit date: (Not on file) Attending Physician: No att. providers found Pharmacy nurse check done per protocol for treatment tomorrow. documented in this encounter Miscellaneous Notes Addendum Note - Liana Villarreal RN - 06/07/2015 6:58 PM [facility] addended by: Liana Villarreal RN on: 06/07/2015 6:58 PM
Documentation filed: Clinical Notes documented in this encounter Plan of Treatment Upcoming Encounters Date Type Specialty Care Team Description 02/27/2022 Appointment Radiology Marilyn Kidd MD [address] [facility] [address] [place] [address] (Wo rk) documented as of this encounter Visit Diagnoses Diagnosis Epithelial ovarian cancer, FIGO stage II IC documented in this encounter Administered Medications Inactive Administered Medications - up to 3 most recent administrations Medication Order MAR Action Action Date Dose Rate Site CISplatin (PLATINOL) 124 mg in New Bag 06/07/2015 2:28 PM EST 124 mg sodium chloride 0.9% 1,124 mL chemo infusion 124 mg (rounded from 123.75 mg = 75 mg/m2/dose ? 1.65 m2 Treatment Plan BSA from Recorded weight), Intraperitoneal, ONCE, 1 dose, On Wed06/07/15 at 0900, Administer over 120 minutes or less. Warm CISplatin per procedure. After the IP chemotherapy instillation, the patient should be instructed to change positions every 15 minutes to allow for adequate distribution of the chemotherapy within the peritoneal cavity for 1 to 2 hours. Left side, right side, back, left side. Per Intraperitoneal (IP) Chemotherapy Administration Using an Implanted Port Procedure. dexamethasone (DECADRON) injection 10 mg Given 06/07/2015 9:30 AM EST 10 mg 10 mg, Intravenous, ONCE, 1 dose, On Wed06/07/15 at 0900, Administer 30 minutes prior to PACLitaxel diphenhydrAMINE (BENADRYL) injection 25 mg Given 06/07/2015 9:23 AM EST 25 mg 25 mg, Intravenous, ONCE, 1 dose, On Wed06/07/15 at 0900, Administer 30 minutes prior to PACLitaxel, Routine famotidine (PEPCID) injection 20 mg Given 06/07/2015 9:18 AM EST 20 mg 20 mg, Intravenous, ONCE, 1 dose, On 11/13/15 at 0900, Administer 30 minutes prior to PACLitaxel fosaprepitant (EMEND) 150 mg in New Bag 06/07/2015 9:34 AM EST 150 mg 310 mL/hr sodium chloride 0.9% 155 mL infusion 150 mg, Intravenous, ONCE, 1 dose, On Wed06/07/15 at 0900, Administer over 30 Minutes, Administer prior to chemotherapy heparin, porcine 100 unit/mL flush 500 Given 06/07/2015 5:40 PM EST 500 Units Units 500 Units, Intravenous, ONCE PRN, Starting on Wed06/07/15 at 0000, Until Wed06/07/15 at 2359, Line Care, Refer to Intravenous (IV) Procedure: Accessing Implanted Vascular Access Devices (394) procedure and/or Intravenous (IV) Job Aid: Adult Flushing & Catheter Care (3820) job aid for additional information regarding guidelines and administration., Routine magnesium sulfate 1g in dextrose 5% Given 06/07/2015 4:30 PM EST 1 g 100 mL/hr 100mL 1 g, Intravenous, EVERY HOUR, 2 doses, First dose on Wed06/07/15 at 0900, Last dose on Wed06/07/15 at 1000, Administer over 60 Minutes, Total dose is 2 grams. Post - CISplatin Given 06/07/2015 3:34 PM EST 1 g 100 mL/hr PACLitaxel (TAXOL) 289 mg in New Bag 06/07/2015 11:09 AM EST 289 m g 182.7 mL/hr dextrose 5% Non-PVC 548.1667 mL chemo infusion 289 mg (rounded from 288.75 mg = 175 mg/m2/dose ? 1.65 m2 Treatment Plan BSA from Recorded weight), Intravenous, ONCE, 1 dose, On Wed06/07/15 at 0900, Administer over 3 Hours palonosetron (ALOXI) injection 0.25 mg Given 06/07/2015 9:15 AM EST 0.25 mg 0.25 mg, Intravenous, ONCE, 1 dose, On Wed06/07/15 at 0900, Administer over 30 seconds. Administer prior to chemotherapy, Routine sodium chloride 0.9 % flush 5-20 mL Given 06/07/2015 5:40 PM EST 20 mLs 5-20 mL, Intravenous, EVERY 1 MIN PRN, Starting on Wed06/07/15 at 0000, Until Wed06/07/15 at 2359, Line Care, Flush pertains to all indwelling lines. Flush per protocol found in the job aid using the link provided on this medication record. Refer to Intravenous (IV) Job Aid: Adult Flushing & Catheter Care (1120) job aid for additional information regarding guidelines and administration., Routine sodium chloride 0.9% infusion New 06/07/2015 9:10 AM EST 1,000 mLs 500 mL/hr 1,000 mL, at 500 mL/hr, Intravenous, CONTINUOUS, Starting on Wed06/07/15 at 0900, Until Wed06/07/15 at 1059, Pre CISplatin sodium chloride 0.9% infusion New 06/07/2015 1:45 PM EST 500 mLs 500 mL, Intraperitoneal, ONCE, 1 dose, On Wed06/07/15 at 0900, Access Intraperitoneal (IP) port and infuse warmed sodium chloride 0.9% 500 mL as fast as possible immediately prior to IP chemotherapy sodium chloride 0.9% infusion New 06/07/2015 3:24 PM EST 500 mLs 500 mL, Intraperitoneal, ONCE, 1 dose, On Wed06/07/15 at 0900, Access Intraperitoneal (IP) port and infuse warmed sodium chloride 0.9% 500 mL as fast as possible immediately following IP chemotherapy sodium chloride 0.9% with New Bag 06/07/2015 3:36 PM EST 1,000 mLs 500 mL/hr potassium chloride 20 mEq infusion 1,000 mL, at 500 mL/hr, Intravenous, CONTINUOUS, Starting on Wed06/07/15 at 0900, Until Wed06/07/15 at 1059, Post - CISplatin documented in this encounter Care Teams Manager Environmental Relationship Specialty Start Date End Date Marilyn Kidd MD PCP - General 06/17/[address] [place] [address] [address] [place] [address] documented as of this encounter
--- OUTSIDE RECORDS SUMMARY | 2022-02-09 02:22 | XMS_ITS | Encounter Summary ---
:1945 Author Organization [facility] [place] [address] Care Team Providers Name Role Phone Marilyn Kidd MD Primary Care Provider Encounter Details Date Type Department Care Team Description 05/23/2015 External Results Medical Records Provider, [place] [address] Social History Tobacco Use Types Packs/Day [...] MD [address] [place], [place] [id number] (Wo rk) documented as of this encounter Procedures Procedure Name Priority Date/Time Associated Diagnosis Comme nts SURGICAL PATHOLOGY SCAN Routine 05/23/2015 CYTOLOGY SCAN Routine 05/23/2015 documented in this encounter Results Scan Doc: Surgical Pathology (05/23/2015) Narrative This result has an attachment that is no t available. Genie HarperHorton-Leobardo MD MEDIA MGR SCAN EXT ORDR/RSLT Scan Doc: Cytology (05/23/2015) Narrative This result has an attachment that is no t available. Genie Garcia MD MEDIA MGR SCAN EXT ORDR/RSLT documented in this encounter Visit Diagnoses Not on filedocumented in this encounter Care Teams Shirt Turner Relationship Specialty Start Date End Date Marilyn Kidd MD PCP - General 06/17/[address] [place] [address] documented as of this encounter
--- OUTSIDE RECORDS SUMMARY | 2022-02-09 02:22 | XMS_ITS | Encounter Summary ---
:1945 Author Organization [facility] [place] [address] Care Team Providers Name Role Phone Marilyn Kidd MD Primary Care Provider Reason for Visit Reason Comments Chemotherapy Medication Prior Authorization (Routine) - Closed Specialty Diagnoses / Procedures Referred By Contact Refer red To Contact Genie Garcia MD [facility] [place] [address] Referral ID Status Reason Start Date Expiration Date Visits Requ ested Visits Authorized [id number] Closed 06/05/2015 06/04/2016 1 1 Encounter Details Date Type Department Care Team Description 06/14/2015 Hospital Encounter Hematology and Ovarian carcinosarcoma, Oncology at [facility] [place] [address] Social History Tobacco Use Types Packs/Day [...] Sign Reading Time Taken Comments Blood Pressure 136/61 06/14/2015 1:16 PM EST Pulse 90 06/14/2015 1:16 PM EST Temperature 36.7 ??C (98.1 ??F) 06/14/2015 1:16 PM EST Respiratory Rate 18 06/14/2015 1:16 PM EST Oxygen Saturation 99% 06/14/2015 1:16 PM EST Inhaled Oxygen Concentration - - Weight - - Height - - Body Mass Index - - documented in this encounter Medications at Time of Discharge Medication Sig Dispensed Refills Start Date End Date Coenzyme Y90-Vxlldrp E Take 1 capsule by 0 2012 [...] encounter Progress Notes Linda Odell RN - 06/14/2015 2:12 PM EST Patient Name: Neisha White Patient Age: 69 y.o. Birthdate: 1945 Admit date: 06/14/2015 Attending Physician: No att. providers found TIME TREATMENT STARTED: 1345 TIME TREATMENT ENDED: 1635 Neisha White, 69 y.o. female with diagnosis of Ovarian cancer is here for chemotherapy infusionof Paclitaxel. PROTOCOL: no CYCLE: 1 DAY: 8 S: Pt. offers complaints at this time of not feeling well post treatments. Pt reports decreased appetite and lethargy. O: Chemotherapy orders independently verified for correct drug name, route and dosage by Sadaf Phillip onsite pharmacist REACTIONS (DESCRIPTION, TIME, INTERVENTION AND EFFECTIVENESS) none A: Pt. Tolerated treatment well. Neisha White confirms that all questions and issues have been addressed. P: Return to clinic as scheduled Greta Huntley RN - 06/13/2015 5:19 PM EST Patient Name: Neisha White Patient Age: 69 y.o. Birthdate: 1945 Admit date: (Not on file) Attending Physician: No att. providers found Pharmacy nurse check done per protocol for treatment tomorrow. 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 Administered Medications Inactive Administered Medications - up to 3 most recent administrations Medication Order MAR Action Action Date Dose Rate Site dexamethasone (DECADRON) injection Given 06/14/2015 1:25 PM EST 10 mg 10 mg 10 mg, Intravenous, ONCE, 1 dose, On Wed06/14/15 at 1200, Administer 30 minutes prior to PACLitaxel diphenhydrAMINE (BENADRYL) injection 25 mg Given 06/14/2015 1:31 PM EST 25 mg 25 mg, Intravenous, ONCE, 1 dose, On Wed06/14/15 at 1200, Administer 30 minutes prior to PACLitaxel, Routine famotidine (PEPCID) injection 20 mg Given 06/14/2015 1:30 PM EST 20 mg 20 mg, Intravenous, ONCE, 1 dose, On Wed06/14/15 at 1200, Administer 30 minutes prior to PACLitaxel heparin, porcine 100 unit/mL flush 500 Given 06/14/2015 4:30 PM EST 500 Units Units 500 Units, Intravenous, ONCE PRN, Starting on Wed06/14/15 at 0000, Until Wed06/14/15 at 2359, Line Care, Refer to Intravenous (IV) Procedure: Accessing Implanted Vascular Access Devices (754) procedure and/or Intravenous (IV) Job Aid: Adult Flushing & Catheter Care (6885) job aid for additional information regarding guidelines and administration., Routine PACLitaxel (TAXOL) 99 mg in sodium chloride New Bag 05/27 2:27 PM EST 99 mg 0.9% Non-PVC 1,016.5 mL chemo infusion 99 mg (60 mg/m2/dose ? 1.65 m2 Treatment Plan BSA from Recorded weight), Intraperitoneal, ONCE, 1 dose, On Wed06/14/15 at 1400, Administer over 120 minutes or less. Warm [...] Procedure palonosetron (ALOXI) injection 0.25 mg Given 06/14/2015 1:24 PM EST 0.25 mg 0.25 mg, Intravenous, ONCE, 1 dose, On Wed06/14/15 at 1200, Administer over 30 seconds. Administer prior to chemotherapy, Routine pegfilgrastim (NEULASTA) injection 6 mg Given 06/14/2015 4:22 PM EST 6 mg Left Arm 6 mg, Subcutaneous, ONCE, 1 dose, On Wed06/14/15 at 1600, Routine sodium chloride 0.9% infusion New Bag 06/14/2015 1:54 PM EST 500 mLs 500 mL, Intraperitoneal, ONCE, 1 dose, On Wed06/14/15 at 1200, Access Intraperitoneal (IP) port and infuse warmed sodium chloride 0.9% 500 mL as fast as possible immediately prior to IP chemotherapy sodium chloride 0.9% infusion New Bag 06/14/2015 3:51 PM EST 500 mLs 500 mL, Intraperitoneal, ONCE, 1 dose, On Wed06/14/15 at 1500, Access Intraperitoneal (IP) port and infuse warmed sodium chloride 0.9% 500 mL as fast as possible immediately following IP chemotherapy documented in this encounter Care Teams Airport Operations Supervisor Relationship Specialty Start Date End Date Marilyn Kidd MD PCP - General 06/17/[address] [place] [address] [address] [place] [address] documented as of this encounter
--- OUTSIDE RECORDS SUMMARY | 2022-02-09 02:22 | XMS_ITS | Encounter Summary ---
:1945 Author Organization [facility] [place] [address] Care Team Providers Name Role Phone Marilyn Kidd MD Primary Care Provider Encounter Details Date Type Department Care Team Description 06/24/2015 External Results [facility] [place] [address] Social History Tobacco Use Types Packs/Day Years [...] MD [address] [place], [place] [address] (Wo rk) documented as of this encounter Procedures Procedure Name Priority Date/Time Associated Diagnosis Comme nts CBC (WITH DIFF) Routine 06/21/2015 Results for this procedure are in the resu lts section. documented in this encounter Results (ABNORMAL) CBC (with Diff) (06/21/2015) Patholo gist Method Time Signature WBC 42.99 (EXTERNAL/ ABN) Hemoglobin 10.1 (A) 12.0 - 16.0 Hematocrit 32.1 (A) 36.0 - 46.0 Platelets 224 (External Lab) Neutrophil % 75 (External Lab) Band % 11 (External Lab) Neutr Abs (ANC) 36,970 (EXTERNAL/ ABN) Specimen (Source) Anatomical Location Collection Method / Collectio n Time Received Time / Laterality Volume Blood specimen 06/21/2015 (specimen) Genie Garcia MD HEMATOLOGY ORDERABLES documented in this encounter Visit Diagnoses Not on filedocumented in this encounter Care Teams Sociology Teacher Relationship Specialty Start Date End Date Marilyn Kidd MD PCP - General 06/17/[address] [place] [address] documented as of this encounter
--- OUTSIDE RECORDS SUMMARY | 2022-02-09 02:22 | XMS_ITS | Encounter Summary ---
:1945 Author Organization [facility] [place] [address] Care Team Providers Name Role Phone Marilyn Kidd MD Primary Care Provider Reason for Visit Reason Comments Chemotherapy Teaching Encounter Details Date Type Department Care Team Description 06/03/2015 Clinical Support Gynecology Oncology Installation Superintendent, Onc Nurse Ov tera cancer, at [facility] [place] [id number] Social History Tobacco Use Types Packs/Day Years [...] Sign Reading Time Taken Comments Blood Pressure 112/62 06/03/2015 1:43 PM EST Pulse 58 06/03/2015 1:24 PM EST Temperature 36.6 ??C (97.9 ??F) 06/03/2015 1:24 PM EST Respiratory Rate 16 06/03/2015 1:24 PM EST Oxygen Saturation - - Inhaled Oxygen Concentration - - Weight 60 kg (132 lb 4.4 oz) 06/03/2015 1:24 PM EST Height 164.2 cm (5' 4.65) 06/03/2015 1:24 PM EST Body Mass Index 22.25 06/03/2015 1:24 PM EST documented in this encounter Plan of Treatment Upcoming Encounters Date Type Specialty Care Team Description 02/27/2022 Appointment Radiology Marilyn Kidd MD [address] [place], [place] [id number] (Wo rk) documented as of this encounter Visit Diagnoses Diagnosis Ovarian cancer, unspecified laterality documented in this encounter Care Teams Larder Cook Relationship Specialty Start Date End Date Marilyn Kidd MD PCP - General 06/17/[address] [place], [place] [id number] documented as of this encounter
--- OUTSIDE RECORDS SUMMARY | 2022-02-09 02:22 | XMS_ITS | Encounter Summary ---
:1945 Author Organization [facility] [place] [address] Care Team Providers Name Role Phone Marilyn Kidd MD Primary Care Provider Reason for Visit Medication Prior Authorization (Routine) - Closed Specialty Diagnoses / Procedures Referred By Contact Refer red To Contact Genie Garcia MD [facility] [place] [address] Referral ID Status Reason Start Date Expiration Date Visits Requ ested Visits Authorized [id number] Closed 06/05/2015 06/04/2016 1 1 Encounter Details Date Type Department Care Team Description 06/14/2015 Hospital Encounter Hematology and Ovarian carcinosarcoma, Oncology at [facility] left (Primary Dx) [place] [address] Social History Tobacco Use Types Packs/Day [...] Dispensed Refills Start Date End Date Coenzyme G39-Gkhflae E Take 1 capsule by 0 2012 50-5 mg-unit Capsule mouth daily. dronabinol (MARINOL) 5 Take 1 capsule by 30 capsule 3 201411/01/2015 mg Capsule mouth 2 times daily (before meals). dexamethasone Take 5 tablets by 90 tablet 3 06/04/2015 040 02/2016 (DECADRON) 4 mg mouth the night [...] encounter Progress Notes Tez Mcgarry RN - 06/14/2015 1:08 PM EST Patient Name: Neisha White Patient Age: 69 y.o. Birthdate: 1945 Admit date: 06/14/2015 Attending Physician: Genie Garcia MD Access visit. Mediport accessed without incident. See MAR and/or flowsheet. documented in this encounter Plan of Treatment Upcoming Encounters Date Type Specialty Care Team Description 02/27/2022 Appointment Radiology Marilyn Kidd MD [address] [place], [place] [address] (Wo rk) documented as of this encounter Visit Diagnoses Diagnosis Ovarian carcinosarcoma, left - Primary documented in this encounter Administered Medications Inactive Administered Medications - up to 3 most recent administrations Medication Order MAR Action Action Date Dose Rate Site sodium chloride 0.9 % flush 5-20 Given 06/14/2015 1:05 PM EST 20 mLs mL 5-20 mL, Intravenous, EVERY 1 MIN PRN, Starting on Wed06/14/15 at 0000, Until Wed06/14/15 at 2359, Line Care, Flush pertains to all indwelling lines. Flush per protocol found in the job aid using the link provided on this medication record. Refer to Intravenous (IV) Job Aid: Adult Flushing & Catheter Care (0847) job aid for additional information regarding guidelines and administration., Routine documented in this encounter Care Teams Template Worker Relationship Specialty Start Date End Date Marilyn Kidd MD PCP - General 06/17/[address] [place] [address] documented as of this encounter
--- OUTSIDE RECORDS SUMMARY | 2022-02-09 02:22 | XMS_ITS | Encounter Summary ---
:1945 Author Organization [facility] [place] [address] Care Team Providers Name Role Phone Marilyn Kidd MD Primary Care Provider Reason for Visit Auth/Cert - Closed Specialty Diagnoses / Procedures Referred By Contact Refer red To Contact Diagnoses OVARIAN CANCER Procedures @HYSTERECTOMY, CHRISTY, BSO, DEBULKING INTRAPERITONEAL CATHETER INSERTION W\SUB-Q PORT Referral ID Status Reason Start Date Expiration Date Visits Requ ested Visits Authorized [id number] Closed 1 1 Encounter Details Date Type Department Care Team Description 05/06/2015 - Hospital Encounter 1 [facility] Yunior bradley, 05/12/2015 [facility] MD Genie [facility] [address] [place] GYNECOLOG[place] [id number] ONCOLOGY [phone] [place], [place] [address] Social History Tobacco Use Types [...] Sign Reading Time Taken Comments Blood Pressure 130/82 05/12/2015 8:00 AM EDT Pulse 75 05/12/2015 8:00 AM EDT Temperature 36.9 ??C (98.4 ??F) 05/12/2015 8:00 AM EDT Respiratory Rate 16 05/12/2015 8:00 AM EDT Oxygen Saturation 96% 05/12/2015 8:00 AM EDT Inhaled Oxygen Concentration - - Weight 63.5 kg (140 lb) 05/06/2015 12:48 PM EDT Height 165.1 cm (5' 5) 05/06/2015 12:48 PM EDT Body Mass Index 23.3 05/06/2015 12:48 PM EDT documented in this encounter Discharge Summaries Daljit Romero MD - 05/07/2015 9:34 AM EDT Images from the original note were not included. Discharge Summary Patient Name: Neisha White Patient Age: 69 y.o. Language: Paraguayan Race: White Ethnicity: Not nor Admit date: 05/06/2015 Discharge date and time: 05/11/2015 Attending Physician: Genie Garcia MD Discharge Physician: Sudarshan Mcguire MD Follow-up Recommendations for Providers: Routine Post-operative follow up with Dr. Garcia on 04/28/2015 at 1:00pm in [facility] [address] Inpatient Provider Contact Information: [facility] Gynecologic Oncology, Discharge Diagnoses (Hospital Problems) and Secondary Diagnoses (Chronic Problems): Active Hospital Problems Diagnosis ??? Pelvic mass Resolved Hospital Problems Diagnosis Date Resolved No resolved problems to display. There are no active non-hospital problems to display for this patient. Operations/Major Procedures: 05/06/2015: Total abdominal hysterectomy, bilateral salpingo-oophorectomy, debulking, omentectomy History of Presentation: Neisha White is a 69 y.o. female, G0 who presented for consultation regarding a pelvic mass. She noted a protrusion in her abdomen, worse when lying flat, and so presented to her PCP. A CT scan showed a pelvic mass. CA-125 was noted to be 304. She was referred to [facility]. We reviewed that this mass was concerning for an ovarian malignancy and consented her for the above procedures. She did sign the consent form and agree to proceed. Hospital Course: Neisha White was admitted through Same Day Surgery and underwent the above procedures without complication. EBL was 1200cc. Findings were notable for: The left ovary was enlarged to approximately 20cm. The ovary had solid and cystic components. Tumor was noted to be extending from the ovary and ascending along the course of the infundibulopelvic ligament our of the pelvis. In addition tumor was infiltrating the pelvic peritoneum mostly on the left side and colon mesentery. A portion of the tumor was adherent to the sigmoid colon above the pelvic brim. There was no gross residual disease at theconclusion of the procedure. Postoperatively the patient was taken to PACU and on POD #0 was transferred to the floor. Post operative course was uncomplicated. Her hemoglobin dropped appropriately and remained stable. She had mild hypotension post op that resolved. Her epidural remained off and was eventually removed. She was able to ambulate without difficulty. Fox catheter was removed on POD#2 and pt was able to void without issue. She had a decreased appetite post operatively along with intermittent nausea and vomiting which was controlled by anti-emetics. By time of discharge, her pain was well-controlled on oral medications and she was tolerating a small amount of regular diet. She was discharged home on POD#6 in stable condition. Vital signs at Discharge: BP: 162/66 mmHg, Heart Rate: 91, Temp: 36.9 ??C (98.4 ??F), Resp: 20, BMI (Calculated): 23.3 Height: 165.1 cm (5' 5) (05/06/15 1248) Weight - Scale: 63.504 kg (140 lb) (05/06/15 124) Functional and Cognitive status: Ambulatory and cognitively intact Important Studies and Lab Data: Labs: Recent Labs 05/10/15 0350 05/09/15 0423 05/08/15 0333 WBC 6.8 6.8 8.2 HGB 8.0* 7.7* 7.4* HCT 24.9* 23.9* 22.8* PLATELET 217 180 165 Recent Labs 05/10/15 1412 05/08/15 0333 05/07/15 0520 NA 141 142 139 K 3.8 4.2 4.8 CL 102 108* 106 CO2 21* 25 25 BUN 11 8 8 CREATININE 0.89 0.96 0.86 MAGNESIUM 0.79 -- -- Studies: Surgical Pathology DIAGNOSIS A - Left ovary and fallopian tube, resection for frozen section: 1 - 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 2 - Fallopian tube without histopathological abnormality. GYNTMRBLK-OV: A3,A4 TNM Staging (AJCC, 7th ed., 2009): Primary tumor stage: pT2b [IIB] (Extension and/or implants to pelvic tissues, excluding uterus and fallopian tube) Regional lymph nodes: pNX (Cannot be assessed) Distant metastasis: pMX (Not applicable or not assessed) B - Uterus, cervix, right ovary and fallopian tube, resection: 1 - Small focus of high-grade carcinoma in the right ovary (see Discussion). 2 - Fallopian tube without histopathological abnormality. 3 - Benign atrophic endometrium. 4 - Nabothian cysts, cervix. C - Omentum, resection: Benign lobulated adipose tissue, negative for malignancy. D - Pelvic tumor, excision: Fragments of carcinosarcoma with extensive coagulative necrosis. Pending Studies and Lab Data: none Discharge Conditions/Prognosis: Stable Discharge to: Home Updated Allergies/ADRs: No Known Allergies Immunizations Given this Hospitalization: Immunization History Administered Date(s) Administered ??? Influenza Vaccine, Unspecified Formulation 05/02/2015 Discharge Medications: Your Medications UNREVIEWED medications - Discuss With Your Provider Dose Details Coenzyme A55-Ryzbhiw E 50-5 mg-unit Cap Take 1 capsule by mouth daily. 1 capsule Refills: 0 Red Yeast Rice Extract 600 mg Cap Take 1 capsule by mouth daily. 1 capsule Refills: 0 Smoking Status at Discharge: History Smoking status ??? Former Smoker -- 0.50 packs/day for 12 years ??? Types: Cigarettes ??? Quit date: 08/02/1979 Smokeless tobacco ??? Never Used Instructions Given to Patient at Discharge: Patient Instructions PATIENT DISCHARGE INSTRUCTIONS Call your doctor if you develop: ?? A fever over 101 degrees ?? Severe pain that does not get better after you take pain medicine. ?? Heavy vaginal bleeding (bright red bleeding that soaks 1 or more pads each hours x 2 or more hours or passing blood clots that are larger than a golf ball) ?? Vaginal discharge that smells bad ?? Increasing pain, redness, or discharge Activity level: ?? No heavy lifting, pushing or pulling for 6 weeks. No sexual intercourse, no tampons, nothing in the vagina for 6 weeks. ?? No lifting more than a gallon of milk until post-operative visit. No high intensity cardio activity. ?? You may have some light vaginal bleeding. Wear sanitary pads if needed. Do not douche or use tampons until your doctor says it is okay. Bathing: ?? Please do not submerge any incision in a bath for more than 10 minutes ?? You may shower, let the water roll over you and pat dry, to not scrub Diet: ?? You can eat your normal [...] following: - ibuprofen 600mg every 6 hours around the clock while awake for a few days, then you may continue to take it as needed for pain. This medication will help with pain and healing. - acetaminophen 650mg every 6 hours around the clock while awake for as long as you are needing narcotic medications, then as needed after that. (Take no more than 3000mg of acetaminophen from all sources in 24 hours) - oxycodone 5mg as often as every 4 hours, when you need it for pain that breaks through the ibuprofen. . Please do not feel as though you have to take all available doses of this medication. If your pain is controlled well by ibuprofen and acetaminophen, you may consider not filling the prescription. When you are no longer requiring oxycodone, if you have extra doses remaining you should contact your pharmacist to inquire about safe disposal. This medication is not safe to keep in your drug cabinet. Use of prescription narcotics by anyone other than the person to whom they are prescribed is a felmadelyn y. Driving: ?? Do not drive until [...] a list of the medicines you take. General Instructions None Future Appointments Provider Department Dept Phone 05/29/2015 1:00 PM Genie Garcia MD Gynecologic Oncology [phone] Discharge References/Attachments HYSTERECTOMY: ABDOMINAL : POST-OP (CZECH) Provider Contact Information: MARILYN KIDD MD (General) [phone] Associated attestation - Genie Garcia MD - 05/13/2015 10:50 AM EDT Patient was also discharged with Lovenox 40mg SQ daily for VTE prophylaxis documented in this encounter Discharge Instructions Patient InstructionsDaljit Romero MD - 05/09/2015 8:06 PM EDT Images from the original note were not included. PATIENT DISCHARGE INSTRUCTIONS Gynecology Oncology phone number: [phone] Call your doctor if you develop: --A fever over 101 degrees --Severe pain --Heavy vaginal bleeding --Increasing pain, redness, or discharge at your incision --It is normal to have light spotting from the vagina for up to 3 weeks following hysterectomy Activity level: No heavy lifting, pushing or pulling for 6 weeks. No sexual intercourse, no tampons,nothing in the vagina for 8 weeks. Diet: You may resume your regular diet. Be sure you drink plenty of fluids. Please use marie-colace 1-2 tablets twice daily for the entire time that you are taking pain medication to keep your bowel movements soft and regular. If you are constipated or have not had a bowel movement in 3 days, please use milk of magnesia (or miralax) as directed over the counter. Driving: Do not drive until you are off of all narcotic medications and you are not feeling pain; usually about 2 weeks. Shower/Bath: Showering is fine. Short baths are OK but you should avoid having any abdominal incision submerged for more than 10-15 minutes for the next 2 weeks. Wound Care: You will have your vaibhav removed 10-14 days after surgery by a healthcare provider, who will place small pieces of paper tape over your incision. This tape can get wet in the shower, justensure that you dry them well. These pieces of tape should fall off within 7 days; if they have not, please remove them after one week. Pain medications include oxycodone and motrin ??? Please use motrin 600 mg every 6 hours with food around the clock for the next several days and then after that use it only as needed. ??? Please use the oxycodone every 4-6 hours as needed for pain that breaks through the motrin. ??? You may take Tylenol over the counter as prescribed. Do not exceed 3000mg of Tylenol in any 24 hour period. AttachmentsThe following attachments cannot be sent through Care Everywhere. HYSTERECTOMY: ABDOMINAL : POST-OP (CZECH)documented in this encounter Medications at Time of Discharge Medication Sig Dispensed Refills Start Date End Date Coenzyme B80-Njsedcm E Take 1 capsule by 0 2012 50-5 mg-unit Capsule mouth daily. ZOSTAVAX 19,400 unit/0.65 0 04/25/2015 06/03/2015 mL Suspension for Reconstitution acetaminophen (TYLENOL) Take 2 tablets by 30 tablet 1 05/1211/01/2015 325 mg Tablet mouth every 6 hours as needed for Pain. oxyCODONE (ROXICODONE) 5 Take 1-2 tablets by 30 tablet 0 11/01/2015 mg Tablet mouth every 4 hours as needed for Pain. senna-docusate Take 2 tablets by 60 tablet 1 05/12/201502/2016 (PERICOLACE) 8.6-50 mg mouth 2 times Tablet daily. documented as of this encounter Progress Notes Bertha Robin RN - 05/13/2015 3:28 PM EDT 1 lasha received a call from patients partner today regarding lovenox administration. Per caregiver pt received call from , and faxed prescription for lovenox administration at home. Caregiver calls today for education about administration. She was walked through lovenox administration step by step in cluding but not limited to cleaning prior, perpendicular injection angle, not to give within 2 inches of umbilicus but within the abdomen, and the safety feature to cover the needle once used. She stated understanding with no further questions and states she feels comfortable going forward. Sudarshan Mcguire MD - 05/12/2015 8:38 AM EDT Gynecologic Oncology Progress Note ID: Neisha White is an 69 y.o. woman with PMHx of hyperlipidemia who is post operative day #6 s/p CHIRSTY/BSO, debulking, and omentectomy for ovarian carcinosarcoma. Events: - no acute events. Subjective: Neisha White reports feeling better this morning. She had a hard time sleeping last night, but reports that nausea has improved and she had no further vomiting. She was able to tolerate part of a turkey sandwich for lunch and pasta for dinner. Her pain is minimal and controlled by tylenol and ibuprofen. Voiding spontaneously and continues to pass flatus. She is ambulating in the hallway without difficulty. She denies chest pain, shortness of breath, fever, chills, lightheadedness, dizziness, and leg pain. Physical Exam: Last value Range last 24 hrs Temperature Temp: 36.9 ??C (98.4 ??F) Temp: [36.8 ??C (98.2 ??F)-37 ??C (98.6 ??F)] Heart Rate Heart Rate: 75 Heart Rate: [75-92] Blood Pressure BP: 130/82 mmHg BP: (130-150)/(46-82) Respiratory Rate Resp: 16 Resp: [16-20] SpO2 SpO2: 96 % SpO2: [95 %-98 %] Art BP BP (Arterial Line): 111/49 mmHg BP (Arterial Line): -- Intake/Output Summary (Last 24 hours) at 05/12/15 0838 Last data filed at 05/12/15 0756 Gross per 24 hour Intake 440 ml Output 1075 ml Net -635 ml UOP: 20-75 cc/hr recorded. Occasionally misses the hat in the toilet. Physical Exam Gen: NAD, awake, lying in bed. Cardio: RRR, no MRG Pulm: CTAB, no wheezes or crackles Abd: soft, non-distended, appropriate tenderness to palpation Incision: vertical midline incision - well approximated with stitches and steri- strips, faint erythema along incision just inferior to umbilicus; no fluctuance/warmth and appropriately tender Ext: warm, well-perfused, no edema bilaterally Labs: Recent Labs 05/10/15 0350 05/09/153 05/08/15 0333 WBC 6.8 6.8 8.2 HGB 8.0* 7.7* 7.4* HCT 24.9* 23.9* 22.8* PLATELET 217 180 165 Recent Labs 05/12/15 0424 05/11/15 0437 05/10/15 1412 NA 139 141 141 K 3.2* 3.8 3.8 CL 101 101 102 CO2 26 20* 21* BUN 10 11 11 CREATININE 0.79 0.92 0.89 Recent Labs 05/12/15 0424 05/11/15 0437 05/10/15 1412 CALCIUM 8.2* 8.2* 8.4* Mag pending. 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 2 - Fallopian tube without histopathological abnormality. GYNTMRBLK-OV: A3,A4 TNM Staging (AJCC, 7th ed., 2009): Primary tumor stage: pT2b [IIB] (Extension and/or implants to pelvic tissues, excluding uterus and fallopian tube) Regional lymph nodes: pNX (Cannot be assessed) Distant metastasis: pMX (Not applicable or not assessed) B - Uterus, cervix, right ovary and fallopian tube, resection: 1 - Small focus of high-grade carcinoma in the right ovary (see Discussion). 2 - Fallopian tube without histopathological abnormality. 3 - Benign atrophic endometrium. 4 - Nabothian cysts, cervix. C - Omentum, resection: Benign lobulated adipose tissue, negative for malignancy. D - Pelvic tumor, excision: Fragments of carcinosarcoma with extensive coagulative necrosis. DISCUSSION The right ovary contains a small focus of high-grade carcinoma in the outer cortex. Although this focus suggests a possible metastasis from the left ovary, two adjacent cortical cysts contain foci of intracystic carcinoma, with either tumor spread along the adjacent cyst lining or in situ change. Thus, the possibility of a second small primary carcinoma in the right ovary is not excluded. Assessment and Plan: Neisha White is an 69 y.o. woman post operative day #6 s/p CHRISTY/BSO, debulking, and omentectomy for Stage IIIC ovarian carcinosarcoma. Neisha is recovering well, now with improved nausea/vomiting. Now tolerating a small amount of a regular diet and passing flatus. Ready for discharge home today. Onc: Intra-operative findings consistent with IIIC ovarian carcinosarcoma. Final pathology resulted,Dr. Garcia will discuss with patient by telephone. -- Follow-up 2 weeks post-op Pain Control: adequate pain control with ibuprofen and tylenol. Oxycodone PRN. Epidural removed. Cardiac/Heme: Vitals stable, adequate urine output, no signs of bleeding on exam, and patient is overall well appearing and comfortable. No concerns for active bleeding. Pulmonary: Adequate O2 on room air this morning. -- encourage incentive spirometry Gastrointestinal: Tolerating a small amount of a regular diet. -- Compazine prn nausea -- esomeprazole QD for GI protection/reflux Genitourinary: adequate UOP, voiding spontaneously -- strict I/Os Fluid/ Electrolytes: -- Mild hypokalemia. Will replete po. -- Encourage PO intake ID: afebrile -- no current concerns -- Faint erythema just under umbilicus, may be due to skin fold friction; afebrile, will continue toclosely monitor and consider antibiotics for superficial wound infection. Prophylaxis: -- Incentive spirometry. -- ICDs. -- Daily Lovenox Disposition: --plan for discharge home today. Pt seen and discussed with Dr. Mcguire, Order Checker/Onc Attending. DALJIT ROMERO MD PGY4 05/12/2015 I saw and evaluated the patient with Dr. Romero, and I confirmed the history and physical findings asoutlined, and I agree with the note as written. Sudarshan Mcguire MD - 05/11/2015 7:35 AM EDT Images from the original note were not included. Gynecology Post operative Progress Note ID: Neisha White is an 69 y.o. woman with PMHx of hyperlipidemia who is post operative day #5 s/p CHRISTY/BSO, debulking, and omentectomy for pelvic mass. Events: - Emesis yesterday and overnight preventing d/c yesterday; concerns for ileus - One recorded desaturation to 89% on RA overnight was recorded during emesis. Per nursing 30 min later was much improved, but not recorded. Subjective: Neisha White reports feeling ok this morning but is a little nervous about the emesis she has been experiencing. She does not currently feel nauseated but reports that it comes in waves. Tolerateda jose cracker/water this morning but does not have much of an appetite. Her pain is minimal. Voiding spontaneously and continues to pass gas. She is ambulating without difficulty. She denies chest pain, shortness of breath, fever, chills, lightheadedness, dizziness, and leg pain. Physical Exam: Last value Range last 24 hrs Temperature Temp: 37 ??C (98.6 ??F) Temp: [36.9 ??C (98.4 ??F)-37 ??C (98.6 ??F)] Heart Rate Heart Rate: 97 Heart Rate: [84-97] Blood Pressure BP: 144/62 mmHg BP: (142-162)/(52-72) Respiratory Rate Resp: 18 Resp: [17-20] SpO2 SpO2: 96 % SpO2: [89 %-96 %] Art BP BP (Arterial Line): 111/49 mmHg BP (Arterial Line): -- UOP: 100 cc/hr for last 2 recorded hours Physical Exam Gen: NAD, awake, lying in bed. Cardio: RRR, no MRG Pulm: CTAB, no wheezes or crackles Abd: soft, non-distended, appropriate tenderness to palpation Incision: vertical midline incision - well approximated with stitches and steri- strips, faint erythema along incision just inferior to umbilicus; no fluctuance/warmth and appropriately tender Ext: warm, well-perfused, no edema bilaterally Labs: Recent Labs 05/10/15 0350 05/09/15 0423 05/08/15 0333 WBC 6.8 6.8 8.2 HGB 8.0* 7.7* 7.4* HCT 24.9* 23.9* 22.8* PLATELET 217 180 165 Recent Labs 05/11/15 0437 05/10/15 1412 05/08/15 0333 NA 141 141 142 K 3.8 3.8 4.2 CL 101 102 108* CO2 20* 21* 25 BUN 11 11 8 CREATININE 0.92 0.89 0.96 MAGNESIUM 0.78 0.79 -- Frozen section: Left tube and ovary: High-grade malignancy, consider possible carcinosarcoma, high-grade primary ovarian carcinoma, metastatic carcinoma. Assessment and Plan: Neisha White is an 69 y.o. woman post operative day #5 s/p CHRISTY/BSO, debulking, and omentectomy for pelvic mass. Neisha is recovering well but had emesis overnight, which may be from a combination of acid reflux and a transient ileus as she now has some relief and is passing flatus with normal pitched/normoactive bowel sounds. 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 Final pathology pending -- Follow-up 2 weeks post-op Pain Control: adequate pain control with ibuprofen, oxycodone and tylenol. Epidural removed. Cardiac/Heme: Vitals stable, adequate urine output, no signs of bleeding on exam, and patient is overall well appearing and comfortable. No concerns for active bleeding. Pulmonary: Adequate O2 on room air this morning. -- encourage incentive spirometry Gastrointestinal: Tolerating minimal intake due to anorexia and concern for nausea though none presently, encourage small amounts of bland PO intake -- zofran prn nausea - will give Rx for home -- Compazine prn nausea -- esomeprazole QD for GI protection/reflux Genitourinary: adequate UOP, voiding spontaneously -- strict I/Os Fluid/ Electrolytes: Tolerating minimal regular diet. -- Encourage PO intake ID: afebrile -- no current concerns -- Faint erythema just under umbilicus, may be due to skin fold friction; afebrile, will continue toclosely monitor Prophylaxis: -- Incentive spirometry. -- ICDs. -- Daily Lovenox Disposition: -- Requires inpatient management for post-op ileus, consider d/c later today or tomorrow if resolves. JIMENA STARR MD PGY3 05/11/2015 I saw and evaluated the patient with Dr. Starr, and I confirmed the history and physical findingsas outlined, and I agree with the note as written. Abdominal exam is normal, just poor appetite. WIll continue to monitor food intake. Discontinue ondansetron now. Helena Santos MD - 05/10/2015 5:55 AM EDT Gynecology Post operative Progress Note ID: Neisha White is an 69 y.o. woman with PMHx of hyperlipidemia who is post operative day #4 s/p CHRISTY/BSO, debulking, and omentectomy for pelvic mass. Events: - None Subjective: Neisha White reports feeling well this morning. I'm passing gas and gonna go home. Pain is well controlled with ibuprofen, oxycodone and tylenol. She tolerated a only small amounts of a regular diet yesterday due to minimal appetite, but denies nausea or vomiting. Voiding spontaneously. She is a mbulating without difficulty. She denies chest pain, shortness of breath, fever, chills, lightheadedness, dizziness, and leg pain. Physical Exam: Last value Range last 24 hrs Temperature Temp: 36.8 ??C (98.2 ??F) Temp: [36.8 ??C (98.2 ??F)-37 ??C (98.6 ??F)] Heart Rate Heart Rate: 100 Heart Rate: [79-100] Blood Pressure BP: 146/64 mmHg BP: (132-158)/(64-80) Respiratory Rate Resp: 18 Resp: [16-20] SpO2 SpO2: 94 % SpO2: [94 %-97 %] Art BP BP (Arterial Line): 111/49 mmHg BP (Arterial Line): -- I/O last 3 completed shifts: In: 300 [P.O.:300] Out: 3545 [Urine:3545] I/O this shift: In: - Out: 1450 [Urine:1450] Net: -2.3 L UOP: 50-100 cc/hr Physical Exam Gen: NAD, awake, lying in bed. Cardio: RRR, no MRG Pulm: CTAB, no wheezes or crackles Abd: soft, non-distended, appropriate tenderness to palpation Incision: vertical midline incision - well approximated with stitches and steri- strips, no erythema/drainage Ext: warm, well-perfused, no edema bilaterally, ICDs in place Labs: Recent Labs 05/10/15 0350 05/09/15 0423 05/08/15 0333 WBC 6.8 6.8 8.2 HGB 8.0* 7.7* 7.4* HCT 24.9* 23.9* 22.8* PLATELET 217 180 165 Recent Labs 05/08/15 0333 05/07/15 0520 NA 142 139 K 4.2 4.8 CL 108* 106 CO2 25 25 BUN 8 8 CREATININE 0.96 0.86 Frozen section: Left tube and ovary: High-grade malignancy, consider possible carcinosarcoma, high-grade primary ovarian carcinoma, metastatic carcinoma. Assessment and Plan: Neisha White is an 69 y.o. woman post operative day #4 s/p CHRISTY/BSO, debulking, and omentectomy for pelvic mass. 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 Final pathology pending -- Follow-up 2 weeks post-op Pain Control: adequate pain control with ibuprofen, oxycodone and tylenol. Epidural removed. Cardiac/Heme: Vitals stable, adequate urine output, no signs of bleeding on exam, and patient is overall well appearing and comfortable. HGB appropriately dropped from 11.3 pre-op and stabilized at 7-8, at 8.0 this am. No concerns for active bleeding. Likely hemodilution. - Stop daily CBC Pulmonary: Adequate O2 on room air. -- encourage incentive spirometry Gastrointestinal: Tolerating regular diet -- zofran prn nausea - will give Rx for home Genitourinary: adequate UOP, voiding spontaneously -- strict I/Os Fluid/ Electrolytes: Tolerating minimal regular diet. -- Encourage PO intake ID: afebrile -- no current concerns Prophylaxis: --Incentive spirometry. --ICDs. -- Daily Lovenox Disposition: -- Discharge home HELENA SANTOS MD 05/10/2015 Associated attestation - Genie Garcia MD - 05/10/2015 8:21 PM EDT Patient seen and examined with the resident. I agree with her assessment and plan with the followingadditions:reviewed findings at surgery and procedure. OK for D/c home pending void trial. Helena Santos MD - 05/09/2015 5:50 AM EDT Gynecology Post operative Progress Note ID: Neisha White is an 69 y.o. woman with PMHx of hyperlipidemia who is post operative day #3 s/p CHRISTY/BSO, debulking, and omentectomy for pelvic mass. Events: - Fox and epidural removed Subjective: Neisha White reports an episode of significant abdominal pain at 3 am followed by small amount of emesis, and then relief. Pain otherwise is well controlled with ibuprofen, oxycodone and tylenol. She tolerated a only small amounts of a regular diet yesterday due to minimal appetite, but denies nausea or vomiting. Her fox catheter removed and voiding spontaneously. She is ambulating without difficulty. Not passing flatus. She denies chest pain, shortness of breath, fever, chills, lightheadedness, dizziness, and leg pain. Physical Exam: Last value Range last 24 hrs Temperature Temp: 36.8 ??C (98.2 ??F) Temp: [36.6 ??C (97.9 ??F)-37 ??C (98.6 ??F)] Heart Rate Heart Rate: 76 Heart Rate: [71-93] Blood Pressure BP: 140/70 mmHg BP: (116-141)/(54-74) Respiratory Rate Resp: 15 Resp: [15-16] SpO2 SpO2: 95 % SpO2: [94 %-96 %] Art BP BP (Arterial Line): 111/49 mmHg BP (Arterial Line): -- I/O last 3 completed shifts: In: 2312 [I.V.:2312] Out: 4945 [Urine:4945] I/O this shift: In: 300 [P.O.:300] Out: 700 [Urine:700] Net: -2.4 L UOP: 100-300 cc voids q 1-5 hours. Physical Exam Gen: NAD, awake, lying in bed. Cardio: RRR, no MRG Pulm: CTAB, no wheezes, faint crackles in BL bases Abd: soft, non-distended, appropriate tenderness to palpation Incision: vertical midline incision - well approximated with stitches and steri- strips, no erythema/drainage Ext: warm, well-perfused, no edema bilaterally, ICDs in place Labs: Recent Labs 05/09/15 0423 05/08/15 0333 05/07/15 0520 WBC 6.8 8.2 9.9 HGB 7.7* 7.4* 8.6* HCT 23.9* 22.8* 26.3* PLATELET 180 165 168 Recent Labs 05/08/15 0333 05/07/15 0520 05/02/15 1237 NA 142 139 143 K 4.2 4.8 4.4 CL 108* 106 103 CO2 25 25 26 BUN 8 8 15 CREATININE 0.96 0.86 0.97 Frozen section: Left tube and ovary: High-grade malignancy, consider possible carcinosarcoma, high-grade primary ovarian carcinoma, metastatic carcinoma. Assessment and Plan: Neisha White is an 69 y.o. woman post operative day #3 s/p CHRISTY/BSO, debulking, and omentectomy for pelvic mass. 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 Final pathology pending -- Follow-up 2 weeks post-op Pain Control: adequate pain control with ibuprofen, oxycodone and tylenol. Epidural has remained offpost-op and removed yesterday. Pain this morning likely gas related Cardiac/Heme: Vitals stable, adequate urine output, no signs of bleeding on exam, and patient is overall well appearing and comfortable. HGB appropriately dropped from 11.3 pre-op and stabilized at 7.4yesterday, 7.7 this am. No concerns for active bleeding. Likely hemodilution - Stop daily CBC Pulmonary: Adequate O2 on room air. Faint crackles on lung exam. Likely slightly fluid overloaded, net fluid status now -2.4 net since admit due to minimal PO intake yesterday (300 mL in/ 2700 mL out) -- encourage incentive spirometry Gastrointestinal: Tolerating regular diet -- zofran prn nausea. Genitourinary: adequate UOP, voiding spontaneously -- strict I/Os Fluid/ Electrolytes: Tolerating minimal regular diet. Lytes normal yesterday and discontinued -- Encourage PO intake ID: afebrile -- no current concerns Prophylaxis: --Incentive spirometry. --ICDs. -- Daily Lovenox Disposition: --Continues to require inpatient hospitalization. HELENA SANTOS MD 05/09/2015 Ladi Priest MD - 05/08/2015 11:32 AM EDT Acute Pain Service - Epidural Daily Management Physician: Cem Time of Service: 11:32 AM VITAL SIGNS: BP 120/54 mmHg Pulse 80 Temp(Src) 36.8 ??C (98.2 ??F) (Oral) Resp 16 Ht 165.1 cm (5' 5) Wt 63.504 kg (140 lb) BMI 23.30 kg/m2 SpO2 94% Epidural day: 3 days s/p placement POD: 2 days s/p Operative Procedures: Procedure(s) with comments: @HYSTERECTOMY, CHRISTY, BSO, DEBULKING MODIFIER FANG STUDY LAPAROTOMY, EXCISION LESION, PERITONEUM - peritoneal stripping @URETEROLYSIS WITH OR WITHOUT REPOSITIONING OF URETER FOR RETROPERITONEAL FIBROSIS @OMENECTOMY Pertinent Medications: Continuous Infusions none Tylenol 650 mg Q 6 Hr Lovenox 40 mg QD last dose 11 pm yesterday signals collection technician 0.1/5/5 used 1.6 mg in the last 24 Hr Assessment: Numerical Rating Scale (NRS) 0 /10 Pain now is well controlled ROS: GI/Bowels Regular diet Nausea No Pruritis No Drowsiness No Patient is awake and alert. Deep breathing and coughing well. Pt requesting epidural be removed as her pain is well controlled with it off. Plan: Pt is taking oral analgesics and using CUSTOMER SERVICE ADVISOR with acceptable pain control at this time. Coagulation status is acceptable. Epidural removed. Tip intact. Patient awake and alert. Deep breathing and coughing well. Epidural insertion site clean and without drainage, pain or erythema. May have Lovenox after 4 PM today. Plan discussed with patient/RN/team. Please call with any questions or concerns. In the presence of Dr. Priest, I am taking down these notes. ALEIDA DEGROOT RN 05/08/2015 Pager # [phone] I performed the above scribed service and agree with the accuracy of the note. LADI PRIEST MD Helena Santos MD - 05/08/2015 6:49 AM EDT Gynecology Post operative Progress Note ID: Neisha White is an 69 y.o. woman with PMHx of hyperlipidemia who is post operative day #2 s/p CHRISTY/BSO, debulking, and omentectomy for pelvic mass. Intraoperative Events: - Required nasal O2 while asleep Subjective: Neisha White reports that her pain is well controlled with CUSTOMER SERVICE ADVISOR Dilaudid, Toradol and tylenol (epidural has remained off). She reports feeling well overall and with minimal pain. She tolerated a regular diet yesterday without nausea or vomiting. Her fox catheter remains in place. She is ambulating without difficulty. She denies chest pain, shortness of breath, fever, chills, lightheadedness, dizziness, and leg pain. Physical Exam: Last value Range last 24 hrs Temperature Temp: 37.1 ??C (98.8 ??F) Temp: [36.4 ??C (97.5 ??F)-37.1 ??C (98.8 ??F)] Heart Rate Heart Rate: 84 Heart Rate: [66-89] Blood Pressure BP: 106/48 mmHg BP: (86-115)/(34-50) Respiratory Rate Resp: 16 Resp: [14-18] SpO2 SpO2: 96 % SpO2: [82 %-97 %] Art BP BP (Arterial Line): 111/49 mmHg BP (Arterial Line): -- I/O last 3 completed shifts: In: 6737 [I.V.:6737] Out: 4950 [Urine:3750; Blood:1200] I/O this shift: In: 1981 [I.V.:1981] Out: 1325 [Urine:1325] Net: +1.6 L (received 4.4 L IVf intra-op) UOP: 100cc/ hour. Physical Exam Gen: NAD, awake, lying in bed. Cardio: RRR, no MRG Pulm: CTAB, no wheezes, faint crackles in BL bases Abd: soft, non-distended, appropriate tenderness to palpation Incision: vertical midline incision - dressing removed, incision well approximated with steri-strips, no erythema/drainage Ext: warm, well-perfused, no edema bilaterally, ICDs in place : Fox catheter in place draining yellow urine. Labs: Recent Labs 05/08/153 05/07/1551905/06/15 1821 WBC 8.2 9.9 10.2* HGB 7.4* 8.6* 8.7* HCT 22.8* 26.3* 26.2* PLATELET 165 168 216 Recent Labs 05/08/15 0333 05/07/15 0505/02/15 1237 NA 142 139 143 K 4.2 4.8 4.4 CL 108* 106 103 CO2 25 25 26 BUN 8 8 15 CREATININE 0.96 0.86 0.97 Frozen section: Left tube and ovary: High-grade malignancy, consider possible carcinosarcoma, high-grade primary ovarian carcinoma, metastatic carcinoma. Assessment and Plan: Neisha White is an 69 y.o. woman post operative day #2 s/p CHRISTY/BSO, debulking, and omentectomy for pelvic mass. 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 Final pathology pending -- Follow-up 2 weeks post-op Pain Control: adequate pain control with minimal use of Dilaudid CUSTOMER SERVICE ADVISOR, along with Toradol and tylenol. Epidural has remained off. NSAIDs started yesterday -- Epidural management per Acute Pain Service -- transition to PO pain meds this am Cardiac/Heme: Vitals stable, adequate urine output, no signs of bleeding on exam, and patient is overall well appearing and comfortable. HGB appropriately dropped from 11.3->8.7 in the PACU->8.6 this am after 1 L EBL to 7.4 this am. No concerns for active bleeding. Likely hemodiluation Pulmonary: Adequate O2 on 2 L NC while asleep. Faint crackles on lung exam. Likely slightly fluid overloaded, net fluid status +1.6 L since admit -- encourage incentive spirometry -- Discontinue IVF Gastrointestinal: Tolerating regular diet -- zofran prn nausea. Genitourinary: adequate UOP -- strict I/Os -- discontinue fox catheter this am Fluid/ Electrolytes: Lytes within normal limits. LR at 100cc/hour. -- discontinue intravenous fluid now ID: afebrile -- no current concerns Prophylaxis: --Incentive spirometry. --ICDs. -- Daily Lovenox Disposition: --Continues to require inpatient hospitalization. HELENA SANTOS MD 05/08/2015 Associated attestation - Genie Garcia MD - 05/09/2015 11:29 AM EDT Patient seen and examined with the resident. I agree with her assessment and plan with the followingadditions: Patient feels OK today, but no appetite. No flatus. Will cont to monitor closely for now.We discussed that she may require an NGT if emesis continues. Arash Salcedo RN - 05/07/2015 3:59 PM EDT Images from the original note were not included. Infiltration/Extravasation Scale Instructions: Strikeout non-applicable grades, highlight the grade which applies to this patient by BOLD lettering and COLOR RED Gross edema > 6 inches (15 cm) in any direction Site measurement: Length (42.5 ) cm x Width ( the arm circumference ) cm Circumference of affected extremity ( see below ) cm ( ) N/A Circumference of unaffected extremity (see below ) cm ( ) N/A Treatment initiated or recommended Heat (x ) Rest (x ) Elevation ( x ) Other ( ) Distal pulse: present Specific location of infiltration/extravasation R arm infiltration of Lactated Ringers. The entire arm is affected, 18 cm proximal to the AC, extending to the wrist joint. See measurements below. Insertion site is at the AC. See measurements below. R arm (in circumference) 10 cm above AC- 31 cm AC- 28 cm 10 cm below AC- 25 cm L arm (in circumference) 10 cm above AC- 27.5 cm AC- 26 10 cm below AC- 24 cm Plan for continued monitoring of infiltration/extravasation Called to pt room to assess LR infiltrate. EVER Nair states that after the pt went for a walk, she told EVER Nair that her arm was swollen. Upon assessment a large infiltration of LR was assessed, marked and measured, IV removed. Spoke with pharmacist Vandana and verified treatment of heat and elevation per protocol. Spoke with MD Josselin Hopkins who also verified treatment of heat and elevation. EVER Lawler, EVER Nair's preceptee, is responsible for follow up care and aware of treatment. Blessing Bright RN - 05/07/2015 2:53 PM EDT Office of Care Management Electric Solderer RN Initial Note/DC Planning: no continuing care needs identified Reviewed record and discussed pt with Sakina Hopkins PA-C for inpt router setter-oncology service; and at interdisciplinary discharge rounds. Did not interview pt today. Reason for hospitalization:69 y.o. woman with PMHx of hyperlipidemia who is post operative day #1 s/p CHRISTY/BSO, debulking, and omentectomy for pelvic mass. 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 Electric Solderer RN will continue to follow for coordination of care and discharge planning. Dewey Bright RN [employer] Officer of Care Management pgr [phone] and ext [phone] Ladi Priest MD - 05/07/2015 8:44 AM EDT Acute Pain Service - Epidural Daily Management Physician: Cem Time of Service: 8:44 AM VITAL SIGNS: BP 105/48 mmHg Pulse 79 Temp(Src) 36.9 ??C (98.4 ??F) (Oral) Resp 18 Ht 165.1 cm (5' 5) Wt 63.504 kg (140 lb) BMI 23.30 kg/m2 SpO2 91% Epidural day: 2 days s/p placement POD: 1 days s/p Operative Procedures: Procedure(s) with comments: @HYSTERECTOMY, CHRISTY, BSO, DEBULKING MODIFIER FANG STUDY LAPAROTOMY, EXCISION LESION, PERITONEUM - peritoneal stripping @URETEROLYSIS WITH OR WITHOUT REPOSITIONING OF URETER FOR RETROPERITONEAL FIBROSIS @OMENECTOMY Pertinent Medications: Continuous Infusions Bupivacaine 1/16 % (0.625 mg/mL) plus Fentanyl (2 micrograms/mL) off since last evening due to low BP CUSTOMER SERVICE ADVISOR 0.1/5/5-used 0.8 mg overnight Scheduled Tylenol 650 mg Q 6 Hr Assessment: Numerical Rating Scale (NRS) 0.5 /10 at rest, 2/10 with movement Pain now is mild ROS: GI/Bowels Reg diet, ashley liquids, no flatus Nausea No Pruritis No Drowsiness No Patient is awake and alert. Deep breathing and coughing withencouragement. Demonstrates IS to 1000 mL Moves legs without difficulty. Epidural insertion site clean and without signs of infection. Plan: Continue current regimen until BP stabilizes- will consider turning on epidural this afternoon. We can give a bolus of plain Fentanyl through the epidural if patient has pain issues this morning once she is up and moving more. Plan discussed with patient/RN/team. Please call with any questions or concerns. In the presence of Dr. Priest, I am taking down these notes. ALEIDA DEGROOT RN 05/07/2015 Pager # [phone] I performed the above scribed service and agree with the accuracy of the note. LADI PRIEST MD Helena Santos MD - 05/07/2015 6:52 AM EDT Gynecology Post operative Progress Note ID: Neisha White is an 69 y.o. woman with PMHx of hyperlipidemia who is post operative day #1 s/p CHRISTY/BSO, debulking, and omentectomy for pelvic mass. Intraoperative Events: - Hypotension in PACU requiring phenylephrine, epidural turned off - Titrated off pressors and transferred to the floor - Hypotension again this am, given 500 cc bolus Subjective: Neisha White reports that her pain is well controlled with CUSTOMER SERVICE ADVISOR Dilaudid (epidural remains off).She reports feeling well overall and with minimal pain. She has tolerated sips of water without nausea or vomiting. Her fox catheter remains in place. She has not yet ambulated. She denies chest pain, shortness of breath, fever, chills, lightheadedness, dizziness, and leg pain. Physical Exam: Last value Range last 24 hrs Temperature Temp: 36.9 ??C (98.4 ??F) Temp: [36.7 ??C (98.1 ??F)-37 ??C (98.6 ??F)] Heart Rate Heart Rate: 68 Heart Rate: [54-78] Blood Pressure BP: 83/34 mmHg (life safety and team aware) BP: (73-140)/(29-110) Respiratory Rate Resp: 16 Resp: [11-21] SpO2 SpO2: 98 % SpO2: [93 %-100 %] Art BP BP (Arterial Line): 111/49 mmHg BP (Arterial Line): (76-137)/(31-58) I/O last 3 completed shifts: In: 4600 [I.V.:4600] Out: 1700 [Urine:500; Blood:1200] I/O this shift: In: 1807 [I.V.:1807] Out: 1650 [Urine:1650] Net: +3 L (received 4.4 L IVf intra-op) UOP: 1000cc/ hour. Physical Exam Gen: NAD, awake, lying in bed. Cardio: RRR, no MRG Pulm: CTAB, no wheezes or crackles. Abd: soft, non-distended, appropriate tenderness to palpation Incision: vertical midline incision - with dressing in place. C/D/I Ext: warm, well-perfused, no edema bilaterally, ICDs in place : Fox catheter in place draining yellow urine. Labs: Recent Labs 05/07/15 0520 05/06/15 1821 05/02/15 1237 WBC 9.9 10.2* 6.0 HGB 8.6* 8.7* 11.3 HCT 26.3* 26.2* 35.6 PLATELET 168 216 235 Recent Labs 05/07/15 0520 05/02/15 1237 NA 139 143 K 4.8 4.4 CL 106 103 CO2 25 26 BUN 8 15 CREATININE 0.86 0.97 Frozen section: Left tube and ovary: High-grade malignancy, consider possible carcinosarcoma, high-grade primary ovarian carcinoma, metastatic carcinoma. Assessment and Plan: Neisha White is an 69 y.o. woman post operative day #1 s/p CHRISTY/BSO, debulking, and omentectomy for pelvic mass. 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 Final pathology pending -- Follow-up 2 weeks post-op Pain Control: adequate pain control with Dilaudid CUSTOMER SERVICE ADVISOR and tylenol. Epidural off. NSAIDs held due to large EBL and need for monitoring prior to starting medication with anticoagulant properties. -- Epidural management per Acute Pain Service -- transition to PO pain meds when able to take adequate PO Cardiac/Heme: currently hypotensive with regular heart rate, adequate urine output, no signs of bleeding on exam, and patient is overall well appearing and comfortable. HGB appropriately dropped from 11.3->8.7 in the PACU->8.6 this am after 1 L EBL. No concerns for active bleeding. -- IVF bolus if symptomatic once begins ambulating -- Consider restarting NSAIDs and Lovenox later today Pulmonary: Adequate o2 sats on room air -- encourage incentive spirometry. Gastrointestinal: Tolerating sips of fluid. -- Advance diet as tolerated -- regular diet ordered -- zofran prn nausea. Genitourinary: adequate UOP -- strict I/Os -- discontinue fox catheter when ambulatory Fluid/ Electrolytes: Lytes within normal limits -- LR at 100cc/hour. -- discontinue intravenous fluid when taking adequate PO ID: afebrile -- no current concerns Prophylaxis: --Incentive spirometry. --ICDs. -- consider starting Lovenox this evening if patient remains stable Disposition: --Continues to require inpatient hospitalization. HELENA SANTOS MD 05/07/2015 Associated attestation - Genie Garcia MD - 05/07/2015 9:54 AM EDT Patient seen and examined with the resident. I agree with her assessment and plan with the followingadditions: Suspect hypotension related to anesthesia. No s/sx of ongoing blood loss. Will continue to bolus if symptomatic and recheck CBC if becomes lightheaded. Transfuse RBC for hgb <7. Will give NSAIDs andLovenox as not indication that patient has ongoing blood loss. I discussed intraoperative findings with the patient including procedures performed, debulking to nogross residual, and diagnosis of cancer with unclear histology. We also discussed that she will needchemotherapy although exact type and schedule depends on histology. Aileen Neumann MD - 05/06/2015 10:12 PM EDT Gynecology Post operative Progress Note ID: Neisha White is an 69 y.o. woman with PMHx of hyperlipidemia who is post operative day #0 s/p CHRISTY/BSO, debulking, and omentectomy for pelvic mass. Intraoperative Events: -EBL 1200 cc -Findings: The left ovary was enlarged to approximately 20cm. The ovary had solid and cystic components. Tumor was noted to be extending from the ovary and ascending along the course of the infundibulopelvic ligament our of the pelvis. In addition tumor was infiltrating the pelvic peritoneum mostly onthe left side and colon mesentery. A portion of the tumor was adherent to the descending colon abovethe pelvic brim. There was no tumor within the upper abdomen. There was no gross residual disease atthe conclusion of the procedure. Subjective: The patient had SBP in 70s and required phenylephrine in PACU. Post-op Hgb was 8.7. She was transferred from PACU to the floor in stable condition without any pressor requirements and on room air. Neisha White reports that her pain is well controlled with CUSTOMER SERVICE ADVISOR Dilaudid. She has tolerated sipsof water without nausea or vomiting. Her fox catheter remains in place. She has not yet ambulated.She denies chest pain, shortness of breath, fever, chills, lightheadedness, dizziness, and leg pain. Physical Exam: Last value Range last 24 hrs Temperature Temp: 36.9 ??C (98.4 ??F) Temp: [36.7 ??C (98.1 ??F)-37 ??C (98.6 ??F)] Heart Rate Heart Rate: 70 Heart Rate: [54-78] Blood Pressure BP: 128/50 mmHg BP: (73-140)/(29-110) Respiratory Rate Resp: 18 Resp: [11-21] SpO2 SpO2: 93 % SpO2: [93 %-100 %] Art BP BP (Arterial Line): 111/49 mmHg BP (Arterial Line): (76-137)/(31-58) I/O last 3 completed shifts: In: 4600 [I.V.:4600] Out: 1700 [Urine:500; Blood:1200] I/O this shift: In: 672 [I.V.:672] Out: 625 [Urine:625] UOP: 70-80cc/ hour. Physical Exam Gen: NAD, sleeping and easily arousable. Cardio: RRR, no MRG Pulm: CTAB, no wheezes or crackles. Abd: soft, non-distended, appropriate tenderness to palpation Incision: vertical midline incision - with dressing in place. C/D/I Ext: warm, well-perfused, no edema bilaterally, ICDs in place : Fox catheter in place draining yellow urine. Assessment and Plan: Neisha White is an 69 y.o. woman post operative day #0 s/p above procedurefor pelvic mass. Pain Control: adequate pain control with Dilaudid CUSTOMER SERVICE ADVISOR. -- transition to PO pain meds when able to take adequate PO Cardiac/Heme: currently normotensive and hemodynamically stable Pulmonary: Adequate o2 sats on room air -- encourage incentive spirometry. Gastrointestinal: -- regular diet ordered -- zofran prn nausea. Genitourinary: adequate UOP -- strict I/Os -- discontinue fox catheter when ambulatory Fluid/ Electrolytes: -- LR at 100cc/hour. -- discontinue intravenous fluid when taking adequate PO ID: afebrile -- no current concerns Prophylaxis: --Incentive spirometry. --ICDs. Disposition: --Continues to require inpatient hospitalization. Patient seen/examined and plan discussed with Dr. Kruse PGY3 AILEEN NEUMANN MD 05/07/2015 Earl Romero RN - 05/06/2015 9:06 PM EDT 2100- Pt awakw alert VSS, Pt off ROSv2di, BP >100systolic, pain tolerable Pt using CUSTOMER SERVICE ADVISOR, PAC criteria met Cindy Buenrostro RN - 05/06/2015 6:52 PM EDT 05/06@1736: Received patient from OR via bed and accompanied by anesthesia. Pt connected to registered nurse cardiac telemetry with alarm limits set and active. A-line zeroed with normal waveform. BP low in the 70's SBP.Cuff readjusted with similar result. See flow sheet. Pt very sedated with nasal airway in place. Breath sounds clear, but low RR. Will monitor. HOB lowered. Fluids opened. Anesthesia administering medication for low BP. Epidural stopped by CHAYO Roberson. Surgical site c/d/i. IV sites are intact and patent. 175: Ephedrine given by CHAYO roberson at the bedside. See MAR for administration times. Pt BP responds to ephedrine and fluids. 1814: Labs drawn and sent. 1844: Pt on Steven as ordered. Running currently at 40mcg/min. Pt is awake and alert. Pt denies SOB, chest pain and reports 0/10 pain. VS stable. Ramsey monitor. 1901: Family at the bedside. Hand-off report given to EVER Elliott. documented in this encounter H&P Notes Genie Garcia MD - 05/06/2015 12:30 PM EDT Patient Name: Neisha White Patient Age: 69 y.o. Birthdate: 1945 Admit date: 05/06/2015 Attending Physician: Genie Garcia MD Into see patient. No changes in health. Tolerated bowel prep without complication. VSS, confirmed RR of 100 entered in error. We reviewed the planned procedure. Questions of patient and family answered. Consents on chart. documented in this encounter Miscellaneous Notes Plan of Care - Olivia Beavers RN - 05/12/2015 10:57 AM EDT Problem: General Plan of Care Goal: Plan of Care Review Outcome: Outcome (s) achieved Date Met: 05/12/15 05/12/15 4839 05/12/15 0802 Plan of Care Review Plan of Care Outcome Status ongoing (interventions implemented as appropriate) -- Progress improving -- Coping/Psychosocial Response Interventions Plan of Care Reviewed with -- significant other;patient OUTCOME EVALUATION NOTE: OUTCOME SUMMARY: Pt d/c at 1045 with partner by side. Ambulates to exit with steady gait. Pt not experiencing any N/V. States pain at a 2-3 but says it is tolerable. Will continue to take advil and tylenol at home as needed. Received ibuprofen this AM. Declined tylenol, stated will take at home. Received paper script for oxycodone. AVS reviewed with patient. IV removed. No further questions or complaints at current time. INDIVIDUALIZED FALL PREVENTION: Assistance: independent Supervision: Eyes on, call lyn in reach, partner by side. Surveillance: Masimo, hourly rounding, call lyn. CPG GOAL OUTCOME EVALUATION: Completed. Goal: Individualization and Mutuality Outcome: Outcome (s) achieved Date Met: 05/12/15 05/07/15 1507 Mutuality/Individual Preferences What anxieties, fears or concerns do you have about your health or care? Delayed discharge What questions do you have about your health or care? None What information would help us give you more personalized care? None Goal: Fall Prevention-Safe Patient Handling Outcome: Outcome (s) achieved Date Met: 05/12/15 05/12/15801 Safety Interventions Safety Precautions/Fall Reduction environmental modification;fall reduction program maintained;family at bedside;lighting adjusted for task/safety;low bed;muscle strengthening facilitated;nonskid shoes/slippers when out of bed;room near unit station Musculoskeletal Interventions Activity/Level of Assistance up ad yisel;up in room;independently Positioning independent Self-Care Promotion personal routines for BADL/IADL promoted;personal/BADL objects within reach;independence encouraged while providing assistance [place] Fall Risk History of Falling 0 Secondary Diagnosis 15 Ambulatory Aids 0 Intravenous Therapy/Heparin/Saline Lock 20 Gait/Transferring 0 Mental Status 0 Score 35 OTHER [place] Fall Risk Med Goal: Infection Control Outcome: Outcome (s) achieved Date Met: 05/12/15 05/12/15801 Safety Interventions Isolation Precautions standard precautions maintained Infection Prevention bronchial hygiene promoted;environmental surveillance;hydration promoted;nutrition promoted;promote handwashing;rest/sleep promoted Coping/Psychosocial Response Interventions Counseling calming techniques promoted;emotional support provided;reassurance provided;relaxation techniques promoted;understanding of situation facilitated;verbalization of feelings encouraged Goal: Discharge Needs Assessment Outcome: Outcome (s) achieved Date Met: 05/12/15 05/08/15 0544 05/08/15 1100 Discharge Needs Assessment Concerns to be Addressed adjustment to diagnosis/illness concerns -- Equipment Needed After Discharge none -- Self-Care Equipment Currently Used at Home none -- Living Environment Transportation Available -- car;family or friend will provide Problem: Pain, Acute (Adult, Obstetrics) Goal: Acceptable Pain Control/Comfort Level Patient will demonstrate the desired outcomes. Outcome: Outcome (s) achieved Date Met: 05/12/15 05/12/15 105 Pain, Acute (Adult, Obstetrics) Acceptable Pain Control/Comfort Level achieves outcome Problem: Skin Integrity Impairment, Risk/Actual (Adult, Obstetrics) Goal: Skin Integrity/Wound Healing Patient will demonstrate the desired outcomes. Outcome: Outcome (s) achieved Date Met: 05/12/15 05/12/15 105 Skin Integrity Impairment, Risk/Actual (Adult, Obstetrics) Skin Integrity/Wound Healing achieves outcome Plan of Care - Cyndee Honeycutt RN - 05/12/2015 4:58 AM EDT Problem: General Plan of Care Goal: Plan of Care Review Outcome: Ongoing (Interventions Implemented as Appropriate) 05/12/15448 Plan of Care Review Plan of Care Outcome Status ongoing (interventions implemented as appropriate) Progress improving Coping/Psychosocial Response Interventions Plan of Care Reviewed with patient OUTCOME EVALUATION NOTE: OUTCOME SUMMARY: Patient continues to ambulate frequently around and off unit. She denied nausea this shift and only required Tylenol and Ibuprofen as scheduled for pain rated 2/3-10. She continues to pass flatus and she drank prune juice overnight in addition to taking scheduled stool softeners. Patient had increasedintake on day shift (lunch and dinner). Hydration promoted. Good urine output. Patient anticipating discharge home on day shift. Partner at her side during entire shift. PLAN MOVING FORWARD: Continue to monitor and treat patient for nausea and pain as needed. Discharge home on day shift. INDIVIDUALIZED FALL PREVENTION: Assistance: Patient independent with mobility. Supervision: Using call lyn appropriately. Surveillance: Rounding. CPG GOAL OUTCOME EVALUATION: Goal: Fall Prevention-Safe Patient Handling Outcome: Ongoing (Interventions Implemented as Appropriate) 05/11/15 0800 05/11/15 1954 05/11/152003 Safety Interventions Safety Precautions/Fall Reduction -- environmental modification;fall reduction program maintained;lighting adjusted for task/safety;nonskid shoes/slippers when out of bed -- Musculoskeletal Interventions Activity/Level of Assistance -- up ad yisel;independently -- Positioning -- independent -- Self-Care Promotion independence encouraged while providing assistance;personal routines for BADL/IADL promoted;personal/BADL objects within reach -- -- [place] Fall Risk History of Falling -- -- 0 Secondary Diagnosis -- -- 15 Ambulatory Aids -- -- 0 Intravenous Therapy/Heparin/Saline Lock -- -- 20 Gait/Transferring -- -- 0 Mental Status -- -- 0 Score -- -- 35 OTHER [place] Fall Risk -- -- Med Goal: Infection Control Outcome: Ongoing (Interventions Implemented as Appropriate) 05/12/15448 Safety Interventions Isolation Precautions standard precautions maintained Infection Prevention hydration promoted;environmental surveillance;nutrition promoted;promote handwashing;rest/sleep promoted Coping/Psychosocial Response Interventions Counseling reassurance provided;relaxation techniques promoted;goal setting facilitated;emotional support provided Problem: Pain, Acute (Adult, Obstetrics) Goal: Identify Signs and Symptoms and Related Risk Factors Signs and symptoms and related risk factors are identified upon initiation of Human Response Clinical Practice Guideline (CPG) Outcome: Outcome (s) achieved Date Met: 05/12/15 Goal: Acceptable Pain Control/Comfort Level Patient will demonstrate the desired outcomes. Outcome: Ongoing (Interventions Implemented as Appropriate) 05/12/15 0449 Pain, Acute (Adult, Obstetrics) Acceptable Pain Control/Comfort Level making progress toward outcome Problem: Skin Integrity Impairment, Risk/Actual (Adult, Obstetrics) Goal: Identify Signs and Symptoms and Related Risk Factors Signs and symptoms and related risk factors are identified upon initiation of Human Response Clinical Practice Guideline (CPG) Outcome: Outcome (s) achieved Date Met: 05/12/15 Goal: Skin Integrity/Wound Healing Patient will demonstrate the desired outcomes. Outcome: Ongoing (Interventions Implemented as Appropriate) 05/12/159 Skin Integrity Impairment, Risk/Actual (Adult, Obstetrics) Skin Integrity/Wound Healing making progress toward outcome Plan of Care - Olivia Beavers RN - 05/11/2015 6:22 PM EDT Problem: General Plan of Care Goal: Plan of Care Review Outcome: Ongoing (Interventions Implemented as Appropriate) 05/11/15 7463 Plan of Care Review Plan of Care Outcome Status ongoing (interventions implemented as appropriate) Progress improving Coping/Psychosocial Response Interventions Plan of Care Reviewed with patient;significant other OUTCOME EVALUATION NOTE: OUTCOME SUMMARY: Pt did not experience any nausea or vomiting throughout shift. Pt was anxious to eat at the beginning of the day but was able to eat half of lunch. Tolerating well. walking frequently around unit. Partner at bedside. Passing flatus and positive bowel sounds. No BM yet. PLAN MOVING FORWARD: Continue to assess for BM and any other signs of n/v. Continue to encourage fluids and food. Continue to walk and encourage Incentive spirometer. Possible d/c tomorrow. INDIVIDUALIZED FALL PREVENTION: Assistance: independent Supervision: Eyes on Surveillance: Masimo, hourly rounding, call lyn in reach CPG GOAL OUTCOME EVALUATION: Ongoing. Goal: Individualization and Mutuality Outcome: Ongoing (Interventions Implemented as Appropriate) 05/07/15 1507 Mutuality/Individual Preferences What anxieties, fears or concerns do you have about your health or care? Delayed discharge What questions do you have about your health or care? None What information would help us give you more personalized care? None Goal: Fall Prevention-Safe Patient Handling Outcome: Ongoing (Interventions Implemented as Appropriate) 05/11/15 0800 Safety Interventions Safety Precautions/Fall Reduction fall reduction program maintained;lighting adjusted for task/safety;family at bedside;low bed;nonskid shoes/slippers when out of bed;muscle strengthening facilitated;room near unit station Musculoskeletal Interventions Activity/Level of Assistance up ad yisel;up in room;ambulated;independently Positioning independent Self-Care Promotion independence encouraged while providing assistance;personal routines for BADL/IADL promoted;personal/BADL objects within reach [place] Fall Risk History of Falling 0 Secondary Diagnosis 15 Ambulatory Aids 0 Intravenous Therapy/Heparin/Saline Lock 20 Gait/Transferring 0 Mental Status 0 Score 35 OTHER [place] Fall Risk Med Goal: Infection Control Outcome: Ongoing (Interventions Implemented as Appropriate) 05/11/15 0800 Safety Interventions Isolation Precautions standard precautions maintained Infection Prevention hydration promoted;environmental surveillance;bronchial hygiene promoted;nutrition promoted;promote handwashing;rest/sleep promoted Coping/Psychosocial Response Interventions Counseling reassurance provided;relaxation techniques promoted;calming techniques promoted;emotionalsupport provided;verbalization of feelings encouraged Goal: Discharge Needs Assessment Outcome: Ongoing (Interventions Implemented as Appropriate) 05/08/15 0544 05/08/15 1100 Discharge Needs Assessment Concerns to be Addressed adjustment to diagnosis/illness concerns -- Equipment Needed After Discharge none -- Self-Care Equipment Currently Used at Home none -- Living Environment Transportation Available -- car;family or friend will provide Problem: Pain, Acute (Adult, Obstetrics) Goal: Identify Signs and Symptoms and Related Risk Factors Signs and symptoms and related risk factors are identified upon initiation of Human Response Clinical Practice Guideline (CPG) Outcome: Ongoing (Interventions Implemented as Appropriate) 05/07/15 1830 Pain, Acute Related Risk Factors (Acute Pain) anxiety;fatigue;procedures;stress;surgery Signs and Symptoms (Acute Pain) fatigue/weakness Goal: Acceptable Pain Control/Comfort Level Patient will demonstrate the desired outcomes. Outcome: Ongoing (Interventions Implemented as Appropriate) 05/11/15 1753 Pain, Acute (Adult, Obstetrics) Acceptable Pain Control/Comfort Level making progress toward outcome Problem: Skin Integrity Impairment, Risk/Actual (Adult, Obstetrics) Goal: Identify Signs and Symptoms and Related Risk Factors Signs and symptoms and related risk factors are identified upon initiation of Human Response Clinical Practice Guideline (CPG) Outcome: Ongoing (Interventions Implemented as Appropriate) 05/10/15 0506 05/10/15 1710 Skin Integrity Impairment, Risk/Actual Personal Related Risk Factors (Skin Integrity Impairment, Risk/Actual) sleep deprivation;stress -- Physiological Related Risk Factors (Skin Integrity Impairment, Risk/Actual) -- malignancy;nutritional/hydration deficiency Treatment Related Related Risk Factors (Skin Integrity Impairment, Risk/Actual) invasive catheters;surgery -- Goal: Skin Integrity/Wound Healing Patient will demonstrate the desired outcomes. Outcome: Ongoing (Interventions Implemented as Appropriate) 05/11/15 1753 Skin Integrity Impairment, Risk/Actual (Adult, Obstetrics) Skin Integrity/Wound Healing making progress toward outcome Plan of Care - Erin Martini RN - 05/11/2015 4:59 AM EDT Problem: General Plan of Care Goal: Plan of Care Review Outcome: Ongoing (Interventions Implemented as Appropriate) 05/10/15 1710 05/10/15 210 Plan of Care Review Plan of Care Outcome Status ongoing (interventions implemented as appropriate) -- Progress no change -- Coping/Psychosocial Response Interventions Plan of Care Reviewed with -- patient;family OUTCOME EVALUATION NOTE: OUTCOME SUMMARY: Pt vomited around 20:00, said it felt like a coughing up at first, then was followed by more content. PO Zofran given, pt vomited again about 15 minutes later with the same description. MD notified, IVcompazine and nexium ordered and given per SEP. Discussed po pain meds with pt; decided as long as pain remained below a 2-3 and pt could sleep that she would forego taking the po meds rather than riskupsetting her stomach, with the understanding that we would work towards taking them in the morning.No further emesis this shift. Pt ate a jose cracker around 0300 in case needing pain meds, but come 0400 still did not need pain meds and had not felt nauseous from the cracker, so began to sip some w ater before sleeping more. PLAN MOVING FORWARD: Manage nausea, advance po intake as tolerated, promote bowel movement in order to get pt discharged. INDIVIDUALIZED FALL PREVENTION: Assistance: Stand by assist (family does just fine with this, more for the IV pole than for the pt) Supervision: Purposeful hourly rounding Surveillance: Pt declined Desirae, call lyn in reach, used appropriately CPG GOAL OUTCOME EVALUATION: Goal: Individualization and Mutuality Outcome: Ongoing (Interventions Implemented as Appropriate) 05/07/15 1507 Mutuality/Individual Preferences What anxieties, fears or concerns do you have about your health or care? Delayed discharge What questions do you have about your health or care? None What information would help us give you more personalized care? None Goal: Fall Prevention-Safe Patient Handling Outcome: Ongoing (Interventions Implemented as Appropriate) 05/10/152100 Safety Interventions Safety Precautions/Fall Reduction fall reduction program maintained;family at bedside;low bed;lighting adjusted for task/safety;nonskid shoes/slippers when out of bed Musculoskeletal Interventions Activity/Level of Assistance up ad yisel;up in room;independently Positioning independent Self-Care Promotion independence encouraged while providing assistance;personal routines for BADL/IADL promoted;personal/BADL objects within reach [place] Fall Risk History of Falling 0 Secondary Diagnosis 15 Ambulatory Aids 0 Intravenous Therapy/Heparin/Saline Lock 20 Gait/Transferring 10 Mental Status 0 Score 45 OTHER [place] Fall Risk High Goal: Infection Control Outcome: Ongoing (Interventions Implemented as Appropriate) 05/10/152100 Safety Interventions Isolation Precautions standard precautions maintained Infection Prevention hydration promoted;bronchial hygiene promoted Coping/Psychosocial Response Interventions Counseling reassurance provided;understanding of situation facilitated;verbalization of feelings encouraged Goal: Discharge Needs Assessment Outcome: Ongoing (Interventions Implemented as Appropriate) 05/08/15 0544 05/08/15 1100 Discharge Needs Assessment Concerns to be Addressed adjustment to diagnosis/illness concerns -- Equipment Needed After Discharge none -- Self-Care Equipment Currently Used at Home none -- Living Environment Transportation Available -- car;family or friend will provide Problem: Pain, Acute (Adult, Obstetrics) Goal: Identify Signs and Symptoms and Related Risk Factors Signs and symptoms and related risk factors are identified upon initiation of Human Response Clinical Practice Guideline (CPG) Outcome: Ongoing (Interventions Implemented as Appropriate) 05/07/15 1830 Pain, Acute Related Risk Factors (Acute Pain) anxiety;fatigue;procedures;stress;surgery Signs and Symptoms (Acute Pain) fatigue/weakness Goal: Acceptable Pain Control/Comfort Level Patient will demonstrate the desired outcomes. Outcome: Ongoing (Interventions Implemented as Appropriate) 05/10/15 1710 Pain, Acute (Adult, Obstetrics) Acceptable Pain Control/Comfort Level making progress toward outcome Problem: Skin Integrity Impairment, Risk/Actual (Adult, Obstetrics) Goal: Identify Signs and Symptoms and Related Risk Factors Signs and symptoms and related risk factors are identified upon initiation of Human Response Clinical Practice Guideline (CPG) Outcome: Ongoing (Interventions Implemented as Appropriate) 05/10/15 0506 05/10/15 1710 Skin Integrity Impairment, Risk/Actual Personal Related Risk Factors (Skin Integrity Impairment, Risk/Actual) sleep deprivation;stress -- Physiological Related Risk Factors (Skin Integrity Impairment, Risk/Actual) -- malignancy;nutritional/hydration deficiency Treatment Related Related Risk Factors (Skin Integrity Impairment, Risk/Actual) invasive catheters;surgery -- Goal: Skin Integrity/Wound Healing Patient will demonstrate the desired outcomes. Outcome: Ongoing (Interventions Implemented as Appropriate) 05/11/15 0449 Skin Integrity Impairment, Risk/Actual (Adult, Obstetrics) Skin Integrity/Wound Healing making progress toward outcome Plan of Care - Keysha Dean RN - 05/10/2015 5:24 PM EDT Problem: General Plan of Care Goal: Plan of Care Review Outcome: Ongoing (Interventions Implemented as Appropriate) 05/10/15 171 Plan of Care Review Plan of Care Outcome Status ongoing (interventions implemented as appropriate) Progress no change Coping/Psychosocial Response Interventions Plan of Care Reviewed with patient OUTCOME EVALUATION NOTE: OUTCOME SUMMARY: Pt c/o nausea throughout the shift. Emesis x1, small amout bilious emesis. IV Compazine given x1 w/ good effect. Oral zofran scheduled w/ moderate relief. 1 liter LR ordered @ 125mL/hr for hydration. Fluids, PO intake encouraged. Ambulating independently in room and around unit. Family at bedside throughout the shift. Midline incisions covered w/ steri-strips, clean, dry and intact. No drainage noted. Pt reports passing flatus, no BM. VS stable, pt remains afebrile. PLAN MOVING FORWARD: Continue to monitor labs, VS. Encourage PO intake, activity as tolerated. Manage nausea, pain. D/C home likely in morning. INDIVIDUALIZED FALL PREVENTION: Assistance: Independent Supervision: Intermittent RN supervision, purposeful hourly rounding. Surveillance: Masimo, continue hourly rounding. Call lyn in reach, pt rings appropriately. Nonskid footwear in place when OOB. Family at bedside. CPG GOAL OUTCOME EVALUATION: Goal: Fall Prevention-Safe Patient Handling Outcome: Ongoing (Interventions Implemented as Appropriate) 05/10/15 0853 Safety Interventions Safety Precautions/Fall Reduction fall reduction program maintained;family at bedside;lighting adjusted for task/safety;low bed;nonskid shoes/slippers when out of bed;room near unit station Musculoskeletal Interventions Activity/Level of Assistance up ad yisel;independently Positioning independent Self-Care Promotion independence encouraged while providing assistance [place] Fall Risk History of Falling 0 Secondary Diagnosis 15 Ambulatory Aids 0 Intravenous Therapy/Heparin/Saline Lock 20 Gait/Transferring 10 Mental Status 0 Score 45 OTHER [place] Fall Risk High Goal: Infection Control Outcome: Ongoing (Interventions Implemented as Appropriate) 05/10/15 0853 Safety Interventions Isolation Precautions standard precautions maintained Infection Prevention hydration promoted;nutrition promoted;rest/sleep promoted Coping/Psychosocial Response Interventions Counseling emotional support provided;reassurance provided;understanding of situation facilitated Problem: Pain, Acute (Adult, Obstetrics) Goal: Identify Signs and Symptoms and Related Risk Factors Signs and symptoms and related risk factors are identified upon initiation of Human Response Clinical Practice Guideline (CPG) Outcome: Ongoing (Interventions Implemented as Appropriate) 05/07/15 1830 Pain, Acute Related Risk Factors (Acute Pain) anxiety;fatigue;procedures;stress;surgery Signs and Symptoms (Acute Pain) fatigue/weakness Goal: Acceptable Pain Control/Comfort Level Patient will demonstrate the desired outcomes. Outcome: Ongoing (Interventions Implemented as Appropriate) 05/10/15 1710 Pain, Acute (Adult, Obstetrics) Acceptable Pain Control/Comfort Level making progress toward outcome Problem: Skin Integrity Impairment, Risk/Actual (Adult, Obstetrics) Goal: Identify Signs and Symptoms and Related Risk Factors Signs and symptoms and related risk factors are identified upon initiation of Human Response Clinical Practice Guideline (CPG) Outcome: Ongoing (Interventions Implemented as Appropriate) 05/10/15 0506 05/10/15 1710 Skin Integrity Impairment, Risk/Actual Personal Related Risk Factors (Skin Integrity Impairment, Risk/Actual) sleep deprivation;stress -- Physiological Related Risk Factors (Skin Integrity Impairment, Risk/Actual) -- malignancy;nutritional/hydration deficiency Treatment Related Related Risk Factors (Skin Integrity Impairment, Risk/Actual) invasive catheters;surgery -- Goal: Skin Integrity/Wound Healing Patient will demonstrate the desired outcomes. Outcome: Ongoing (Interventions Implemented as Appropriate) 05/10/15 1710 Skin Integrity Impairment, Risk/Actual (Adult, Obstetrics) Skin Integrity/Wound Healing making progress toward outcome Plan of Care - Angelia Rosa - 05/10/2015 5:36 AM EDT Problem: General Plan of Care Goal: Plan of Care Review Outcome: Ongoing (Interventions Implemented as Appropriate) 05/07/15 1830 05/09/15 2030 Plan of Care Review Plan of Care Outcome Status ongoing (interventions implemented as appropriate) -- Progress progress toward functional goals as expected -- Coping/Psychosocial Response Interventions Plan of Care Reviewed with -- patient;significant other OUTCOME EVALUATION NOTE: OUTCOME SUMMARY: Pt reported passing flatus at 0200, ambulating in [place], still finding the thought of food unappealing. Only ate a saltine and drank a few sips of fluid overnight. Took simethecone at 0530. PLAN MOVING FORWARD: DC today if pt can eat and remain free of nausea. INDIVIDUALIZED FALL PREVENTION: Assistance: Pt independent with mobility and ADLs. Able to make needs known Supervision: Reliable, calls appropriately for assist. Surveillance: Hourly rounding, umair CPG GOAL OUTCOME EVALUATION: Goal: Individualization and Mutuality Outcome: Ongoing (Interventions Implemented as Appropriate) 05/07/15 1507 Mutuality/Individual Preferences What anxieties, fears or concerns do you have about your health or care? Delayed discharge What questions do you have about your health or care? None What information would help us give you more personalized care? None Goal: Fall Prevention-Safe Patient Handling Outcome: Ongoing (Interventions Implemented as Appropriate) 05/09/15 2030 05/10/15 0500 Safety Interventions Safety Precautions/Fall Reduction fall reduction program maintained -- Musculoskeletal Interventions Activity/Level of Assistance -- up ad yisel;up in [place] Positioning independent -- Self-Care Promotion independence encouraged while providing assistance -- [place] Fall Risk History of Falling 0 -- Secondary Diagnosis 15 -- Ambulatory Aids 0 -- Intravenous Therapy/Heparin/Saline Lock 20 -- Gait/Transferring 10 -- Mental Status 0 -- Score 45 -- OTHER [place] Fall Risk High -- Goal: Infection Control Outcome: Ongoing (Interventions Implemented as Appropriate) 05/09/15 2030 Safety Interventions Isolation Precautions standard precautions maintained Infection Prevention bronchial hygiene promoted Coping/Psychosocial Response Interventions Counseling verbalization of feelings encouraged Goal: Discharge Needs Assessment Outcome: Ongoing (Interventions Implemented as Appropriate) 05/08/15 0544 05/08/15 1100 Discharge Needs Assessment Concerns to be Addressed adjustment to diagnosis/illness concerns -- Equipment Needed After Discharge none -- Self-Care Equipment Currently Used at Home none -- Living Environment Transportation Available -- car;family or friend will provide Problem: Pain, Acute (Adult, Obstetrics) Goal: Identify Signs and Symptoms and Related Risk Factors Signs and symptoms and related risk factors are identified upon initiation of Human Response Clinical Practice Guideline (CPG) Outcome: Ongoing (Interventions Implemented as Appropriate) 05/07/15 1830 Pain, Acute Related Risk Factors (Acute Pain) anxiety;fatigue;procedures;stress;surgery Signs and Symptoms (Acute Pain) fatigue/weakness Goal: Acceptable Pain Control/Comfort Level Patient will demonstrate the desired outcomes. Outcome: Ongoing (Interventions Implemented as Appropriate) 05/10/15 0506 Pain, Acute (Adult, Obstetrics) Acceptable Pain Control/Comfort Level making progress toward outcome Problem: Skin Integrity Impairment, Risk/Actual (Adult, Obstetrics) Goal: Identify Signs and Symptoms and Related Risk Factors Signs and symptoms and related risk factors are identified upon initiation of Human Response Clinical Practice Guideline (CPG) Outcome: Ongoing (Interventions Implemented as Appropriate) 05/10/15 0506 Skin Integrity Impairment, Risk/Actual Personal Related Risk Factors (Skin Integrity Impairment, Risk/Actual) sleep deprivation;stress Treatment Related Related Risk Factors (Skin Integrity Impairment, Risk/Actual) invasive catheters;surgery Goal: Skin Integrity/Wound Healing Patient will demonstrate the desired outcomes. Outcome: Ongoing (Interventions Implemented as Appropriate) 05/10/15 0506 Skin Integrity Impairment, Risk/Actual (Adult, Obstetrics) Skin Integrity/Wound Healing making progress toward outcome Plan of Care - Ildefonso Walker RN - 05/09/2015 4:11 PM EDT Problem: General Plan of Care Goal: Plan of Care Review Outcome: Ongoing (Interventions Implemented as Appropriate) 05/07/15 1830 10/15/15 0924 Plan of Care Review Plan of Care Outcome Status ongoing (interventions implemented as appropriate) -- Progress progress toward functional goals as expected -- Coping/Psychosocial Response Interventions Plan of Care Reviewed with -- patient;significant other OUTCOME EVALUATION NOTE: OUTCOME SUMMARY: Patient alert and oriented x 4 today. Patient received oxycodone 5 mg po two times during shift, with good relief. Patient also receiving standing tylenol and ibuprofen for pain, with good relief. Patient had poor po intake today, only eating and drinking when taking medications. Heating pad was ordered for patient, with good results. Patient ambulating floor numerous times today. PLAN MOVING FORWARD: D/c home tomorrow INDIVIDUALIZED FALL PREVENTION: Assistance: independent Supervision: independent Surveillance: hourly rounding, call desirae lyn, partner at bedside CPG GOAL OUTCOME EVALUATION: Goal: Individualization and Mutuality Outcome: Ongoing (Interventions Implemented as Appropriate) 05/07/15 1507 Mutuality/Individual Preferences What anxieties, fears or concerns do you have about your health or care? Delayed discharge What questions do you have about your health or care? None What information would help us give you more personalized care? None Goal: Fall Prevention-Safe Patient Handling Outcome: Ongoing (Interventions Implemented as Appropriate) 05/09/15923 Safety Interventions Safety Precautions/Fall Reduction fall reduction program maintained;family at bedside;lighting adjusted for task/safety;low bed;room near unit station;nonskid shoes/slippers when out of bed Musculoskeletal Interventions Activity/Level of Assistance up ad yisel;up in [place];up in room;ambulated;independently Positioning independent Self-Care Promotion assistance provided to decrease frustration;independence encouraged while providing assistance Dup[place] Fall Risk History of Falling 0 Secondary Diagnosis 15 Ambulatory Aids 0 Intravenous Therapy/Heparin/Saline Lock 20 Gait/Transferring 10 Mental Status 0 Score 45 OTHER Dup[place] Fall Risk High Goal: Infection Control Outcome: Ongoing (Interventions Implemented as Appropriate) 05/09/15923 Safety Interventions Isolation Precautions standard precautions maintained Infection Prevention bronchial hygiene promoted;hydration promoted;nutrition promoted;promote handwashing;rest/sleep promoted Coping/Psychosocial Response Interventions Counseling calming techniques promoted;emotional support provided;goal setting facilitated;guided imagery facilitated;problem solving facilitated;reassurance provided;relaxation techniques promoted;understanding of situation facilitated;verbalization of feelings encouraged Goal: Discharge Needs Assessment Outcome: Ongoing (Interventions Implemented as Appropriate) 05/08/15 0544 05/08/15 1100 Discharge Needs Assessment Concerns to be Addressed adjustment to diagnosis/illness concerns -- Equipment Needed After Discharge none -- Self-Care Equipment Currently Used at Home none -- Living Environment Transportation Available -- car;family or friend will provide Problem: Pain, Acute (Adult, Obstetrics) Goal: Identify Signs and Symptoms and Related Risk Factors Signs and symptoms and related risk factors are identified upon initiation of Human Response Clinical Practice Guideline (CPG) Outcome: Ongoing (Interventions Implemented as Appropriate) 05/07/151829 Pain, Acute Related Risk Factors (Acute Pain) anxiety;fatigue;procedures;stress;surgery Signs and Symptoms (Acute Pain) fatigue/weakness Goal: Acceptable Pain Control/Comfort Level Patient will demonstrate the desired outcomes. Outcome: Ongoing (Interventions Implemented as Appropriate) 05/07/151829 Pain, Acute (Adult, Obstetrics) Acceptable Pain Control/Comfort Level making progress toward outcome Plan of Care - Ursula Laura RN - 05/09/2015 4:55 AM EDT Problem: General Plan of Care Goal: Plan of Care Review Outcome: Ongoing (Interventions Implemented as Appropriate) 05/07/15182905/08/15 1944 Plan of Care Review Plan of Care Outcome Status ongoing (interventions implemented as appropriate) -- Progress progress toward functional goals as expected -- Coping/Psychosocial Response Interventions Plan of Care Reviewed with -- patient;significant other OUTCOME EVALUATION NOTE: OUTCOME SUMMARY: Neisha cui started out well, later she c/o a lot of pain medicated with prn oxycodone 5mg, which did not seem to help so was medicated again with another 5mg oxycodone and scheduledibuprofen, she then felt nauseous, went to go get her iv zofran, when this nurse came back to room she had already vomited a small amount on floor, her partner was already cleaning it up and stated it was clear/cream colored and not a lot, also didn't look like she vomited the medications I had just given her, after she vomited she stated she felt a lot better and refused zofran, gave her a warm blanket and some water as she sat at the side of the bed, went back to check on her a little bit later and she was sleeping in bed, earlier on shift she got up and walked the loop with partner independently, IV patent, voiding adequate amounts of urine, denies flatus, midline ABD incision intact with steristrips, no drainage noted, she has not needed any O2 thus fair on shift, she is resting comfortably in bed, partner at bedside, denies any needs at this time. PLAN MOVING FORWARD: Ambulate, pain control, encourage nutritional intake INDIVIDUALIZED FALL PREVENTION: Assistance: Independent Supervision: Independent Surveillance: sary Negron within reach, nurse rounding CPG OUTCOME EVALUATION: Goal: Individualization and Mutuality Outcome: Ongoing (Interventions Implemented as Appropriate) 05/07/15 1507 Mutuality/Individual Preferences What anxieties, fears or concerns do you have about your health or care? Delayed discharge What questions do you have about your health or care? None What information would help us give you more personalized care? None Goal: Fall Prevention-Safe Patient Handling Outcome: Ongoing (Interventions Implemented as Appropriate) 05/08/15 194 Safety Interventions Safety Precautions/Fall Reduction fall reduction program maintained;family at bedside;lighting adjusted for task/safety;nonskid shoes/slippers when out of bed;room near unit station Musculoskeletal Interventions Activity/Level of Assistance up ad yisel;with stand by assist Positioning independent Self-Care Promotion assistance provided to decrease frustration;independence encouraged while providing assistance Dup[place] Fall Risk History of Falling 0 Secondary Diagnosis 15 Ambulatory Aids 0 Intravenous Therapy/Heparin/Saline Lock 20 Gait/Transferring 10 Mental Status 0 Score 45 OTHER Dup[place] Fall Risk High Goal: Infection Control Outcome: Ongoing (Interventions Implemented as Appropriate) 05/08/15 194 Safety Interventions Isolation Precautions standard precautions maintained Infection Prevention bronchial hygiene promoted;environmental surveillance;hydration promoted;nutrition promoted;promote handwashing;rest/sleep promoted Coping/Psychosocial Response Interventions Counseling emotional support provided;reassurance provided;relaxation techniques promoted;understanding of situation facilitated;verbalization of feelings encouraged Goal: Discharge Needs Assessment Outcome: Ongoing (Interventions Implemented as Appropriate) 05/08/15 0544 05/08/15 1100 Discharge Needs Assessment Concerns to be Addressed adjustment to diagnosis/illness concerns -- Equipment Needed After Discharge none -- Self-Care Equipment Currently Used at Home none -- Living Environment Transportation Available -- car;family or friend will provide Problem: Pain, Acute (Adult, Obstetrics) Goal: Identify Signs and Symptoms and Related Risk Factors Signs and symptoms and related risk factors are identified upon initiation of Human Response Clinical Practice Guideline (CPG) Outcome: Ongoing (Interventions Implemented as Appropriate) 05/07/15 1830 Pain, Acute Related Risk Factors (Acute Pain) anxiety;fatigue;procedures;stress;surgery Signs and Symptoms (Acute Pain) fatigue/weakness Goal: Acceptable Pain Control/Comfort Level Patient will demonstrate the desired outcomes. Outcome: Ongoing (Interventions Implemented as Appropriate) 05/07/15 1830 Pain, Acute (Adult, Obstetrics) Acceptable Pain Control/Comfort Level making progress toward outcome Problem: Respiratory Insufficiency (Adult, Obstetrics) Goal: Identify Signs and Symptoms and Related Risk Factors Signs and symptoms and related risk factors are identified upon initiation of Human Response Clinical Practice Guideline (CPG) Outcome: Ongoing (Interventions Implemented as Appropriate) 05/08/15 05 Respiratory Insufficiency Related Risk Factors (Respiratory Insufficiency) physiological factors;surgery Signs and Symptoms (Respiratory Insufficiency) abnormal breath sounds;decreased oxygen saturation Goal: Acid/Base Balance Patient will demonstrate the desired outcomes. Outcome: Ongoing (Interventions Implemented as Appropriate) 05/08/15 05 Respiratory Insufficiency (Adult, Obstetrics) Acid/Base Balance making progress toward outcome Goal: Effective Ventilation Patient will demonstrate the desired outcomes. Outcome: Ongoing (Interventions Implemented as Appropriate) 05/08/15 0544 Respiratory Insufficiency (Adult, Obstetrics) Effective Ventilation making progress toward outcome Plan of Care - Ildefonso Walker RN - 05/08/2015 3:52 PM EDT Problem: General Plan of Care Goal: Plan of Care Review Outcome: Ongoing (Interventions Implemented as Appropriate) 05/07/15 1830 05/08/15 09 Plan of Care Review Plan of Care Outcome Status ongoing (interventions implemented as appropriate) -- Progress progress toward functional goals as expected -- Coping/Psychosocial Response Interventions Plan of Care Reviewed with -- patient;significant other;family OUTCOME EVALUATION NOTE: OUTCOME SUMMARY: Patient had fox discontinued this am, voiding fine this afternoon. Epidural discontinued and CUSTOMER SERVICE ADVISOR discontinued. Patient given po tylenol and po ibuprofen for pain. No prn pain medications given today.Patient still not able to have bowel movement. Patient is tolerating po intake. No c/o nausea or vomiting. PLAN MOVING FORWARD: Monitor pain, ambulate as tolerated, monitor for bowel movement INDIVIDUALIZED FALL PREVENTION: Assistance: independent Supervision: independent Surveillance: Desirae, sary lyn, hourly rounding, family at bedside CPG GOAL OUTCOME EVALUATION: Goal: Individualization and Mutuality Outcome: Ongoing (Interventions Implemented as Appropriate) 05/07/15 1507 Mutuality/Individual Preferences What anxieties, fears or concerns do you have about your health or care? Delayed discharge What questions do you have about your health or care? None What information would help us give you more personalized care? None Goal: Fall Prevention-Safe Patient Handling Outcome: Ongoing (Interventions Implemented as Appropriate) 05/08/15 0900 Safety Interventions Safety Precautions/Fall Reduction fall reduction program maintained;family at bedside;lighting adjusted for task/safety;low bed;nonskid shoes/slippers when out of bed;supervised activity Musculoskeletal Interventions Activity/Level of Assistance up in [place];ambulated;with stand by assist Positioning HOB up 15 degrees Self-Care Promotion assistance provided to decrease frustration Dup[place] Fall Risk History of Falling 0 Secondary Diagnosis 15 Ambulatory Aids 0 Intravenous Therapy/Heparin/Saline Lock 20 Gait/Transferring 10 Mental Status 0 Score 45 OTHER [place] Fall Risk High Goal: Infection Control Outcome: Ongoing (Interventions Implemented as Appropriate) 05/08/15 0900 Safety Interventions Isolation Precautions standard precautions maintained Infection Prevention bronchial hygiene promoted;environmental surveillance;hydration promoted;nutrition promoted;promote handwashing;rest/sleep promoted Coping/Psychosocial Response Interventions Counseling understanding of situation facilitated Goal: Discharge Needs Assessment Outcome: Ongoing (Interventions Implemented as Appropriate) 05/08/15 0544 05/08/15 1100 Discharge Needs Assessment Concerns to be Addressed adjustment to diagnosis/illness concerns -- Equipment Needed After Discharge none -- Self-Care Equipment Currently Used at Home none -- Living Environment Transportation Available -- car;family or friend will provide Problem: Pain, Acute (Adult, Obstetrics) Goal: Identify Signs and Symptoms and Related Risk Factors Signs and symptoms and related risk factors are identified upon initiation of Human Response Clinical Practice Guideline (CPG) Outcome: Ongoing (Interventions Implemented as Appropriate) 05/07/15 1830 Pain, Acute Related Risk Factors (Acute Pain) anxiety;fatigue;procedures;stress;surgery Signs and Symptoms (Acute Pain) fatigue/weakness Goal: Acceptable Pain Control/Comfort Level Patient will demonstrate the desired outcomes. Outcome: Ongoing (Interventions Implemented as Appropriate) 05/07/15 1830 Pain, Acute (Adult, Obstetrics) Acceptable Pain Control/Comfort Level making progress toward outcome Problem: Respiratory Insufficiency (Adult, Obstetrics) Goal: Identify Signs and Symptoms and Related Risk Factors Signs and symptoms and related risk factors are identified upon initiation of Human Response Clinical Practice Guideline (CPG) Outcome: Ongoing (Interventions Implemented as Appropriate) 05/08/15543 Respiratory Insufficiency Related Risk Factors (Respiratory Insufficiency) physiological factors;surgery Signs and Symptoms (Respiratory Insufficiency) abnormal breath sounds;decreased oxygen saturation Goal: Acid/Base Balance Patient will demonstrate the desired outcomes. Outcome: Ongoing (Interventions Implemented as Appropriate) 05/08/15543 Respiratory Insufficiency (Adult, Obstetrics) Acid/Base Balance making progress toward outcome Goal: Effective Ventilation Patient will demonstrate the desired outcomes. Outcome: Ongoing (Interventions Implemented as Appropriate) 05/08/15543 Respiratory Insufficiency (Adult, Obstetrics) Effective Ventilation making progress toward outcome Plan of Care - Estephania Guerrero RN - 05/08/2015 6:27 AM EDT Problem: General Plan of Care Goal: Plan of Care Review Outcome: Ongoing (Interventions Implemented as Appropriate) 05/07/15 1830 05/07/152044 Plan of Care Review Plan of Care Outcome Status ongoing (interventions implemented as appropriate) -- Progress progress toward functional goals as expected -- Coping/Psychosocial Response Interventions Plan of Care Reviewed with -- patient;significant other OUTCOME EVALUATION NOTE: OUTCOME SUMMARY: Pt POD #2 following CHRISTY-BSO, midline incision with dressing over, no new drainage, pain well controlled with CUSTOMER SERVICE ADVISOR PRN, toradol IV, and tylenol, epidural stopped during day shift. Systolic BP 90-110/38-48, team aware of BPs. Montioring BP q 4 hours. Bowel sounds active but has not passed flatus yet. LR c ontinues @ 100/hr. Up for walk of 1/4 of a mile or more with RN and S. O. (Ragini) around 0100 as pt had decreasing O2 sats to the 80's with a low of 82 % on room air. Pt frequently doing IS up to 1000.This deep breathing did bring sat up to 96% on RA. But once pt relaxed her sats decreased to the low90's to 80's again. With walking, pt sats were 85-93% on Room air. MD made aware. O2 1L placed. Pt sats up to 97% on 1L O2. BS with fine crackles LLL. MD states continue to monitor. PLAN MOVING FORWARD: ?Osman varghese/hailey this AM Continue to monitor pain O2 sats. Encourage ambulation. INDIVIDUALIZED FALL PREVENTION: Assistance: Stand-by. Supervision: Intermittent, family at bedside. Surveillance: Masimo, purposeful hourly rounding. CPG OUTCOME EVALUATION: Goal: Individualization and Mutuality Outcome: Ongoing (Interventions Implemented as Appropriate) 05/07/15 1507 Mutuality/Individual Preferences What anxieties, fears or concerns do you have about your health or care? Delayed discharge What questions do you have about your health or care? None What information would help us give you more personalized care? None Goal: Fall Prevention-Safe Patient Handling Outcome: Ongoing (Interventions Implemented as Appropriate) 05/06/15 2335 05/07/15204405/08/15 0100 Safety Interventions Safety Precautions/Fall Reduction -- fall reduction program maintained;family at bedside;lighting adjusted for task/safety;low bed;nonskid shoes/slippers when out of bed;supervised activity -- Musculoskeletal Interventions Activity/Level of Assistance -- -- up in [place];ambulated;with stand by assist Positioning HOB up 15 degrees;left side;supine;independent -- -- Self-Care Promotion -- -- assistance provided to decrease frustration;independence encouraged while providing assistance;personal routines for BADL/IADL promoted;personal/BADL objects within reach Dup[place] Fall Risk History of Falling -- 0 -- Secondary Diagnosis -- 15 -- Ambulatory Aids -- 0 -- Intravenous Therapy/Heparin/Saline Lock -- 20 -- Gait/Transferring -- 10 -- Mental Status -- 0 -- Score -- 45 -- OTHER [place] Fall Risk -- High -- Goal: Infection Control Outcome: Ongoing (Interventions Implemented as Appropriate) 05/07/152044 Safety Interventions Isolation Precautions standard precautions maintained Infection Prevention bronchial hygiene promoted;environmental surveillance;hydration promoted;nutrition promoted;promote handwashing;rest/sleep promoted Coping/Psychosocial Response Interventions Counseling understanding of situation facilitated Goal: Discharge Needs Assessment Outcome: Ongoing (Interventions Implemented as Appropriate) 05/08/15 0544 Discharge Needs Assessment Concerns to be Addressed adjustment to diagnosis/illness concerns Equipment Needed After Discharge none Self-Care Equipment Currently Used at Home none Living Environment Transportation Available car;family or friend will provide Problem: Pain, Acute (Adult, Obstetrics) Goal: Identify Signs and Symptoms and Related Risk Factors Signs and symptoms and related risk factors are identified upon initiation of Human Response Clinical Practice Guideline (CPG) Outcome: Ongoing (Interventions Implemented as Appropriate) 05/07/15 1830 Pain, Acute Related Risk Factors (Acute Pain) anxiety;fatigue;procedures;stress;surgery Signs and Symptoms (Acute Pain) fatigue/weakness Goal: Acceptable Pain Control/Comfort Level Patient will demonstrate the desired outcomes. Outcome: Ongoing (Interventions Implemented as Appropriate) 05/07/15 1830 Pain, Acute (Adult, Obstetrics) Acceptable Pain Control/Comfort Level making progress toward outcome Problem: Respiratory Insufficiency (Adult, Obstetrics) Goal: Identify Signs and Symptoms and Related Risk Factors Signs and symptoms and related risk factors are identified upon initiation of Human Response Clinical Practice Guideline (CPG) Outcome: Ongoing (Interventions Implemented as Appropriate) 05/08/15 0544 Respiratory Insufficiency Related Risk Factors (Respiratory Insufficiency) physiological factors;surgery Signs and Symptoms (Respiratory Insufficiency) abnormal breath sounds;decreased oxygen saturation Goal: Acid/Base Balance Patient will demonstrate the desired outcomes. Outcome: Ongoing (Interventions Implemented as Appropriate) 05/08/15 0544 Respiratory Insufficiency (Adult, Obstetrics) Acid/Base Balance making progress toward outcome Goal: Effective Ventilation Patient will demonstrate the desired outcomes. Outcome: Ongoing (Interventions Implemented as Appropriate) 05/08/15 0544 Respiratory Insufficiency (Adult, Obstetrics) Effective Ventilation making progress toward outcome Plan of Care - Nuris Lucio RN - 05/07/2015 6:41 PM EDT Problem: General Plan of Care Goal: Plan of Care Review Outcome: Ongoing (Interventions Implemented as Appropriate) 05/07/151829 Plan of Care Review Plan of Care Outcome Status ongoing (interventions implemented as appropriate) Progress progress toward functional goals as expected Coping/Psychosocial Response Interventions Plan of Care Reviewed with patient OUTCOME EVALUATION NOTE: OUTCOME SUMMARY: Pt POD #1 following CHRISTY-BSO, midline incision with dressing over, no new drainage, pain well controlled with CUSTOMER SERVICE ADVISOR PRN, toradol IV, and tylenol, epidural stopped 05/06 @1700 due to low BPs, remained off throughout shift per pt request. BPs low, last reading 94/42, team aware, OK'd to continue q4 monitori ng. Bowel sounds active, pt continuing to increase diet throughout day. New PIV placed in right hand, LR @ 100/hr. Up for walk throughout day with PT and family. PLAN MOVING FORWARD: ?Fox d/c tomorrow. Continue to monitor pain. Encourage ambulation. INDIVIDUALIZED FALL PREVENTION: Assistance: Stand-by. Supervision: Intermittent, family at bedside. Surveillance: Wilverimo, purposeful hourly rounding. CPG OUTCOME EVALUATION: Goal: Individualization and Mutuality Outcome: Ongoing (Interventions Implemented as Appropriate) 05/07/15 1507 Mutuality/Individual Preferences What anxieties, fears or concerns do you have about your health or care? Delayed discharge What questions do you have about your health or care? None What information would help us give you more personalized care? None Goal: Fall Prevention-Safe Patient Handling Outcome: Ongoing (Interventions Implemented as Appropriate) 05/06/15 2335 05/07/15 0508 05/07/15 0930 Safety Interventions Safety Precautions/Fall Reduction -- -- -- Musculoskeletal Interventions Activity/Level of Assistance -- -- dangled at bedside;with 1-person assist Positioning HOB up 15 degrees;left side;supine;independent -- -- Self-Care Promotion -- independence encouraged while providing assistance;personal routines for BADL/IADL promoted -- [place] Fall Risk History of Falling -- -- -- Secondary Diagnosis -- -- -- Ambulatory Aids -- -- -- Intravenous Therapy/Heparin/Saline Lock -- -- -- Gait/Transferring -- -- -- Mental Status -- -- -- Score -- -- -- OTHER [place] Fall Risk -- -- -- 05/07/15 0945 Safety Interventions Safety Precautions/Fall Reduction environmental modification;fall reduction program maintained;lighting adjusted for task/safety;low bed;nonskid shoes/slippers when out of bed Musculoskeletal Interventions Activity/Level of Assistance -- Positioning -- Self-Care Promotion -- Dupree Fall Risk History of Falling 0 Secondary Diagnosis 15 Ambulatory Aids 0 Intravenous Therapy/Heparin/Saline Lock 20 Gait/Transferring 10 Mental Status 0 Score 45 OTHER Dupree Fall Risk High Goal: Infection Control Outcome: Ongoing (Interventions Implemented as Appropriate) 05/06/15 2335 05/07/15 0945 Safety Interventions Isolation Precautions -- standard precautions maintained Infection Prevention -- bronchial hygiene promoted;environmental surveillance;hydration promoted;nutrition promoted;promote handwashing;rest/sleep promoted Coping/Psychosocial Response Interventions Counseling calming techniques promoted;goal setting facilitated;emotional support provided;verbalization of feelings encouraged;understanding of situation facilitated -- Goal: Discharge Needs Assessment Outcome: Ongoing (Interventions Implemented as Appropriate) Problem: Pain, Acute (Adult, Obstetrics) Goal: Identify Signs and Symptoms and Related Risk Factors Signs and symptoms and related risk factors are identified upon initiation of Human Response Clinical Practice Guideline (CPG) Outcome: Ongoing (Interventions Implemented as Appropriate) 05/07/15 1830 Pain, Acute Related Risk Factors (Acute Pain) anxiety;fatigue;procedures;stress;surgery Signs and Symptoms (Acute Pain) fatigue/weakness Goal: Acceptable Pain Control/Comfort Level Patient will demonstrate the desired outcomes. Outcome: Ongoing (Interventions Implemented as Appropriate) 05/07/15 1830 Pain, Acute (Adult, Obstetrics) Acceptable Pain Control/Comfort Level making progress toward outcome Plan of Care - Jiemna Victor RN - 05/07/2015 5:27 AM EDT Problem: General Plan of Care Goal: Plan of Care Review Outcome: Ongoing (Interventions Implemented as Appropriate) 05/07/15 0508 Plan of Care Review Plan of Care Outcome Status ongoing (interventions implemented as appropriate) Coping/Psychosocial Response Interventions Plan of Care Reviewed with patient OUTCOME EVALUATION NOTE: OUTCOME SUMMARY: Pt arrived to floor around 2200. No c/o SOB, difficulty breathing, dizziness, lightheadedness, nausea, or vomiting. Epidural site is C/D/I with some dried drainage. Midline incision is C/D/I with marked dried drainage. At 0430, BP was 92/30. MD informed of BP. HR stable in high 60s-low 70s. Urine output >30cc/hr. Lifesafety RN notified of BP. 500cc bolus ordered and administered. No s/sx of bleeding. Will continue to monitor. PLAN MOVING FORWARD: Monitor BP. Encourage movement OOB as tolerated by pt. INDIVIDUALIZED FALL PREVENTION: Assistance: Ax2 with walker Supervision: Hands on Surveillance: Desirae, call lyn in reach, purposeful hourly rounding CPG GOAL OUTCOME EVALUATION: Goal: Fall Prevention-Safe Patient Handling Outcome: Ongoing (Interventions Implemented as Appropriate) 05/06/15233405/07/15507 Safety Interventions Safety Precautions/Fall Reduction fall reduction program maintained;family at bedside;lighting adjusted for task/safety;low bed;room near unit station -- Musculoskeletal Interventions Positioning HOB up 15 degrees;left side;supine;independent -- Self-Care Promotion -- independence encouraged while providing assistance;personal routines for BADL/IADL promoted Dupree Fall Risk History of Falling 0 -- Secondary Diagnosis 15 -- Ambulatory Aids 15 -- Intravenous Therapy/Heparin/Saline Lock 20 -- Gait/Transferring 0 -- Mental Status 0 -- Score 50 -- OTHER Dupree Fall Risk High -- Goal: Infection Control Outcome: Ongoing (Interventions Implemented as Appropriate) 05/06/15233405/07/15507 Safety Interventions Isolation Precautions -- standard precautions maintained Infection Prevention bronchial hygiene promoted;environmental surveillance;hydration promoted;nutrition promoted;promote handwashing;rest/sleep promoted -- Coping/Psychosocial Response Interventions Counseling calming techniques promoted;goal setting facilitated;emotional support provided;verbalization of feelings encouraged;understanding of situation facilitated -- Problem: Pain, Acute (Adult, Obstetrics) Goal: Identify Signs and Symptoms and Related Risk Factors Signs and symptoms and related risk factors are identified upon initiation of Human Response Clinical Practice Guideline (CPG) Outcome: Ongoing (Interventions Implemented as Appropriate) 05/07/15507 Pain, Acute Related Risk Factors (Acute Pain) fatigue;positioning;procedures;stress;surgery Goal: Acceptable Pain Control/Comfort Level Patient will demonstrate the desired outcomes. Outcome: Ongoing (Interventions Implemented as Appropriate) 05/07/15507 Pain, Acute (Adult, Obstetrics) Acceptable Pain Control/Comfort Level making progress toward outcome Op Note - Genie Garcai MD - 05/06/2015 6:05 PM EDT [facility] Patient Name: Neisha White : [id number] MR#: [id number] Case Date: 05/06/2015 Surgeon: Surgeon(s) and Role: * Genie Garcia MD - Primary * Helena Santos MD - Resident-Lesser Role Preoperative diagnosis: OVARIAN CANCER Postoperative diagnosis: OVARIAN CANCER Procedure(s): @HYSTERECTOMY, CHRISTY, BSO, DEBULKING MODIFIER FANG STUDY LAPAROTOMY, EXCISION LESION, PERITONEUM @URETEROLYSIS @OMENECTOMY Argon Beam coagulation of tumor implants Anesthesia: General Estimated Blood Loss: 1200 mL Specimens removed during surgery: Uterus, cervix, right tube and ovary, left pelvic mass, omentum, portion of left pelvic peritoneum Drains: Surgical Closure: Primary Closure - closure of ALL tissue levels during the original surgery regardless of wires, wickes, drains, or other devices extruding through the incision Disposition: awakened from anesthesia, extubated and taken to the recovery room in a stable condition, having suffered no apparent untoward event. Condition: doing well without problems Findings: The left ovary was enlarged to approximately 20cm. The ovary had solid and cystic components. Tumor was noted to be extending from the ovary and ascending along the course of the infundibulopelvic ligament our of the pelvis. In addition tumor was infiltrating the pelvic peritoneum mostly on the left side and colon mesentery. A portion of the tumor was adherent to the descending colon above the pelvic brim. There was no tumor within the upper abdomen. There was no gross residual disease at the conclusion of the procedure. (Please see the Surgical Encounter Summary for any Implant and Specimen details pertinent to this patient.) HPI/Surgical Indications: Neisha White is a 69 yo who noted a pelvic mass. She presented to her PCP and was diagnosed with a pelvic mass on CT. She was also found to have an elevated CA-125. In addition to the mass she was experiencing significant constipation. Procedure Description: After initial office consultation and signing consents in the office the patient presented to the hospital for surgery. She received an epidural for analgesia and was taken to the operating room where she was put to sleep under general anesthesia. She had two large bore IVs in addition to an arterial line. She was positioned in the dorsal lithotomy position. She received 5,000 units of heparin an hour after epidural placement. SCDs were in place and working. She received cefazolin for antibiotic prophylaxis. The perineum and vagina were prepped and a fox was placed with sterile technique. The abdomen was prepped and the patient was steriley draped. A vertical midline skin incision was made from the pubicsymphysis to approximately 3 cm above the umbilicus. The incision was carried down to the underlyinglayer of fascia. The fascia was nicked in the midline and the fascial incision was extended superiorly and inferiorly with electrocautery. Th fascia was dissected off the underlying rectus muscles. Therectus muscles were divided in the midline and there peritoneum was tented up and entered sharply. An abdominal exploration was performed including palpation of bilateral diaphragms and the bowel wasrun in its entirety with no evidence of disease involvement with the exception of the sigmoid colon and rectum. A bookwalter retractor was assembled. The bowel was packed into the upper abdomen. The round ligament on the left side was cauterized and transected using the ligasure impact. The peritonealincision was then carried inferiorly and superiorly. The mass and colon were retracted medially and the ureter was identified. The mass was then digitally disected off the posterior cul-de-sac peritoneum and the rectum thus isolating the infundibulopelvic ligament and attachments to the uterus. The infindibulopelvic ligament was cauterized and transected well away from the ureter. The uteroovarian ligament and origin of the fallopian tube were then cauterized and transected and the mass was sent forfrozen section. A portion of the mass was handed of for FANG study. At this point a hysterectomy wasperformed and the right tube and ovary were removed. The peritoneum on the right side was cauterizedand transected. The peritoneal incision was extended superiorly and inferiorly. The ureter was identified and a window was made between the ureter and there infundibulopelvic ligament. The infundibulopelvic ligament was cauterized and transected with the ligasure. The tube and ovary were then dissected off the pelvic sidewall by dividing the posterior leaf of the broad ligament. The bladder flap was created and the bladder was dissected off the underlying cervix. The uterine vessels were skeletonized, cauterized, and transected with the ligasure. Sequential bites were then taken parallel and adjacent to the cervix with the ligasure until the external os was reached. The upper vagina was cross clapmped, and the uterus, cervix, right tube and ovary were amputated and handed off for permanent pathology. The vaginal cuff was closed with 0-vicryl in figure of eight stitches. 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 The involvement of the descending colon above the level of the pelvic brim made the patient at least a stage IIIC. The pelvicwas packed and attention was the upper abdomen. There was no gross infiltration of the omentum. An infracoloic omentectomy was performed. There was no palpable adenopathy. Attention was then turned back to the pelvis. There were tumor deposits on the left pelvic sidewall, the posterio cul-de-sac, and ascending along the infindibulpelvic ligament. A left ureterolysis was performed. Once the ureter wasisolated the periotneum along the left pelvic side wall was stripped. The infundibulopelvic ligamentwas then further dissected out with adjacent tumor to separate it from the sigmoid colon and ureter.The infundibolpelvic ligament and tumor were then resecurred and transected to completely resect thetumor. Finally an argon beam was used to coagulate tumor deposits within the posterio cul-de-sac. There was no gross remaining disease. The abdomen was copiously irrigated. Gee-seal was placed in the cul-de-sac to ensure hemostasis. All intruments were removed from the abdomen. The fascia was closed with a 1 loop PDS starting at either apex ending in the middle. The fat was irrigated and re approximated with 2-0 plain gut suture. The skin was closed with 4-0 monocryl in a subcuticular stitch. The patient tolerated the procedure well and went to the recovery room in stable condition. Sponge, needle, and instrument counts were correct X 2. Infection Bundle used? No Attestation: Case Date: 05/06/2015 I was present and I participated during the entire procedure (does not need to include opening and closing). GENIE GARCIA MD 05/06/2015 Brief Op Note - Genie Garcia MD - 05/06/2015 6:00 PM EDT Brief Operative Note Patient Name: Neisha White : [id number] MR#: [id number] Case Date: 05/06/2015 Surgeon: Surgeon(s) and Role: * Genie Garcia MD - Primary * Helena Santos MD - Resident-Lesser Role Preoperative diagnosis: OVARIAN CANCER Postoperative diagnosis: OVARIAN CANCER Procedure(s): @HYSTERECTOMY, CHRISTY, BSO, DEBULKING MODIFIER FANG STUDY LAPAROTOMY, EXCISION LESION, PERITONEUM @URETEROLYSIS @OMENECTOMY Argon beam coagulation of pelvic tumor implants Anesthesia: General Findings: The left ovary was enlarged to approximately 20cm. The ovary had solid and cystic components. Tumor was noted to be extending from the ovary and ascending along the course of the infundibulopelvic ligament our of the pelvis. In addition tumor was infiltrating the pelvic peritoneum mostly on the left side and colon mesentery. A portion of the tumor was adherent to the sigmoid colon above thepelvic brim. There was no gross residual disease at the conclusion of the procedure. Complications: none Fluids: 4400 Estimated Blood Loss: 1200 mL UOP: 500 cc Drains: Fox catheter Disposition: awakened from anesthesia, extubated and taken to the recovery room in a stable condition, having suffered no apparent untoward event. Condition: doing well without problems Infection Bundle used? No Attestation: Case Date: 05/06/2015 I was present and I participated during the entire procedure (does not need to include opening and closing). (Please see the Surgical Encounter Summary for any Implant and Specimen details pertinent to this patient.) documented in this encounter Plan of Treatment Upcoming Encounters Date Type Specialty Care Team Description 02/27/2022 Appointment Radiology Marilyn Kidd MD [address] [place] [address] (Wo rk) Pending Results Name Type Priority Associated Diagnoses Date/Ti me FILM LIBRARY-FLUORO OR Imaging Routine 05/06 2:01 PM EDT [id number] ONL Scheduled Orders Name Type Priority Associated Diagnoses Order S chedule FILM LIBRARY-FLUORO Imaging Routine Once PRN (for Radiant use) OR [id number] ONL for 1 O ccurrences starting 05/06/2015 unti l 05/06/2015 documented as of this encounter Procedures Procedure Name Priority Date/Time Associated Comments Diagnosis ECG SCAN 05/13/2015 12:00 AM EDT MAGNESIUM Routine 05/12/2015 4:24 Results for this AM EDT procedure are i n the results section. BASIC METABOLIC PANEL Routine 05/12/2015 4:24 Res ults for this (NON-FASTING) AM EDT procedure are in the results section. MAGNESIUM Routine 05/11/2015 4:37 Results for this AM EDT procedure are i n the results section. BASIC METABOLIC PANEL Routine 05/11/2015 4:37 Res ults for this (NON-FASTING) AM EDT procedure are in the results section. MAGNESIUM Routine 05/10/2015 2:12 Results for this PM EDT procedure are i n the results section. BASIC METABOLIC PANEL Routine 05/10/2015 2:12 Res ults for this (NON-FASTING) PM EDT procedure are in the results section. HEMOGRAM Routine 05/10/2015 3:50 Results for this AM EDT procedure are i n the results section. DIFFERENTIAL, AUTOMATED Routine 05/10/2015 3:50 R esults for this AM EDT procedure are i n the results section. CBC (WITH DIFF) Routine 05/10/2015 3:50 AM EDT POCT GLUCOSE Routine 05/09/2015 6:27 Results for this PM EDT procedure are i n the results section. HEMOGRAM Routine 05/09/2015 4:23 Results for this AM EDT procedure are i n the results section. DIFFERENTIAL, AUTOMATED Routine 05/09/2015 4:23 R esults for this AM EDT procedure are i n the results section. CBC (WITH DIFF) Routine 05/09/2015 4:23 AM EDT HEMOGRAM Routine 05/08/2015 3:33 Results for this AM EDT procedure are i n the results section. DIFFERENTIAL, AUTOMATED Routine 05/08/2015 3:33 R esults for this AM EDT procedure are i n the results section. CBC (WITH DIFF) Routine 05/08/2015 3:33 AM EDT BASIC METABOLIC PANEL Routine 05/08/2015 3:33 Res ults for this (NON-FASTING) AM EDT procedure are in the results section. HEMOGRAM STAT 05/07/2015 5:20 Results for this AM EDT procedure are i n the results section. DIFFERENTIAL, AUTOMATED STAT 05/07/2015 5:20 R esults for this AM EDT procedure are i n the results section. CBC (WITH DIFF) STAT 05/07/2015 5:20 AM EDT BASIC METABOLIC PANEL Routine 05/07/2015 5:20 Res ults for this (NON-FASTING) AM EDT procedure are in the results section. HEMOGRAM Routine 05/06/2015 6:21 Results for this PM EDT procedure are i n the results section. DIFFERENTIAL, AUTOMATED Routine 05/06/2015 6:21 R esults for this PM EDT procedure are i n the results section. CBC (WITH DIFF) Routine 05/06/2015 6:21 PM EDT SPECIMEN TO PATHOLOGY Routine 05/06/2015 4:24 Res ults for this PM EDT procedure are i n the results section. BLOOD GAS 2 ARTERIAL Routine 05/06/2015 4:06 Resu lts for this PM EDT procedure are i n the results section. SPECIMEN TO PATHOLOGY Routine 05/06/2015 3:55 Res ults for this PM EDT procedure are i n the results section. SPECIMEN TO PATHOLOGY Routine 05/06/2015 3:32 Res ults for this PM EDT procedure are i n the results section. SURGICAL PATHOLOGY Routine 05/06/2015 3:11 Result s for this REPORT PM EDT procedure are i n the results section. SPECIMEN TO PATHOLOGY STAT 05/06/2015 3:09 Res ults for this PM EDT procedure are i n the results section. NON-ADAPTIVE PHYSICAL EDUCATION SPECIALIST FINAL REPORT Routine 05/06/2015 2:41 Resu lts for this PM EDT procedure are i n the results section. CYTOPATHOLOGY Routine 05/06/2015 2:41 Results for this NON-GYNECOLOGICAL PM EDT procedure are in the results section. BLOOD GAS 2 ARTERIAL Routine 05/06/2015 2:31 Resu lts for this PM EDT procedure are i n the results section. @OMENECTOMY ([facility] 12.56) Yes 05/06/2015 1:54 OVARIAN CANCE R PM EDT @URETEROLYSIS WITH OR Yes 05/06/2015 1:54 OVARIAN CANCER WITHOUT REPOSITIONING OF PM EDT URETER FOR RETROPERITONEAL FIBROSIS ([facility] 20.64) LAPAROTOMY, EXCISION Yes 05/06/2015 1:54 OVARIAN CANCER LESION, PERITONEUM (VU PM EDT 11.1) MODIFIER FANG STUDY Yes 05/06/2015 1:54 OVARIAN CANCER PM EDT @HYSTERECTOMY, CHRISTY, BSO, Yes 05/06/2015 1:54 OVARIAN CANCE R [facility]T PREPARE RBC Routine 05/06/2015 11:55 Results for this AM EDT procedure are i n the results section. documented in this encounter Results SCAN DOC: ECG (05/13/2015 12:00 AM EDT) Narrative This result has an attachment that is no t available. Scanning Provider MEDIA MGR SCAN EXT ORDR/RSLT Magnesium (05/12/2015 4:24 AM EDT) athologist Signature Magnesium 0.73 0.69 - 1.07 CERNER mmol/L MILLENNIUM Specimen Anatomical Collection Method Collection Time Receive d Time (Source) Location / / Volume Laterality Blood specimen Venous Draw / 05/12/2015 4:24 AM 2014 4:31 (specimen) Unknown EDT AM EDT Resulting Agency Comment Spec In Lab Genie Garcia MD CHEMISTRY ORDERABLES Performing Organization Address City/State/ZIP [place] [address] CERNER MILLENNIUM (ABNORMAL) Basic Metabolic Panel (non-fasting) (05/12/2015 4:24 AM EDT) athologist Signature Glucose Lvl 98 65 - 199 CERNER mg/dL MILLENNIUM Comment: Diabetes: >=200 mg/dL plus symp toms BUN 10 8 - 18 mg/dL CERNER MILLENNIUM Creatinine 0.79 0.70 - 1.20 mg/dL CERNER MILL ENNIUM Comment: Please note that the pediatric reference intervals supplied above were not validated [place] [facility] Results from pediatri c patients should be interpreted in conjunction to the patient's age, height and muscle mass. Sodium 139 135 - 145 mmol/L CERNER SHANTHI NIUM Potassium 3.2 (L) 3.5 - 5.0 mmol/L CERNER SHANTHI NIUM Comment: Please note: ??Patients with WBC >100,00 0 may have falsely elevated Potassium levels. ??For accurate Potassium quantif ication in these patients send serum separator tube (gold top) for subsequent determinations. ??Contact the Clinical Chemistry Laboratory if there are any qu estions. Chloride 101 98 - 107 mmol/L CERNER MILLENN IUM CO2 26 22 - 31 mmol/L CERNER MILLENNI UM Anion Gap 12 5 - 15 mmol/L CERNER MILLENNIU M Calcium 8.2 (L) 8.5 - 10.5 mg/dL CERNER SHANTHI NIUM Estimated GFR >60 >=60 CERNER MILLENNIU M Comment: This estimated [...] the following links into your internet browser. http://GigaTrust/DHnkdep http://GigaTrust/DHMCnkf Specimen Anatomical Collection Method Collection Time Receive d Time (Source) Location / / Volume Laterality Blood specimen 05/12/2015 4:24 AM 015 4:31 (specimen) EDT AM EDT Resulting Agency Comment Spec In Lab Genie Garcia MD CHEMISTRY ORDERABLES Performing Organization Address City/[facility]/ZIP Code Phon e Number [address] CERNER MILLENNIUM Magnesium (05/11/2015 4:37 AM EDT) P athologist Signature Magnesium 0.78 0.69 - 1.07 CERNER mmol/L MILLENNIUM Specimen Anatomical Collection Method Collection Time Receive d Time (Source) Location / / Volume Laterality Blood specimen 05/11/2015 4:37 AM 015 4:49 (specimen) EDT AM EDT Resulting Agency Comment Spec In Lab Genie Garcia MD CHEMISTRY ORDERABLES Performing Organization Address City/[facility]/ZIP [place] [address] CERNER MILLENNIUM (ABNORMAL) Basic Metabolic Panel (non-fasting) (05/11/2015 4:37 AM EDT) athologist Signature Glucose Lvl 83 65 - 199 CERNER mg/dL MILLENNIUM Comment: Diabetes: >=200 mg/dL plus symp toms BUN 11 8 - 18 mg/dL CERNER MILLENNIUM Creatinine 0.92 0.70 - 1.20 mg/dL CERNER MILL ENNIUM Comment: Please note that the pediatric reference intervals supplied above were not validated at [facility] Results from pediatri c patients should be interpreted in conjunction to the patient's age, height and muscle mass. Sodium 141 135 - 145 mmol/L CERNER SHANTHI NIUM Potassium 3.8 3.5 - 5.0 mmol/L CERNER SHANTHI NIUM Comment: Please note: ??Patients with WBC >100,00 0 may have falsely elevated Potassium levels. ??For accurate Potassium quantif ication in these patients send serum separator tube (gold top) for subsequent determinations. ??Contact the Clinical Chemistry Laboratory if there are any qu estions. Chloride 101 98 - 107 mmol/L CERNER MILLENN IUM CO2 20 (L) 22 - 31 mmol/L CERNER MILLENNI UM Anion Gap 20 (H) 5 - 15 mmol/L CERNER MILLENNIU M Calcium 8.2 (L) 8.5 - 10.5 mg/dL CERNER SHANTHI NIUM Estimated GFR >60 >=60 CERNER MILLENNIU M Comment: This estimated [...] the following links into your internet browser. [email or web address] [email or web address] http://GigaTrust/DHnkf Specimen Anatomical Collection Method Collection Time Receive d Time (Source) Location / / Volume Laterality Blood specimen 05/11/2015 4:37 AM 015 4:49 (specimen) EDT AM EDT Resulting Agency Comment Spec In Lab Genie Garcia MD CHEMISTRY ORDERABLES Performing Organization Address City/[facility]/ZIP Code Phon e Number [address] CERNER MILLENNIUM Magnesium (05/10/2015 2:12 PM EDT) athologist Signature Magnesium 0.79 0.69 - 1.07 CERNER mmol/L MILLENNIUM Specimen Anatomical Collection Method Collection Time Receive d Time (Source) Location / / Volume Laterality Blood specimen 05/10/2015 2:12 PM 015 2:30 (specimen) EDT PM EDT Resulting Agency Comment Spec In Lab Genie Garcia MD CHEMISTRY ORDERABLES Performing Organization Address [facility] Code Phon e Number [address] CERNER MILLENNIUM (ABNORMAL) Basic Metabolic Panel (non-fasting) (05/10/2015 2:12 PM EDT) athologist Signature Glucose Lvl 67 65 - 199 CERNER mg/dL MILLENNIUM Comment: Diabetes: >=200 mg/dL plus symp toms BUN 11 8 - 18 mg/dL CERNER MILLENNIUM Creatinine 0.89 0.70 - 1.20 mg/dL CERNER MILL ENNIUM Comment: Please note that the pediatric reference intervals supplied above were not validated at [facility] Results from pediatri c patients should be interpreted in conjunction to the patient's age, height and muscle mass. Sodium 141 135 - 145 mmol/L CERNER SHANTHI NIUM Potassium 3.8 3.5 - 5.0 mmol/L CERNER SHANTHI NIUM Comment: Please note: ??Patients with WBC >100,00 0 may have falsely elevated Potassium levels. ??For accurate Potassium quantif ication in these patients send serum separator tube (gold top) for subsequent determinations. ??Contact the Clinical Chemistry Laboratory if there are any qu estions. Chloride 102 98 - 107 mmol/L CERNER MILLENN IUM CO2 21 (L) 22 - 31 mmol/L CERNER MILLENNI UM Anion Gap 18 (H) 5 - 15 mmol/L CERNER MILLENNIU M Calcium 8.4 (L) 8.5 - 10.5 mg/dL CERNER SHANTHI NIUM Estimated GFR >60 >=60 CERNER MILLENNIU M Comment: This estimated [...] the following links into your internet browser. [email or web address] [email or web address] Specimen Anatomical Collection Method Collection Time Receive d Time (Source) Location / / Volume Laterality Blood specimen 05/10/2015 2:12 PM 015 2:30 (specimen) EDT PM EDT Resulting Agency Comment Spec In Lab Genie Garcia MD CHEMISTRY ORDERABLES Performing Organization Address City/State/ZIP [place] [address] CERNER MILLENNIUM (ABNORMAL) Differential, Automated (05/10/2015 3:50 AM EDT) [facility] Method Time Signature Neutrophils % 79.8 % CERNER MILLENNIUM Neutr Abs (ANC) 5.38 1.50 - CERNER 6.30 MILLENNIUM x10(3)/mcL Lymphocytes % 11.4 % CERNER MILLENNIUM Lymphocytes Abs 0.8 (L) 1.0 - 3.6 CERNER x10(3)/mcL MILLENNIUM Monocytes % 6.2 % CERNER MILLENNIUM Monocyte Abs 0.4 0.2 - 1.0 CERNER x10(3)/mcL MILLENNIUM Eosinophils % 2.5 % CERNER MILLENNIUM Eosinophils Abs 0.2 0.0 - 0.5 CERNER x10(3)/mcL MILLENNIUM Basophils % 0.1 % CERNER MILLENNIUM Basophils Abs 0.0 0.0 [...] Location / / Volume Laterality Blood specimen 05/10/2015 3:50 AM 015 3:57 (specimen) EDT AM EDT Resulting Agency Comment Spec In Lab Genie Garcia MD HEMATOLOGY ORDERABLES Performing Organization Address City/State/ZIP Code Phon e Number [place] [phone] CERNER MILLENNIUM (ABNORMAL) Hemogram (05/10/2015 3:50 AM EDT) P athologist Signature WBC 6.8 4.0 - 10.0 CERNER x10(3)/mcL MILLENNIUM RBC 2.73 (L) 3.93 - CERNER 5.22 MILLENNIUM x10(6)/mcL Hemoglobin 8.0 (L) 11.2 - CERNER 15.7 gm/dL MILLENNIUM Hematocrit 24.9 (L) 34.0 - CERNER 45.0 % MILLENNIUM MCV 91.2 79.0 - CERNER 94.0 fL MILLENNIUM MCH 29.3 26.6 - CERNER 32.2 pg MILLENNIUM MCHC 32.1 32.0 - CERNER 36.5 gm/dL MILLENNIUM Platelets 217 145 - 370 CERNER x10(3)/mcL MILLENNIUM RDWSD 44.8 35.0 - CERNER 46.0 fL MILLENNIUM RDWCV 13.6 10.9 - CERNER 14.4 % MILLENNIUM MPV 10.1 9.0 - 12.0 CERNER fL MILLENNIUM Specimen Anatomical Collection Method Collection Time Receive d Time (Source) Location / / Volume Laterality Blood specimen 05/10/2015 3:50 AM 015 3:57 (specimen) EDT AM EDT Resulting Agency Comment Spec In Lab Genie Garcia MD HEMATOLOGY ORDERABLES Performing Organization Address City/State/ZIP Code Phon e Number [address] CERNER MILLENNIUM POCT Glucose (05/09/2015 6:27 PM EDT) P athologist Signature POC Glucose 75 65 - 199 CERNER mg/dL MILLENNIUM Comment: Supplemental ranges: <140 mg/dL before meals <180 mg/dL all other times of the day Specimen Anatomical Collection Method Collection Time Receive d Time (Source) Location / / Volume Laterality Blood specimen 05/09/2015 6:27 PM 015 6:27 (specimen) EDT PM EDT Genie Garcia MD POINT OF CARE TEST ORDERABLE S Performing Organization Address City/State/ZIP Code Phon e Number [address] CERNER MILLENNIUM (ABNORMAL) Differential, Automated (05/09/2015 4:23 AM EDT) Patholo gist Method Time Signature Neutrophils % 83.6 % CERNER MILLENNIUM Neutr Abs (ANC) 5.71 1.50 - CERNER 6.30 MILLENNIUM x10(3)/mcL Lymphocytes % 7.8 % CERNER MILLENNIUM Lymphocytes Abs 0.5 (L) 1.0 - 3.6 CERNER x10(3)/mcL MILLENNIUM Monocytes % 6.7 % CERNER MILLENNIUM Monocyte Abs 0.5 0.2 - 1.0 CERNER x10(3)/mcL MILLENNIUM Eosinophils % 1.5 % CERNER MILLENNIUM Eosinophils Abs 0.1 0.0 - 0.5 CERNER x10(3)/mcL MILLENNIUM Basophils % 0.3 % CERNER MILLENNIUM Basophils Abs 0.0 0.0 - 0.2 CERNER x10(3)/mcL MILLENNIUM Immature Gran % 0.10 % CERNER MILLENNIUM Comment: Immature granulocytes(IG's)percentage an d absolute count will include metamyelocytes, myelocytes, and promyelo cytes. Blood smears from CBCs yielding IG's will be scanned manually for concor dance. If this scan disagrees with the automated IG or if promyelocytes are not ed, a manual differential will be performed. Nena Gran Abs 0.01 0.00 - 0.05 x10(3)/mcL CER NER MILLENNIUM Specimen Anatomical Collection Method Collection Time Receive d Time (Source) Location / / Volume Laterality Blood specimen 05/09/2015 4:23 AM 015 4:38 (specimen) EDT AM EDT Resulting Agency Comment Spec In Lab Genie Garcia MD HEMATOLOGY ORDERABLES Performing Organization Address City/[facility] [place] [address] CERNER MILLENNIUM (ABNORMAL) Hemogram (05/09/2015 4:23 AM EDT) P athologist Signature WBC 6.8 4.0 - 10.0 CERNER x10(3)/mcL MILLENNIUM RBC 2.65 (L) 3.93 - CERNER 5.22 MILLENNIUM x10(6)/mcL Hemoglobin 7.7 (L) 11.2 - CERNER 15.7 gm/dL MILLENNIUM Hematocrit 23.9 (L) 34.0 - CERNER 45.0 % MILLENNIUM MCV 90.2 79.0 - CERNER 94.0 fL MILLENNIUM MCH 29.1 26.6 - CERNER 32.2 pg MILLENNIUM MCHC 32.2 32.0 - CERNER 36.5 gm/dL MILLENNIUM Platelets 180 145 - 370 CERNER x10(3)/mcL MILLENNIUM RDWSD 45.8 35.0 - CERNER 46.0 fL MILLENNIUM RDWCV 13.8 10.9 - CERNER 14.4 % MILLENNIUM MPV 10.1 9.0 - 12.0 CERNER fL MILLENNIUM Specimen Anatomical Collection Method Collection Time Receive d Time (Source) Location / / Volume Laterality Blood specimen 05/09/2015 4:23 AM 015 4:38 (specimen) EDT AM EDT Resulting Agency Comment Spec In Lab Genie Garcia MD HEMATOLOGY ORDERABLES Performing Organization Address City/[facility]/ZIP [place] [address] CERNER MILLENNIUM (ABNORMAL) Differential, Automated (05/08/2015 3:33 AM EDT) Patholo gist Method Time Signature Neutrophils % 82.4 % CERNER MILLENNIUM Neutr Abs (ANC) 6.79 (H) 1.50 - CERNER 6.30 MILLENNIUM x10(3)/mc L Lymphocytes % 8.7 % CERNER MILLENNIUM Lymphocytes Abs 0.7 (L) 1.0 - 3.6 CERNER x10(3)/mc MILLENNIUM L Monocytes % 8.6 % CERNER MILLENNIUM Monocyte Abs 0.7 0.2 - 1.0 CERNER x10(3)/mc MILLENNIUM L Eosinophils % 0.1 % CERNER MILLENNIUM Eosinophils Abs 0.0 0.0 - 0.5 CERNER x10(3)/mc MILLENNIUM L Basophils % 0.1 % CERNER MILLENNIUM Basophils Abs 0.0 0.0 - 0.2 CERNER x10(3)/mc MILLENNIUM L Immature Gran % 0.10 % CERNER MILLENNIUM Comment: Immature granulocytes(IG's)percentage an d absolute count will include metamyelocytes, myelocytes, and promyelo cytes. Blood smears from CBCs yielding IG's will be scanned manually for concor dance. If this scan disagrees with the automated IG or if promyelocytes are not ed, a manual differential will be performed. Nena Gran Abs 0.01 0.00 - 0.05 x10(3)/mcL CER NER MILLENNIUM Specimen Anatomical Collection Method Collection Time Receive d Time (Source) Location / / Volume Laterality Blood specimen 05/08/2015 3:33 AM 015 3:41 (specimen) EDT AM EDT Resulting Agency Comment Spec In Lab Genie Garcia MD HEMATOLOGY ORDERABLES Performing Organization Address City/State/[place] [address] CERNER MILLENNIUM (ABNORMAL) Hemogram (05/08/2015 3:33 AM EDT) P athologist Signature WBC 8.2 4.0 - 10.0 CERNER x10(3)/mcL MILLENNIUM RBC 2.52 (L) 3.93 - CERNER 5.22 MILLENNIUM x10(6)/mcL Hemoglobin 7.4 (L) 11.2 - CERNER 15.7 gm/dL MILLENNIUM Hematocrit 22.8 (L) 34.0 - CERNER 45.0 % MILLENNIUM MCV 90.5 79.0 - CERNER 94.0 fL MILLENNIUM MCH 29.4 26.6 - CERNER 32.2 pg MILLENNIUM MCHC 32.5 32.0 - CERNER 36.5 gm/dL MILLENNIUM Platelets 165 145 - 370 CERNER x10(3)/mcL MILLENNIUM RDWSD 45.4 35.0 - CERNER 46.0 fL MILLENNIUM RDWCV 13.6 10.9 - CERNER 14.4 % MILLENNIUM MPV 10.5 9.0 - 12.0 CERNER fL MILLENNIUM Specimen Anatomical Collection Method Collection Time Receive d Time (Source) Location / / Volume Laterality Blood specimen 05/08/2015 3:33 AM 015 3:41 (specimen) EDT AM EDT Resulting Agency Comment Spec In Lab Genie Garcia MD HEMATOLOGY ORDERABLES Performing Organization Address City/State/ZIP Code Phon e Number [place] [phone] CERNER MILLENNIUM (ABNORMAL) Basic Metabolic Panel (non-fasting) (05/08/2015 3:33 AM EDT) athologist Signature Glucose Lvl 99 65 - 199 CERNER mg/dL MILLENNIUM Comment: Diabetes: >=200 mg/dL plus symp toms BUN 8 8 - 18 mg/dL CERNER MILLENNIUM Creatinine 0.96 0.70 - 1.20 mg/dL CERNER MILL ENNIUM Comment: Please note that the pediatric reference intervals supplied above were not validated [place] [facility] Results from pediatri c patients should be interpreted in conjunction to the patient's age, height and muscle mass. Sodium 142 135 - 145 mmol/L CERNER SHANTHI NIUM Potassium 4.2 3.5 - 5.0 mmol/L CERNER SHANTHI NIUM Comment: Please note: ??Patients with WBC >100,00 0 may have falsely elevated Potassium levels. ??For accurate Potassium quantif ication in these patients send serum separator tube (gold top) for subsequent determinations. ??Contact the Clinical Chemistry Laboratory if there are any qu estions. Chloride 108 (H) 98 - 107 mmol/L CERNER MILLENN IUM CO2 25 22 - 31 mmol/L CERNER MILLENNI UM Anion Gap 9 5 - 15 mmol/L CERNER MILLENNIU M Calcium 8.0 (L) 8.5 - 10.5 mg/dL CERNER SHANTHI NIUM Estimated GFR 58 (L) >=60 CERNER MILLENNIU M Comment: This [...] the following links into your internet browser. [email or web address] [email or web address] Specimen Anatomical Collection Method Collection Time Receive d Time (Source) Location / / Volume Laterality Blood specimen 05/08/2015 3:33 AM 015 3:41 (specimen) EDT AM EDT Resulting Agency Comment Spec In Lab Genie Garcia MD CHEMISTRY ORDERABLES Performing Organization Address City/State/ZIP Code Phon e Number [place] [phone] CERNER MILLENNIUM (ABNORMAL) Differential, Automated (05/07/2015 5:20 AM EDT) [facility] Method Time Signature Neutrophils % 90.0 % CERNER MILLENNIUM Neutr Abs (ANC) 8.94 (H) 1.50 - CERNER 6.30 MILLENNIUM x10(3)/mc L Lymphocytes % 3.1 % CERNER MILLENNIUM Lymphocytes Abs 0.3 (L) 1.0 - 3.6 CERNER x10(3)/mc MILLENNIUM L Monocytes % 6.7 % CERNER MILLENNIUM Monocyte Abs 0.7 0.2 - 1.0 CERNER x10(3)/mc MILLENNIUM L Eosinophils % 0.0 % CERNER MILLENNIUM Eosinophils Abs 0.0 0.0 - 0.5 CERNER x10(3)/mc MILLENNIUM L Basophils % 0.0 % CERNER MILLENNIUM Basophils Abs 0.0 0.0 - 0.2 CERNER x10(3)/mc MILLENNIUM L Immature Gran % 0.20 % CERNER MILLENNIUM Comment: Immature granulocytes(IG's)percentage an d absolute count will include metamyelocytes, myelocytes, and promyelo cytes. Blood smears from CBCs yielding IG's will be scanned manually for concor dance. If this scan disagrees with the automated IG or if promyelocytes are not ed, a manual differential will be performed. Nena Gran Abs 0.02 0.00 - 0.05 x10(3)/mcL CER NER MILLENNIUM Specimen Anatomical Collection Method Collection Time Receive d Time (Source) Location / / Volume Laterality Blood specimen 05/07/2015 5:20 AM 015 5:26 (specimen) EDT AM EDT Resulting Agency Comment Spec In Lab Genie Garcia MD HEMATOLOGY ORDERABLES Performing Organization Address City/State/ZIP [place] [address] CERNER MILLENNIUM (ABNORMAL) Hemogram (05/07/2015 5:20 AM EDT) P athologist Signature WBC 9.9 4.0 - 10.0 CERNER x10(3)/mcL MILLENNIUM RBC 2.91 (L) 3.93 - CERNER 5.22 MILLENNIUM x10(6)/mcL Hemoglobin 8.6 (L) 11.2 - CERNER 15.7 gm/dL MILLENNIUM Hematocrit 26.3 (L) 34.0 - CERNER 45.0 % MILLENNIUM MCV 90.4 79.0 - CERNER 94.0 fL MILLENNIUM MCH 29.6 26.6 - CERNER 32.2 pg MILLENNIUM MCHC 32.7 32.0 - CERNER 36.5 gm/dL MILLENNIUM Platelets 168 145 - 370 CERNER x10(3)/mcL MILLENNIUM RDWSD 44.0 35.0 - CERNER 46.0 fL MILLENNIUM RDWCV 13.3 10.9 - CERNER 14.4 % MILLENNIUM MPV 10.4 9.0 - 12.0 [facility] Specimen Anatomical Collection Method Collection Time Receive d Time (Source) Location / / Volume Laterality Blood specimen 05/07/2015 5:20 AM 015 5:26 (specimen) EDT AM EDT Resulting Agency Comment Spec In Lab Genie Garcia MD HEMATOLOGY ORDERABLES Performing Organization Address City/State/[place] [address] CERNER MILLENNIUM (ABNORMAL) Basic Metabolic Panel (non-fasting) (05/07/2015 5:20 AM EDT) athologist Signature Glucose Lvl 157 65 - 199 CERNER mg/dL MILLENNIUM Comment: Diabetes: >=200 mg/dL plus symp toms BUN 8 8 - 18 mg/dL CERNER MILLENNIUM Creatinine 0.86 0.70 - 1.20 mg/dL CERNER MILL ENNIUM Comment: Please note that the pediatric reference intervals supplied above were not validated at [facility]. Results from pediatri c patients should be interpreted in conjunction to the patient's age, height and muscle mass. Sodium 139 135 - 145 mmol/L CERNER SHANTHI NIUM Potassium 4.8 3.5 - 5.0 mmol/L CERNER SHANTHI NIUM Comment: Please note: ??Patients with WBC >100,00 0 may have falsely elevated Potassium levels. ??For accurate Potassium quantif ication in these patients send serum separator tube (gold top) for subsequent determinations. ??Contact the Clinical Chemistry Laboratory if there are any qu estions. Chloride 106 98 - 107 mmol/L CERNER MILLENN IUM CO2 25 22 - 31 mmol/L CERNER MILLENNI UM Anion Gap 8 5 - 15 mmol/L CERNER MILLENNIU M Calcium 7.6 (L) 8.5 - 10.5 mg/dL CERNER SHANTHI NIUM Estimated GFR >60 >=60 CERNER MILLENNIU M Comment: This estimated [...] the following links into your internet browser. [email or web address] [email or web address] Specimen Anatomical Collection Method Collection Time Receive d Time (Source) Location / / Volume Laterality Blood specimen 05/07/2015 5:20 AM 015 5:26 (specimen) EDT AM EDT Resulting Agency Comment Spec In Lab Genie Garcia MD CHEMISTRY ORDERABLES Performing Organization Address City/State/ZIP [place] [address] CERNER MILLENNIUM (ABNORMAL) Differential, Automated (05/06/2015 6:21 PM EDT) [facility] gist Method Time Signature Neutrophils % 91.9 % CERNER MILLENNIUM Neutr Abs (ANC) 9.37 (H) 1.50 - CERNER 6.30 MILLENNIUM x10(3)/mc L Lymphocytes % 4.4 % CERNER MILLENNIUM Lymphocytes Abs 0.4 (L) 1.0 - 3.6 CERNER x10(3)/mc MILLENNIUM L Monocytes % 3.3 % CERNER MILLENNIUM Monocyte Abs 0.3 0.2 - 1.0 CERNER x10(3)/mc MILLENNIUM L Eosinophils % 0.1 % CERNER MILLENNIUM Eosinophils Abs 0.0 0.0 - 0.5 CERNER x10(3)/mc MILLENNIUM L Basophils % 0.2 % CERNER MILLENNIUM Basophils Abs 0.0 0.0 - 0.2 CERNER x10(3)/mc MILLENNIUM L Immature Gran % 0.10 % CERNER MILLENNIUM Comment: Immature granulocytes(IG's)percentage an d absolute count will include metamyelocytes, myelocytes, and promyelo cytes. Blood smears from CBCs yielding IG's will be scanned manually for concor dance. If this scan disagrees with the automated IG or if promyelocytes are not ed, a manual differential will be performed. Nena Gran Abs 0.01 0.00 - 0.05 x10(3)/mcL CER NER MILLENNIUM Specimen Anatomical Collection Method Collection Time Receive d Time (Source) Location / / Volume Laterality Blood specimen 05/06/2015 6:21 PM 015 6:31 (specimen) EDT PM EDT Resulting Agency Comment Spec In Lab Genie Garcia MD HEMATOLOGY ORDERABLES Performing Organization Address City/[facility]/ZIP [place] [address] CERNER MILLENNIUM (ABNORMAL) Hemogram (05/06/2015 6:21 PM EDT) P athologist Signature WBC 10.2 (H) 4.0 - 10.0 CERNER x10(3)/mcL MILLENNIUM Comment: WBC, H-H AND PLT CALLED TO DENI ROMERO (PACU) @ 19:04 05-06-15 RBC 2.94 (L) 3.93 - 5.22 x10(6)/mcL CERNER MILLENNIUM Hemoglobin 8.7 (L) 11.2 - 15.7 gm/dL CERNER MILL ENNIUM Hematocrit 26.2 (L) 34.0 - 45.0 % CERNER MILLENNI UM MCV 89.1 79.0 - 94.0 fL CERNER MILLENNI UM MCH 29.6 26.6 - 32.2 pg CERNER MILLENNI UM MCHC 33.2 32.0 - 36.5 gm/dL CERNER MILLE NNIUM Platelets 216 145 - 370 x10(3)/mcL CERNER AL LLENNIUM RDWSD 43.5 35.0 - 46.0 fL CERNER MILLENNI UM RDWCV 13.2 10.9 - 14.4 % CERNER MILLENNIU M MPV 10.6 9.0 - 12.0 fL CERNER MILLENNIU M Specimen Anatomical Collection Method Collection Time Receive d Time (Source) Location / / Volume Laterality Blood specimen 05/06/2015 6:21 PM 015 6:31 (specimen) EDT PM EDT Resulting Agency Comment Spec In Lab Genie Garcia MD HEMATOLOGY ORDERABLES Performing Organization Address City/[facility]/ZIP [place] [address] CERNER MILLENNIUM Specimen to Pathology (surgical or derm) (05/06/2015 4:24 PM EDT) Specimen Anatomical Collection Method Collection Time Receive d Time (Source) Location / / Volume Laterality AP Specimen 05/06/2015 4:24 PM 5 4:24 EDT PM EDT Narrative CERNER MILLENNIUM - 05/06/2015 4:24 PM E DT Specimen requisition ordered. ??Separate Pathology report to follow Genie Garcia MD PATHOLOGY/CYTOLOGY ORDERABLE S Performing Organization Address City/State/ZIP Code Phon e Number [place] [phone] CERNER MILLENNIUM (ABNORMAL) BLOOD GAS 2 ARTERIAL (05/06/2015 4:06 PM EDT) Analysis Performed At Patho logist Time Signature pH Art 7.42 CERNER MILLENNIUM pCO2 Art 33 (L) mmHg CERNER MILLENNIUM pO2 Art 262 (H) mmHg CERNER MILLENNIUM HCO3 Art 20.9 mmol/L CERNER MILLENNIUM BE Art -3.6 (L) mmol/L CERNER MILLENNIUM Hgb Blood Gas 9.3 (L) gm/dL CERNER MILLENNIUM O2HB Art 98.6 (H) % CERNER MILLENNIUM COHB Art 0.3 % CERNER MILLENNIUM Comment: Nonsmokers: 0.5-1.5% COHB Smokers: Variable, but usually less than 10% Toxic: 20-30% COHB Lethal: Greater than 60% COHB METHB Art 0.2 % CERNER MILLENNIUM Na Whole Blood 135 mmol/L CERNER MILLENNI UM K Whole Blood 3.6 mmol/L CERNER MILLENNIU M Comment: Please note: Patients with WBC >100,000 may have falsely elevated Potassium levels. Contact the Clinical Chemistry L aboratory if there are any questions. ICa Whole Blood 1.06 (L) mmol/L CERNER MILLENN IUM Comment: Note: ??Total bilirubin higher than 20 m g/dL may lead to falsely low ionized calcium. CL Whole Blood 112 (H) mmol/L CERNER MILLENNI UM Gluc Whole Bld 115 mg/dL CERNER MILLENNI UM Comment: Diabetes: >=200 mg/dL plus symp toms. Specimen Anatomical Collection Method Collection Time Receive d Time (Source) Location / / Volume Laterality Blood specimen 05/06/2015 4:06 PM 015 4:06 (specimen) EDT PM EDT Authorizing Provider Result Nae Garcia MD CHEMISTRY ORDERABLES Performing Organization Address City/[facility]/ZIP [place] [address] [facility] Specimen to Pathology (surgical or derm) (05/06/2015 3:55 PM EDT) Specimen Anatomical Collection Method Collection Time Receive d Time (Source) Location / / Volume Laterality AP Specimen 05/06/2015 3:55 PM 5 3:55 EDT PM EDT Narrative [facility] 05/06/2015 3:55 PM E DT Specimen requisition ordered. ??Separate Pathology report to follow Authorizing Provider Result Nae Garcia MD PATHOLOGY/CYTOLOGY ORDERABLE S Performing Organization Address [facility]/ZIP [place] [address] [facility] Specimen to Pathology (surgical or derm) (05/06/2015 3:32 PM EDT) Specimen Anatomical Collection Method Collection Time Receive d Time (Source) Location / / Volume Laterality AP Specimen 05/06/2015 3:32 PM 5 3:32 EDT PM EDT Narrative [facility] - 05/06/2015 3:32 PM E DT Specimen requisition ordered. ??Separate Pathology report to follow Authorizing Provider Result Nae Garcia MD PATHOLOGY/CYTOLOGY ORDERABLE S Performing Organization Address City/[facility]/ZIP [place] [address] [facility] Surgical Pathology Report (05/06/2015 3:11 PM EDT) Component Value Ref Test Analysis Performed At [facility] gist Range Method Time Signature Surgical The signing pathologist has (i) examined the relevant preparation(s) for the [facility] Pathology specimen(s) and (ii) rendered or confirmed the diagnosis(e s). [facility] Report Accession Number: [id number] ?Location: 1 WST; 0110; A . ? Addendum ADDENDUM DISCUSSION This case has been reviewed by Parveen Landry MD of [facility] ([facility]) by report dated 05/22/2015 with the accession number [id number]. The [facility] ([facility]) diagnosis is in agreement with our diagnosis. ??For the full text of the [facility] re port(s) please refer to Non- Documentation Pathology in the electronic health record (eDH). 05/23/15 DNT 05/24/15 Verified by: ? Penny BETANCOURT, Pee Bowen. ?Pathologist ?(Electronic Signature ) The attending pathologist whose signature appears on this re port has reviewed all diagnostic slides and has edited the gross and/ or microscopic portion of the report in jorge dering the final pathologic diagnosis. 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 ?2 - Fallopian tube without histopathological abnormali ty. [id number]: A3,A4 TNM Staging (AJCC, 7th ed., 2009): Primary tumor stage: ?pT2b [IIB] (Extension and/or im plants ? to pelvic tiss ues, excluding ? uterus and fal lopian tube) Regional lymph nodes: ? pNX ??(Cannot be assessed) Distant metastasis: ? pMX ??(Not applicable or not as sessed) B - Uterus, cervix, right ovary and fallopian tube, resectio n: ?1 - Small focus of high-grade carcinoma in the right o vary (see ?Discussion). ?2 - Fallopian tube without histopathological abnormali ty. ?3 - Benign atrophic endometrium. ?4 - Nabothian cysts, cervix. C - Omentum, resection: ?Benign lobulated adipose tissue, negative for malignan cy. 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 . DIAGNOSIS CR-0 05/10/15 ARS 05/10/15 Verified by: ? Penny BETANCOURT, Pee Overton ?Pathologist ?(Electronic Signature ) The attending pathologist whose signature appears on this re port has reviewed all diagnostic slides and has edited the gross and/ or microscopic portion of the report in jorge dering the final pathologic diagnosis. DISCUSSION The right ovary contains a s mall focus of high-grade carcinoma in the outer cortex. Although this focus suggest s a possible metastasis from the left ovary, two adjacent cortical cysts contain foci of intracystic carcinoma, with either tumor spread along the adjacent cyst lining or in situ change. ??Thus, the possibility of a second small primary carcinoma in the right ovary is not excluded. ADDITIONAL STUDIES Whole slide scan: [id number] S [id number] [id number] S [id number] [id number] S [id number] [id number] CLINICAL INFORMATION Specimen Submitted: A - Left tube and ovary for frozen section B - Uterus, cervix, right tube and ovary C - Omentum D - Pelvic tumor Clinical History: Ovarian cancer Clinical Diagnosis: Same FROZEN SECTION Frozen section(s) performed. ??Please refer to separate electronic frozen section report(s). SPECIMEN PROCESSING A - Labeled/Fixative: Left tube and ovary, fresh. Quantity/Size: Single, 16.5 x 4.0 x 6.0 cm, 696 grams. Tissue Description: Ovary wi th attached 7.5 x 0.7 cm fallopian tube. The external surface of the ovary is smooth, porras and glistening. There is an approximately 5 x 6 cm defect in the ovary through which tumor and blood clot extrudes. The cut surface of the ovary demonstrates a solid, light -porras, glistening and bosselated tumor, which is slightly soft. The cut surface also demonstrates numerous areas of hemorrhage, tumor necrosis, and cystic spaces. The cystic s paces are lined by a smooth wall and contain a clear, yellow fluid. Sections/Processing: (1) fro jeff section; (2-16) sales representative education courses sections of tumor; (17) sales representative education courses sections of fallopian tube. (R17) B - Labeled/Fixative: Uterus, cervix, right tube and ovary, fresh. Quantity/Size: Single, 8.5 x 6.9 x 1.5 cm. Tissue Description: Uterus w ith attached cervix and right fallopian tube and ovary. The ovary is 2.2 x 1.3 x 0.7 cm , is yellow-porras, cerebriform in configuration and has a cut surface that is variegated porras and cream-colored and is firm. There is a small, 0.5 cm in . SPECIMEN PROCESSING greatest dimension, smooth- lined cyst within the ovary. The right fallopian tube is 5.2 x 0.5 cm, is tortuous, and bustillo s a smooth, purple and glistening outer surface. The uterine body is 4.0 x 3.5 x 1.5 cm; it has a purple, smooth and glistening serosal surface. The attached cervix is 3.0 x 2.5 x 1.7 cm; it has a light-porras, smooth ectocervix with transition to a slightly da rker and folded endocervix. No ulcerations or masses are seen in the cervix or uterine ca vity. The myometrium averages 0.8 cm and is a homogeneous porras firm. Sections/Processing: (1) rig ht ovary; (2) right fallopian tube; (3) posterior cervix; (4) anterior cervix; (5) trust officer ior endomyometrium; (6) anterior endomyometrium. (R6) C - Labeled/Fixative: Omentum, fresh. Quantity/Size: Single, 33.5 x 5.5 x 2.2 cm. Tissue Description: Portion of omental adipose tissue. No masses are identified. Sections/Processing: (R2) D - Labeled/Fixative: Pelvic tumor, fresh. Quantity/Size: Multiple, 5.5 x 5.0 x 3.5 cm in aggregate. Tissue Description: Fragment s of brown and porras soft tissue fragments that have a partially smooth and partially roughe pippa outer surface and a cut surface that is solid and cystic. The cystic portions are def lated, but appear multiloculated and lined by a smooth wall. The solid portions are vari egated bartlett, brown and porras. There are areas with adherent blood clot. No recognizable structures are identified. Sections/Processing: (R5) ??nsm ?Fro jeff Section FROZEN SECTION DIAGNOSIS AFS - Left tube and ovary: High-grade malignancy, consider p ossible ?carcinosarcoma, high-grade primary ovarian carcinom a, metastatic ?carcinoma; defer to permanents (ARS) 05/06/15 15:40 05/06/15 ??Verified by: ??Penny BETANCOURT, Pee Overton, Pathologist The attending pathologist whose electronic signature appea rs on this report has reviewed all diagnostic slides in rendering the frozen section diagnosis. This intraoperative consultation should be interpreted as a preliminary diagnosis pending review of the entire specimen and sp ecial studies, if any. Specimen (Source) Anatomical Collection Method Collection Time Re ceived Time Location / / Volume Laterality 05/06/2015 3:11 PM EDT Authorizing Provider Result Nae Garcia MD PATHOLOGY/CYTOLOGY ORDERABLE S Performing Organization Address City/State/[facility] [place] [address] [facility] Specimen to Pathology (surgical or derm) (05/06/2015 3:09 PM EDT) Specimen Anatomical Collection Method Collection Time Receive d Time (Source) Location / / Volume Laterality AP Specimen 05/06/2015 3:09 PM 5 3:09 EDT PM EDT Narrative SUSHIL PALACIOSENNIUM - 05/06/2015 3:09 PM E DT Specimen requisition ordered. ??Separate Pathology report to follow Genie Garcia MD PATHOLOGY/CYTOLOGY ORDERABLE S Performing Organization Address [facility] [place] [address] SUSHIL [facility] Non-Order Checker Final Report (05/06/2015 2:41 PM EDT) Component Value Ref Test Analysis Performed At [facility] Range Method Time Signature Non-Order Checker The signing pathologist has (i) examined the relevant preparation(s) for the [facility] Final Report specimen(s) and (ii) rendered or confirmed the diagnosis (es). [facility] Accession Number: [id number] ?Location: 1 WST; 0110; A . ? No n-Order Checker Final DIAGNOSIS Atypical 05/07/15 ?Screened by: ? SLA ?Rescreened by: ?? EJKaris,EJG 05/11/15 ?Verified by: ? Juan Carlos BETANCOURT, Giovanni Zayas ? Cytopathologis t ? (Electronic Si gnature) DISCUSSION Ascites: A few atypical cells noted. (Cell block findings were incorporated into the diagnosis.) CLINICAL INFORMATION Specimen Source: ?? Ascites Pertinent Clinical Data and Significant Therapy: ?? Ovarian cancer Clinical Impression: ?? Ovarian cancer Pertinent Radiologic Findings: ?? (not provided) Gross Description: ?? Received fresh, approximately 20 ml. total volume of blo alyssa fluid. ?? Total Preparation: Liquid Based Prep 1; Cell Block 1. Specimen (Source) Anatomical Collection Method Collection Time Re ceived Time Location / / Volume Laterality 05/06/2015 2:41 PM EDT Genie Garcia MD PATHOLOGY/CYTOLOGY ORDERABLE S Performing Organization Address City/[facility]/ZIP Code Phon e Number ESTEVAN [place] [id number] [facility] [address] CERNER MILLENNIUM Cytopathology Non-Gynecological (05/06/2015 2:41 PM EDT) Specimen Anatomical Collection Method Collection Time Receive d Time (Source) Location / / Volume Laterality AP Specimen 05/06/2015 2:41 PM 5 2:41 EDT PM EDT Narrative CERNER MILLENNIUM - 05/06/2015 2:41 PM E DT Specimen requisition ordered. ??Separate Pathology report to follow Genie Garcia MD PATHOLOGY/CYTOLOGY ORDERABLE S Performing Organization Address City/State/ZIP Code Phon e Number [address] CERNER MILLENNIUM (ABNORMAL) BLOOD GAS 2 ARTERIAL (05/06/2015 2:31 PM EDT) Analysis Performed At Patho logist Time Signature pH Art 7.49 (H) CERNER MILLENNIUM pCO2 Art 31 (L) mmHg CERNER MILLENNIUM pO2 Art 300 (H) mmHg CERNER MILLENNIUM HCO3 Art 23.4 mmol/L CERNER MILLENNIUM BE Art 0.1 mmol/L CERNER MILLENNIUM Hgb Blood Gas 10.9 (L) gm/dL CERNER MILLENNIUM O2HB Art 98.8 (H) % CERNER MILLENNIUM COHB Art 0.4 % CERNER MILLENNIUM Comment: Nonsmokers: 0.5-1.5% COHB Smokers: Variable, but usually less than 10% Toxic: 20-30% COHB Lethal: Greater than 60% COHB METHB Art 0.2 % CERNER MILLENNIUM Na Whole Blood 137 mmol/L CERNER MILLENNI UM K Whole Blood 4.0 mmol/L CERNER MILLENNIU M Comment: Please note: Patients with WBC >100,000 may have falsely elevated Potassium levels. Contact the Clinical Chemistry L aboratory if there are any questions. ICa Whole Blood 1.17 mmol/L CERNER MILLENN IUM Comment: Note: ??Total bilirubin higher than 20 m g/dL may lead to falsely low ionized calcium. CL Whole Blood 105 mmol/L CERNER MILLENNI UM Gluc Whole Bld 86 mg/dL CERNER MILLENNI UM Comment: Diabetes: >=200 mg/dL plus symp toms. Specimen Anatomical Collection Method Collection Time Receive d Time (Source) Location / / Volume Laterality Blood specimen 05/06/2015 2:31 PM 015 2:31 (specimen) EDT PM EDT Genie Garcia MD CHEMISTRY ORDERABLES Performing Organization Address City/[facility]/ZIP [place] [address] [email or web address] Prepare RBC (05/06/2015 11:55 AM EDT) athologist Signature Dispensed? Yes [facility] CV [facility] Specimen Anatomical Collection Method Collection Time Receive d Time (Source) Location / / Volume Laterality Blood specimen 05/06/2015 11:55 5 (specimen) AM EDT 11:55 AM EDT Resulting Agency Comment Spec In Lab Genie Garcia MD BLOOD BANK ORDERABLES Performing Organization Address City/[facility] Code Phon e Number [address] [facility] Access [facility] documented in this encounter Visit Diagnoses Diagnosis Pelvic mass - Primary Abdominal or pelvic swelling, mass or jessica mp, unspecified site documented in this encounter Administered Medications Inactive Administered Medications - up to 3 most recent administrations Medication Order MAR Action Action Date Dose Rate Site acetaminophen (TYLENOL) tablet 650 Given 05/12/2015 3:14 AM EDT 650 mg mg 650 mg, Oral, EVERY 6 HOURS, First dose on Wed05/06/15 at 1900, Until Discontinued, Use acetaminophen first, Routine Given 05/11/2015 8:11 PM EDT 650 mg Given 05/11/2015 1:00 PM EDT 650 mg enoxaparin (LOVENOX) injection 40 mg Given 05/10/2015 9:00 PM EDT 40 mg 40 mg, Subcutaneous, EVERY 24 HOURS SCHEDULED (Daily), First dose on Wed05/07/15 at 2100, Until Discontinued, Routine Given 05/09/2015 9:59 PM EDT 40 mg Given 05/08/2015 9:02 PM EDT 40 mg ePHEDrine Sulfate in sodium chloride 0.9% (PF) 50 Given 04/25 6:00 PM EDT mg/10 mL (5 mg/mL) injection Syrg Starting on Wed05/06/15 at 1745, 1 dose, Until Wed05/06/15 at 1800, [facility]: angelinavel loirhett esomeprazole (NexIUM) capsule 40 mg Given 05/12/2015 8:59 AM EDT 40 mg 40 mg, Oral, DAILY, First dose on Wed05/11/15 at 0900, Until Discontinued, Routine Given 05/11/2015 10:00 AM EDT 40 mg esomeprazole (NexIUM) injection 40 mg Given 05/10/2015 10:48 PM EDT 40 mg 40 mg, Intravenous, ONCE, 1 dose, On Wed05/10/15 at 2215 fentaNYL 50mcg/mL injection Given 05/06/2015 1:33 PM EDT 25 mcg 12.5-50 mcg, Intravenous, EVERY 1 MIN PRN, Starting on Wed05/06/15 at 1219, Until Wed05/06/15 at 2140, for epidural placement only, Day of Surgery (Day of Procedure), Routine Given 05/06/2015 1:14 PM EDT 25 mcg Given 05/06/2015 1:06 PM EDT 25 mcg HYDROmorphone (DILAUDID) 1 mg/mL New Syringe/Cartridge 05/06/2015 7:3 2 PM EDT CUSTOMER SERVICE ADVISOR 30 mL Intravenous, CUSTOMER SERVICE ADVISOR ONLY, Starting on Wed05/06/15 at 1900, Until Wed05/08/15 at 0754, Recovery (Recovery-Hospital Unit) HYDROmorphone (DILAUDID) injection 0.2 m g Given 05/06/2015 1:43 PM EDT 0.2 mg 0.2 mg, Epidural, ONCE, 1 dose, On Wed05/06/15 at 1245, Day of Surgery (Day of Procedure), Routine ibuprofen (ADVIL;MOTRIN) tablet 600 mg Given 05/12/2015 8:56 AM EDT 600 mg 600 mg, Oral, EVERY 6 HOURS, First dose (after last modification) on Wed05/08/15 at 0815, Until Discontinued, Administer orally with milk or food to minimize GI irritation. Maximum dose of 3200 mg from all sources in 24 hours, Routine Given 05/11/2015 9:26 PM EDT 600 mg Given 05/11/2015 3:36 PM EDT 600 mg ketorolac (TORADOL) injection 15 mg Given 05/08/2015 6:33 AM EDT 15 mg 15 mg, Intravenous, EVERY 6 HOURS SCHEDULED, 8 doses, First dose on Wed05/07/15 at 1030, Last dose on Wed05/09/15 at 0600, Routine Given 05/08/2015 12:53 AM EDT 15 mg Given 05/07/2015 6:23 PM EDT 15 mg lactated ringers 500 mL IV bolus Given 05/07/2015 5:06 AM EDT Intravenous, ONCE, 1 dose, On Wed05/07/15 at 0515 lactated ringers infusion 1,000 New Bag 05/07/2015 8:48 PM EDT 1,000 mLs 100 mL/hr mL 1,000 mL, at 100 mL/hr, Intravenous, CONTINUOUS, Starting on Wed05/06/15 at 1900, Until Wed05/08/15 at 0649 New Bag 05/07/2015 3:39 AM EDT 1,000 mLs 100 mL/hr New Bag 05/06/2015 7:20 PM EDT 1,000 mLs 100 mL/hr lactated ringers infusion New Bag 05/10/2015 1:41 PM EDT 125 mL/hr 125 mL/hr 125 mL/hr, Intravenous, CONTINUOUS, Starting on Wed05/10/15 at 1345, Until Wed05/10/15 at 2144 ondansetron (ZOFRAN) injection 4 mg Given 05/10/2015 5:45 AM EDT 4 mg 4 mg, Intravenous, EVERY 8 HOURS PRN, Starting on Wed05/07/15 at 0553, Until Wed05/10/15 at 1217, Nausea, Routine Given 05/09/2015 7:03 PM EDT 4 mg ondansetron (ZOFRAN) injection 4 mg Given 05/09/2015 9:23 PM EDT 4 mg 4 mg, Intravenous, ONCE, 1 dose, On Wed05/09/15 at 2130, Routine ondansetron (ZOFRAN-ODT) oral disintegrating Given 05/10/2015 9: 56 AM EDT 4 mg tablet 4 mg 4 mg, Oral, ONCE, 1 dose, On Wed05/10/15 at 1015, Routine ondansetron (ZOFRAN-ODT) oral disintegrating Given 05/11/2015 5: 46 AM EDT 4 mg tablet 4 mg 4 mg, Oral, EVERY 8 HOURS SCHEDULED, 3 doses, First dose on Wed05/10/15 at 1400, Last dose on Wed05/11/15 at 0600, Routine Given 05/10/2015 9:00 PM EDT 4 mg Given 05/10/2015 1:17 PM EDT 4 mg oxyCODONE (ROXICODONE) immediate release tablet Given 05/09/2015 2:34 AM EDT 5 mg 5-10 mg 5-10 mg, Oral, EVERY 4 HOURS PRN, Starting on Wed05/08/15 at 0649, Until Alejandra 05/09/15 at 0610, Pain, give 5 mg for pain scale 4-6/10, give 10mg for pain scale >6/10, Routine Given 05/09/2015 2:05 AM EDT 5 mg Given 05/08/2015 7:44 PM EDT 5 mg oxyCODONE (ROXICODONE) immediate release Given 05/09/2015 11:24 AM EDT 5 mg tablet 5-10 mg 5-10 mg, Oral, EVERY 3 HOURS PRN, Starting on Wed05/09/15 at 0615, Until Wed05/12/15 at 1250, Pain, give 5 mg for pain scale 4-6/10, give 10mg for pain scale >6/10, Routine Given 05/09/2015 7:14 AM EDT 5 mg PHENYLephrine Rate/Dose Change 05/06/2015 7:33 PM 20 mcg/min 15 mL/hr (STEVEN-SYNEPHRINE) 20 mg in EDT sodium chloride 250 mL (standard ADULT & Katie greater than 20kg) infusion 40 mcg/min (30 mL/hr), Intravenous, CONTINUOUS, Starting on Wed05/06/15 at 1815, Until Wed05/06/15 at 2140, May titrate between 10-50 mcg/min to keep SBP> 100., PACU Recovery, Routine Rate/Dose Change 05/06/2015 7:24 PM EDT 30 mcg/min 22.5 mL/hr New Bag 05/06/2015 6:45 PM EDT 40 mcg/min 30 mL/hr PHENYLephrine HCl in NS (PF) (STEVEN-SYNEPHRINE) 20 mg/25 0 mL (80 mcg/mL) infusion Soln 1 dose, Starting on Wed05/06/15 at 1743 , Until Wed05/06/15 at 1833, SHERRI BUSH: cabinet override potassium chloride (K-DUR/KLOR-CON) extended Given 8:57 AM EDT 40 mEq release tablet 40 mEq 40 mEq, Oral, ONCE, 1 dose, On 05/12/15 at 0700, 20 mEq tablet may be dissolved in water for administration, Routine prochlorperazine (COMPAZINE) injection 1 0 mg Given 05/10/2015 11:08 AM EDT 10 mg 10 mg, Intravenous, ONCE, 1 dose, On Wed05/10/15 at 1130, Routine prochlorperazine (COMPAZINE) injection 1 0 mg Given 05/10/2015 10:17 PM EDT 10 mg 10 mg, Intravenous, EVERY 8 HOURS PRN, Starting on Wed05/10/15 at 2159, Until 05/12/15 at 1250, Nausea, Routine senna-docusate (PERICOLACE) 8.6-50 mg per Given 2014 9:06 AM EDT 2 tablets tablet 2 tablet 2 tablet, Oral, 2 TIMES DAILY, First dose on Wed05/07/15 at 0900, Until Discontinued, Routine Given 05/11/2015 9:26 PM EDT 2 tablets Given 05/11/2015 10:01 AM EDT 2 tablets simethicone (MYLICON) chewable tablet 40 mg Given 05/10/2015 5:30 AM EDT 40 mg 40 mg, Oral, EVERY 6 HOURS PRN, Starting on Wed05/09/15 at 1327, Until Wed05/12/15 at 1250, Cramping, Routine Given 05/09/2015 6:07 PM EDT 40 mg sodium chloride 0.9 % flush 5 mL Given 05/12/2015 9:00 AM EDT 5 mLs 5 mL, Intravenous, 2 TIMES DAILY, First dose on Wed05/07/15 at 0900, Until Discontinued, Routine Given 05/11/2015 9:29 PM EDT 5 mLs Given 05/11/2015 10:03 AM EDT 5 mLs documented in this encounter Active and Recently Administered Medications Times are shown in EDT. Scheduled Medication Order 05/10/2015 05/11/2015 05/12/2015 acetaminophen (TYLENOL) tablet 650 mg 0037 (Given - Pr ovider: Angelia Rosa)0853 (Given - Provider: Keysha Dean RN)1316 (Given - Provider: Keysha Dean RN)1923 (Given - Provider: Keysha Dean RN) 0100 (Not Given - Provider: Erin Martini RN - Reason: Patient Unable - Comment: Pt asleep, looks comfortable, asked not to be awoken for pain meds per earlier discussion)0742 (Given - Provider: Erin Martini RN) 0314 (Given - Provider: Cyndee Honeycutt, RN)0900 (Due - Provider: Cyndee Honeycutt RN) 650 mg, Oral, EVERY 6 HOURS, First dose on Wed05/06/15 at 1900, Until Discontinued, Use acetaminophen first, Routine 1300 (G iven - Provider: Chelsea Anderson, RN)2010 (Given - Provider: Cyndee Honeycutt, EVER) enoxaparin (LOVENOX) injection 40 mg (CANCELED) 2100 ( Given - Provider: Erin Martini RN) 2100 (Not Given - Provider: Cyndee Honeycutt RN - Reason: See comment - Comment: patient declined; has been very ambulatory; wearing SCDs at night) 40 mg, Subcutaneous, EVERY 24 HOURS SCHE DULED (Daily), First dose on Wed05/07/15 at 2100, Until Discontinued, Routine esomeprazole (NexIUM) capsule 40 mg (CANCELED) 1000 (Given - Provider: Olivia Beavers RN) 0859 (Given - Provider: Olivia pitts RN) 40 mg, Oral, DAILY, First dose on Wed at 0900, Until Discontinued, Routine esomeprazole (NexIUM) injection 40 mg (COMPLETED) 2247 (Given - Provider: Erin Martini RN) 40 mg, Intravenous, ONCE, 1 dose, Wed05/10/15 at 2215 ibuprofen (ADVIL;MOTRIN) tablet 600 mg 0350 (Given - P rovider: Angelia Rosa)1055 (Given - Provider: Keysha Dean RN)1621 (Given - Provider: Keysha Dean RN)2200 (Not Given - Provider: Erin Martini RN - Reason: Patient Unable - Comment: Pt nauseous, vomiting) 0400 (Not Given - Provider: Erin Martini RN - Reason: Patient/family refused)1000 (Given - Provider: Olivia Beavers RN)1536 (Given - Provider: Olivia Beavers RN)2126 (Given - Provider: Cyndee Honeycutt RN) 0856 (Given - Provider: Olivia pitts RN) 600 mg, Oral, EVERY 6 HOURS, First dose on Wed05/08/15 at 0815, Until Discontinued, Administer orally with milk or food to minimize GI irritation. Maximum dose of 3200 mg from all sources in 24 hours, Routine ondansetron (ZOFRAN-ODT) oral disintegrating tablet 4 mg (COMPLETED) 0956 (Given - Provider: Keysha Dean RN) 4 mg, Oral, ONCE, 1 dose, Wed05/10/15 at 1015, Routine ondansetron (ZOFRAN-ODT) oral disintegrating tablet 4 mg (COMPLETED) 1317 (Given - Provider: Keysha Dean RN)2100 (Given - Provider: Erin Martini RN) 0546 (Given - Provider: Erin Martini RN) 4 mg, Oral, EVERY 8 HOURS SCHEDULED, 3 d oses, First dose on Wed05/10/15 at 1400, Last dose on Wed05/11/15 at 0600, Routine potassium chloride (K-DUR/KLOR-CON) extended release tablet 40 mEq (COMPLETED) 08 (Given - Provider: Olivia pitts RN) 40 mEq, Oral, ONCE, 1 dose, Wed05/12/15 at 0700, 20 mEq tablet may be dissolved in water for administration, Routine prochlorperazine (COMPAZINE) injection 10 mg (COMPLETE D) 1108 (Given - Provider: Keysha Dean RN) 10 mg, Intravenous, ONCE, 1 dose, Wed05/10/15 at 1130, Routine senna-docusate (PERICOLACE) 8.6-50 mg per tablet 2 tab let 0854 (Given - Provider: Keysha Dean RN)2100 (Not Given - Provider: Erin Martini RN - Reason: Patient Unable - Comment: Pt nauseous/vomiting.) 1001 (Given - Provider: Olivia Beavers RN)212 (Given - Provider: Cyndee Honeycutt RN) 0906 (Given - Provider: Olivia Beavers RN) 2 tablet, Oral, 2 TIMES DAILY, First dos e on Wed05/07/15 at 0900, Until Discontinued, Routine sodium chloride 0.9 % flush 5 mL (CANCELED) 0854 (Give n - Provider: Keysha Dean RN)2115 (Given - Provider: Erin Martini, RN) 1003 (Given - Provider: Olivia Beavers, RN)2129 (Given - Provider: Cyndee Honeycutt, RN) 0900 (Given - Provider: Olivia Beavers, RN) 5 mL, Intravenous, 2 TIMES DAILY, First dose on Wed05/07/15 at 0900, Until Discontinued, Routine Continuous Medication Order 05/10/2015 05/11/2015 05/12/2015 lactated ringers infusion () 1341 (New Bag - Pr ovider: Keysha Dean RN)2249 (Stopped - Provider: Erin Martini RN) 125 mL/hr, at 125 mL/hr, Intravenous, CO NTINUOUS, Starting Wed05/10/15 at 1345, Until Wed05/10/15 at 2144 PRN Medication Order 05/10/2015 05/11/2015 05/12/2015 ondansetron (ZOFRAN) injection 4 mg (CANCELED) 0545 (G iven - Provider: Angelia Rosa) 4 mg, Intravenous, EVERY 8 HOURS PRN, St arting Wed05/07/15 at 0553, Until Wed05/10/15 at 1217, Nausea, Routine oxyCODONE (ROXICODONE) immediate release tablet 5-10 mg 5-10 mg, Oral, EVERY 3 HOURS PRN, Starti ng Wed05/09/15 at 0615, Until Wed05/12/15 at 1250, Pain, give 5 mg for pain scale 4-6/10, give 10mg for pain scale >6/10, Routine prochlorperazine (COMPAZINE) injection 10 mg (CANCELED ) 2217 (Given - Provider: Erin Martini RN) 10 mg, Intravenous, EVERY 8 HOURS PRN, S tarting Wed05/10/15 at 2159, Until Wed05/12/15 at 1250, Nausea, Routine simethicone (MYLICON) chewable tablet 40 mg (CANCELED) 0530 (Given - Provider: Angelia Rosa) 40 mg, Oral, EVERY 6 HOURS PRN, Starting Alejandra 05/09/15 at 1327, Until 05/12/15 at 1250, Cramping, Routine documented in this encounter Care Teams Fishing Line Winding Machine Operator Relationship Specialty Start Date End Date Marilyn Kidd MD PCP - General 06/17/[address] [place] [address] documented as of this encounter
--- OUTSIDE RECORDS SUMMARY | 2022-02-09 02:22 | XMS_ITS | Encounter Summary ---
:1945 Author Organization [facility] [place] [address] Care Team Providers Name Role Phone Marilyn Kidd MD Primary Care Provider Reason for Visit Reason Onset Date Comments Results 06/24/2015 Encounter Details Date Type Department Care Team Description 06/24/2015 Telephone Gynecology Oncology at [facility] [place] [address] Social History Tobacco Use Types Packs/Day [...] Telephone Encounter - Kenzie Harvey RN - 06/24/2015 8:41 AM EST Relayed lab results from Wednesday to pt. documented in this encounter Plan of Treatment Upcoming Encounters Date Type Specialty Care Team Description 02/27/2022 Appointment Radiology Marilyn Kidd MD [facility] [address] [place], [place] [id number] (Wo rk) documented as of this encounter Visit Diagnoses Not on filedocumented in this encounter Care Teams Break Out Man Relationship Specialty Start Date End Date Marilyn Kidd MD PCP - General 06/17/[address] [place] [address] documented as of this encounter
--- OUTSIDE RECORDS SUMMARY | 2022-02-09 02:22 | XMS_ITS | Encounter Summary ---
:1945 Author Organization [facility] [place] [address] Care Team Providers Name Role Phone Marilyn Kidd MD Primary Care Provider Encounter Details Date Type Department Care Team Description 06/07/2015 Hospital Encounter Hematology and Epithel ial ovarian Oncology at [facility] cancer, [place] [address] Social History Tobacco Use Types Packs/Day [...] Dispensed Refills Start Date End Date Coenzyme D75-Zjsjgzx E Take 1 capsule by mouth 0 [...] encounter Progress Notes Amanda Montana RN - 06/07/2015 8:44 AM EST Patient Name: Neisha White Patient Age: 69 y.o. Birthdate: 1945 Admit date: 06/07/2015 Attending Physician: No att. providers found Access visit. See MAR and/or flowsheet. documented in this encounter Plan of Treatment Upcoming Encounters Date Type Specialty Care Team Description 02/27/2022 Appointment Radiology Marilyn Kidd MD [address] [facility] [place] [address] [place] [address] (Wo rk) documented as of this encounter Procedures Procedure Name Priority Date/Time Associated Comments Diagnosis CANCER ANTIGEN 125 Routine 06/07/2015 8:45 AM Epithelial ovari an Results for this EST cancer, FIGO stage procedure are in IIIC the results section. PHOSPHORUS Routine 06/07/2015 8:45 AM Epithelial ovarian Res ults for this EST cancer, FIGO stage procedure are in IIIC the results section. MAGNESIUM Routine 06/07/2015 8:45 AM Epithelial ovarian Res ults for this EST cancer, FIGO stage procedure are in IIIC the results section. COMPREHENSIVE Routine 06/07/2015 8:45 AM Epithelial ovarian Re sults for this METABOLIC PANEL EST cancer, FIGO stage proced ure are in (NON-FASTING) IIIC the results section. documented in this encounter Results (ABNORMAL) Cancer Antigen 125 (06/07/2015 8:45 AM EST) athologist Signature CA 125 52.4 (H) <=35.0 CERNER unit/mL MILLENNIUM Specimen Anatomical Collection Method Collection Time Receive d Time (Source) Location / / Volume Laterality Blood specimen 06/07/2015 8:45 AM 015 8:46 (specimen) EST AM EST Resulting Agency Comment Spec In Lab Genie Garcia MD CHEMISTRY ORDERABLES Performing Organization Address City/[facility]/ZIP Code Phon e Number [address] CERNER MILLENNIUM (ABNORMAL) Phosphorus (06/07/2015 8:45 AM EST) athologist Signature Phosphorus 2.4 (L) 2.5 - 4.5 CERNER mg/dL MILLENNIUM Specimen Anatomical Collection Method Collection Time Receive d Time (Source) Location / / Volume Laterality Blood specimen 06/07/2015 8:45 AM 015 8:46 (specimen) EST AM EST Resulting Agency Comment Spec In Lab Genie Garcia MD CHEMISTRY ORDERABLES Performing Organization Address City/[facility] [place] [address] CERNER MILLENNIUM Magnesium (06/07/2015 8:45 AM EST) athologist Signature Magnesium 0.86 0.69 - 1.07 CERNER mmol/L MILLENNIUM Specimen Anatomical Collection Method Collection Time Receive d Time (Source) Location / / Volume Laterality Blood specimen 06/07/2015 8:45 AM 015 8:46 (specimen) EST AM EST Resulting Agency Comment Spec In Lab Genie Garcia MD CHEMISTRY ORDERABLES Performing Organization Address City/State/[place] [address] CERNER MILLENNIUM (ABNORMAL) Comprehensive metabolic panel (non-fasting) (06/07/2015 8:45 AM EST) athologist Signature Glucose Lvl 172 65 - 199 CERNER mg/dL MILLENNIUM Comment: Diabetes: >=200 mg/dL plus symp toms BUN 19 (H) 8 - 18 mg/dL CERNER MILLENNIUM Creatinine 0.87 0.70 - 1.20 mg/dL CERNER MILL ENNIUM Comment: Please note that the pediatric reference intervals supplied above were not validated at [facility]. Results from pediatri c patients should be interpreted in conjunction to the patient's age, height and muscle mass. Sodium 136 135 - 145 mmol/L CERNER SHANTHI NIUM Potassium 4.3 3.5 - 5.0 mmol/L CERNER SHANTHI NIUM Comment: Please note: ??Patients with WBC >100,00 0 may have falsely elevated Potassium levels. ??For accurate Potassium quantif ication in these patients send serum separator tube (gold top) for subsequent determinations. ??Contact the Clinical Chemistry Laboratory if there are any qu estions. Chloride 100 98 - 107 mmol/L CERNER MILLENN IUM CO2 25 22 - 31 mmol/L CERNER MILLENNI UM Anion Gap 11 5 - 15 mmol/L CERNER MILLENNIU M Calcium 9.5 8.5 - 10.5 mg/dL CERNER SHANTHI NIUM Total Protein 7.1 6.1 - 8.0 gm/dL CERNER MIL LENNIUM Albumin 4.2 3.2 - 5.2 gm/dL CERNER MILLENN IUM AST 17 0 - 30 unit/L CERNER MILLENNIU M ALT 21 0 - 30 unit/L CERNER MILLENNIU M Alk Phos 63 40 - 104 unit/L SUSHIL TAY IUM Total Bilirubin <0.2 (L) 0.2 - 1.3 mg/dL SUSHIL Aiken ILLENNIUM Bili, Direct 0.1 0.0 - 0.3 mg/dL SUSHIL PALACIOS ENNIUM Estimated GFR >60 >=60 SUSHIL Aiken Comment: This estimated GFR (eGFR) value was [...] the following links into your internet browser. [email or web address] Specimen Anatomical Collection Method Collection Time Receive d Time (Source) Location / / Volume Laterality Blood specimen 06/07/2015 8:45 AM 015 8:46 (specimen) EST AM EST Resulting Agency Comment Spec In Lab Genie Garcia MD CHEMISTRY ORDERABLES Performing Organization Address City/State/[place] [address] SUSHIL DEUTSCH documented in this encounter Visit Diagnoses Diagnosis Epithelial ovarian cancer, FIGO stage II IC documented in this encounter Care Teams Drywall Sprayer Relationship Specialty Start Date End Date Marilyn Kidd MD PCP - General 06/17/[address] [place] [address] documented as of this encounter
--- OUTSIDE RECORDS SUMMARY | 2022-02-09 02:22 | XMS_ITS | Encounter Summary ---
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 Operator 3k [facility] Interventionl Rad Procedures IR Mediport Placement / Exchange [facility] [place] [address] [place] [address] Referral ID Status Reason Start Date Expiration Date Visits V isits Requested Authorized [id number] Closed Specialty 06/03/2015 06/02/2016 1 1 Service Requested Reason for Visit Diagnostic Test (Routine) - Closed Specialty Diagnoses / Procedures Referred By Contact Refer red To Contact Radiology Diagnoses Ovarian cancer, unspecified laterality [facility] 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 Kevan Carrasco APRN [facility] [place] [address] [place] [phone] Social History Tobacco Use Types Packs/Day Years [...] Sign Reading Time Taken Comments Blood Pressure 119/50 06/03/2015 11:45 AM EST Pulse 56 06/03/2015 11:45 AM EST Temperature 36.1 ??C (97 ??F) 06/03/2015 11:37 AM EST Respiratory Rate 16 06/03/2015 11:45 AM EST Oxygen Saturation 100% 06/03/2015 11:45 AM EST Inhaled Oxygen Concentration - - Weight - - Height - - Body Mass Index - - documented in this encounter Discharge Instructions Discharge InstructionsPat Chan RN - 06/03/2015 11:33 AM EST Images from the original note were not included. [facility] Department of Vascular and Interventional Radiology Discharge Instructions for your Chest Port You have received a ???Power Port?? , which provides access for infusions and blood draws. What makes this a ???Power Port?? is the unique ability to ???power inject?? contrast (intravenous dye) through the port when getting a CT scan, which produces superior images (pictures). Patients who don???thave these special ports need to have an IV started if they need dye injected for their CT scan. Your port is printed with the letters ???CT?? which can be detected by x- ray to identify it as a ???Power Port?? . You will be provided with an ID card stating the post anesthesia room nurse and type of port you have. Please carry this with you in a safe place. Bandage: There is a sterile dressing over the port site consisting of small gauze with a clear dressing (Tegaderm or [id number] ). This dressing should be left in place for 48 hours. If the clear dressing becomes loose you should place tape over the edges to secure it in place. Note: If you have steri-strips beneath your dressing, simply allow them to fall off. Do not peel them off. Pain: Apply ice bag to site (s) at 30 minute intervals (30 minutes on and 30 minutes off) for 24 hours?? . May use as needed for pain and/or bruising after 24 hours. Bathing: Do not take a shower until 48 hours after your port is placed; after this time you may shower with [...] or swimming for one week following port placement. What to expect when your port is accessed: 1. You may feel tenderness the first few times it is accessed but generally this subsides over time.Ask your healthcare provider to use a local anesthetic on the site if discomfort is a problem for you. You may ask for a prescription for a topical cream (EMLA) from your clinician; you may apply at home prior to your appointments, to help numb the skin over your port. 2. The clinician should be wearing sterile gloves and a mask during the access procedure. Anyone in the room with you should also have a mask on. 3. The skin over and 2 inches around the port should be cleaned with a disinfectant 4. Tell the clinician if you would like the skin numbed (lidocaine) before the access needle is placed. 5. Unless you are unable to take heparin (blood thinner), the port should be injected with a heparinsolution before deaccess (at end of each treatment or blood draw). When to call your healthcare provider: ??? If you notice bleeding from the puncture site in your neck, or from the port incision on your chest, you should apply firm pressure over the site for 10-15 minutes, keeping the site covered. Call if you are still bleeding after 10-15 minutes. ??? If you develop pain, redness, drainage or swelling at or around the port site, or the puncture site in the neck ??? If you develop fever (elevation of more than 2 degrees or greater than 101F) and/or shaking chills When to call the Interventional Radiology Department: Please call with any questions or concerns. Ifit is during regular office hours, please call [phone]. If it is after regular office hours, oron weekends or holidays, please call [phone] and ask to speak to the Art Consultant on callfor Interventional Radiology. XXX You have received medication during your procedure to help lesson anxiety and keep you comfortable. These medications affect judgement and reaction time. We recommend that you do not drive, operateequipment, sign any important documents, or smoke unattended for 24 hours following your procedure. Because of the sedation, be careful on stairs, as you may be unsteady on your feet. You may resume your regular diet as tolerated. IV site -- slight redness, or tenderness is normal, you can use a warm compress. If tenderness and redness increases or foul drainage occurs, please contact your M. D. Revised 08/07/11 documented in this encounter Medications at Time of Discharge Medication Sig Dispensed Refills Start Date End Date Coenzyme G10-Rsjxcqb E Take 1 capsule by mouth 0 [...] documented as of this encounter Progress Notes Pat Chan RN - 06/04/2015 9:12 AM EST Interventional and Vascular Radiology Post-Procedure Call Name: Rocael White Age: 69 y.o. Sex; Female Date of : 1945 (home) Telephone Information: PCP MARILYN BACA MD [phone] Date/Time of call: June 04, 2015/9:12 AM Procedure: Single lumen chest port placement Procedural Provider: Carrasco Contact with patient or if not, with whom? Ragini, partner Are you having pain related to your procedure now? Reports that she had some slight discomfort last night, but was out getting snow tires on her car this morning. Are you having any swelling or bleeding from the site? none Are there any improvement in your symptoms? n/a Are you having any other problems related to your procedure? none Comments: Did you understand the discharge instructions given and do you have any questions? yes Comments: Do you have any comments about your Nurse or Provider or the care you received? Thank you so much for everything Nurse Comments: Kevan Carrasco, HYDROGEOLOGIST - 05/31/2015 9:27 AM EST PRE-PROCEDURE VIR NOTE Date of : 1945 Age: 69 y.o. 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 Pertinent Past Medical/Surgical History: Hyperlipidemia Ovarian carcinosarcoma No Known Allergies Current Outpatient Prescriptions on File Prior to [...] times daily. 60 tablet 1 ??? Coenzyme G37-Yfdrony E 50-5 mg-unit Capsule Take 1 capsule by mouth daily. No current facility-administered medications on file prior to encounter. 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 Medications to discontinue: none Prophylactic antibiotic: ANCEF 2GM IV Planned access site / position: RIJ Pat Chan RN - 05/29/2015 4:55 PM EST ANGIO NURSING DATABASE Name: ROCAEL WHITE Date of : 1945 AGE 69 y.o. Address: [address] [place] [phone] (home) Mobile: Telephone Information: Referring Provider: Genie Garcia REASON FOR VISIT: MEDIPORT PLACEMENT: OVARIAN CANCER FOR CHEMO TX. No Known Allergies Pertinent PMH: Patient Active Problem List Diagnosis Code ??? Pelvic mass R19.00 Pertinent PSH: Past Surgical History Procedure Laterality Date ??? Pro azael salp-ooph w/omentect, garland, rad dissect N/A 05/06/2015 @HYSTERECTOMY, GARLAND, BSO, DEBULKING performed by Genie Garcia MD at [facility] MA[facility] OR ? ? Pro unlisted px abd prtm&omentum N/A 05/06/2015 LAPAROTOMY, EXCISION LESION, PERITONEUM performed by Genie Garcia MD at [facility] OR ??? Pro release ureter, retroper fibrosis Left 05/06/2015 @URETEROLYSIS WITH OR WITHOUT REPOSITIONING OF URETER FOR RETROPERITONEAL FIBROSIS performed by Genie Garcia MD at [facility] OR ??? Pro removal of omentum N/A 05/06/2015 @OMENECTOMY performed by Genie Garcia MD at [facility] OR Date/Procedure Med's given/comments 06/03/15 Single lumen mediport placement LOT#:[id number] Local lidocaine only, per pt's request. Pt received 2g Ancef IV for procedure just LUTE PACKER OR APPLIER to angio dept. Tolerated well. 1025 To procedure room one via stretcher. Onto table In supine position. All monitors, O2, safety strap in place. Med's per protocol. Laboratory Results: Lab Results Component Value Date CREATININE 0.79 05/12/2015 Lab Results Component Value Date K 3.2* 05/12/2015 Lab Results Component Value Date PLATELET 217 05/10/2015 Medications: Prior to Admission medications Medication Sig Start Date End Date Taking? Authorizing Provider acetaminophen (TYLENOL) 325 mg Tablet Take 2 tablets by mouth every 6 hours as needed for Pain. 05/12/15 Vania Romero MD ibuprofen (ADVIL;MOTRIN) 600 mg Tablet Take 1 tablet by mouth every 6 hours as needed for Pain. 05/12/15 Vania Romero MD oxyCODONE (ROXICODONE) 5 mg Tablet Take 1-2 tablets by mouth every 4 hours as needed for Pain. 05/12/15 Vania Romero MD senna-docusate (PERICOLACE) 8.6-50 mg Tablet Take 2 tablets by mouth 2 times daily. 05/12/15 aVnia Romero MD Coenzyme K50-Tfnrhvy E 50-5 mg-unit Capsule Take 1 capsule by mouth daily. 12/07/12 PROVIDER, HISTORICAL ++++ FOR OUTPATIENTS: I have informed this patient that they require a drivers license examiner to be present at checkin and remain in the building to drive them home after this procedure. In the absence of a drivers license examiner, IR will not be able to perform this procedure and will need to reschedule. Pt verbalized understandingof these instructions during the pre-procedure education via phone. (initials) documented in this encounter Plan of Treatment Upcoming Encounters Date Type Specialty Care Team Description 02/27/2022 Appointment Radiology Marilyn Baca MD [facility] [address] [place] [address] (Wo rk) documented as of this encounter Procedures Procedure Name Priority Date/Time Associated Diagnosis Comme nts IR MEDIPORT Routine 06/03/2015 11:34 AM Ovarian cancer, Resul ts for this PLACEMENT EST unspecified procedure are i n laterality the results section. documented in this encounter Results IR Mediport Placement / Exchange (06/03/2015 11:34 AM EST) Anatomical Region Laterality Modality X-Ray Angiography Specimen (Source) Anatomical Location Collection Method / Collectio n Time Received Time / Laterality Volume Impressions 06/03/2015 1:05 PM EST : Placement single lumen RIGHT IJ port, catheter tip in SVC. ??Port ready for us e. ?? Procedure performed by: Kevan Carrasco APRN Attending: ??Dr. Dickinson was present for procedure. ?? Narrative 06/03/2015 1:05 PM EST VIR PROCEDURE NOTE: ?? Procedure: ??Placement of RIGHT IJ singl e lumen mediport (POWER) Indication: ??69 yo woman with recently diagnosed ovarian carcinosarcoma, s/p GARLAND/BSO/omentectomy (05/06/15) Who presents today for single lumen ches t port placement. Patient will be undergoing IP Port placement this mornin g prior to chest port. TECHNIQUE: ??After discussing risks (inc luding infection, hemorrhage, occlusion), and benefits, patient consen angélica to the procedure and conscious sedation. A moment of truth was performe d and the patient and procedure correctly identified. ?? Due to the pain ful nature of the procedure, split doses of fentanyl and Versed were admini stered by the IR nurse during continuous monitoring of pulse, blood pr essure and oxygen saturation. After maximal sterile barrier technique preparation of the right neck and upper chest, ultrasound was used to loca lize the right internal jugular vein. ??1% lidocaine SQ was administered for anesthesia, and a 21 ga needle was advanced under ultrasound guidance i nto the IJ. ??The remainder of the procedure was performed under fluoroscop ic guidance. An 0.018 inch wire was advanced into SVC . ??A 4 Fr introducer sheath was placed and the wire exchanged for a 0.03 5 inch wire. ??Lidocaine was then infiltrated in a caudal-lateral directio n, and infiltrated for pocket creation. ??An incision was made, and wi th blunt dissection a pocket created. ??Port was attached to the cath eter, placed into the pocket. ??A tunneler was then used to bring the catheter through the tunnel to the venotomy site. ?? Venotomy was dilated to accommodate the peel-away sheath, and during breath-hold, the catheter advanced. ??Sh eath was removed. ??Port flushed and aspirated well. ??The pocket was closed using a two layer technique with absorbable suture material (2-0 vicryl d eep interrupted and 4-0 monocryl running subcuticular). Skin closed with indermil. Patient tolerated the procedure well. ?? Complication: ??There were no immediate complications. ?? Medication: No sedation per patient request Lidocaine 1% 14cc Ancef 2 gram IV (given in OR). ?? Genie Garcia MD IMG IR ORDERABLES documented in this encounter Visit Diagnoses Diagnosis Ovarian cancer, unspecified laterality documented in this encounter Administered Medications Inactive Administered Medications - up to 3 most recent administrations Medication Order MAR Action Action Date Dose Rate Site BUpivacaine-EPINEPHrine 0.25 Given 06/03/2015 11:03 AM EST 20 mL s %-1:200,000 injection 20 mL 20 mL (50 mg), Infiltration, ONCE, 1 dose, On 06/03/15 at 0930, For use in Interventional Radiology (IR) only for procedural sedation with direct provider supervision and verbal order., Angio/IR (Intra-Procedure), Routine documented in this encounter Care Teams Turkey Egg Gatherer Relationship Specialty Start Date End Date Marilyn Baca MD PCP - General 06/17/[address] [place] [address] [address] [place] [address] documented as of this encounter
--- OUTSIDE RECORDS SUMMARY | 2022-02-09 02:22 | XMS_ITS | Encounter Summary ---
:1945 Author Organization [facility] [place] [address] Care Team Providers Name Role Phone Marilyn Kidd MD Primary Care Provider Reason for Visit Reason Onset Date Comments Medication Refill 06/13/2015 Encounter Details Date Type Department Care Team Description 06/13/2015 Refill Gynecology Oncology at [facility] Genie Garcia MD [facility] [place] [address] GYNECOLOGIC ONCOLOGY [phone] [place] [address] (Wo rk) Social History Tobacco Use Types [...] MD [address] [place], [place] [address] (Usama rodrigues) documented as of this encounter Visit Diagnoses Not on filedocumented in this encounter Care Teams Waste Duster Relationship Specialty Start Date End Date Marilyn Kidd MD PCP - General 06/17/10 [address] [facility] [address] [facility] [address] [place] [address] documented as of this encounter
--- OUTSIDE RECORDS SUMMARY | 2022-02-09 02:22 | XMS_ITS | Encounter Summary ---
:1945 Author Organization [facility] [place] [address] Care Team Providers Name Role Phone Marilyn Kidd MD Primary Care Provider Reason for Visit Reason Onset Date Comments Results 06/27/2015 Encounter Details Date Type Department Care Team Description 06/27/2015 Telephone Gynecology Oncology at [facility] [place] [address] Social History Tobacco Use Types Packs/Day [...] Telephone Encounter - Hanna Rubio RN - 06/27/2015 9:31 AM EST Telephone call to report lab results as listed below. Creatinine is high so has ordered a liter of NS and orders have been sent to [facility] in [facility] for this afternoon. Rocael stated understanding. Rocael will have a repeat creatinine drawn tomorrow before her md appointment. Results for ROCAEL WHITE ( ) as of 06/27/2015 09:33 Ref. Range 06/26/2015 00:00 WBC No range found 13.06 (External Lab) Hemoglobin Latest Range: 12.0-16.0 10.2 (A) Hematocrit Latest Range: 36.0-46.0 31.4 (A) Platelets No range found 172 (External Lab) Neutr Abs (ANC) No range found 08786 (External Lab) Neutrophil % No range found 81.9 (External Lab) Sodium Latest Range: 137-147 136 (A) Potassium Latest Range: 3.4-5.3 4.9 (External Lab) Chloride Latest Range: 99-108 102 (External Lab) CO2 Latest Range: 22-29 29 (External Lab) BUN No range found 32 (EXTERNAL/ABN) Creatinine No range found 1.51 (EXTERNAL/ABN) Calcium Latest Range: 8.7-10.7 8.4 (A) Magnesium No range found 1.9 (External Lab) Phosphorus Latest Range: 2.5-4.9 4.1 (External Lab) Total Protein Latest Range: 6.4-8.2 5.9 (A) Albumin Latest Range: 3.5-5.0 3.0 (A) Total Bilirubin No range found 0.16 (External Lab) Alk Phos No range found 119 (External Lab) AST Latest Range: 13-35 20 (External Lab) ALT Latest Range: 7-35 57 (A) documented in this encounter Plan of Treatment Upcoming Encounters Date Type Specialty Care Team Description 02/27/2022 Appointment Radiology Marilyn Kidd MD [address] [facility] [address] [place] [address] (Wo rk) documented as of this encounter Results (ABNORMAL) Creatinine (06/28/2015 7:40 AM EST) athologist Signature Creatinine 1.07 0.70 - 1.20 CERNER mg/dL [facility] Comment: Please note that the pediatric reference intervals supplied above were not validated at [facility]. Results from pediatri c patients should be interpreted in conjunction to the patient's age, height and muscle mass. Estimated GFR 51 (L) >=60 SUSHIL COLIN Nelli Comment: This estimated GFR (eGFR) value was [...] the following links into your internet browser. [email or web address] Specimen Anatomical Collection Method Collection Time Receive d Time (Source) Location / / Volume Laterality Blood specimen 06/28/2015 7:40 AM 015 7:45 (specimen) EST AM EST Resulting Agency Comment Spec In Lab Genie Garcia MD CHEMISTRY ORDERABLES Performing Organization Address City/State/ZIP Code Phon e Number [address] SUSHIL DEUTSCH documented in this encounter Visit Diagnoses Diagnosis Ovarian carcinosarcoma, unspecified late rality documented in this encounter Care Teams Sponsorship Manager Relationship Specialty Start Date End Date Marilyn Kidd MD PCP - General 06/17/[address] [place] [address] documented as of this encounter
--- OUTSIDE RECORDS SUMMARY | 2022-02-09 02:22 | XMS_ITS | Encounter Summary ---
:1945 Author Organization [facility] [place] [address] Care Team Providers Name Role Phone Marilyn Kidd MD Primary Care Provider Encounter Details Date Type Department Care Team Description 06/28/2015 Hospital Encounter Hematology and Ovarian carcinosarcoma, Oncology at [facility] unspecified laterality [facility] (Primary Dx) [place] [address] Social History Tobacco Use Types Packs/Day [...] Dispensed Refills Start Date End Date Coenzyme X65-Bevhhye E Take 1 capsule by 0 2012 [...] encounter Progress Notes Amanda Montana RN - 06/28/2015 7:39 AM EST Patient Name: Neisha White Patient Age: 69 y.o. Birthdate: 1945 Admit date: 06/28/2015 Attending Physician: No att. providers found Access visit. See MAR and/or flowsheet. documented in this encounter Plan of Treatment Upcoming Encounters Date Type Specialty Care Team Description 02/27/2022 Appointment Radiology Marilyn Kidd MD [address] [place] [address] (Wo rk) documented as of this encounter Procedures Procedure Name Priority Date/Time Associated Diagnosis Comme nts CREATININE STAT 06/28/2015 7:40 AM Ovarian Results f or this EST carcinosarcoma, procedure ar e in unspecified laterality the r esults section. documented in this encounter Results (ABNORMAL) Creatinine (06/28/2015 7:40 AM EST) athologist Signature Creatinine 1.07 0.70 - 1.20 CERNER mg/dL [facility] Comment: Please note that the pediatric reference intervals supplied above were not validated at [facility]. Results from pediatri c patients should be interpreted in conjunction to the patient's age, height and muscle mass. Estimated GFR 51 (L) >=60 SUSHIL Aiken Comment: This estimated GFR [...] the following links into your internet browser. [email or web address] Specimen Anatomical Collection Method Collection Time Receive d Time (Source) Location / / Volume Laterality Blood specimen 06/28/2015 7:40 AM 015 7:45 (specimen) EST AM EST Resulting Agency Comment Spec In Lab Genie Garcia MD CHEMISTRY ORDERABLES Performing Organization Address City/State/[place] [address] [facility] documented in this encounter Visit Diagnoses Diagnosis Ovarian carcinosarcoma, unspecified late rality - Primary documented in this encounter Administered Medications Inactive Administered Medications - up to 3 most recent administrations Medication Order MAR Action Action Date Dose Rate Site sodium chloride 0.9 % flush 10 mL Given 06/28/2015 7:39 AM EST 10 mLs 10 mL, Intravenous, DAILY PRN, Starting on Wed06/28/15 at 0726, Until 06/29/15 at 0437, for the accessing and continued maintenance of an Implantable Port device, Routine documented in this encounter Care Teams Exchange Floor Manager Relationship Specialty Start Date End Date Marilyn Kidd MD PCP - General 06/17/[address] [place] [address] documented as of this encounter
--- OUTSIDE RECORDS SUMMARY | 2022-02-09 02:22 | XMS_ITS | Encounter Summary ---
:1945 Author Organization [facility] [place] [address] Care Team Providers Name Role Phone Marilyn Kidd MD Primary Care Provider Reason for Visit Reason Comments Chemotherapy IV Taxol/IP Cisplatin Medication Prior Authorization (Routine) - Closed Specialty Diagnoses / Procedures Referred By Contact Refer red To Contact Genie Garcia MD [facility] D [place] [address] Referral ID Status Reason Start Date Expiration Date Visits Requ ested Visits Authorized [id number] Closed 06/05/2015 06/04/2016 1 1 Encounter Details Date Type Department Care Team Description 06/28/2015 Hospital Encounter Hematology and Ovarian carcinosarcoma, Oncology at [facility] [place] [address] Social History Tobacco Use Types Packs/Day [...] Dispensed Refills Start Date End Date Coenzyme D38-Yhpojeu E Take 1 capsule by 0 2012 [...] documented as of this encounter Progress Notes Cristobal Knapp RN - 06/28/2015 11:41 AM EST Patient Name: Neisha White Patient Age: 69 y.o. Birthdate: 1945 Admit date: 06/28/2015 Attending Physician: No att. providers found TIME TREATMENT STARTED: 944 TIME TREATMENT ENDED: 1809 Neisha White, 69 y.o. female with diagnosis of Ovarian Ca is here for chemotherapy infusion of IV Taxol/IP Cisplatin . PROTOCOL: NA CYCLE: 2 WEEK: NA DAY: 1 S: Pt. offers no complaints at this time. AVS given to patient. Urine Output 2200 ++ approx. IP portused without incident O: Patient's Chemotherapy orders independently verified for correct drug name, route and dosage per patient's height, weight and BSA by Cristobal Knapp RN and Pharmacist. REACTIONS (DESCRIPTION, TIME, INTERVENTION AND EFFECTIVENESS) None noted. A: Pt. Tolerated treatment well. Neisha White confirms that all questions and issues have been addressed. Fluid intake, exercise and handwashing discussed with patient. P: Return to clinic per routine. 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 1.65 m2 Treatment Plan BSA from Recorded weight), Intraperitoneal, ONCE, 1 dose, On Wed06/28/15 at 1030, Administer over 120 minutes or less. Warm [...] Procedure. dexamethasone (DECADRON) injection 10 mg Given 06/28/2015 10:22 AM EST 10 mg 10 mg, Intravenous, ONCE, 1 dose, On Wed06/28/15 at 0930, Administer 30 minutes prior to PACLitaxel diphenhydrAMINE (BENADRYL) injection 12.5 Given 06/28/2015 1 0:14 AM EST 12.5 mg mg 12.5 mg, Intravenous, ONCE, 1 dose, On Wed06/28/15 at 0930, Administer 30 minutes prior to PACLitaxel, Routine famotidine (PEPCID) injection 20 mg Given 06/28/2015 10:27 AM EST 20 mg 20 mg, Intravenous, ONCE, 1 dose, On Wed06/28/15 at 0930, Administer 30 minutes prior to PACLitaxel fosaprepitant (EMEND) 150 mg in New Bag 06/28/2015 10:39 AM ES T 150 mg 310 mL/hr sodium chloride 0.9% 155 mL infusion 150 mg, Intravenous, ONCE, 1 dose, On Wed06/28/15 at 0930, Administer over 30 Minutes, Administer prior to chemotherapy heparin, porcine 100 unit/mL flush Given 06/28/2015 6:10 PM EST 500 Units 0 mL/hr 500 Units 500 Units, Intravenous, ONCE PRN, Starting on Wed06/28/15 at 0910, Until 06/29/15 at 0437, Line Care, Refer to Intravenous (IV) Procedure: Accessing Implanted Vascular Access Devices (654) procedure and/or Intravenous (IV) Job Aid: Adult Flushing & Catheter Care (1893) job aid for additional information regarding guidelines and administration., Routine magnesium sulfate 1g in dextrose 5% Given 06/28/2015 5:00 PM EST 1 g 100 mL/hr 100mL 1 g, Intravenous, EVERY HOUR, 2 doses, First dose on Wed06/28/15 at 1530, Last dose on Wed06/28/15 at 1600, Administer over 60 Minutes, Total dose is 2 grams. Post - CISplatin Given 06/28/2015 3:58 PM EST 1 g 100 mL/hr PACLitaxel (TAXOL) 289 mg in New Bag 06/28/2015 11:30 AM EST 289 m g 182.7 mL/hr dextrose 5% Non-PVC 548.1667 mL chemo infusion 289 mg (rounded from 288.75 mg = 175 mg/m2/dose ? 1.65 m2 Treatment Plan BSA from Recorded weight), Intravenous, ONCE, 1 dose, On Wed06/28/15 at 1030, Administer over 3 Hours palonosetron (ALOXI) injection 0.25 mg Given 06/28/2015 10:31 AM EST 0.25 mg 0.25 mg, Intravenous, ONCE, 1 dose, On Wed06/28/15 at 0930, Administer over 30 seconds. Administer prior to chemotherapy, Routine sodium chloride 0.9% infusion New Bag 06/28/2015 10:10 AM EST 1,000 mLs 500 mL/hr 1,000 mL, at 500 mL/hr, Intravenous, CONTINUOUS, Starting on Wed06/28/15 at 0930, Until Wed06/28/15 at 1129, Pre CISplatin sodium chloride 0.9% infusion New Bag 06/28/2015 2:40 PM EST 500 mLs 500 mL, Intraperitoneal, ONCE, 1 dose, On Wed06/28/15 at 0930, Access Intraperitoneal (IP) port and infuse warmed sodium chloride 0.9% 500 mL as fast as possible immediately prior to IP chemotherapy sodium chloride 0.9% infusion New Bag 06/28/2015 3:52 PM EST 500 mLs 500 mL, Intraperitoneal, ONCE, 1 dose, On Wed06/28/15 at 1530, Access Intraperitoneal (IP) port and infuse warmed sodium chloride 0.9% 500 mL as fast as possible immediately following IP chemotherapy sodium chloride 0.9% with New Bag 06/28/2015 3:57 PM EST 1,000 mLs 500 mL/hr potassium chloride 20 mEq infusion 1,000 mL, at 500 mL/hr, Intravenous, CONTINUOUS, Starting on Wed06/28/15 at 1530, Until Wed06/28/15 at 1729, Post - CISplatin documented in this encounter Care Teams Machine Riveter Relationship Specialty Start Date End Date Marilyn Kidd MD PCP - General 06/17/[address] [place] [address] documented as of this encounter
--- OUTSIDE RECORDS SUMMARY | 2022-02-09 02:22 | XMS_ITS | Encounter Summary ---
:1945 Author Organization [facility] [address] Care Team Providers Name Role Phone Marilyn Kidd MD Primary Care Provider Encounter Details Date Type Department Care Team Description 06/27/2015 Orders Only Gy[place]cology [place] [facility] [place]ie Garcia [place] [facility] [place] [address] GYNECOLOGIC ONCOLOGY [phone] [place] [address] (Wo rk) Social History Tobacco Use Types [...] [address] [place], [place] [address] (Wo rk) documented as of this encounter Visit Diagnoses Not on filedocumented in this encounter Care Teams Grinding Wheel Facer Relationship Specialty Start Date End Date Marilyn Kidd MD PCP - General 06/17/[address] [place] [address] documented as of this encounter
--- OUTSIDE RECORDS SUMMARY | 2022-02-09 02:22 | XMS_ITS | Encounter Summary ---
:1945 Author Organization [facility] [place] [address] Care Team Providers Name Role Phone Marilyn Kidd MD Primary Care Provider Encounter Details Date Type Department Care Team Description 05/13/2015 Orders Only TIGHTENER Josselin Hopkins, BETH [facility] [place] [address] OBSTETRICS & GYNECOLOGY [phone] [place] [address] (Wo rk) Social History Tobacco Use Types [...] [address] [place] [address] (Wo rk) documented as of this encounter Visit Diagnoses Not on filedocumented in this encounter Care Teams Welding Equipment Repairer Relationship Specialty Start Date End Date Marilyn Kidd MD PCP - General 06/17/[address] [place] [address] documented as of this encounter
--- OUTSIDE RECORDS SUMMARY | 2022-02-09 02:22 | XMS_ITS | Encounter Summary ---
:1945 [place] [address] Care Team Providers Name Role Phone Marilyn Kidd MD Primary Care Provider Reason for Visit Auth/Cert - Closed Specialty Diagnoses / Procedures Referred By Contact Refer red To Contact Diagnoses OVARIAN CANCER Procedures @[email or web address], CHRISTY, BSO, DEBULKING INTRAPERITONEAL CATHETER INSERTION W\SUB-Q PORT Referral ID Status Reason Start Date Expiration Date Visits Requ ested Visits Authorized [id number] Closed 1 1 Encounter Details Date Type Department Care Team Description 05/06/2015 Hospital Encounter Radiology Library at Genie Garcia [facility] [place] [address] GYNECOLOGIC ONCOLOGY [phone] [place], [place] [address] (Wo rk) Social History Tobacco [...] Dispensed Refills Start Date End Date Coenzyme T16-Gycjwsb E Take 1 capsule by 0 2012 [...] 8.6-50 mg mouth 2 times Tablet daily. Red Yeast Rice Extract 600 Take 1 capsule by 0 05/12/2015 mg Capsule mouth daily. documented as of this encounter Plan of Treatment Upcoming Encounters Date Type Specialty Care Team Description 02/27/2022 Appointment Radiology Marilyn Kidd MD [address] [place], [place] [address] (Wo rk) Pending Results Name Type Priority Associated Diagnoses Date/Ti nv FILM LIBRARY-FLUORO OR Imaging Routine 05/06 2:01 PM EDT [id number] ONL documented as of this encounter Visit Diagnoses Not on filedocumented in this encounter Care Teams Wan Support Specialist Relationship Specialty Start Date End Date Marilyn Kidd MD PCP - General 06/17/[address] [place], [place] [address] documented as of this encounter
--- OUTSIDE RECORDS SUMMARY | 2022-02-09 02:23 | XMS_ITS | Encounter Summary ---
:1945 Author Organization [facility] [place] [address] Care Team Providers Name Role Phone Marilyn Kidd MD Primary Care Provider Reason for Visit Reason Comments Skin Check Encounter Details Date Type Department Care Team Description 02/21/2014 Office Visit Dermatology at [facility] benign nevi Guillermo WALLACE (Primary Dx) [address] [place] [address] [facility]-DER[facility] [place] [id number] Social History Tobacco Use Types Packs/Day Years Used Date Former Smoker Sex Assigned at Date Recorded Not on file documented as of this encounter Progress Notes Shakira Fregoso MD - 02/21/2014 9:26 AM EDT DERMATOLOGY CONSULT NOTE Date of service: 02/21/2014 Neisha White : 1945 Provider: Shakira Fregoso MD Chief Complaint Patient presents with ??? Skin Check The patient is seen at the request of Dr. MARILYN KIDD MD, who instructed the patient to be seenfor evaluation of above SKIN HISTORY: Eczema Acne / rosacea FAMILY HISTORY: Aunts and uncles -skin cancers Brother -melanoma? First cousin- melanoma HPI Neisha White is a 68 y.o. female. New patient. 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 Referred by Marilyn Kidd MD for a full skin check. She has a family history of skin cancer. Thinks her brother had a melanoma, but not fully positive. First cousin did have a melanoma. No current skin concerns or new spots. ADR: Review of patient's allergies indicates no known allergies. MEDS: Current Outpatient Prescriptions Medication Sig Dispense Refill ??? RED YEAST RICE EXTRACT ORAL ??? UBIDECARENONE (COENZYME Q10 ORAL) ROS General: feeling well Skin: denies other skin complaints EXAM General: NAD, pleasant, cooperative Skin: A total body skin exam was performed. This includes examination of the skin of the face, ears, neck,chest, axillae, left and right upper and lower extremities, hands, feet, abdomen, and back. Genitalia, buttocks and breasts were also examined with patient consent. Significant skin findings: A. Multiple, 0.3-0.5cm, medium-brown, evenly-pigmented macules and papules. All with regular pigmentpattern on dermoscopy. No pigmented lesions suspicious for melanoma. ASSESSMENT/PLAN: A. Benign appearing nevi, pt reassured Discussed importance of sun protection, sun avoidance strategies, protective clothing, and sunscreen. I discussed warning signs for skin cancer, including the ABCE's of melanoma. -Gave patient handouts for skin cancer, and sunscreen/ protection recommendations B. RTC PRN. Patient instructed to call with questions or concerns. I am documenting this encounter acting as the scribe for and in the presence of Dr. Fregoso.: DOMINIQUE DONIS LPN I performed the above scribed service and agree with the accuracy of the documentation in this encounter. Shakira Fregoso MD Section of Dermatology [facility] cc: MARILYN KIDD MD documented in this encounter Plan of Treatment Upcoming Encounters Date Type Specialty Care Team Description 02/27/2022 Appointment Radiology Marilyn Kidd MD [address] [place] [address] (Wo rk) documented as of this encounter Visit Diagnoses Diagnosis Multiple benign nevi - Primary Benign neoplasm of skin, site unspecifie d documented in this encounter Care Teams Acid Tank Cleaner Relationship Specialty Start Date End Date Marilyn Kidd MD PCP - General 06/17/[address] [place] [address] documented as of this encounter
--- OUTSIDE RECORDS SUMMARY | 2022-02-09 02:23 | XMS_ITS | Encounter Summary ---
:1945 [place] [address] Care Team Providers Name Role Phone Marilyn Kidd MD Primary Care Provider Encounter Details Date Type Department Care Team Description 04/09/2015 Hospital Encounter Radiology Library at Vera Nunez Screening [facility] [place] [address] DIAGNOSIC RADIOLOGY [phone] [place] [address] (Wo rk) Social History Tobacco Use Types Packs/Day Years Used Date Former Smoker Sex Assigned at Date Recorded Not on file documented as of this encounter Medications at Time of Discharge Medication Sig Dispensed Refills Start Date End Date Coenzyme R99-Vbjnkyo E Take 1 capsule by 0 2012 50-5 mg-unit Capsule mouth daily. Red Yeast Rice Extract 600 Take 1 capsule by 0 05/12/2015 mg Capsule mouth daily. RED YEAST RICE EXTRACT 0 08/10/2007 ORAL UBIDECARENONE (COENZYME 0 08/10/2007 1 Q10 ORAL) documented as of this encounter Plan of Treatment Upcoming Encounters Date Type Specialty Care Team Description 02/27/2022 Appointment Radiology Marilyn Kidd MD [address] [place], [place] [address] (Wo rk) documented as of this encounter Procedures Procedure Name Priority Date/Time Associated Diagnosis Comme nts FILM LIBRARY Routine 04/09/2015 12:00 AM Screening Results for this STORAGE ONLY MAMMO EDT procedure are in the results section. documented in this encounter Results Film Library- Storage only Mammo (04/09/2015 12:00 AM EDT) Specimen (Source) Anatomical Location Collection Method / Collectio n Time Received Time / Laterality Volume Narrative RAD - 04/17/2016 1:30 PM EDT This exam is for storage only and is aut o-finalizing. Jose Nunez MD G FILM LIBRARY ORDERABLES Performing Organization Address City/State/ZIP Code Phon e Number [place], [place] documented in this encounter Visit Diagnoses Diagnosis Screening Screening for unspecified condition documented in this encounter Care Teams Pearl Fisherman Relationship Specialty Start Date End Date Marilyn Kidd MD PCP - General 06/17/[address] [place] [address] documented as of this encounter
--- OUTSIDE RECORDS SUMMARY | 2022-02-09 02:23 | XMS_ITS | Encounter Summary ---
:1945 [place] [address] Care Team Providers Name Role Phone Marilyn Kidd MD Primary Care Provider Encounter Details Date Type Department Care Team Description 05/01/2015 External Results Gynecology Oncology at Marilyn Pino [place] [facility] [address] [place] [address] [phone] Social History Tobacco Use Types Packs/Day Years Used Date Former Smoker Sex Assigned at Date Recorded Not on file documented as of this encounter Plan of Treatment Upcoming Encounters Date Type Specialty Care Team Description 02/27/2022 Appointment Radiology Marilyn Kidd MD [address] [address] (Wo rk) documented as of this encounter Visit Diagnoses Not on filedocumented in this encounter Care Teams Casino Cashier Manager Relationship Specialty Start Date End Date Marilyn Kidd MD PCP - General 06/17/[address] [address] documented as of this encounter
--- OUTSIDE RECORDS SUMMARY | 2022-02-09 02:23 | XMS_ITS | Encounter Summary ---
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 ; Drive DR Urinary frequency [place], [place] GYNECOLOGIC [id number] ONCOLOGY [phone] [place] [id number] Social History Tobacco Use Types Packs/Day Years Used Date Former Smoker Cigarettes 0.5 12 Quit: 08/02/18 80 Smokeless Tobacco: Never Used Alcohol Habits Answer Date Recorded How often [...] Sign Reading Time Taken Comments Blood Pressure 140/74 05/02/2015 10:15 AM EDT Pulse 66 05/02/2015 10:15 AM EDT Temperature 37.4 ??C (99.3 ??F) 05/02/2015 10:15 AM EDT Respiratory Rate 18 05/02/2015 10:15 AM EDT Oxygen Saturation 100% 05/02/2015 10:15 AM EDT Inhaled Oxygen Concentration - - Weight 64 kg (141 lb 1.5 oz) 05/02/2015 10:15 AM EDT Height 164.4 cm (5' 4.72) 05/02/2015 10:15 AM EDT Body Mass Index 23.68 05/02/2015 10:15 AM EDT documented in this encounter Progress Notes Genie Garcia MD - 05/02/2015 10:42 AM EDT Division [place] [address] Gynecologic Oncology Clinic New Patient Visit Reason for visit: pelvic mass, referred by Marilyn Kidd MD [address] [place] [address] Problem List There is no problem list on file for this patient. History of present illness: Neisha White is a 69 y.o. female, G0 who presents for consultation regarding a pelvic mass. Two weeks ago she palpated a mass in her abdomen. She thought it might be constipation, but the mass was unchanged despite laxatives. She saw her PCP and got a CT scanshowing a pelvic mass. CA-125 was dran and noted to be 304. She now has some prickling type pain in her rectum. She has some abdominal pain with valsalva. Today she noted some blood on her toilet paperwhen she wiped after urinating. She endorses some constipation. She's had one episode of nausea. No emesis. She has had some early satiety. She also endorses urinary frequency. She denies any bloating, weight change. Gynecologic history: Menarche was approximately age 14 menopause approximately age 52. Number of pregnancies: 0 Menopausal hormone therapy use: none. Remote hx abnl pap, normal since Cancer screening 1. Mammography: normal but often has to repeat. Has had one biopsy which was benign, up to date. 2. Colonoscopy: 5 years ago, normal. Family history: Breast: mother, maternal aunt, maternal cousin Endometrial:none Ovarian:none Colon:none Pancreas:none Other: brother with melanoma Past medical history Hyperlipidemia Past surgical history Appendectomy as 20yo Social history: Lives with her partner Ragini. 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 Tobacco history: remote 6 pack year hx. Alcohol history: rare Other drugs: never Herbal/alternative therapies: none. Performance status: Karnofsky Scale - 100 Medications Prior to Admission medications Medication Sig Start Date End Date Taking? Authorizing Provider Coenzyme U66-Mywdctn E 50-5 mg-unit Capsule Take 1 capsule by mouth daily. 12/07/12 Yes PROVIDER, HISTORICAL Red Yeast Rice Extract 600 mg Capsule Take 1 capsule by mouth daily. 12/07/12 Yes PROVIDER, HISTORICAL Allergies No Known Allergies Vital signs: BP 140/74 mmHg Pulse 66 Temp(Src) 37.4 ??C (99.3 ??F) Resp 18 Ht 164.4 cm (5' 4.72) Wt 64kg (141 lb 1.5 oz) BMI 23.68 kg/m2 SpO2 100% Physical examination General: She is alert and oriented, well-groomed and dressed, no obvious distress. She ambulates easily. HEENT: PERRLA, no scleral icterus or corneal arcus. Mucus membranes were moist. Neck was supple and without thyromegaly or adenopathy. Lungs: Clear to auscultation bilaterally Heart: RRR, no murmur, rubs, gallop Abdomen:Soft, non tender, non distended. No HSM. Large palpable mass to approximately the umbilicus. Pelvic examination: Normal external genitalia. No lesions of the vulva, clitoris, urethral meatus, perineal body, or perianal area. Speculum exam demonstrates normal vaginal mucosa. Patient unable to tolerate speculum opening enoughto visualize the cervix. On bimanual examination, there is a large immobile mass filling the pelvis. Rectovaginal exam: Mass palpable within the cul-de-sac. No palpable rectal masses. Stool present in rectal vault. Extremities: No edema. Laboratory/pathology/imaging studies: OSH CT report: Heterogeneous cystic and solid mass 13.3X10.4X9.3. Small volume ascites. Mild bilateral hydronephrosis. I personally reviewed the images along with the radiologist at . Impression/plan: Neisha White is a 69 y.o. woman who presents with her partner Ragini for consultation regarding an adnexal mass concerning for ovarian malignancy. We reviewed risks of surgery including bleeding, infection, injury to surrounding organs (bladder, bowel, ureter, nerves, vessels), blood clot in the legs or lung, and pneumonia. Planned surgery is for ex lap, CHRISTY, BSO, possible tumor debulking, possible staging if no gross metastatic disease. In addition we reviewed that resection ofthe mass may require resection of a portion of her colon and this sometimes requires a protective ileostomy. We also reviewed course of typical recovery and plan for follow-up 2 weeks post-op. Questions answered and consents signed. 1. Preop/adnexal mass - CBC, CMP, CEA, CA 19-9 - EKG - will type and cross for 2 units PRBC on the day of surgery - Instructions given for a pre-op bowel prep - Full code, pt has living will documented in this encounter Plan of Treatment Upcoming Encounters Date Type Specialty Care Team Description 02/27/2022 Appointment Radiology Marilyn Kidd MD [address] [place] [address] (Wo rk) documented as of this encounter Procedures Procedure Name Priority Date/Time Associated Comments Diagnosis URINALYSIS WITH Routine 05/02/2015 12:21 PM Urinary frequency Results for this REFLEX CULTURE EDT procedure are in the results section. URINE CULTURE Routine 05/02/2015 12:21 PM Urinary frequency Re sults for this EDT procedure are i n the results section. documented in this encounter Results EKG 12 Lead (05/02/2015 12:46 PM EDT) Component Value Ref Range Test Analysis Performed Pathologis t Method Time At Signature Ventricular rate 55 BPM MUSE SYSTEM Atrial Rate 55 BPM MUSE SYSTEM P-R Interval 148 ms MUSE SYSTEM QRS Duration 94 ms MUSE SYSTEM Q-T Interval 432 ms MUSE SYSTEM QTC Calculated 413 ms MUSE SYSTEM (Bezet) Calculated P [place] 79 degrees MUSE SYSTEM Calculated R [place] 45 degrees MUSE SYSTEM Calculated T [place] 48 degrees MUSE SYSTEM INTERPRETATION Sinus bradycardia MUSE SY STEM Otherwise normal ECG No previous ECGs available Confirmed by MD Sienna, Woody ([id number]) on 05/02/2015 2:14:16 PM Specimen Anatomical Collection Method Collection Time Receive d Time (Source) Location / / Volume Laterality 05/02/2015 12:46 05/02/2015 2:14 PM EDT PM EDT Genie Garcia MD ECG ORDERABLES Performing Organization Address City/State/ZIP Code Phon e Number MUSE SYSTEM Carbohydrate Antigen 19-9 (05/02/2015 12:37 PM EDT) athologist Signature [place] 19-9 3.9 <=35.0 u/ml [facility] Specimen Anatomical Collection Method Collection Time Receive d Time (Source) Location / / Volume Laterality Blood specimen 05/02/2015 12:37 5 1:01 (specimen) PM EDT PM EDT Resulting Agency Comment Spec In Lab Genie Garcia MD CHEMISTRY ORDERABLES Performing Organization Address City/[facility]/ZIP Code Phon e Number [address] [facility] CEA (05/02/2015 12:37 PM EDT) athologist Signature CEA 0.7 <=3.8 ng/mL [facility] Comment: Reference range: ??(20-69 years): Non-smoker: ??less than or equal to 3.8 ng/mL Smoker: ??less than 5.5 ng/ml Specimen Anatomical Collection Method Collection Time Receive d Time (Source) Location / / Volume Laterality Blood specimen 05/02/2015 12:37 5 1:01 (specimen) PM EDT PM EDT Resulting Agency Comment Spec In Lab Genie Garcia MD CHEMISTRY ORDERABLES Performing Organization Address City/[facility]/ZIP [facility] Phon e Number [address] [facility] (ABNORMAL) Creatinine (05/02/2015 12:37 PM EDT) athologist Signature Creatinine 0.97 0.70 - 1.20 CERNER mg/dL [facility] Comment: Please note that the pediatric reference intervals supplied above were not validated at [facility]. Results from pediatri c patients should be interpreted in conjunction to the patient's age, height and muscle mass. Estimated GFR 57 (L) >=60 SUSHIL Aiken Comment: This estimated [...] the following links into your internet browser. [email or web address] Specimen Anatomical Collection Method Collection Time Receive d Time (Source) Location / / Volume Laterality Blood specimen 05/02/2015 12:37 5 1:01 (specimen) PM EDT PM EDT Resulting Agency Comment Spec In Lab Genie Garcia MD CHEMISTRY ORDERABLES Performing Organization Address City/[facility] Phon e Number [address] CERNER MILLENNIUM BUN (05/02/2015 12:37 PM EDT) P athologist Signature BUN 15 8 - 18 CERNER mg/dL [facility]NIUM Specimen Anatomical Collection Method Collection Time Receive d Time (Source) Location / / Volume Laterality Blood specimen 05/02/2015 12:37 5 1:01 (specimen) PM EDT PM EDT Resulting Agency Comment Spec In Lab Genie Garcia MD CHEMISTRY ORDERABLES Performing Organization Address City/[facility] Phon e Number [address] CERNER MILLENNIUM Electrolytes panel (05/02/2015 12:37 PM EDT) P athologist Signature Sodium 143 135 - 145 CERNER mmol/L [facility]ILLENNIUM Potassium 4.4 3.5 - 5.0 CERNER mmol/L [facility] Comment: Please note: ??Patients with WBC >100,00 0 may have falsely elevated Potassium levels. ??For accurate Potassium quantif ication in these patients send serum separator tube (gold top) for subsequent determinations. ??Contact the Clinical Chemistry Laboratory if there are any qu estions. Chloride 103 98 - 107 mmol/L CERNER MILLENN IUM CO2 26 22 - 31 mmol/L CERNER MILLENNI UM Anion Gap 14 5 - 15 mmol/L CERNER MILLENNIU M Specimen Anatomical Collection Method Collection Time Receive d Time (Source) Location / / Volume Laterality Blood specimen 05/02/2015 12:37 5 1:01 (specimen) PM EDT PM EDT Resulting Agency Comment Spec In Lab Genie Garcia MD CHEMISTRY ORDERABLES Performing Organization Address City/[facility]/[place] [address] CERNER MILLENNIUM (ABNORMAL) Urinalysis with reflex Culture (05/02/2015 12:21 PM EDT) [facility] Method Time Signature Glucose UA Negative Negative CERNER mg/dL MILLENNIUM Protein UA Negative Negative CERNER mg/dL MILLENNIUM Bilirubin UA Negative Negative CERNER mg/dL [facility]NIUM Comment: Clinical correlation required for positi ve Urine Bilirubin results as false positive may occur with some drugs and d rug related products. If a false positive is suspected a serum total bili power should be considered if clinically indicated. Urobilinogen UA Normal Normal mg/dL CERNER MILL ENNIUM pH UA 6.0 5.0 - 8.0 CERNER MILLENNIUM Blood UA Negative Negative mg/dL CERNER MILLENNI UM Ketones UA Negative Negative mg/dL CERNER MILLENN IUM Nitrite UA Negative Negative CERNER MILLENNIUM Leukocytes UA Negative Negative mcL CERNER SHANTHI NIUM Appearance UA Clear Clear CERNER MILLENNIU M Spec Garretson UA 1.008 1.002 - 1.030 CERNER MIL LENNIUM Color UA Straw Yellow CERNER MILLENNIUM RBC UA <1 0 - 4 /HPF CERNER MILLENNIUM WBC UA <1 0 - 5 /HPF CERNER MILLENNIUM Bacteria UA Rare (A) None /HPF CERNER MILLENNIUM Culture Reflexed No CERNER SHANTHI NIUM Specimen (Source) Anatomical Collection Method Collection Time Re ceived Time Location / / Volume Laterality Urine specimen 05/02/2015 12:21 5 3:12 obtained by clean PM EDT PM EDT catch procedure (specimen) Resulting Agency Comment Spec In Lab Genie Garcia MD URINE ORDERABLES Performing Organization Address City/[facility]/ZIP Code Phon e Number [facility] [address] CERNER MILLENNIUM (ABNORMAL) Urine culture First Catch Urine (05/02/2015 12:21 PM EDT) [facility] gist Method Time Signature Urine Culture 1,000-9,000 CERNER cfu/ml Gram MILLENNIUM Positive organisms , probable contaminant (A) Specimen Anatomical Collection Method Collection Time Receive d Time (Source) Location / / Volume Laterality First stream 05/02/2015 12:21 05/02/2015 3:17 urine sample PM EDT PM EDT (specimen) Resulting Agency Comment Spec In Lab Genie Garcia MD MICROBIOLOGY - GENERAL ORDER ARTEMIO Performing Organization Address City/State/ZIP Code Phon e Number EST[facility] [address] [facility] documented in this encounter Visit Diagnoses Diagnosis Pelvic mass Abdominal or pelvic swelling, mass or jessica mp, unspecified site Malignant neoplasm of cecum Malignant neoplasm of cecum Malignant neoplasm of body of pancreas Malignant neoplasm of body of pancreas Urinary frequency documented in this encounter Care Teams Software Configuration Manager Relationship Specialty Start Date End Date Marilyn Kidd MD PCP - General 06/17/[address] [place] [address] documented as of this encounter
--- OUTSIDE RECORDS SUMMARY | 2022-02-09 02:23 | XMS_ITS | Encounter Summary ---
:1945 [place] [address] Care Team Providers Name Role Phone Marilyn Kidd MD Primary Care Provider Reason for Visit Auth/Cert - Closed Specialty Diagnoses / Procedures Referred By Contact Refer red To Contact Diagnoses OVARIAN CANCER Procedures @HYSTERECTOMY, CHRISTY, BSO, DEBULKING INTRAPERITONEAL CATHETER INSERTION W\SUB-Q PORT Referral ID Status Reason Start Date Expiration Date Visits Requ ested Visits Authorized [id number] Closed 1 1 Encounter Details Date Type Department Care Team Description 05/06/2015 Anesthesia Event Main Operating Room Hanna Griffith MD [facility] [place] [address] [facility] [place] [address] [place] [address] Anesthesia Record Procedure Summary Procedure Name Responsible Anesthesia Start Anesthesia Stop Time Anesthesiologist Time @CHRISTY LEVINE Chaimberg, Kathleen H, MD 05/06/15 1354 1755 BSO, DEBULKING (WRVU 34.13) (N/A Abdomen) Events Date Time Event Comment 05/06/2015 1305 1349 AN Verify 1354 Start 1354 An Start Data 1403 An Induction 1407 An Intubation 1425 Procedure Start 1445 Anesthesia Ready 1457 ABG Data Arterial Blood G as result: pH 7.49 pCO2 31 pO2 300 FiO2 .5 %O2 Sat 99 HCO3 23.4 BE .1 Hb 10.9 Glucose 86 K 3.9 1603 ABG Data Arterial Blood G as result: pH 7.419 pCO2 33 pO2 261 FiO2 0.57 %O 2 Sat 100 HCO3 20.9 BE -3.6 Hb 9.3 Glucose 115 K 3. 59 1605 Break/Relief In GABE PULIDO N, FILM FLAT INSPECTOR 1629 ABG Data Arterial Blood G as result: pH 7.41 pCO2 33 pO2 261 FiO2 20.9 %O2 Sa t 100 HCO3 20.9 BE -3.6 Hb 9.3 Glucose 115 K 3. 5 1731 Extubation/LMA Out To Delete (sk ip) the Extubation event, click the X below. 1731 an stop data 1751 Quick Note Patient to joe castillo. Report to RN. Exchanging adequately. Pt. Hypotensive in the 70's and 80's probably due to Lidocaine bolus through epidural at the end of ca se. Responding to Steven and Ephedrine boluse s. Epidural pump off at present. Report given to medical resident precision grinder. Steven gtt running at 4 0 mcg/min. 1755 Stop Name Total fentaNYL 250 mcg IV Lidocaine 60 mg Propofol 150 mg Rocuronium 100 mg PHENYLephrine 480 mcg ePHEDrine 50 mg Ondansetron 8 mg Dexamethasone 8 mg Neostigmine 5 mg Glycopyrrolate 0.6 mg ceFAZolin (ANCEF) 2g in dextrose 5% 50 mL 2 g fentaNYL 2 mcg/mL, BUpivacaine (MARCAINE) 0.0625% (0.6 25 mg/mL)(1/16%) in 3.25 mL sodium chloride 0.9% 250 mL epidural Lidocaine 2% 7 mg Lactated Ringers 1,600 mL Lactated Ringers 1,000 mL Sodium Chloride 0.9% 2,000 mL Agents Name O2 Air N2O Sevoflurane (et) Isoflurane (et) Blood No blood administrations on file. Lines, Drains, and Airways Type Details Placement Removal Incision 05/06/15; abdomen; 05/06/15 0000 by 06/03/15 091 1 by vertical; 06/03/15; 0911 Linda Herrera Br own, Surekha Aden RN RN Urethral Catheter 05/06/15; Genitourinary 05/06/15 0000 by 05/08 0830 by surgery, Abdominal Linda Herrera Davis, C ilene B, ZAIDA surgery; Physician order; RN indwelling double lumen catheter; 100% silicone; 16; inserted at this facility; 1; 5; 10; none; drainage bag to dependent drainage; 05/08/15; 0830 Epidural 05/06/15; 1340; DrJayda 05/06/15 1340 by 05/08/15 11 44 by Rishi/Dr. Parekh (loss at [facility], Melida Clifford rr, Greta Zayas, RN 4, tip T8, 8 cm at skin); K, RN catheter intact, removed with ease, no longer indicated; 05/08/15; 1144 PIV 05/06/15; 1354; median 05/06/15 1354 by 05/07/15 1558 by cubital vein left Anette Chavarria Mills, Jam ie Y, RN (antecubital fossa); FILM FLAT INSPECTOR [id number]-[id number] catheter system; 18 gauge; bcharron glue jointer operator; LR infiltrate; site symptomatic, site care per policy/procedure, removed per policy/procedure, catheter intact; 05/07/15; 1558 PIV 05/06/15; 1354; 05/06/15 1354 by 05/07/15 0951 b y metacarpal vein right Anette Chavarria Davis, Stephanie L, (top of hand); FILM FLAT INSPECTOR RN bwrj-buc-nvelnk catheter system; 18 gauge; bcharron glue jointer operator; lumen/catheter not patent; 05/07/15; 0951 Arterial Line 05/06/15; 1354; radial 05/06/15 1354 by 05/06/15 2146 by artery; 20 gauge; Anette Chavarria Smith, Pat rick F, RN bcharron glue jointer operator; Sterile FILM FLAT INSPECTOR Prep, Sterile Gloves; 05/06/15; 2145 ETT Mask Ventilation: Easy 05/06/15 1407 by 05/06/15 1731 by (1); ETT Type: Cuffed; Anette Chavarria, Anette Bang, ETT Size: 7 mm; Jose Alfredo FILM FLAT INSPECTOR FILM FLAT INSPECTOR Blade: 2; Notes: Asleep, Pre-O2, Stylette; Attempts: 1; Laryngoscopy Grade: 1; ETT Placement Verified By: Auscultation, Capnometry, Visual; Secured at Teeth: 21 cm; Inserted by: gloria WALLACE documented in this encounter Social History Tobacco [...] Postprocedure Evaluation - Hanna Nolen MD - 05/07/2015 8:21 AM EDT Patient: Neisha White Procedure(s) Performed: Procedure(s): @HYSTERECTOMY, CHRISTY, BSO, DEBULKING MODIFIER FANG STUDY LAPAROTOMY, EXCISION LESION, PERITONEUM @URETEROLYSIS WITH OR WITHOUT REPOSITIONING OF URETER FOR RETROPERITONEAL FIBROSIS @OMENECTOMY Actual Anesthetic: general Patient location: [facility] Surgical Floor Post-op pain: Adequate analgesia. Of note, per early childhood associate resident and floor RN, epidural infusion was off most of night for concerns re: low BP. Discussed with RN and early childhood associate MD that patient is otherwise fit, healthy woman with low normal BP at baseline. She is awake, mentating without dizziness/lightheadednessand with good UO. Her pain is near zero while in bed, has not attempted to be up and moving around as yet. We discussed seeing how her pain is with movement and either removing the epidural or using low dose in conjunction with dilaudid as needed. Post-op nausea: no nausea or vomiting Last Vitals: Filed Vitals: 05/07/15 0806 BP: 105/48 Pulse: Temp: Resp: Post-op cardiovascular and respiratory status: is stable. See above. Level of consciousness: awake, alert and oriented Complications: no apparent complications and tolerated the procedure well Fluid Status: normal Anesthesia Procedure Notes - Estephanie Blackwell MD - 05/06/2015 2:55 PM EDT Associated Order(s): ANE NEURAXIAL UPDATED Procedure: Neuraxial Block Post-op Pain Control Type: Epidural The patient was greeted. The sedation plan, its benefits, risks and alternatives were discussed withthe patient. The patient has consented to the procedure. The medical history and chart were reviewed. The timeout was performed. Start time: 05/06/2015 1:03 PM End time: 05/06/2015 1:55 PM Patient Location: Other - add comment below Patient Prep Position: Prone Prep: Hat, Mask, Sterile Gloves, Gown and Chlorhexidine Injection technique: continuous Skin Anesthetic Lidocaine 1% 1 ml 10 ml total for local anesthetic Procedure Technique Level of needle insertion: T9-10 Needle approach: midline Needle Type: Tuohy Gauge: 17 Needle length: 3.5 in Needle insertion depth when MEET achieved: 4 cm Technique for Loss of Resistance: MEET saline Catheter at skin depth: 8 cm Dressing/Secured with: Chlorhexidine Tegaderm Number of attempts: 3 Events/Notes Imaging: fluoroscopy guided and epidurogram obtained Level of Epidural Tip via Fluoroscopy: T8-9 Iohexol 240 mgI/mL, 2 mL Events: unable to thread epidural catheter, On first 2 attempts, difficulty with threading catheter midline occurred. Therefore, last attempt was made with a slight left of midline approach, catheter thread more acceptable. Resident/FILM FLAT INSPECTOR: Fellow: estephanie blackwell Attending Physician: Dr. Parekh ~~~~~~~~~~~~~~~~~~~~~~~~~~~~~~~~~~~~~~~~~~~~~~~~~~~~~~~~~~~~ Anesthesia Preprocedure Evaluation - Hanna Nolen MD - 05/06/2015 1:02 PM EDT Pre-Anesthesia Evaluation for: Neisha hWite a 69 y.o. female. Procedure(s): @HYSTERECTOMY, CHRISTY, BSO, DEBULKING INTRAPERITONEAL CATHETER INSERTION W\SUB-Q PORT MODIFIER FANG STUDY Patient Active Problem List Diagnosis ??? Pelvic mass No past medical history on file. No past surgical history on file. History Substance Use Topics ??? Smoking status: Former Smoker -- 0.50 packs/day for 12 years Types: Cigarettes Quit date: 08/02/1979 ??? Smokeless tobacco: Never Used ??? Alcohol Use: No Comment: rare History Drug Use No No Known Allergies Medications: MAR and/or home medications have been reviewed. Physical Exam: Filed Vitals: 05/06/15 1248 BP: 130/54 Pulse: 65 Temp: 36.7 ??C (98.1 ??F) Resp: 20 Body mass index is 23.3 kg/(m^2). Height: 165.1 cm (5' 5) Weight - Scale: 63.504 kg (140 lb) Airway Assessment: Mallampati: II TM distance: >3 FB Neck ROM: full Cardiovascular Assessment: Rhythm: regular Rate: normal Pulmonary Assessment: breath sounds clear to auscultation Dental Assessment: - normal exam Misc Assessment: Anesthesia Plan: ASA 2 general, with a(n) intravenous induction Otherwise healthy and fit 69 yo nonsmoker presents with presumed dx ovarian Ca for hysterectomy/debulking. Discussed risks/benefits GAETT, epidural for postop pain, arterial line monitoring, possible blood transfusion. Region - Intrathoracic Cardiac Informed Consent: Anesthetic plan and risks discussed with patient. Use of blood products discussed with patient whom. Plan discussed with FILM FLAT INSPECTOR. Misc. Assessment: documented in this encounter Plan of Treatment Upcoming Encounters Date Type Specialty Care Team Description 02/27/2022 Appointment Radiology Marilyn Kidd MD [address] [place] [address] (Wo rk) documented as of this encounter Procedures Procedure Name Priority Date/Time Associated Diagnosis Comme nts ANE NEURAXIAL Routine 05/06/2015 3:01 PM Results for this UPDATED EDT procedure are i n the results section. documented in this encounter Results ANE NEURAXIAL UPDATED (05/06/2015 3:01 PM EDT) Narrative Estephanie Blackwell MD - 05/06/2015 3:01 PM EDT Estephanie Blackwell MD ? 05/06/2015 ??3:01 PM Procedure: ?? Neuraxial Block Post-op Pain Control Type: Epidural The patient was greeted. The sedation pl an, its benefits, risks and alternatives were discussed with the patient. ??The patient has consented to the procedure. ??The me dical history and chart were reviewed. ??The timeout was perform ed. Start time: 05/06/2015 1:03 PM End time: 05/06/2015 1:55 PM Patient Location: Other - add comment be low Patient Prep Position: Prone Prep: Hat, Mask, Sterile Gloves, Gown an d Chlorhexidine Injection technique: continuous Skin Anesthetic Lidocaine 1% ??1 ml 10 ml total for local anesthetic Procedure Technique Level of needle insertion: T9-10 Needle approach: midline Needle Type: Tuohy Gauge: 17 Needle length: 3.5 in Needle insertion depth when MEET achieved : 4 cm Technique for Loss of Resistance: MEET sa line Catheter at skin depth: 8 cm Dressing/Secured with: Chlorhexidine Teg aderm Number of attempts: 3 Events/Notes Imaging: ??fluoroscopy guided and epidur ogram obtained Level of Epidural Tip via Fluoroscopy: T 8-9 Iohexol 240 mgI/mL, 2 mL Events: ??unable to thread epidural cath eter, On first 2 attempts, difficulty with threading catheter midli ne occurred. Therefore, last attempt was made with a slight left of midline approach, catheter thread more acceptable. Resident/FILM FLAT INSPECTOR: Fellow: estephanie blackwell Attending Physician: ??Dr. Parekh ~~~~~~~~~~~~~~~~~~~~~~~~~~~~~~~~~~~~~~~~ ~~~~~~~~~~~~~~~~~~~~ Genie Garcia MD FLAME CHANNELER [facility] documented in this encounter Visit Diagnoses Not on filedocumented in this encounter Administered Medications Inactive Administered Medications - up to 3 most recent administrations Medication Order MAR Action Action Date Dose Rate Site ceFAZolin (ANCEF) 2g in dextrose 5% Given 05/06/2015 2:51 PM EDT 2 g 50 mL 2 g, Intravenous, ONCE, 1 dose, On Wed05/06/15 at 1315, Administer over 30 Minutes, Redose every 3 hours if CrCl is greater than 20. Redose every 8 hours if CrCl is less than 20., Day of Surgery (Day of Procedure), Indication for (Active or Suspected): Prophylaxis dexamethasone (DECADRON) injection Given 05/06/2015 2:57 PM EDT 8 mg PRN, Starting on Wed05/06/15 at 1457, Until Wed05/06/15 at 1755, Anesthesia Intra-op, Routine ePHEDrine 5 mg/mL multi-dose injection Given 05/06/2015 5:48 PM EDT 10 mg PRN, Starting on Wed05/06/15 at 1446, Until Wed05/06/15 at 1755, Anesthesia Intra-op, Routine Given 05/06/2015 5:45 PM EDT 10 mg Given 05/06/2015 4:32 PM EDT 5 mg fentaNYL 2 mcg/mL, Rate/Dose Change 05/06/2015 5:15 PM 7 mL/hr 7 m L/hr BUpivacaine (MARCAINE) EDT 0.0625% (0.625 mg/mL)(1/16%) in sodium chloride 0.9% 250 mL epidural 3 mL/hr, Epidural, CONTINUOUS, Starting on Wed05/06/15 at 1345, Until Wed05/08/15 at 1145, Maximum rate for continuous infusion 14 mL per hour Maximum total epidural rate (continuous and PCEA bolus) is 25 mL per hour, Recovery (Recovery-Hospital Unit), Routine New Bag 05/06/2015 4:57 PM EDT 5 mL/hr 5 mL/hr fentaNYL 50 mcg/mL multi-dose injection Given 05/06/2015 4:31 PM EDT 50 mcg PRN, Starting on Wed05/06/15 at 1403, Until Wed05/06/15 at 1755, Pain, Anesthesia Intra-op, Routine Given 05/06/2015 4:05 PM EDT 50 mcg Given 05/06/2015 3:37 PM EDT 50 mcg glycopyrrolate (ROBINUL) multi-dose inje ction Given 05/06/2015 4:57 PM EDT 0.6 mg PRN, Starting on Wed05/06/15 at 1657, Until Wed05/06/15 at 1755, Anesthesia Intra-op, Routine lactated ringers infusion New Bag 05/06/2015 1:49 PM EDT CONTINUOUS PRN, Starting on Wed05/06/15 at 1349, Until Wed05/06/15 at 1755, Anesthesia Intra-op lactated ringers infusion New Bag 05/06/2015 4:01 PM EDT CONTINUOUS PRN, Starting on Wed05/06/15 at 1601, Until Wed05/06/15 at 1755, Anesthesia Intra-op lidocaine (PF) (XYLOCAINE) 100 mg/5 mL (2 %) Given 5 2:03 PM EDT 60 mg injection PRN, Starting on Wed05/06/15 at 1403, Until Wed05/06/15 at 1755, Anesthesia Intra-op, Routine lidocaine (PF) (XYLOCAINE) 20 mg/mL (2 %) Given 05/06/2015 5:21 PM EDT 2 mg injection PRN, Starting on Wed05/06/15 at 1721, Until Wed05/06/15 at 1755, Anesthesia Intra-op, Routine Given 05/06/2015 5:18 PM EDT 5 mg neostigmine (PROSTIGMINE) multi-dose inj ection Given 05/06/2015 4:57 PM EDT 5 mg PRN, Starting on Wed05/06/15 at 1657, Until Wed05/06/15 at 1755, Anesthesia Intra-op, Routine ondansetron (ZOFRAN) injection Given 05/06/2015 4:52 PM EDT 8 mg PRN, Starting on Wed05/06/15 at 1652, Until Wed05/06/15 at 1755, Nausea, Anesthesia Intra-op, Routine PHENYLephrine HCl in NS (PF) Given 05/06/2015 5:45 PM EDT 160 mc g (STEVEN-SYNEPHRINE) 0.8 mg/10 mL (80 mcg/mL) multi-dose injection Syrg PRN, Starting on Wed05/06/15 at 1739, Until Wed05/07/15 at 0825, Anesthesia Intra-op, Routine Given 05/06/2015 5:42 PM EDT 160 mcg Given 05/06/2015 5:39 PM EDT 160 mcg propofol (DIPRIVAN) 10 mg/mL bolus injection Given 06/2015 2:03 PM EDT 150 mg (Anesthesia) PRN, Starting on Wed05/06/15 at 1403, Until Wed05/06/15 at 1755, Anesthesia Intra-op rocuronium (ZEMURON) multi-dose injectio n Given 05/06/2015 4:32 PM EDT 20 mg PRN, Starting on Wed05/06/15 at 1403, Until Wed05/06/15 at 1755, Anesthesia Intra-op, Routine Given 05/06/2015 3:55 PM EDT 20 mg Given 05/06/2015 3:03 PM EDT 10 mg sodium chloride 0.9% infusion New Bag 05/06/2015 2:44 PM EDT CONTINUOUS PRN, Starting on Wed05/06/15 at 1444, Until Wed05/06/15 at 1755, Anesthesia Intra-op documented in this encounter Care Teams Emergency Medicine Medical Director Relationship Specialty Start Date End Date Marilyn Kidd MD PCP - General 06/17/[address] [place] [address] documented as of this encounter
--- OUTSIDE RECORDS SUMMARY | 2022-02-09 02:23 | XMS_ITS | Encounter Summary ---
:1945 Author Organization [facility] [place] [address] Care Team Providers Name Role Phone Unavailable Primary Care Provider Unavailable Encounter Details Date Type Department Care Team Description 05/30/2010 Office Visit [place] [address] Social History Tobacco Use Types Packs/Day Years Used Date Never Assessed Sex Assigned at Date Recorded Not on file documented as of this encounter Plan of Treatment Upcoming Encounters Date Type Specialty Care Team Description 02/27/2022 Appointment Radiology Marilyn Kidd MD [address] [place], [place] [address] (Wo rk) documented as of this encounter Visit Diagnoses Not on filedocumented in this encounter
--- OUTSIDE RECORDS SUMMARY | 2022-02-09 02:23 | XMS_ITS | Encounter Summary ---
:1945 Author Organization [facility] [place] [address] Care Team Providers Name Role Phone Mariyln Kidd MD Primary Care Provider Encounter Details Date Type Department Care Team Description 05/29/2011 Hospital Encounter Mammography at [facility], DR [facility] Marilyn Kidd MD [address] [place], [place] [id number] [place] [address] Social History Tobacco Use Types Packs/Day Years Used Date Never Assessed Sex Assigned at Date Recorded Not on file documented as of this encounter Medications at Time of Discharge Medication Sig Dispensed Refills Start Date End Date RED YEAST RICE EXTRACT ORAL 0 08/10/19 08 05/02/2015 UBIDECARENONE (COENZYME Q10 ORAL) 0 05/02/2015 documented as of this encounter Plan of Treatment Upcoming Encounters Date Type Specialty Care Team Description 02/27/2022 Appointment Radiology Marilyn Kidd MD [address] [place] [address] (Wo rk) documented as of this encounter Procedures Procedure Name Priority Date/Time Associated Diagnosis Comme nts MAMMO SCREENING CAD Routine 05/29/2011 1:38 PM Re sults for this BILATERAL EDT procedure are i n the results section. documented in this encounter Results MAMMO DIGITAL BILATERAL SCREENING WITH CAD (05/29/2011 1:38 PM EDT) Anatomical Region Laterality Modality Breast Bilateral Mammography Specimen (Source) Anatomical Collection Method Collection Time Re ceived Time Location / / Volume Laterality 05/29/2011 1:38 PM EDT Narrative 06/04/2011 9:51 AM EST ? BILATERAL MAMMOGRAPHY ?? REASON FOR EXAM: Screening ?? TECHNIQUE: Cranio-caudal (CC) and mediol ateral oblique (MLO) views of both breasts obtained with direct digital cap ture. The exam was evaluated by CAD Version 8.3.17. ?? FINDINGS: This is a negative mammogram ( ACR Category 1). There is a stable fibroglandular pattern without significa nt change as compared to prior studies. There is no mammographic evidence of can cer. ? The breasts are of scattered density. ? CONCLUSION ?? This is a NEGATIVE mammogram (ACR Catego ry 1). Routine screening mammography is recommended with the frequency dependent on the patient's age and breast cancer risk factors. ?? A [facility] has been [facility] to this patient [facility]. Procedure Note Jolanta Spencer MD - 1 BILATERAL MAMMOGRAPHY REASON FOR EXAM: Screening TECHNIQUE: Cranio-caudal (CC) and mediol ateral oblique (MLO) views of both breasts obtained with direct digital cap ture. The exam was evaluated by CAD Version 8.3.17. FINDINGS: This is a negative mammogram ( ACR Category 1). There is a stable fibroglandular pattern without significa nt change as compared to prior studies. There is no mammographic evidence of can cer. The breasts are of scattered density. CONCLUSION This is a NEGATIVE mammogram (ACR Catego ry 1). Routine screening mammography is recommended with the frequency dependent on the patient's age and breast cancer risk factors. A letter has been sent to this patient b [facility]. Marilyn Kidd MD IMG MAMMO ORDERABLES documented in this encounter Visit Diagnoses Not on filedocumented in this encounter Care Teams Manager Care Management Relationship Specialty Start Date End Date Marilyn Kidd MD PCP - General 06/17/[address] [place] [address] documented as of this encounter
--- OUTSIDE RECORDS SUMMARY | 2022-02-09 02:23 | XMS_ITS | Encounter Summary ---
:1945 Author Organization [facility] [place] [address] Care Team Providers Name Role Phone Marilyn Kidd MD Primary Care Provider Encounter Details Date Type Department Care Team Description 04/19/2015 Orders Only Radiology Fabby Dawson inMarilyn MD [facility] [address] [place], [place] [id number] [place] [phone] Social History Tobacco Use Types Packs/Day Years Used Date Former Smoker Sex Assigned at Date Recorded Not on file documented as of this encounter Plan of Treatment Upcoming Encounters Date Type Specialty Care Team Description 02/27/2022 Appointment Radiology Marilyn Kidd MD [address] [place] [address] (Wo rk) documented as of this encounter Procedures Procedure Name Priority Date/Time Associated Diagnosis Comme nts FILM LIBRARY Routine 04/19/2015 9:15 AM Results f or this STORAGE ONLY CT EDT procedure ar e in ABDOMEN AND PELVIS the resul ts section. documented in this encounter Results Film Library- Storage only CT abdomen & pelvis (04/19/2015 9:15 AM EDT) Anatomical Region Laterality Modality Abdomen, Pelvis Other Specimen (Source) Anatomical Collection Method Collection Time Re ceived Time Location / / Volume Laterality 04/19/2015 9:15 AM EDT Narrative 04/22/2015 6:18 PM EDT This is a Non-reportable exam Procedure Note SHANNAN, UNSIGNED REPORT - 04/22/2015Formatt ing of this note might be different from the original. This is a Non-reportable exam Marilyn Kidd MD [facility] FILM LIBRARY ORDERABLES documented in this encounter Visit Diagnoses Not on filedocumented in this encounter Care Teams Ballaster Relationship Specialty Start Date End Date Marilyn Kidd MD PCP - General 06/17/[address] [place] [address] documented as of this encounter
--- OUTSIDE RECORDS SUMMARY | 2022-02-09 02:23 | XMS_ITS | Encounter Summary ---
:1945 Author Organization [facility] [place] [address] Care Team Providers Name Role Phone Marilyn Kidd MD Primary Care Provider Encounter Details Date Type Department Care Team Description 02/21/2014 Hospital Encounter Mammography at [facility], DR [facility] Marilyn Kidd MD [address] [place], [place] [id number] [place] [address] Social History Tobacco Use Types Packs/Day Years Used Date Former Smoker Sex Assigned at Date Recorded Not on file documented as of this encounter Medications at Time of Discharge Medication Sig Dispensed Refills Start Date End Date Coenzyme L83-[id number] E Take 1 capsule by 0 2012 [...] MD [address] [place], [place] [id number] (Wo rk) documented as of this encounter Procedures Procedure Name Priority Date/Time Associated Diagnosis Comme nts MAMMO SCREENING CAD Routine 02/21/2014 10:37 AM R esults for this BILATERAL EDT procedure are i n the results section. documented in this encounter Results Mammo digital bilateral Screening with CAD (02/21/2014 10:37 AM EDT) Anatomical Region Laterality Modality Breast Bilateral Mammography Specimen (Source) Anatomical Collection Method Collection Time Re ceived Time Location / / Volume Laterality 02/21/2014 10:37 AM EDT Narrative 02/22/2014 9:56 AM EDT Reason for Exam: Screening ?? Technique: Craniocaudal (CC) and Medio-l ateral Oblique (MLO) views of both breasts obtained with direct digital cap ture. ?? The exam was evaluated by CAD version 8. 3.17. ?? Findings: ?? This is a negative mammogram (ACR Catego ry 1). There is a stable fibroglandular pattern without significant change from prior studies. There is no mammographic evidence of can cer. The breasts are of scattered density. ?? CONCLUSION: This is a NEGATIVE mammogram (ACR Catego ry 1). ?? Routine screening mammography is recomme nded with the frequency dependent upon the patients age and breast cancer risk factors. ?? A letter has been sent to this patient b y the breast imaging center. Procedure Note Linda Benitez MD - 02/22/2014Format ting of this note might be different from the original. Reason for Exam: Screening Technique: Craniocaudal (CC) and Medio-l ateral Oblique (MLO) views of both breasts obtained with direct digital cap ture. The exam was evaluated by CAD version 8. 3.17. Findings: This is a negative mammogram (ACR Catego ry 1). There is a stable fibroglandular pattern without significant change from prior studies. There is no mammographic evidence of can cer. The breasts are of scattered density. CONCLUSION: This is a NEGATIVE mammogram (ACR Catego ry 1). Routine screening mammography is recomme nded with the frequency dependent upon the patients age and breast cancer risk factors. A letter has been sent to this patient b y the breast imaging center. Marilyn Kidd MD IMG MAMMO ORDERABLES documented in this encounter Visit Diagnoses Not on filedocumented in this encounter Care Teams Review Consultant Relationship Specialty Start Date End Date Marilyn Kidd MD PCP - General 06/17/[address] [place] [address] documented as of this encounter
--- OUTSIDE RECORDS SUMMARY | 2022-02-09 02:23 | XMS_ITS | Encounter Summary ---
:1945 Author Organization [facility] [place] [address] Care Team Providers Name Role Phone Marilyn Kidd MD Primary Care Provider Encounter Details Date Type Department Care Team Description 11/23/2012 Hospital Encounter Mammography at [facility], DR K[facility] Marilyn Kidd MD [address] [place], [place] [id number] [place] [address] Social History Tobacco Use Types Packs/Day [...] [address] [place] [address] (Wo rk) documented as of this encounter Procedures Procedure Name Priority Date/Time Associated Diagnosis Comme nts MAMMO SCREENING CAD Routine 11/23/2012 2:33 PM Re sults for this BILATERAL EDT procedure are i n the results section. documented in this encounter Results Mammo digital bilateral Screening with CAD (11/23/2012 2:33 PM EDT) Anatomical Region Laterality Modality Breast Bilateral Mammography Specimen (Source) Anatomical Collection Method Collection Time Re ceived Time Location / / Volume Laterality 11/23/2012 2:33 PM EDT Narrative 11/24/2012 11:20 AM EDT Reason for Exam: Screening ?? Technique: Craniocaudal (CC) and Medio-l ateral Oblique (MLO) views of both breasts obtained with direct digital cap ture. The exam was evaluated by CAD version 8. 3.17. ?? Findings: ?? This is a negative mammogram (ACR Catego ry 1). ??There is a stable fibroglandular pattern without significa nt change from prior studies. There is no mammographic evidence of can cer. ??The breasts are of scattered density. ?? CONCLUSION: This is a NEGATIVE mammogram (ACR Catego ry 1). ?? Routine screening mammography is recomme nded with the frequency dependent upon the patient's age and breast cancer risk factors. A letter has been sent to this patient b y the [facility]. Procedure Note Franchesca Dhillon MD - 11/24/2012Formattin g of this note might be different from the original. Reason for Exam: Screening Technique: Craniocaudal (CC) and Medio-l ateral Oblique (MLO) views of both breasts obtained with direct digital cap ture. The exam was evaluated by CAD version 8. 3.17. Findings: This is a negative mammogram (ACR Catego ry 1). There is a stable fibroglandular pattern without significa nt change from prior studies. There is no mammographic evidence of can cer. The breasts are of scattered density. CONCLUSION: This is a NEGATIVE mammogram (ACR Catego ry 1). Routine screening mammography is recomme nded with the frequency dependent upon the patient's age and breast cancer risk factors. A letter has been sent to this patient b y the breast imaging [facility]. Marilyn Kidd MD IMG MAMMO ORDERABLES documented in this encounter Visit Diagnoses Not on filedocumented in this encounter Care Teams Laboratory Miller Relationship Specialty Start Date End Date Marilyn Kidd MD PCP - General 06/17/[address] [place] [address] [address] [place] [address] documented as of this encounter
--- OUTSIDE RECORDS SUMMARY | 2022-02-09 02:23 | XMS_ITS | Encounter Summary ---
:1945 Author Organization [facility] [place] [address] Care Team Providers Name Role Phone Marilyn Kidd MD Primary Care Provider Encounter Details Date Type Department Care Team Description 05/02/2015 Laboratory Appointment Lab at [facility] Malignant neoplasm of cecum ; [facility] Pelvic ma ss; Drive Malignant neoplasm [place] [id number] Social History Tobacco Use Types Packs/Day Years [...] [address] [place], [place] [id number] (Wo rk) documented as of this encounter Procedures Procedure Name Priority Date/Time Associated Comments Diagnosis HEMOGRAM Routine 05/02/2015 12:37 Pelvic mass Results for this PM EDT procedure are i n the results section. DIFFERENTIAL, Routine 05/02/2015 12:37 Pelvic mass Results fo r this AUTOMATED PM EDT procedure are i n the results section. TYPE AND SCREEN, SDP Routine 05/02/2015 12:37 Pelvic mass (FUTURE SURGERY, [facility] PM EDT SAME DAY PROGRAM ONLY) CREATININE Routine 05/02/2015 12:37 Pelvic mass Results for this PM EDT procedure are i n the results section. CARBOHYDRATE ANTIGEN Routine 05/02/2015 12:37 Malignant neopla sm Results for this 19-9 PM EDT of body of pancreas procedur e are in the results Pelvic mass section. ABO/RH TYPING Routine 05/02/2015 12:37 Pelvic mass Results fo r this PM EDT procedure are i n the results section. CBC (WITH DIFF) Routine 05/02/2015 12:37 Pelvic mass PM EDT ANTIBODY SCREEN Routine 05/02/2015 12:37 Pelvic mass Results for this PM EDT procedure are i n the results section. BUN Routine 05/02/2015 12:37 Pelvic mass Results for this PM EDT procedure are i n the results section. CEA Routine 05/02/2015 12:37 Malignant neoplasm Resul ts for this PM EDT of cecum procedure are in Pelvic mass the results section. ELECTROLYTES PANEL Routine 05/02/2015 12:37 Pelvic mass Resul ts for this PM EDT procedure are i n the results section. documented in this encounter Results Antibody screen (05/02/2015 12:37 PM EDT) [facility] gist Method Time Signature Ab Screen Negative [facility] Expires at 05/09/2015 [place] [facility] [id number] on: [facility] Specimen Anatomical Collection Method Collection Time Receive d Time (Source) Location / / Volume Laterality Blood specimen 05/02/2015 12:37 5 (specimen) PM EDT 12:52 PM EDT Resulting Agency Comment Spec In Lab Genie Garcia MD BLOOD BANK ORDERABLES Performing Organization Address City/State/[place] [address] [facility] ABO/Rh Typing (05/02/2015 12:37 PM EDT) P athologist Signature ABORh Type A Pos [facility] Specimen Anatomical Collection Method Collection Time Receive d Time (Source) Location / / Volume Laterality Blood specimen 05/02/2015 12:37 5 (specimen) PM EDT 12:52 PM EDT Resulting Agency Comment Spec In Lab Genie Garcia MD BLOOD BANK ORDERABLES Performing Organization Address City/[facility]/ZIP Code Phon e Number [address] CERNER MILLENNIUM Differential, Automated (05/02/2015 12:37 PM EDT) P athologist Signature Neutrophils % 73.6 % CERNER MILLENNIUM Neutr Abs (ANC) 4.38 1.50 - CERNER 6.30 MILLENNIUM x10(3)/mcL Lymphocytes % 17.6 % CERNER MILLENNIUM Lymphocytes Abs 1.0 1.0 - 3.6 CERNER x10(3)/mcL MILLENNIUM Monocytes % 7.0 % CERNER MILLENNIUM Monocyte Abs 0.4 0.2 - 1.0 CERNER x10(3)/mcL MILLENNIUM Eosinophils % 1.3 % CERNER MILLENNIUM Eosinophils Abs 0.1 0.0 - 0.5 CERNER x10(3)/mcL MILLENNIUM Basophils % 0.3 % CERNER MILLENNIUM Basophils Abs 0.0 0.0 - 0.2 CERNER x10(3)/mcL MILLENNIUM Immature Gran % 0.20 % CERNER MILLENNIUM [...] Garcia MD HEMATOLOGY ORDERABLES Performing Organization Address City/[facility]/[place] [address] CERNER MILLENNIUM (ABNORMAL) Hemogram (05/02/2015 12:37 PM EDT) athologist Signature WBC 6.0 4.0 - 10.0 CERNER x10(3)/mcL MILLENNIUM RBC 3.88 (L) 3.93 - CERNER 5.22 MILLENNIUM x10(6)/mcL Hemoglobin 11.3 11.2 - CERNER 15.7 gm/dL MILLENNIUM Hematocrit 35.6 34.0 - CERNER 45.0 % MILLENNIUM MCV 91.8 79.0 - CERNER 94.0 fL MILLENNIUM MCH 29.1 26.6 - CERNER 32.2 pg MILLENNIUM MCHC 31.7 (L) 32.0 - CERNER 36.5 gm/dL MILLENNIUM Platelets 235 145 - 370 CERNER x10(3)/mcL MILLENNIUM RDWSD 44.5 35.0 - CERNER 46.0 fL MILLENNIUM RDWCV 13.4 10.9 - CERNER 14.4 % MILLENNIUM MPV 11.1 9.0 - 12.0 CERNER fL MILLENNIUM Specimen Anatomical Collection Method Collection Time Receive d Time (Source) Location / / Volume Laterality Blood specimen 05/02/2015 12:37 5 1:01 (specimen) PM EDT PM EDT Resulting Agency Comment Spec In Lab Genie Garcia MD HEMATOLOGY ORDERABLES Performing Organization Address City/State/[place] [address] CERNER MILLENNIUM (ABNORMAL) Creatinine (05/02/2015 12:37 PM EDT) athologist Signature Creatinine 0.97 0.70 - 1.20 CERNER mg/dL MILLENNIUM Comment: Please note that the pediatric reference intervals supplied above were not validated at [facility]. Results from pediatri c patients should be interpreted in conjunction to the patient's age, height and muscle mass. Estimated GFR 57 (L) >=60 CERNER MILLENNIU M Comment: This [...] the following links into your internet browser. [email or web address] Specimen Anatomical Collection Method Collection Time Receive d Time (Source) Location / / Volume Laterality Blood specimen 05/02/2015 12:37 5 1:01 (specimen) PM EDT PM EDT Resulting Agency Comment Spec In Lab Genie Garcia MD CHEMISTRY ORDERABLES Performing Organization Address [facility] Phon e Number [address] CERNER MILLENNIUM BUN (05/02/2015 12:37 PM EDT) P athologist Signature BUN 15 8 - 18 CERNER mg/dL MILLENNIUM Specimen Anatomical Collection Method Collection Time Receive d Time (Source) Location / / Volume Laterality Blood specimen 05/02/2015 12:37 5 1:01 (specimen) PM EDT PM EDT Resulting Agency Comment Spec In Lab Genie Garcia MD CHEMISTRY ORDERABLES Performing Organization Address City/[facility] Phon e Number [address] CERNER MILLENNIUM Electrolytes panel [...] Garcia MD CHEMISTRY ORDERABLES Performing Organization Address City/[facility]/ZIP Code Phon e Number [address] C[facility]ER [facility] Carbohydrate Antigen 19-9 (05/02/2015 12:37 PM EDT) P athologist Signature CA 19-9 3.9 <=35.0 u/ml [facility] Specimen Anatomical Collection Method Collection Time Receive d Time (Source) Location / / Volume Laterality Blood specimen 05/02/2015 12:37 5 1:01 (specimen) PM EDT PM EDT Resulting Agency Comment Spec In Lab Genie Garcia MD CHEMISTRY ORDERABLES Performing Organization Address City/[facility]/ZIP Code Phon e Number [address] CERNER [facility]ILLBAN[facility]UM CEA (05/02/2015 12:37 PM EDT) P athologist Signature CEA 0.7 <=3.8 ng/mL [facility] Comment: Reference range: ??(20-69 years): Non-smoker: ??less than or equal to 3.8 ng/mL Smoker: ??less than 5.5 ng/ml Specimen Anatomical Collection Method Collection Time Receive d Time (Source) Location / / Volume Laterality Blood specimen 05/02/2015 12:37 5 1:01 (specimen) PM EDT PM EDT Resulting Agency Comment Spec In Lab Genie Garcia MD CHEMISTRY ORDERABLES Performing Organization Address City/[facility]/ZIP Code Phon e Number [address] C[facility] documented in this encounter Visit Diagnoses Diagnosis Malignant neoplasm of cecum Malignant neoplasm of cecum Pelvic mass Abdominal or pelvic swelling, mass or jessica mp, unspecified site Malignant neoplasm of body of pancreas Malignant neoplasm of body of pancreas documented in this encounter Care Teams Corporate Technical Recruiter Relationship Specialty Start Date End Date Marilyn Kidd MD PCP - General 06/17/[address] [place] [address] documented as of this encounter
--- OUTSIDE RECORDS SUMMARY | 2022-02-09 02:23 | XMS_ITS | Encounter Summary ---
:1945 Author Organization [facility] [place] [address] Care Team Providers Name Role Phone Marilyn Kidd MD Primary Care Provider Reason for Visit Auth/Cert - Closed Specialty Diagnoses / Procedures Referred By Contact Refer red To Contact Diagnoses OVARIAN CANCER Procedures @HYSTERECTOMY, CHRISTY, BSO, DEBULKING INTRAPERITONEAL CATHETER INSERTION W\SUB-Q PORT Referral ID Status Reason Start Date Expiration Date Visits Requ ested Visits Authorized [id number] Closed 1 1 Encounter Details Date Type Department Care Team Description 05/06/2015 Surgery Main Operating Room Genie Garcia, @HYSTERECTOMY, CHRISTY, Fabby [place] [facility] BSO, DEBULKING ([facility] 34.13) [facility] [address] [place] [address] [place] [address] [phone] (Wo rk) Social History Tobacco Use Types [...] Neisha White Patient Age: 69 y.o. Language: [place]ine[place] Race: White Ethnicity: Not nor Admit date: 05/06/2015 Discharge date and time: 05/11/2015 Attending Physician: Genie Garcia MD Discharge Physician: Sudarshan Mcguire MD Follow-up Recommendations for Providers: Routine Post-operative follow up with Dr. Garcia on 04/28/2015 at 1:00pm in career development manager oncology clinic [address] Inpatient Provider Contact Information: [facility] Gynecologic Oncology, Discharge Diagnoses (Hospital Problems) and [...] to be 304. She was referred to career development manager oncology clinic. We reviewed that this mass [...] - Scale: 63.504 kg (140 lb) (05/06/15 1248) Functional and Cognitive status: Ambulatory and cognitively [...] Discuss With Your Provider Dose Details Coenzyme C47-Ukyvkem E 50-5 mg-unit Cap Take 1 capsule [...] 1:00 PM Genie Garcia MD Gynecologic Oncology [phone] Discharge References/Attachments HYSTERECTOMY: ABDOMINAL : POST-OP (MAORI) Provider Contact Information: MARILYN KIDD MD (General) [phone] Associated attestation - Genie Garcia MD - 05/13/2015 10:50 AM EDT Patient was also discharged with Lovenox 40mg SQ daily for VTE prophylaxis documented in this encounter Discharge Instructions Patient InstructionsDaljit Romero MD - 05/09/2015 8:06 PM EDT Images from the original note were not included. PATIENT DISCHARGE INSTRUCTIONS Gynecology Oncology phone number: [phone] Call your doctor if you develop: --A [...] through Care Everywhere. HYSTERECTOMY: ABDOMINAL : POST-OP (MAORI)documented in this encounter Medications at Time of Discharge Medication Sig Dispensed Refills Start Date End Date Coenzyme T46-Cpjrrho E Take 1 capsule by 0 2012 [...] who is post operative day #6 s/p CHRISTY/BSO, debulking, and omentectomy for ovarian carcinosarcoma. Events: [...] Pt seen and discussed with Dr. Mcguire, Vice President Mission Integration/Onc Attending. DALJIT ROMERO MD PGY4 05/12/2015 I [...] mg QD last dose 11 pm yesterday medicare sales representative 0.1/5/5 used 1.6 mg in the last 24 Hr Assessment: Numerical Rating Scale (NRS) 0 /10 Pain now is well controlled ROS: GI/Bowels Regular diet Nausea No Pruritis No Drowsiness No Patient is awake and alert. Deep breathing and coughing well. Pt requesting epidural be removed as her pain is well controlled with it off. Plan: Pt is taking oral analgesics and using DRYING MACHINE TENDER with acceptable pain control at this time. [...] notes. ALEIDA DEGROOT RN 05/08/2015 Pager # [phone] I performed the above scribed service and [...] that her pain is well controlled with DRYING MACHINE TENDER Dilaudid, Toradol and tylenol (epidural has remained [...] place draining yellow urine. Labs: Recent Labs 05/08/15 0333 05/07/15 0505/06/15 1821 WBC 8.2 9.9 10.2* HGB 7.4* 8.6* 8.7* HCT 22.8* 26.3* 26.2* PLATELET 165 168 216 Recent Labs 05/08/15 0333 05/07/15 0520 05/02/15 [...] pain control with minimal use of Dilaudid DRYING MACHINE TENDER, along with Toradol and tylenol. Epidural has [...] verified treatment of heat and elevation. EVER Lewis's preceptee, is responsible for follow up care and aware of treatment. Blessing Bright RN - 05/07/2015 2:53 PM EDT Office of Care Management Construction Equipment Operator RN Initial Note/DC Planning: no continuing care needs identified Reviewed record and discussed pt with Sakina Hopkins PA-C for inpt career development manager-oncology service; and at interdisciplinary discharge rounds. Did not interview pt today. Reason for hospitalization:69 y.o. woman with PMHx of hyperlipidemia who is post operative day #1 s/p CHRISTY/BSO, debulking, and omentectomy for pelvic mass. 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 Construction Equipment Operator RN will continue to follow for coordination of care and discharge planning. Dewey Bright k 9 handler/ deputy Office of Care Management pgr [phone] and ext [phone] Ladi Priest MD - 05/07/2015 8:44 AM EDT Acute Pain Service - Epidural Daily Management Physician: eCm Time of Service: 8:44 AM VITAL SIGNS: [...] since last evening due to low BP DRYING MACHINE TENDER 0.1/5/5-used 0.8 mg overnight Scheduled Tylenol 650 [...] notes. ALEIDA DEGROOT RN 05/07/2015 Pager # [phone] I performed the above scribed service and [...] that her pain is well controlled with DRYING MACHINE TENDER Dilaudid (epidural remains off).She reports feeling well [...] Pain Control: adequate pain control with Dilaudid DRYING MACHINE TENDER and tylenol. Epidural off. NSAIDs held due [...] that her pain is well controlled with DRYING MACHINE TENDER Dilaudid. She has tolerated sipsof water without [...] Pain Control: adequate pain control with Dilaudid DRYING MACHINE TENDER. -- transition to PO pain meds when [...] 2100- Pt awakw alert VSS, Pt off PSXv0gk, BP >100systolic, pain tolerable Pt using DRYING MACHINE TENDER, PAC criteria met Cindy Buenrostro RN - 05/06/2015 6:52 PM EDT 05/06@1736: Received patient from OR via bed and accompanied by anesthesia. Pt connected to cardiac specialist with alarm limits set and active. A-line [...] c/d/i. IV sites are intact and patent. 1749: Ephedrine given by CHAYO roberson at the [...] Outcome (s) achieved Date Met: 05/12/15 05/12/15 2394 05/12/15 0802 Plan of Care Review Plan [...] Outcome (s) achieved Date Met: 05/12/15 05/07/15 5830 Mutuality/Individual Preferences What anxieties, fears or concerns do you have about your health or care? Delayed discharge What questions do you have about your health or care? None What information would help us give you more personalized care? None Goal: Fall Prevention-Safe Patient Handling Outcome: Outcome (s) achieved Date Met: 05/12/15 05/12/15 08 Safety Interventions Safety Precautions/Fall Reduction environmental modification;fall [...] Outcome (s) achieved Date Met: 05/12/15 05/12/15 08 Safety Interventions Isolation Precautions standard precautions maintained [...] Outcome (s) achieved Date Met: 05/12/15 05/12/15 1051 Pain, Acute (Adult, Obstetrics) Acceptable Pain Control/Comfort Level achieves outcome Problem: Skin Integrity Impairment, Risk/Actual (Adult, Obstetrics) Goal: Skin Integrity/Wound Healing Patient will demonstrate the desired outcomes. Outcome: Outcome (s) achieved Date Met: 05/12/15 05/12/15 1051 Skin Integrity Impairment, Risk/Actual (Adult, Obstetrics) Skin [...] (Interventions Implemented as Appropriate) 05/11/15 0800 05/11/15 19505/11/152003 Safety Interventions Safety Precautions/Fall Reduction -- environmental [...] Outcome: Ongoing (Interventions Implemented as Appropriate) 05/12/159 Pain, Acute (Adult, Obstetrics) Acceptable Pain Control/Comfort [...] Outcome: Ongoing (Interventions Implemented as Appropriate) 05/11/15 8813 Plan of Care Review Plan of Care [...] 15 minutes later with the same description. notified, IVcompazine and nexium ordered and given [...] Supervision: Purposeful hourly rounding Surveillance: Pt declined Masimo, call lyn in reach, used appropriately CPG [...] Ongoing (Interventions Implemented as Appropriate) 05/10/15 1710 Plan of Care Review Plan of Care [...] Ongoing (Interventions Implemented as Appropriate) 05/07/15 1830 05/09/152029 Plan of Care Review Plan of Care [...] Handling Outcome: Ongoing (Interventions Implemented as Appropriate) 05/09/15202905/10/15 0500 Safety Interventions Safety Precautions/Fall Reduction fall [...] Ongoing (Interventions Implemented as Appropriate) 05/07/15 1830 05/09/15923 Plan of Care Review Plan of Care [...] Review Outcome: Ongoing (Interventions Implemented as Appropriate) 05/07/15182905/08/154 Plan of Care Review Plan of Care [...] Handling Outcome: Ongoing (Interventions Implemented as Appropriate) 05/08/151943 Safety Interventions Safety Precautions/Fall Reduction fall reduction [...] Control Outcome: Ongoing (Interventions Implemented as Appropriate) 05/08/151943 Safety Interventions Isolation Precautions standard precautions maintained [...] Appropriate) 05/08/15 05 Respiratory Insufficiency (Adult, Obstetrics) Effective Ventilation making progress toward outcome Plan of Care - Ildefonso Walker RN - 05/08/2015 3:52 PM EDT Problem: General Plan of Care Goal: Plan of Care Review Outcome: Ongoing (Interventions Implemented as Appropriate) 05/07/15182905/08/15 09 Plan of Care Review Plan of Care Outcome Status ongoing (interventions implemented as appropriate) -- Progress progress toward functional goals as expected -- Coping/Psychosocial Response Interventions Plan of Care Reviewed with -- patient;significant other;family OUTCOME EVALUATION NOTE: OUTCOME SUMMARY: Patient had fox discontinued this am, voiding fine this afternoon. Epidural discontinued and DRYING MACHINE TENDER discontinued. Patient given po tylenol and po [...] Review Outcome: Ongoing (Interventions Implemented as Appropriate) 05/07/15182905/07/152044 Plan of Care Review Plan of Care Outcome Status ongoing (interventions implemented as appropriate) -- Progress progress toward functional goals as expected -- Coping/Psychosocial Response Interventions Plan of Care Reviewed with -- patient;significant other OUTCOME EVALUATION NOTE: OUTCOME SUMMARY: Pt POD #2 following CHRISTY-BSO, midline incision with dressing over, no new drainage, pain well controlled with DRYING MACHINE TENDER PRN, toradol IV, and tylenol, epidural stopped [...] continue to monitor. PLAN MOVING FORWARD: ?Osman d/c this AM Continue to monitor pain O2 sats. Encourage ambulation. INDIVIDUALIZED FALL PREVENTION: Assistance: Stand-by. Supervision: Intermittent, family at bedside. Surveillance: Kristano, purposeful hourly rounding. CPG OUTCOME EVALUATION: Goal: [...] Assessment Outcome: Ongoing (Interventions Implemented as Appropriate) 10/14/15 0544 Discharge Needs Assessment Concerns to be [...] no new drainage, pain well controlled with DRYING MACHINE TENDER PRN, toradol IV, and tylenol, epidural stopped [...] progress toward outcome Plan of Care - Jimena Victor RN - 05/07/2015 5:27 AM EDT [...] Ax2 with walker Supervision: Hands on Surveillance: Maslevo, call lyn in reach, purposeful hourly rounding [...] progress toward outcome Op Note - Genie Garcia MD - 05/06/2015 6:05 PM EDT [facility] Operative Note Patient Name: Neisha White : [id number] MR#: [id number] Case Date: 05/06/2015 Surgeon: Surgeon(s) and Role: * Sol-Genie Booth MD - Primary * Helena Santos MD [...] Operative Note Patient Name: Neisha White : [id number] MR#: [id number] Case Date: 05/06/2015 Surgeon: Surgeon(s) and Role: [...] MD [address] [place], [place] [address] (Wo rk) Pending Results Name Type Priority Associated Diagnoses Date/Ti mn FILM LIBRARY-FLUORO OR Imaging Routine 05/06 2:01 PM EDT T-CRP-CXCMKPB ONL Scheduled Orders Name Type Priority Associated Diagnoses Order S chedule FILM LIBRARY-FLUORO Imaging Routine Once PRN (for Radiant use) OR I-INU-SWMWJIV ONL for 1 O ccurrences starting 05/06/2015 [...] procedure are i n the results section. NON-HOROLOGIST FINAL REPORT Routine 05/06/2015 2:41 Resu lts [...] Yes 05/06/2015 1:54 OVARIAN CANCER LESION, PERITONEUM (WRVU PM EDT 11.1) MODIFIER FANG STUDY Yes 05/06/2015 1:54 OVARIAN CANCER PM EDT @HYSTERECTOMY, CHRISTY, BSO, Yes 05/06/2015 1:54 OVARIAN CANCE R DEBULKING (VU 34.13) PM EDT PREPARE RBC Routine 05/06/2015 [...] Organization Address City/State/[place] [address] CERNER MILLENNIUM (ABNORMAL) Basic [...] were not validated at [facility]. Results from pediatri c patients should be [...] the following links into your internet browser. [email or web address] Specimen Anatomical Collection Method Collection Time Receive d Time (Source) Location / / Volume Laterality Blood specimen 05/12/2015 4:24 AM 015 4:31 (specimen) EDT AM EDT Resulting Agency Comment Spec In Lab Genie Garcia MD CHEMISTRY ORDERABLES Performing Organization Address City/[facility]/[place] [address] CERNER MILLENNIUM Magnesium (05/11/2015 4:37 AM EDT) P athologist Signature Magnesium 0.78 0.69 - 1.07 CERNER mmol/L MILLENNIUM Specimen Anatomical Collection Method Collection Time Receive d Time (Source) Location / / Volume Laterality Blood specimen 05/11/2015 4:37 AM 015 4:49 (specimen) EDT AM EDT Resulting Agency Comment Spec In Lab Genie Garcia MD CHEMISTRY ORDERABLES Performing Organization Address City/[facility]/ZIP Code Phon e Number [place] [phone] CERNER MILLENNIUM (ABNORMAL) Basic [...] were not validated at [facility]. Results from pediatri c patients should be [...] the following links into your internet browser. [email or web address] Specimen Anatomical Collection Method Collection Time Receive d Time (Source) Location / / Volume Laterality Blood specimen 05/11/2015 4:37 AM 015 4:49 (specimen) EDT AM EDT Resulting Agency Comment Spec In Lab Genie Garcia MD CHEMISTRY ORDERABLES Performing Organization Address City/[facility]/ZIP Code Phon e Number [address] CERNER MILLENNIUM Magnesium (05/10/2015 2:12 PM EDT) athologist Signature Magnesium 0.79 0.69 - 1.07 CERNER mmol/L MILLENNIUM Specimen Anatomical Collection Method Collection Time Receive d Time (Source) Location / / Volume Laterality Blood specimen 05/10/2015 2:12 PM 015 2:30 (specimen) EDT PM EDT Resulting Agency Comment Spec In Lab Genie Garcia MD CHEMISTRY ORDERABLES Performing Organization Address [facility] Phon e Number [address] CERNER MILLENNIUM (ABNORMAL) Basic [...] were not validated at [facility]. Results from pediatri c patients should be [...] the following links into your internet browser. [email or web address] Specimen Anatomical Collection Method Collection Time Receive d Time (Source) Location / / Volume Laterality Blood specimen 05/10/2015 2:12 PM 015 2:30 (specimen) EDT PM EDT Resulting Agency Comment Spec In Lab Genie Garcia MD CHEMISTRY ORDERABLES Performing Organization Address City/State/ZIP Code Phon e Number [place] [phone] CERNER MILLENNIUM (ABNORMAL) Differential, Automated (05/10/2015 3:50 AM EDT) [facility] Method Time Signature Neutrophils % 79.8 [...] IG's will be scanned manually for concor danisaura. If this scan disagrees with the automated [...] Organization Address City/State/[place] [address] CERNER MILLENNIUM (ABNORMAL) Hemogram [...] Resulting Agency Comment Spec In Lab Genie Horton-Leobardo MD HEMATOLOGY ORDERABLES Performing Organization Address City/State/ZIP Code Phon e Number [address] CERNER MILLENNIUM POCT Glucose [...] Organization Address City/State/ZIP Code Phon e Number [address] CERNER MILLENNIUM (ABNORMAL) Differential, [...] Garcia MD HEMATOLOGY ORDERABLES Performing Organization Address City/[facility] [place] [address] CERNER MILLENNIUM (ABNORMAL) Hemogram [...] Garcia MD HEMATOLOGY ORDERABLES Performing Organization Address City/[facility] [place] [address] CERNER MILLENNIUM (ABNORMAL) Differential, [...] Organization Address City/State/[place] [address] CERNER MILLENNIUM (ABNORMAL) Hemogram [...] Organization Address City/State/[place] [address] CERNER MILLENNIUM (ABNORMAL) Basic [...] were not validated at [facility]. Results from pediatri c patients should be [...] the following links into your internet browser. [email or web address] Specimen Anatomical Collection Method Collection Time Receive d Time (Source) Location / / Volume Laterality Blood specimen 05/08/2015 3:33 AM 015 3:41 (specimen) EDT AM EDT Resulting Agency Comment Spec In Lab Genie Garcia MD CHEMISTRY ORDERABLES Performing Organization Address City/State/ZIP Code Phon e Number [place] [phone] CERNER MILLENNIUM (ABNORMAL) Differential, Automated (05/07/2015 5:20 AM EDT) [facility] Method Time Signature Neutrophils % 90.0 [...] Organization Address City/State/ZIP Code Phon e Number [place] [phone] CERNER MILLENNIUM (ABNORMAL) Hemogram [...] % MILLENNIUM MPV 10.4 9.0 - 12.0 CERNER fL MILLENNIUM Specimen Anatomical Collection Method Collection Time Receive d Time (Source) Location / / Volume Laterality Blood specimen 05/07/2015 5:20 AM 015 5:26 (specimen) EDT AM EDT Resulting Agency Comment Spec In Lab Genie Garcia MD HEMATOLOGY ORDERABLES Performing Organization Address City/State/[place] [address] CERNER MILLENNIUM (ABNORMAL) Basic [...] were not validated at [facility]. Results from pediatri c patients should be [...] the following links into your internet browser. [email or web address] Specimen Anatomical Collection Method Collection Time Receive d Time (Source) Location / / Volume Laterality Blood specimen 05/07/2015 5:20 AM 015 5:26 (specimen) EDT AM EDT Resulting Agency Comment Spec In Lab Genie Garcia MD CHEMISTRY ORDERABLES Performing Organization Address City/State/[place] [address] CERNER MILLENNIUM (ABNORMAL) Differential, Automated (05/06/2015 6:21 PM EDT) [facility] Method Time Signature Neutrophils % 91.9 % [...] Garcia MD HEMATOLOGY ORDERABLES Performing Organization Address City/[facility]/[place] [address] CERNER MILLENNIUM (ABNORMAL) Hemogram [...] Platelets 216 145 - 370 x10(3)/mcL CERNER RI LLENNIUM RDWSD 43.5 35.0 - 46.0 fL [...] Garcia MD HEMATOLOGY ORDERABLES Performing Organization Address City/[facility]/[place] [address] CERNER MILLENNIUM Specimen to [...] Organization Address City/State/[place] [address] CERNER MILLENNIUM (ABNORMAL) BLOOD [...] Garcia MD CHEMISTRY ORDERABLES Performing Organization Address [facility]/[place] [address] [facility] MILLENNIUM Specimen to Pathology (surgical or derm) (05/06/2015 3:55 PM EDT) Specimen Anatomical Collection Method Collection Time Receive d Time (Source) Location / / Volume Laterality AP Specimen 05/06/2015 3:55 PM 5 3:55 EDT PM EDT Narrative [facility]/06/2015 3:55 PM E DT Specimen requisition ordered. ??Separate Pathology report to follow Authorizing Provider Result Nae Garcia MD PATHOLOGY/CYTOLOGY ORDERABLE S Performing Organization Address [facility] Phon e Number [address] [facility] Specimen to Pathology (surgical or derm) (05/06/2015 3:32 PM EDT) Specimen Anatomical Collection Method Collection Time Receive d Time (Source) Location / / Volume Laterality AP Specimen 05/06/2015 3:32 PM 5 3:32 EDT PM EDT Narrative [facility] - 05/06/2015 3:32 PM E DT Specimen requisition ordered. ??Separate Pathology report to follow Authorizing Provider Result Nae Garcia MD PATHOLOGY/CYTOLOGY ORDERABLE S Performing Organization Address City/[facility] Phon e Number [address] [facility] Surgical Pathology Report (05/06/2015 3:11 PM EDT) Component Value Ref Test Analysis Performed At [facility] Range Method Time Signature Surgical The signing pathologist has (i) examined the relevant preparation(s) for the [facility] Pathology specimen(s) and (ii) rendered or confirmed the diagnosis(e s). [facility] Report Accession Number: [id number] ?Location: 1 WST; 0110; A . ? Addendum ADDENDUM DISCUSSION This case has been reviewed by Parveen Landry MD of [facility] ([facility]) by report dated 05/22/2015 with the accession number [id number]. The [facility] ([facility]) diagnosis is in agreement with our diagnosis. ??For the full text of the [facility] re port(s) please refer to Non- Documentation [...] CR-0 05/10/15 ARS 05/10/15 Verified by: ? Pee Francis MD ?Pathologist ?(Electronic Signature ) The attending pathologist [...] excluded. ADDITIONAL STUDIES Whole slide scan: S [id number] [id number] S [id number] A10-1 S [id number] B1-1 S [id number] D2-1 CLINICAL INFORMATION Specimen Submitted: A - [...] fluid. Sections/Processing: (1) fro jeff section; (2-16) energy conservation representative sections of tumor; (17) energy conservation representative sections of fallopian tube. (R17) B - [...] (3) posterior cervix; (4) anterior cervix; (5) mobile lab technician ior endomyometrium; (6) anterior endomyometrium. (R6) C [...] / Volume Laterality 05/06/2015 3:11 PM EDT Genie Garcia MD PATHOLOGY/CYTOLOGY ORDERABLE S Performing Organization Address City/State/[place] [address] [facility] Specimen to Pathology (surgical or derm) (05/06/2015 3:09 PM EDT) Specimen Anatomical Collection Method Collection Time Receive d Time (Source) Location / / Volume Laterality AP Specimen 05/06/2015 3:09 PM 5 3:09 EDT PM EDT Narrative [facility] - 05/06/2015 3:09 PM E DT Specimen requisition ordered. ??Separate Pathology report to follow Genie Garcia MD PATHOLOGY/CYTOLOGY ORDERABLE S Performing Organization Address City/[facility]/ZIP Code Phon e [place] [address] [facility] Non-Vice President Mission Integration Final Report (05/06/2015 2:41 PM EDT) Component Value Ref Test Analysis Performed At [facility] Range Method Time Signature Non-Vice President Mission Integration The signing pathologist has (i) examined the relevant preparation(s) for the [facility] Final Report specimen(s) and (ii) rendered or confirmed the diagnosis (es). [facility] Accession Number: [id number] ?Location: 1 WST; 0110; A . ? No n-Vice President Mission Integration Final DIAGNOSIS Atypical 05/07/15 ?Screened by: ? SLA ?Rescreened by: ?? EJG,EJG 05/11/15 ?Verified by: ? Juan Carlos BETANCOURT, [...] MD PATHOLOGY/CYTOLOGY ORDERABLE S Performing Organization Address City/[facility]/[place] [address] CERNER MILLENNIUM Cytopathology Non-Gynecological [...] Organization Address City/State/[place] [address] CERNER MILLENNIUM (ABNORMAL) BLOOD [...] Garcia MD CHEMISTRY ORDERABLES Performing Organization Address City/[facility]/[place] [address] CERPIYUSH ViewRayIUM Prepare RBC (05/06/2015 11:55 AM EDT) P athologist Signature Dispensed? Yes CERPIY[address] Specimen Anatomical Collection Method Collection Time Receive d Time (Source) Location / / Volume Laterality Blood specimen 05/06/2015 11:55 5 (specimen) AM EDT 11:55 AM EDT Resulting Agency Comment Spec In Lab Genie Garcia MD BLOOD BANK ORDERABLES Performing Organization Address City/[facility] [place] [address] documented in this encounter Visit Diagnoses Not on filedocumented in this encounter Active and Recently Administered Medications Times are shown in EDT. Scheduled Medication Order 05/10/2015 05/11/2015 05/12/2015 acetaminophen (TYLENOL) tablet 650 mg 0037 (Given - Pr ovider: Angelia Rosa)0853 (Given - Provider: Keysha Dean RN)1316 (Given - Provider: Keysha Dean, RN)1923 (Given - Provider: Keysha Dean RN) 0100 (Not Given - Provider: Erin Martini RN - Reason: Patient Unable - Comment: Pt asleep, looks comfortable, asked not to be awoken for pain meds per earlier discussion)0742 (Given - Provider: Erin Martini RN) 0314 (Given - Provider: Cyndee Honeycutt, EVER)0900 (Due - Provider: Cyndee Honeycutt, EVER) 650 mg, Oral, EVERY 6 HOURS, First dose on 05/06/15 at 1900, Until Discontinued, Use acetaminophen first, [...] Routine esomeprazole (NexIUM) injection 40 mg (COMPLETED) 2248 (Given - Provider: Erin Martini RN) 40 [...] (K-DUR/KLOR-CON) extended release tablet 40 mEq (COMPLETED) 0857 (Given - Provider: Olivia pitts RN) 40 [...] nauseous/vomiting.) 1001 (Given - Provider: Olivia Beavers RN)2126 (Given - Provider: Cyndee Honeycutt RN) 0906 (Given - Provider: Olivia Beavers RN) 2 tablet, Oral, 2 TIMES DAILY, First dos e on Wed05/07/15 at 0900, Until Discontinued, Routine sodium chloride 0.9 % flush 5 mL (CANCELED) 0854 (Give n - Provider: Keysha Dean RN)2115 (Given - Provider: Erin Martini RN) 1003 (Given - Provider: Olivia Beavers RN)212 (Given - Provider: Cyndee Honeycutt RN) 0900 (Given - Provider: Olivia Beavers RN) 5 mL, Intravenous, 2 TIMES DAILY, First dose on Wed05/07/15 at 0900, Until Discontinued, Routine Continuous Medication Order 05/10/2015 05/11/2015 05/12/2015 lactated ringers infusion () 1341 (New Bag - Pr ovider: Keysha Dean RN)2249 (Stopped - Provider: Erin Martini RN) 125 mL/hr, at 125 mL/hr, Intravenous, CO NTINUOUS, Starting 05/10/15 at 1345, Until 05/10/15 at 2144 PRN Medication Order 05/10/2015 05/11/2015 05/12/2015 ondansetron (ZOFRAN) injection 4 mg (CANCELED) 0545 (G iven - Provider: Angelia Rosa) 4 mg, Intravenous, EVERY 8 HOURS PRN, St arting Tu05/07/15 at 0553, Until 05/10/15 at 1217, Nausea, Routine oxyCODONE (ROXICODONE) immediate release tablet 5-10 mg 5-10 mg, Oral, EVERY 3 HOURS PRN, Starti ng Alejandra 05/09/15 at 0615, Until 05/12/15 at 1250, Pain, give 5 mg for pain scale 4-6/10, give 10mg for pain scale >6/10, Routine prochlorperazine (COMPAZINE) injection 10 mg (CANCELED ) 2217 (Given - Provider: Erin Martini RN) 10 mg, Intravenous, EVERY 8 HOURS PRN, S tarting 05/10/15 at 2159, Until 05/12/15 at 1250, Nausea, Routine simethicone (MYLICON) chewable tablet 40 mg (CANCELED) 0530 (Given - Provider: Angelia Rosa) 40 mg, Oral, EVERY 6 HOURS PRN, Starting Alejandra 05/09/15 at 1327, Until 05/12/15 at 1250, Cramping, Routine documented in this encounter Care Teams Textbook Associate Relationship Specialty Start Date End Date Marilyn Kidd MD PCP - General 06/17/[address] [place] [address] documented as of this encounter
--- OUTSIDE RECORDS SUMMARY | 2022-02-09 02:23 | XMS_ITS | Encounter Summary ---
:1945 Author Organization [facility] [place] [address] Care Team Providers Name Role Phone Marilyn Kidd MD Primary Care Provider Encounter Details Date Type Department Care Team Description 05/02/2015 Notes Only Gynecology Oncology at [facility] Genie Garcia MD [facility] [place] [address] GYNECOLOGIC ONCOLOGY [phone] [place] [phone] (Wo rk) Social History Tobacco Use Types [...] encounter Progress Notes Genie Garcia MD - 05/06/2015 5:59 PM EDT In addition to H+P, patient was approached about participating in the FANG study. The study was described to her and reviewed with the research team. We established that the patient is a good candidateand consent forms were signed. documented in this encounter Plan of Treatment Upcoming Encounters Date Type Specialty Care Team Description 02/27/2022 Appointment Radiology Marilyn Kidd MD [address] [place] [address] (Wo rk) documented as of this encounter Visit Diagnoses Not on filedocumented in this encounter Care Teams Camera Control Operator Relationship Specialty Start Date End Date Marilyn Kidd MD PCP - General 06/17/[address] [place], [place] [id number] documented as of this encounter
--- OUTSIDE RECORDS SUMMARY | 2022-02-09 02:23 | XMS_ITS | Encounter Summary ---
:1945 Author Organization [facility] [place] [address] Care Team Providers Name Role Phone Marilyn Kidd MD Primary Care Provider Encounter Details Date Type Department Care Team Description 05/02/2015 Notes Only Gynecology Oncology at [facility] Genie Garcia MD [facility] [place] [address] GYNECOLOGIC ONCOLOGY [phone] [place] [phone] (Wo rk) Social History Tobacco Use Types [...] encounter Progress Notes Genie Garcia MD - 05/14/2015 11:14 AM EDT Patient was given a copy of her signed consent for the LUIS study. documented in this encounter Plan of Treatment Upcoming Encounters Date Type Specialty Care Team Description 02/27/2022 Appointment Radiology Marilyn Kidd MD [address] [place] [address] (Wo rk) documented as of this encounter Visit Diagnoses Not on filedocumented in this encounter Care Teams Vocational Director Relationship Specialty Start Date End Date Marilyn Kidd MD PCP - General 06/17/[address] [place] [address] documented as of this encounter
--- OUTSIDE RECORDS SUMMARY | 2022-02-09 02:26 | XMS_ITS | Encounter Summary ---
:1945 Author Organization [facility] Address [address] [place] [address] Care Team Providers Name Role Phone Marilyn Kidd MD Primary Care Provider Encounter Details Date Type Department Care Team Description 03/18/2017 Hospital Encounter [facility] Unknown, Provider, [facility] [address] [facility] [phone] [place] [address] (Work) [phone] Social History Tobacco Use Types Packs/Day Years Used Date Never Assessed Sex Assigned at Date Recorded Not on file documented as of this encounter Discharge Disposition Disposition Code Departure Means Destination Home or Self [facility] documented in this encounter Plan of Treatment Not on filedocumented as of this encounter Visit Diagnoses Not on filedocumented in this encounter Care Teams Deicer Inspector Pneumatic Relationship Specialty Start Date End Date Marilyn Kidd MD PCP - General 04/23/16 [address] [place], [place] [address] documented as of this encounter
--- OUTSIDE RECORDS SUMMARY | 2022-02-09 02:26 | XMS_ITS | Encounter Summary ---
:1945 Author Organization [facility] Address [address] [place] [address] Care Team Providers Name Role Phone Marilyn Kidd MD Primary Care Provider Encounter Details Date Type Department Care Team Description 03/18/2017 Results Only [facility] Marilyn Kidd MD [phone] [place] [address] (Wo rk) Social History Tobacco Use Types Packs/Day Years Used Date Never Assessed Sex Assigned at Date Recorded Not on file documented as of this encounter Plan of Treatment Not on filedocumented as of this encounter Procedures Procedure Name Priority Date/Time Associated Diagnosis Comme [facility] SURGICAL PATHOLOGY Routine 03/18/2017 17:33 Resul ts for this EDT procedure are i n the results section. documented in this encounter Results SURGICAL PATHOLOGY (03/18/2017 17:33 EDT) Pathology Report: SURGICAL PATHOLOGY REPORT [facility] Reports generated via electronic interface contain axel ginal data; LABORATORY however they are lacking the format of the original re port. SERVICES Caution should be taken when reading/interpreting unfo rmatted reports. Name: ? ROCAEL WHITE ? Accession #: ? [id number] ? : ? 1945 (Age: 71 ) ??F ? Collect Date: ? 03/18/2017 ? Location: ? [facility] ? Receive Date: ? 03/18/20 17 ? Provider: MARILYN KIDD MD Copy to: ? Final Pathologic Diagnosis: SKIN OF SHOULDER, LEFT, PUNCH BIOPSY: - Focal basal cell carcinoma, nodular type. - Lesion extends to peripheral edge of biopsy specime n. - Lesion measures approximately 0.2 mm to the biopsy base. Document reviewed and electronically signed by: TOR MANDEL MD Report ??Date: 03/19/2017 16:13 By the signature above, the attending physician certif ies that he/she has personally conducted a gross and/or microscopic examin ation of the described specimens and rendered or confirmed the above diagnosi s. Specimen(s) Received: 3.0 mm skin bx L shoulder Clinical History: Lesion, 1.0 cm, easily friable; h/o ovarian CA, in rem ission Gross Description: ? Received in formalin labelled with proper patient identification (initials M, M) and L shoulder lesion is a punch biopsy of porras -pink to brown mottled skin (0.3 cm in diameter x 0.3 cm in thickness). The s pecimen is submitted entirely in 1. BETH Rubio (ASCP) 03/19/2017 7:51 AM End of Report Specimen Performing Organization Address City/State/ZIP Code Phon e Number [facility] [address] [place] [address] SERVICES documented in this encounter Visit Diagnoses Not on filedocumented in this encounter Care Teams Senior Vice President Relationship Specialty Start Date End Date Marilyn Kidd MD PCP - General 04/23/16 [address] [place], [place] [address] documented as of this encounter
--- OUTSIDE RECORDS SUMMARY | 2022-02-09 02:26 | XMS_ITS | Encounter Summary ---
:1945 Author Organization [facility] Address [address] [place] [address] Care Team Providers Name Role Phone Unavailable Primary Care Provider Unavailable Encounter Details Date Type Department Care Team Description 12/08/2012 Results Only [facility] Myriam Kidd MD Laboratory Services - [address] [place] [address] [address] [place] [phone] (Wo rk) Social History Tobacco Use Types Packs/Day Years Used Date Never Assessed Sex Assigned at Date Recorded Not on file documented as of this encounter Plan of Treatment Not on filedocumented as of this encounter Procedures Procedure Name Priority Date/Time Associated Diagnosis Comme nts PAP TEST- RESULT Routine 12/08/2012 0:00 EDT Resu lts for this ONLY procedure are i n the results section. documented in this encounter Results PAP TEST- RESULT ONLY (12/08/2012 0:00 EDT) Pathology Report: CYTOPATHOLOGY REPORT [facility] Reports generated via electronic interface contain axel ginal data; however they are lacking the format of the original re port. Caution should be taken when reading/interpreting unfo rmatted reports. Name: ? ROCAEL WHITE ? Accession #: ? [id number] ? : ? 1945 (Age: 67) ??F ?Collect Da te: ? 12/08/2012 ? Location: ? [facility] ? Receive Date: ? 013 ? Provider: VAN KIDD MD Copy to: ? Final Report SPECIMEN ADEQUACY ? Satisfactory for Evaluation - transformation zone component present GENERAL CATEGORIZATION ? Negative for Intraepithelial Lesion or Malignan cy ?? Menstrual/ Status: ??Post Menopausal Specimen/Source: ??Pap Test, Cervix/Endocervix, ThinPr ep Imaging System with manual evaluation Document reviewed and electronically signed by: ? LI Bro(ASCP) ? Report ??Date: 12/14/2012 10:52 HPV with Pap Test ? Date Ordered: ? 12/14/2012 ? Status: ?? Signed Out ?Date Complete: ? 12/16/2012 ? By: ??S ystem Interface ? Date Reported: ? 12/16/2012 ? Interpretation RESULT: Negative for HPV. No E6 or E7 mRNA is detected from HPV types 16,18,31,3 3,35, 39,45,51,52,56,58,59,66, and 68 by director of golf media angélica amplification. Comments Document reviewed and electronically signed by: ? System Interface ? Report date: 12/16/2012 By the signature above, the attending physician certif ies that he/she has personally conducted a gross and/or microscopic examin ation of the described specimens and rendered or confirmed the above diagnosi s. End of Report Specimen Performing Organization Address City/State/ZIP Code Phon e Number [facility] [address] [place] [phone] SERVICES [facility] [address] [place] [address] documented in this encounter Visit Diagnoses Not on filedocumented in this encounter
--- OUTSIDE RECORDS SUMMARY | 2022-02-09 02:26 | XMS_ITS | Clinical Summary ---
:1945 Author Organization [facility] Address [address] [place] [address] Care Team Providers Name Role Phone Marilyn Kidd MD Primary Care Provider Social History Tobacco Use Types Packs/Day Years Used Date Never Assessed Sex Assigned at Date Recorded Not on file Plan of Treatment Health Maintenance Due Date Last Done Comments Fall Risk Screening 2012 Care Teams Continuous Pillowcase Cutter Relationship Specialty Start Date End Date Marilyn Kidd MD PCP - General 04/23/16 [address] [place], [place] [address]
--- OUTSIDE RECORDS SUMMARY | 2022-02-09 02:27 | XMS_ITS | Encounter Summary ---
:1945 Author Organization [facility] Address [address] [place] [address] Care Team Providers Name Role Phone Unavailable Primary Care Provider Unavailable Encounter Details Date Type Department Care Team Description 01/20/2002 Results Only [facility] Blessing Belle MD [facility] [address] [place] [phone] (Wo rk) Social History Tobacco Use Types Packs/Day Years Used Date Never Assessed Sex Assigned at Date Recorded Not on file documented as of this encounter Plan of Treatment Not on filedocumented as of this encounter Procedures Procedure Name Priority Date/Time Associated Diagnosis Comme [facility] CYTOPATHOLOGY Routine 01/20/2002 0:00 EDT Results for this procedure are i n the results section . documented in this encounter Results CYTOPATHOLOGY (01/20/2002 0:00 EDT) Pathology Report: CYTOPATHOLOGY REPORT [facility] Reports generated via electronic interface contain axel ginal data; however they are lacking the format of the original re port. Caution should be taken when reading/interpreting unfo rmatted reports. Name: ? ROCAEL WHITE ? Accession #: ? [id number] : ? 1945 (Age: 56) ??F ?Collect Date: ? 12/25 Location: ? [facility] ? Receive Date : ? 01/25/2002 Provider: ?BLESSING MAJANO MD Copy to: ? Specimen/Source: ?Conventional Pap Test, Cer vix/Endocervix Last Menstrual Period: ? N/A ? SPECIMEN ADEQUACY ? Satisfactory for Evaluation - transformation zone component present GENERAL CATEGORIZATION ? Negative for Intraepithelial Lesion or Malignan cy ? Document reviewed and electronically signed by: ? MAYCOL Washington(ASCP) ? Report Date: ??02/01/2002 10:16 End of Report Specimen Performing Organization Address City/State/ZIP Code Phon e Number [facility] [address] [place] [address] SERVICES [facility] [address] [place] [address] documented in this encounter Visit Diagnoses Not on filedocumented in this encounter
--- OUTSIDE RECORDS SUMMARY | 2022-02-09 02:27 | XMS_ITS | Encounter Summary ---
:1945 Author Organization [facility] Address [address] [place] [address] Care Team Providers Name Role Phone Unavailable Primary Care Provider Unavailable Encounter Details Date Type Department Care Team Description 07/11/2002 Hospital Encounter [facility] Mckenna MD Other [address] [place] [phone] Social History Tobacco Use Types Packs/Day Years Used Date Never Assessed Sex Assigned at Date Recorded Not on file documented as of this encounter Discharge Disposition Disposition Code Departure Means Destination Auto Discharge documented in this encounter Plan of Treatment Not on filedocumented as of this encounter Procedures Procedure Name Priority Date/Time Associated Comments Diagnosis HPV DETECTION, HIGH Routine 03/19/2009 14:12 Resu lts for this RISK TYPES EDT procedure are i n the results section. CYTOPATHOLOGY Routine 03/19/2009 0:00 Results for this EDT procedure are i n the results section. documented in this encounter Results HUMAN PAPILLOMA VIRUS DNA TEST (03/19/2009 14:12 EDT) Specimen Description Cervix, ThinPrep [facility] vial Result Negative for HPV [facility] types 16, 18, 31, 33, 35, 39, 45, 51, 52, 56, 58, 59, and 68. Report Status Final [facility] 04/04/2009 Specimen Performing Organization Address City/State/ZIP Code Phon e Number [facility] [address] [place] [address] SERVICES [facility] [address] [place] [address] CYTOPATHOLOGY (03/19/2009 0:00 EDT) Pathology Report: CYTOPATHOLOGY REPORT ? [facility] ? [facility] Reports generated via Myagi interface contain original data; ? however they are lacking the format of the original report. ? Caution should be taken when reading/interpreting unformatted reports. ? Name: ? ROCAEL WHITE ? Accession #: ? [id number] ? : ? 1945 (Age: 63) ??F ?Collect Date: ? 03/19/2009 ? Location: ? [facility] ? Receive Date: ? 03/21/2009 ? Provider: ?VAN M DO BBERTIN MD ? Copy to: ? Specimen/Source: ? Pap Test, Cervix/Endocervix, ThinPrep Imaging System ? with manual evaluation ? Last Menstrual Period: ? SHORE HAND DREDGE OR BARGE ? Other: ? HPVDX - HPV testing requeste d regardless of diagnosis on current ThinPrep Pap ?? test. ? SPECIMEN ADEQUACY ? Satisfactory for Eval uation ? - assessment of transformati on zone component not applicable ( e.g. atrophy, ? vaginal sample, hysterectomy ) ? GENERAL CATEGORIZATION ? Negative for Intraepi thelial Lesion or Malignancy ? Document reviewed and electr onically signed by: ? Raegan B. Panda, SCT( ASCP) ? Report Date: ??09/03/ 2009 14:22 ? End of Report ? Specimen Performing Organization Address City/State/ZIP Code Phon e Number [facility] [address] [place] [address] SERVICES [facility] [address] [place] [address] documented in this encounter Visit Diagnoses Not on filedocumented in this encounter
--- OUTSIDE RECORDS SUMMARY | 2022-02-09 02:27 | XMS_ITS | Encounter Summary ---
:1945 Author Organization [facility] Address [address] [place] [address] Care Team Providers Name Role Phone Unavailable Primary Care Provider Unavailable Encounter Details Date Type Department Care Team Description 11/20/1999 Hospital Encounter [facility] Blessing Mckenna MD [place] [address] [place] [phone] Social History Tobacco Use Types Packs/Day Years Used Date Never Assessed Sex Assigned at Date Recorded Not on file documented as of this encounter Discharge Disposition Disposition Code Departure Means Destination Auto Discharge documented in this encounter Plan of Treatment Not on filedocumented as of this encounter Visit Diagnoses Not on filedocumented in this encounter
--- OUTSIDE RECORDS SUMMARY | 2022-02-09 02:27 | XMS_ITS | Encounter Summary ---
:1945 Author Organization [facility] Address [address] [place] [address] Care Team Providers Name Role Phone Unavailable Primary Care Provider Unavailable Encounter Details Date Type Department Care Team Description 06/13/2002 Hospital Encounter [facility] - Blessing Busch MD [place] [address] [place] [phone] Social History Tobacco Use Types Packs/Day Years Used Date Never Assessed Sex Assigned at Date Recorded Not on file documented as of this encounter Discharge Disposition Disposition Code Departure Means Destination Auto Discharge documented in this encounter Plan of Treatment Not on filedocumented as of this encounter Procedures Procedure Name Priority Date/Time Associated Diagnosis Comme nts KONRAD CHIN DIAG UNI Routine 07/11/2002 9:18 EST Resul ts for this DIGITAL procedure are i n the results section. [place] MAMMO SCREENING Routine 06/13/2002 13:58 Resul ts for this DIGITAL EST procedure are i n the results section. documented in this encounter Results KONRAD CHIN DIAG UNI DIGITAL (07/11/2002 9:18 EST) Anatomical Region Laterality Modality Other Specimen Impressions [facility] - 04/22/2009 5: 44 EDT IMPRESSION: RIGHT BREAST - CATEGORY 3 Negative, no evidence of malignancy. Six month follow up digital views (standard and spot mag projections) are recommended in 6 months. OVERALL ASSESSMENT -PROBABLY BENIGN END OF IMPRESSION Narrative [facility] - 04/22/2009 5: 44 EDT AV RIGHT BREAST ?? PRIOR DIGITAL ASY DEN Comparison is made to films from 002. Right Breast Findings (full field digita l additional projection): The breast is heterogeneously dense. Thi s may lower the sensitivity of mammography. No significant masses, calc ifications or other abnormalities are seen. The previously n oted density compresses out c/w normal tissue. There are a few clust ered likely benign calcificaitons in the same general regio n. I would like to review these calcificaltions again in six month s. Procedure Note Jd Valentin MD - 04/22/2009 AV RIGHT BREAST PRIOR DIGITAL ASY DEN Comparison is made to films from 002. Right Breast Findings (full field digita l additional projection): The breast is heterogeneously dense. Thi s may lower the sensitivity of mammography. No significant masses, calc ifications or other abnormalities are seen. The previously n oted density compresses out c/w normal tissue. There are a few clust ered likely benign calcificaitons in the same general regio n. I would like to review these calcificaltions again in six month s. IMPRESSION IMPRESSION: RIGHT BREAST - CATEGORY 3 Negative, no evidence of malignancy. Six month follow up digital views (standard and spot mag projections) are recommended in 6 months. OVERALL ASSESSMENT -PROBABLY BENIGN END OF IMPRESSION Performing Organization Address City/State/ZIP Code Phon e Number [facility] [address] [facility], [facility] [address] [facility] [address] [place], [place] [address] [place] MAMMO SCREENING DIGITAL (06/13/2002 13:58 EST) Anatomical Region Laterality Modality Other Specimen Impressions [facility] - 04/22/2009 5: 23 EDT IMPRESSION: LEFT BREAST - CATEGORY 1 Negative, no evidence of malignancy. Nor mal interval follow-up is recommended in 12 months. RIGHT BREAST - CATEGORY 0 Focal asymmetric density. Spot magnifica tion view(s) are recommended at this time in the 5 degree angle cc an d mediolateral projections. OVERALL ASSESSMENT - INCOMPLETE: NEED AD DITIONAL IMAGING EVALUATION END OF IMPRESSION Narrative [facility] - 04/22/2009 5: 23 EDT ROUTINE HX RT BR. CYST @ 9:00 ?? MOTHER BR CA IN 60'S, MATERNAL AUNT BR . CA. Comparison is made to films from 000, 03-26-1998, and 09-28-1995. Left Breast Findings (full field digital routine projection): There are scattered fibroglandular densi ties. No significant masses, calcifications or other abnormalities ar e seen. Right Breast Findings (full field digita l routine projection): There are scattered fibroglandular densi ties. A focal asymmetric density is present, superiorly, best see n on the MLO view. Procedure Note Nikkie Valdez MD - 04/22/2009 ROUTINE HX RT BR. CYST @ 9:00 MOTHER BR CA IN 60'S, MATERNAL AUNT BR . CA. Comparison is made to films from , 03-26-1998, and 09-28-1995. Left Breast Findings (full field digital routine projection): There are scattered fibroglandular densi ties. No significant masses, calcifications or other abnormalities ar e seen. Right Breast Findings (full field digita l routine projection): There are scattered fibroglandular densi ties. A focal asymmetric density is present, superiorly, best see n on the MLO view. IMPRESSION IMPRESSION: LEFT BREAST - CATEGORY 1 Negative, no evidence of malignancy. Nor mal interval follow-up is recommended in 12 months. RIGHT BREAST - CATEGORY 0 Focal asymmetric density. Spot magnifica tion view(s) are recommended at this time in the 5 degree angle cc an d mediolateral projections. OVERALL ASSESSMENT - INCOMPLETE: NEED AD DITIONAL IMAGING EVALUATION END OF IMPRESSION Performing Organization Address City/State/ZIP Code Phon e Number [facility] [address] [facility] [address] [facility] [address] [place], [place] [address] documented in this encounter Visit Diagnoses Not on filedocumented in this encounter
--- OUTSIDE RECORDS SUMMARY | 2022-02-09 02:27 | XMS_ITS | Encounter Summary ---
:1945 Author Organization [facility] Address [address] [place] [address] Care Team Providers Name Role Phone Unavailable Primary Care Provider Unavailable Encounter Details Date Type Department Care Team Description 11/05/1999 Hospital Encounter [facility]- Blessing Humphries MD [facility] [address] [place] [phone] Social History Tobacco Use Types Packs/Day Years Used Date Never Assessed Sex Assigned at Date Recorded Not on file documented as of this encounter Discharge Disposition Disposition Code Departure Means Destination Auto Discharge documented in this encounter Plan of Treatment Not on filedocumented as of this encounter Procedures Procedure Name Priority Date/Time Associated Comments Diagnosis RAD US BREAST Routine 11/20/1999 11:30 Results fo r this UNILATERAL OR EDT procedure are in BILATERAL the results section. [place] MAMMO DIAG DIGITAL Routine 11/20/1999 10:32 Re sults for this BILATERAL ADDED VIEWS EDT proced ure are in the results section. [place] MAMMOGRAPHIC Routine 11/05/1999 10:12 Results for this SCREEN AMANDA EDT procedure are i n the results section. documented in this encounter Results RAD US BREAST UNILATERAL OR BILATERAL (11/20/1999 11:30 EDT) Anatomical Region Laterality Modality Other Specimen Impressions [facility] - 06/04/2009 11 :12 EST IMPRESSION: RIGHT BREAST - CATEGORY 2 Ultrasound demonstrates a simple cyst me asuring 11 mm at 9 o'clock. Benign, no evidence of malignancy. Kenzie l interval follow-up is recommended in 12 months. RESULTS AND RECOMMENDATIONS WERE DISCUSS ED WITH THE PATIENT. The attending radiologist has reviewed t he images, and concurs with the findings described above. OVERALL ASSESSMENT - BENIGN END OF IMPRESSION Narrative [facility] - 06/04/2009 11 :12 EST RIGHT BREAST. ??NON PALP 8MM MAMMO NODULE 9:00. Comparison is made to films from and 11-05-1999. Right Breast Findings: Ultrasound demonstrates a simple cyst me asuring 11 mm x 6 mm at 9 o'clock at the site of the mammographic mass. Procedure Note Urbano Huston MD / Mariann Valentin MD - 06/04/2009 RIGHT BREAST. NON PALP 8MM MAMMO NODULE 9:00. Comparison is made to films from and 11-05-1999. Right Breast Findings: Ultrasound demonstrates a simple cyst me asuring 11 mm x 6 mm at 9 o'clock at the site of the mammographic mass. IMPRESSION IMPRESSION: RIGHT BREAST - CATEGORY 2 Ultrasound demonstrates a simple cyst me asuring 11 mm at 9 o'clock. Benign, no evidence of malignancy. Kenzie l interval follow-up is recommended in 12 months. RESULTS AND RECOMMENDATIONS WERE DISCUSS ED WITH THE PATIENT. The attending radiologist has reviewed t he images, and concurs with the findings described above. OVERALL ASSESSMENT - BENIGN END OF IMPRESSION Performing Organization Address City/State/ZIP Code Phon e Number [facility] [address] [facility] [place] [address] [facility] [address] [place], [place] [address] [place] MAMMO DIAG DIGITAL BILATERAL ADDED VIEWS (11/20/1999 10:32 EDT) Anatomical Region Laterality Modality Other Specimen Narrative [facility] - 06/04/2009 11 :06 EST AV AMANDA BREASTS ARCHITECTURAL DISTORTION LT BREAST,DENSI TY SUBAREOLAR REGION RT Comparison is made to films from and 03-26-1998. Left Additional Projection (spot cathryn tara magnification mediolateral projection): There are scattered fibroglandular densi ties. The previously noted questionable abnormality is evaluated wi th a spot compression magnification view. There is no evidence of mass or other focal finding of concern. Right Additional Projections (spot compr ession magnification 5 degree angle cc and mediolateral projections): There are scattered fibroglandular densi ties. An oval mass with partially circumscribed margins is prese nt measuring 10 mm at 9 o'clock in the anterior breast. No archi tectural distortion or suspicious calcification is identified. The finding persists on the added views. IMPRESSION ADDED VIEWS: LEFT BREAST - CATEGORY 1 Negative, no evidence of malignancy. Nor mal interval follow-up is recommended in 12 months. RIGHT BREAST - CATEGORY 0 Oval mass measuring 10 mm at 9 o'clock. Ultrasound is recommended at this time and is scheduled to follow. Pl ease refer to the concurrent dictation. OVERALL ASSESSMENT - INCOMPLETE: NEED AD DITIONAL IMAGING EVALUATION END OF IMPRESSION Procedure Note Urabno Huston MD / Mariann Valentin MD - 06/04/2009 AV AMANDA BREASTS ARCHITECTURAL DISTORTION LT BREAST,DENSI TY SUBAREOLAR REGION RT Comparison is made to films from and 03-26-1998. Left Additional Projection (spot cathryn tara magnification mediolateral projection): There are scattered fibroglandular densi ties. The previously noted questionable abnormality is evaluated wi th a spot compression magnification view. There is no evidence of mass or other focal finding of concern. Right Additional Projections (spot compr ession magnification 5 degree angle cc and mediolateral projections): There are scattered fibroglandular densi ties. An oval mass with partially circumscribed margins is prese nt measuring 10 mm at 9 o'clock in the anterior breast. No archi tectural distortion or suspicious calcification is identified. The finding persists on the added views. IMPRESSION ADDED VIEWS: LEFT BREAST - CATEGORY 1 Negative, no evidence of malignancy. Nor mal interval follow-up is recommended in 12 months. RIGHT BREAST - CATEGORY 0 Oval mass measuring 10 mm at 9 o'clock. Ultrasound is recommended at this time and is scheduled to follow. Pl ease refer to the concurrent dictation. OVERALL ASSESSMENT - INCOMPLETE: NEED AD DITIONAL IMAGING EVALUATION END OF IMPRESSION Performing Organization Address City/State/ZIP Code Phon e Number [facility] [address] [facility] [address] [facility] [address] [place], [place] [address] [place] MAMMOGRAPHIC SCREEN AMANDA (11/05/1999 10:12 EDT) Anatomical Region Laterality Modality Other Specimen Impressions [facility] - 06/04/2009 12 :13 EST IMPRESSION: LEFT BREAST - CATEGORY 0 Architectural distortion. Spot magnifica tion view(s) are recommended at this time in the mediolateral project ion. RIGHT BREAST - CATEGORY 0 Focal asymmetric density in the subareol ar region. Spot magnification view(s) are recommended at this time in the 5 degree angle cc and mediolateral projections with the nipple s marked with a metallic BB. OVERALL ASSESSMENT - INCOMPLETE: NEED AD DITIONAL IMAGING EVALUATION END OF IMPRESSION Narrative [facility] - 06/04/2009 12 :13 EST ROUTINE(BLESSING MAJANO,PCP) Comparison is made to films from 99 and 09-28-1995. Left Breast Findings: There are scattered fibroglandular densi ties. An area of architectural distortion is present, seen on the MLO v iew only. Right Breast Findings: There are scattered fibroglandular densi ties. A focal asymmetric density is present in the subareolar reg ion. I do not see the nipple on the films and it is possible this rep resents the nipple not in profile. Procedure Note Raegan Isbell MD / Nikkie Valdez MD - 06/04/2009 ROUTINE(BLESSING MAJANO,WILIAN) Comparison is made to films from 998 and 09-28-1995. Left Breast Findings: There are scattered fibroglandular densi ties. An area of architectural distortion is present, seen on the MLO v iew only. Right Breast Findings: There are scattered fibroglandular densi ties. A focal asymmetric density is present in the subareolar reg ion. I do not see the nipple on the films and it is possible this rep resents the nipple not in profile. IMPRESSION IMPRESSION: LEFT BREAST - CATEGORY 0 Architectural distortion. Spot magnifica tion view(s) are recommended at this time in the mediolateral project ion. RIGHT BREAST - CATEGORY 0 Focal asymmetric density in the subareol ar region. Spot magnification view(s) are recommended at this time in the 5 degree angle cc and mediolateral projections with the nipple s marked with a metallic BB. OVERALL ASSESSMENT - INCOMPLETE: NEED AD DITIONAL IMAGING EVALUATION END OF IMPRESSION Performing Organization Address City/State/ZIP Code Phon e Number [facility] [address] [facility] [address] [facility] [address] [place], [place] [address] documented in this encounter Visit Diagnoses Not on filedocumented in this encounter
--- OUTSIDE RECORDS SUMMARY | 2022-02-09 02:27 | XMS_ITS | Encounter Summary ---
:1945 Author Organization [facility] Address [address] [place] [address] Care Team Providers Name Role Phone Unavailable Primary Care Provider Unavailable Encounter Details Date Type Department Care Team Description 02/18/2005 Results Only [facility] Blessing Belle MD [facility] [address] [place] [phone] (Wo rk) Social History Tobacco Use Types Packs/Day Years Used Date Never Assessed Sex Assigned at Date Recorded Not on file documented as of this encounter Plan of Treatment Not on filedocumented as of this encounter Procedures Procedure Name Priority Date/Time Associated Diagnosis Comme [facility] CYTOPATHOLOGY Routine 02/18/2005 0:00 EDT Results for this procedure are i n the results section . documented in this encounter Results CYTOPATHOLOGY (02/18/2005 0:00 EDT) Pathology Report: CYTOPATHOLOGY REPORT [facility] Reports generated via electronic interface contain axel ginal data; however they are lacking the format of the original re port. Caution should be taken when reading/interpreting unfo rmatted reports. Name: ? ROCAEL WHITE ? Accession #: ? [id number] : ? 1945 (Age: 59) ??F ?Collect Date: ? 01/24 Location: ? [facility] ? Receive Date : ? 02/20/2005 Provider: ?BLESSING MAJANO MD Copy to: ? Specimen/Source: ?ThinPrep Pap Test, E [employer], processed on [employer] ThinPrep Imaging System, with manual evaluation Last Menstrual Period: ? Other: ? Additional clinical information: Severe cervical stero sis HPVA - HPV testing requested if ASC-US on the current ThinPrep Pap test. ? SPECIMEN ADEQUACY ? Satisfactory for Evaluation - assessment of transformation zone component not appl icable ( e.g. atrophy, vaginal sample, hysterectomy) - scant squamous epithelial component GENERAL CATEGORIZATION ? Negative for Intraepithelial Lesion or Malignan cy ? Document reviewed and electronically signed by: ? LI Cooper(ASCP) ? Report Date: ??02/23/2005 14:12 End of Report Specimen Performing Organization Address City/State/ZIP Code Phon e Number [facility] [address] [place] [address] SERVICES [facility] [address] [place] [address] documented in this encounter Visit Diagnoses Not on filedocumented in this encounter
[2022-02-09 14:04] LABS: ALT 33 U/L (14-59); AST 25 U/L (15-37); Albumin 3.4 g/dL (3.4-5.0); Alkaline Phosphatase 79 U/L (46-116); Anion Gap 5.3 mmol/L (3-11); BUN 18 mg/dL (7-18); Bilirubin, Total 0.4 mg/dL (0.2-1.0); CO2 29.7 mmol/L (21.0-32.0); CREATININE 1.3 mg/dL (0.55-1.02); Calcium 9.5 mg/dL (8.5-10.1); Chloride 105 mmol/L (98-107); Estimated GFR 40.04 (mL/min/1.73m2); Glucose 87 mg/dL (74-106); Potassium 4.6 mmol/L (3.5-5.1); Sodium 140 mmol/L (136-145); Total Protein 6.6 g/dL (6.4-8.2)
== END 2022-02-09 02:13 | disposition home or self-care (01) ==
LOC: LBO 02:13
PROVIDERS: PCP Family Medicine; Visit Provider Family Medicine
DX: I10 Essential (primary) hypertension (principal)
CPT/HCPCS: 36415; 80053

== ENCOUNTER 2022-02-23 04:20 | Outpatient (CLI) | payer MEDICARE, SELFPAY ==
[2022-02-23 12:48] LABS: Anion Gap 3.8 mmol/L (3-11); BUN 22 mg/dL (7-18); CO2 31.2 mmol/L (21.0-32.0); CREATININE 1.4 mg/dL (0.55-1.02); Calcium 9.4 mg/dL (8.5-10.1); Chloride 105 mmol/L (98-107); Estimated GFR 36.76 (mL/min/1.73m2); Glucose 84 mg/dL (74-106); Potassium 4.4 mmol/L (3.5-5.1); Sodium 140 mmol/L (136-145)
== END 2022-02-23 04:21 | disposition home or self-care (01) ==
LOC: LOS 04:20
PROVIDERS: PCP Family Medicine; Visit Provider Family Medicine
DX: R79.89 Other specified abnormal findings of blood chemistry (principal); I10 Essential (primary) hypertension
CPT/HCPCS: 36415; 80048

== ENCOUNTER 2022-03-05 01:33 | Outpatient (CLI) | payer MEDICARE, SELFPAY ==
[2022-03-05 13:11] LABS: Anion Gap 5.5 mmol/L (3-11); BUN 18 mg/dL (7-18); CO2 31.5 mmol/L (21.0-32.0); CREATININE 1.3 mg/dL (0.55-1.02); Calcium 9.1 mg/dL (8.5-10.1); Chloride 104 mmol/L (98-107); Estimated GFR 40.04 (mL/min/1.73m2); Glucose 93 mg/dL (74-106); Potassium 4.5 mmol/L (3.5-5.1); Sodium 141 mmol/L (136-145)
== END 2022-03-05 01:34 | disposition home or self-care (01) ==
LOC: LBO 01:33
PROVIDERS: PCP Family Medicine; Visit Provider Family Medicine
DX: R79.89 Other specified abnormal findings of blood chemistry (principal)
CPT/HCPCS: 36415; 80048

== ENCOUNTER 2022-04-23 04:27 | Outpatient (CLI) | payer MEDICARE, SELFPAY ==
[2022-04-23 14:04] LABS: Anion Gap 5.9 mmol/L (3-11); BUN 25 mg/dL (7-18); CO2 30.1 mmol/L (21.0-32.0); CREATININE 1.3 mg/dL (0.55-1.02); Chloride 106 mmol/L (98-107); Estimated GFR 43.15 (mL/min/1.73m2); Glucose 115 mg/dL (74-106); Potassium 4.1 mmol/L (3.5-5.1); Sodium 142 mmol/L (136-145)
== END 2022-04-23 04:28 | disposition home or self-care (01) ==
LOC: LOS 04:27
PROVIDERS: PCP Family Medicine; Visit Provider Family Medicine
DX: R79.89 Other specified abnormal findings of blood chemistry (principal)
CPT/HCPCS: 36415; 80048

== ENCOUNTER 2022-05-06 02:26 | Outpatient (CLI) | payer MEDICARE, SELFPAY ==
[2022-05-06 15:42] LABS: Anion Gap 8.7 mmol/L (3-11); BUN 32 mg/dL (7-18); CO2 28.3 mmol/L (21.0-32.0); CREATININE 1.4 mg/dL (0.55-1.02); Calcium 9.2 mg/dL (8.5-10.1); Chloride 102 mmol/L (98-107); Estimated GFR 39.48 (mL/min/1.73m2); Glucose 112 mg/dL (74-106); Sodium 139 mmol/L (136-145)
== END 2022-05-06 02:27 | disposition home or self-care (01) ==
LOC: LBO 02:27
PROVIDERS: PCP Family Medicine; Visit Provider Family Medicine
DX: R79.89 Other specified abnormal findings of blood chemistry (principal); I10 Essential (primary) hypertension
CPT/HCPCS: 36415; 80048

== ENCOUNTER 2022-05-21 04:07 | Outpatient (CLI) | payer MEDICARE, SELFPAY ==
[2022-05-21] MEDS: Albuterol HFA 18 GM 200 PUFF INH IH (16:47)
[2022-05-21] MEDS: Inhaler, Assist Device 1 EACH MC (16:47)
--- NOTE | 2022-05-22 16:57 | W.PFT ---
Date of service: 05/21/22 Time of Service: 15:00 Pulmonary Function Test Result Requesting Provider Marilyn Kidd Indications: BUNDY Interpretation Spirometry: There is no airflow limitation. There is no significant bronchodilator response. Lung Volumes: Normal lung volumes Diffusion Capacity: Normal diffusion Airway Pressure: Normal airways resistance Impression Normal pulmonary function testing Clinical Correlation therefore is recommended.
== END 2022-05-21 04:08 | disposition home or self-care (01) ==
LOC: RT 04:07
PROVIDERS: PCP Family Medicine; Visit Provider Family Medicine
DX: R06.02 Shortness of breath (principal); R93.89 Abnormal findings on diagnostic imaging of other specified body structures
CPT/HCPCS: 94060; 94726; 94729

== ENCOUNTER 2022-06-08 16:37 | Outpatient (REF) | payer MEDICARE, SELFPAY ==
[2022-06-10 10:31] LABS: IgE 5 IU/mL (<158)
[2022-06-10 12:16] LABS: IgA 148 mg/dL (85-499); IgG 764 mg/dL (610-1616); IgM 59 mg/dL (35-242)
== END 2022-06-08 16:38 | disposition home or self-care (01) ==
LOC: LBN 16:37
PROVIDERS: PCP Family Medicine; Visit Provider Student in an Organized Health Care Education/Training Program
DX: J47.9 Bronchiectasis, uncomplicated (principal)
CPT/HCPCS: 82784; 82785; 82787

== ENCOUNTER 2022-06-23 16:18 | Outpatient (REF) | payer MEDICARE, SELFPAY | END 2022-06-23 16:19 | disposition home or self-care (01) | LOC: LBN 16:18 | PROVIDERS: PCP Family Medicine; Visit Provider Student in an Organized Health Care Education/Training Program | DX: J47.9 Bronchiectasis, uncomplicated (principal) | CPT/HCPCS: 87116; 87206; 87070; 87205 ==

== ENCOUNTER 2022-06-24 15:07 | Outpatient (REF) | payer MEDICARE, SELFPAY | END 2022-06-24 15:08 | disposition home or self-care (01) | LOC: LBN 15:07 | PROVIDERS: PCP Family Medicine; Visit Provider Student in an Organized Health Care Education/Training Program | DX: J47.9 Bronchiectasis, uncomplicated (principal) | CPT/HCPCS: 87116; 87206; 87070; 87205 ==

== ENCOUNTER 2022-10-14 03:30 | Outpatient (CLI) | payer MEDICARE, SELFPAY ==
[2022-10-14 12:50] LABS: BUN 30 mg/dL (7-18); CREATININE 1.5 mg/dL (0.55-1.02); Calcium 9.4 mg/dL (8.5-10.1); Chloride 108 mmol/L (98-107); Estimated GFR 36.12 (mL/min/1.73m2); Glucose 106 mg/dL (74-106); Potassium 4.1 mmol/L (3.5-5.1); Sodium 143 mmol/L (136-145)
== END 2022-10-14 03:31 | disposition home or self-care (01) ==
LOC: LBO 03:31
PROVIDERS: PCP Family Medicine; Visit Provider Family Medicine
DX: I10 Essential (primary) hypertension (principal); E78.5 Hyperlipidemia, unspecified; R79.89 Other specified abnormal findings of blood chemistry; R53.83 Other fatigue
CPT/HCPCS: 36415; 80048

== ENCOUNTER 2023-01-18 16:17 | Outpatient (CLI) | payer MEDICARE, SELFPAY ==
--- NOTE | 2023-01-18 14:04 | DI.RAD_ITS ---
Exam(s) XR KNEE RT 3V AP,LAT,CECILIO EXAM: XR KNEE RT 3V AP,LAT,CECILIO CLINICAL HISTORY: knee pain, gives out M25.569. TECHNIQUE: 2D digital imaging was performed of the right knee. Three views obtained. AP, lateral an d PA tunnel views were obtained. COMPARISON: There are no priors for comparison. FINDINGS: BONES: No acute fracture is present. No bony destructive lesion is seen. JOINTS: The knee is normally aligned. No joint effusion is seen. There is mild spurring of the continuous pickling line pickler helper ior patella. There is mild narrowing of the medial femoral tibial joint. SOFT TISSUE: Normal. IMPRESSION: Mild degenerative changes of the right knee. DATA REPOSITORY: RADIATION DOSE DELIVERED:
== END 2023-01-18 16:37 ==
LOC: DI 16:20
PROVIDERS: PCP Family Medicine; Visit Provider Family Medicine
DX: M17.11 Unilateral primary osteoarthritis, right knee (principal)
CPT/HCPCS: 73562

== ENCOUNTER 2023-05-19 04:00 | Outpatient (CLI) | payer MEDICARE, SELFPAY ==
[2023-05-19 16:37] LABS: COMMENT (LAB VIEW ONLY) 194.09 mg/dL
[2023-05-19 16:46] LABS: ALT 33 U/L (14-59); AST 20 U/L (15-37); Albumin 3.5 g/dL (3.4-5.0); Alkaline Phosphatase 109 U/L (46-116); Anion Gap 7.5 mmol/L (3-11); BUN 33 mg/dL (7-18); Bilirubin, Total 0.4 mg/dL (0.2-1.0); CO2 30.5 mmol/L (21.0-32.0); CREATININE 1.4 mg/dL (0.55-1.02); Calcium 9.1 mg/dL (8.5-10.1); Chloride 104 mmol/L (98-107); Estimated GFR 39.23 (mL/min/1.73m2); Glucose 134 mg/dL (74-106); Potassium 4.4 mmol/L (3.5-5.1); Sodium 142 mmol/L (136-145); Total Protein 6.9 g/dL (6.4-8.2)
== END 2023-05-19 04:01 | disposition home or self-care (01) ==
LOC: LBO 04:01
PROVIDERS: PCP Family Medicine; Visit Provider Student in an Organized Health Care Education/Training Program
DX: I10 Essential (primary) hypertension (principal)
CPT/HCPCS: 36415; 80053; 82043; 82570

== ENCOUNTER 2023-06-10 05:23 | Outpatient (CLI) | payer MEDICARE, SELFPAY ==
[2023-06-10 09:31] LABS: HCT 38.7 % (36.0-46.0); HGB 12.8 g/dL (11.2-15.7); MCH 30.1 pg (27.0-33.0); MCHC 33.1 % (32.0-36.0); MCV 91 fL (80-95); MPV 10.7 fL (8.0-11.0); Platelet Count 214 10^3/uL (130-400); RBC 4.25 10^6/uL (3.93-5.22); RDW 13.3 % (11.7-14.6); RDW-SD 44.5 fL; WBC 3.21 10^3/uL (4.4-10.8)
[2023-06-10 10:20] LABS: Iron 59 ug/dL (50-170)
[2023-06-10 10:47] LABS: Ferritin 63 ng/mL (8-252); TSH (W/Ref FT4) 3.06 uIU/mL (0.36-3.74); Vitamin B12 303 pg/mL (193-986)
== END 2023-06-10 05:24 | disposition home or self-care (01) ==
PROVIDERS: PCP Family Medicine; Visit Provider Family Medicine
DX: E03.9 Hypothyroidism, unspecified (principal); R53.83 Other fatigue; D64.9 Anemia, unspecified
CPT/HCPCS: 36415; 85027; 82607; 82728; 83540; 84443

== ENCOUNTER 2023-07-02 03:09 | Outpatient (CLI) | payer MEDICARE, SELFPAY ==
[2023-07-02 08:26] LABS: Absolute Basophil Count 0.06 10^3/uL (0.0-0.2); Absolute Lymphocyte Count 1.06 10^3/uL (1.2-3.4); Absolute Monocyte Count 0.44 10^3/uL (0.1-0.8); Absolute Neutrophil Count 2.24 10^3/uL (1.2-6.7); Basophils % 1.5; HCT 39.6 % (36.0-46.0); HGB 12.9 g/dL (11.2-15.7); Lymphocytes % 26.5; MCH 29.7 pg (27.0-33.0); MCHC 32.6 % (32.0-36.0); MCV 91 fL (80-95); MPV 10.2 fL (8.0-11.0); Platelet Count 191 10^3/uL (130-400); RBC 4.34 10^6/uL (3.93-5.22); RDW 13.2 % (11.7-14.6); RDW-SD 44.6 fL
[2023-07-02 09:10] LABS: ALT 37 U/L (14-59); AST 18 U/L (15-37); Albumin 3.4 g/dL (3.4-5.0); Alkaline Phosphatase 100 U/L (46-116); Anion Gap 5.3 mmol/L (3-11); BUN 18 mg/dL (7-18); Bilirubin, Total 0.6 mg/dL (0.2-1.0); CO2 30.7 mmol/L (21.0-32.0); CREATININE 1.4 mg/dL (0.55-1.02); Calcium 9.6 mg/dL (8.5-10.1); Chloride 106 mmol/L (98-107); Estimated GFR 39.23 (mL/min/1.73m2); Glucose 92 mg/dL (74-106); Magnesium 2.5 mg/dL (1.8-2.4); PHOSPHORUS 3.8 mg/dL (2.6-4.7); Potassium 4.8 mmol/L (3.5-5.1); Sodium 142 mmol/L (136-145); Total Protein 6.9 g/dL (6.4-8.2)
== END 2023-07-02 03:10 | disposition home or self-care (01) ==
LOC: LBO 03:09
PROVIDERS: PCP Family Medicine; Visit Provider Student in an Organized Health Care Education/Training Program
DX: I10 Essential (primary) hypertension (principal)
CPT/HCPCS: 36415; 80053; 83735; 84100; 85025

== ENCOUNTER 2023-08-01 09:05 | Emergency (ER) | payer MEDICARE, SELFPAY ==
[2023-08-01 09:07] VITALS: BP 84/45; PULSE 63; RESP 16; TEMP 36.7; O2SAT 99
--- NOTE | 2023-08-01 09:30 | DI.RAD_ITS ---
Exam(s) XR SHOULDER LT COMPLETE 2+V XR HUMERUS LT EXAM: XR HUMERUS LT and XR shoulder LT complete 2 V CLINICAL HISTORY: fall, mid humerus pain. TECHNIQUE: 2D digital imaging was performed of the left shoulder and humerus. Six images were obtai pippa. AP, Grashey, Y and lateral views were obtained. COMPARISON: No priors for comparison. FINDINGS: BONES: There is an acute comminuted fracture involving the proximal left humerus. There is a transve rse component involving the surgical neck and a longitudinal component involving the greater tuberosi ty. There is very minimal displacement of the fractures. No bony destructive lesion is seen. The gl enohumeral and acromioclavicular joints are intact. There are degenerative changes seen at the acrom ioclavicular joint. SOFT TISSUE: The visualized lung freire are clear. IMPRESSION: Comminuted fracture involving the proximal left humerus as described above. DATA REPOSITORY: RADIATION DOSE DELIVERED:
--- NOTE | 2023-08-01 10:21 | DI.VRAD_ITS ---
PROCEDURE INFORMATION: Exam: XR Left Humerus Exam date and time: 08/01/2023 9:53 AM Age: 77 years old Clinical indication: Other: Fall, mid humerus pain TECHNIQUE: Imaging protocol: Radiologic exam of the left humerus. Views: 2 or more views. COMPARISON: CR XR CHEST 2V PA LATERAL 05/03/2019 13:18 FINDINGS: Bones/joints: There is a fracture of the proximal humerus involving the neck and the greater tuberosity. The fracture is nondisplaced. The distal humerus is normal. The humeral head remains seated in the glenoid fossa. Soft tissues: Normal. IMPRESSION: Nondisplaced proximal humeral fracture. Dictated and Authenticated by: Oswald Leal MD. Ordering:SANJANA Boswell MD
--- NOTE | 2023-08-01 10:21 | DI.VRAD_ITS ---
PROCEDURE INFORMATION: Exam: XR Left Shoulder Exam date and time: 08/01/2023 10:01 AM Age: 77 years old Clinical indication: Other: Fall; Additional info: Fall, lt shoulder pain TECHNIQUE: Imaging protocol: Radiologic exam of the left shoulder. Views: 2 or more views. COMPARISON: CR XR HUMERUS LT 01/24/2024 09:53 FINDINGS: Bones/joints: There is a fracture of the surgical neck of the humerus which extends into the greater tuberosity. The fracture is nondisplaced. The humeral head remains seated in the glenoid fossa. The scapula, clavicle and acromioclavicular joints are normal. Soft tissues: Normal. No calcification. IMPRESSION: Proximal humerus fracture. Dictated and Authenticated by: Oswald Leal MD. Ordering:SANJANA Boswell MD
--- NOTE | 2023-08-01 10:43 | ED.GENADUL_ITS ---
HPI General Stated Complaint: Orthopedic Mode of arrival: ambulatory. IAN: 3 Date/Time Provider Initiated Documentation: 08/01/23 09:21. Limitations to Documentation: no limitations. Information obtained by: patient and RN notes reviewed. History of Present Illness Mechanical slip and fall moderate and severe sharp left and upper extremity hour(s) (1) constant Immobilization improves symptom(s), Movement worsens symptoms no other symptoms. none Related Data Home Medications Medication Instructions Recorded Confirmed cholecalciferol (vitamin D3) 50 2,000 unit PO DAILY 04/28/21 08/01/23 mcg (2,000 unit) capsule (Vitamin D3) coenzyme Q10 50 mg-vitamin E 5 1 cap PO BID 04/28/21 08/01/23 unit capsule (Co Q-10 (with Vit E)) coriolus versicolor See Rx Instructions .Route DAILY 04/28/21 08/01/23 omega 2-gie-bzj-fish oil 1,600 5 ml PO DAILY 04/28/21 08/01/23 mg-500 mg-800 mg/5 mL oral liquid red yeast rice 600 mg capsule 1,200 mg PO DAILY 04/28/21 08/01/23 polyethylene glycol 3350 17 gram See Rx Instructions PO DAILY #255 04/28/22 08/01/23 oral powder packet (Miralax) grams magnesium 200 mg tablet See Rx Instructions PO DAILY PRN 05/14/22 08/01/23 bid melatonin 5 mg capsule mg PO HS 05/14/22 06/07/23 albuterol sulfate 90 mcg/actuation 2 puff inhalation Q6H PRN 06/08/22 08/01/23 aerosol inhaler (Ventolin HFA) shortness of breath or wheezing #8.5 grams losartan 100 mg tablet 100 mg PO DAILY #90 tabs 06/25/23 08/01/23 hydrochlorothiazide 12.5 mg tablet 12.5 mg PO QAM #90 tabs 07/05/23 08/01/23 Previous Rx's Medication Instructions Recorded albuterol sulfate 90 mcg/actuation 2 puff inhalation Q6H PRN 06/08/22 aerosol inhaler (Ventolin HFA) shortness of breath or wheezing #8.5 grams losartan 100 mg tablet 100 mg PO DAILY #90 tabs 06/25/23 hydrochlorothiazide 12.5 mg tablet 12.5 mg PO QAM #90 tabs 07/05/23 Allergies Allergy/AdvReac Type Severity Reaction Status Date / Time adhesive Allergy Mild Skin Rash Verified 08/01/23 09:15 Review of Systems Constitutional Constitutional: Denies headache(s) and Denies weakness ENT Ears, Nose, Mouth, and Throat: Denies headache(s) Cardiovascular Cardiovascular: Denies chest pain, Denies syncope and Denies dyspnea Respiratory Respiratory: Denies dyspnea Gastrointestinal Gastrointestinal: Denies abdominal pain Musculoskeletal Musculoskeletal: Reports as per HPI, Reports limited range of motion, Denies numbness and Denies tingling Integumentary/Breasts Skin/Breast: Denies wounds Neurologic Neurologic: Denies syncope, Denies headache(s), Denies numbness, Denies tingling and Denies weakness PFS All Active Problems Fracture of proximal end of humerus (Acute) Knee pain (Acute) Chalazion of right upper eyelid (Acute) Bronchiectasis (Acute) Shortness of breath (Acute) Elevated serum creatinine (Acute) Toe anomaly (Acute) Toe problem (Acute) Hypertension (Chronic) Encounter for screening colonoscopy (Acute) Fatigue (Acute) Skin lesion (Acute) Osteopenia (Acute) Hypercholesterolemia (Acute) on Red Rice Yeast Epithelial ovarian cancer, 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 Ovarian mass 04/22/[address] 03/2015 Cellulitis of right axilla (01/28/16) Ankle pain (02/15/14) Acute pain of right shoulder (01/24/16) Actinic dermatitis (02/17/16) Surgical History History of appendectomy History of arthroscopy of knee History of exploratory laparotomy (04/18/16) History of eye surgery (04/23/16) Status post breast biopsy Hx of appendectomy S/P breast biopsy neg H/O arthroscopy of knee 07/26/88 right H/O exploratory laparotomy 04/18/16 lysis of adhesions; resection of necrotic small intestine w/anastomosis; repair of an incidental ventral incisional hernia H/O eye surgery 04/23/16 intravitreal injection with Avastin Hernia Repair, Incisional (04/18/16) Complete Hysterectomy large pelvic mass;ovarian carcinoma;omentum removal Extraction of cataract 09/03/17 RIGHT EYE; DR. RAINEY 09/17/17 LEFT EYE; DR. RAINEY Biopsy of breast NEG Bowel resection (04/18/16) Appendectomy (~1965) Family History Mother , age 78 Essential hypertension Heart disease Hyperlipidemia Breast cancer Father , age 80 Heart disease Brother Alcohol abuse Maternal Grandfather Heart disease Paternal Grandfather Heart disease Maternal Grandmother Cancer Paternal Grandmother Heart disease Brother Hyperlipidemia Melanoma Stroke Brother Alcohol abuse Dementia Social History Smoking/Tobacco Use Status: Former Tobacco Use Quit Date: 07/26/79 Tobacco: How many years used: 10 Second Hand Exposure: Yes Smoking risk assessment performed?: Yes Alcohol Intake: never Drug use: Never Substance use type: does not use Household members: significant other Housing: house Communication Needs: None Pets and animals: No Sexually active: No Do you think of yourself as: lesbian/jarvis/homosexual What is your relationship status?: living with partner How often do you talk on the phone with friends or family?: three or more times per week How often do you get together with friends or relatives?: once per week How often do you attend pentecostalism or gnosticism services?: decline to answer Do you belong to any clubs or organized social groups?: yes Panel score (0-1 are the most socially isolated patients): 3 What type of physical activity do you participate in: walking Duration: 45-60 minutes/day Frequency: daily Cat/Restoration: None Special cat needs: No Seatbelt use: always Helmet use: Yes Helmet use: always Drive intox or ride w/intox racing car driver: No Do you feel safe at home: Yes Exam Const General: cooperative, no acute distress and not ill appearing Orientation: alert, awake and oriented x3 HENMT Mouth: moist mucous membranes Resp Effort & Inspection: normal respiratory effort, able to speak in complete sentences and no respiratory distress Cardio Rate: regular rate Rhythm: regular rhythm Pulses: normal peripheral pulses Skin General skin exam: no rashes or lesions noted Neuro General: patient alert, patient awake, patient oriented x3 and no focal motor deficits Sensory Exam: no sensory deficits noted Extrem General: normal exam except as noted Left upper extremity: shoulder/upper arm Details: tenderness Location: of the proximal humerus, axillary nerve sensory function normal and abnormal ROM Details: held in an abnormal fashion Details: in ADduction and in internal rotation Course Vital Signs Vital signs: Vital Signs Temperature 36.7 C 08/01/23 09:07 Pulse 63 08/01/23 09:07 Respiratory Rate 16 08/01/23 09:07 Blood Pressure 84/45 L 08/01/23 09:07 Pulse Oximetry 99 08/01/23 09:07 Temperature 36.7 C 08/01/23 09:07 Temperature Source Temporal Artery Scan 08/01/23 09:07 Pulse 63 08/01/23 09:07 Respiratory Rate 16 08/01/23 09:07 Respiratory Effort Normal, Non-Labored 08/01/23 09:16 Blood Pressure 84/45 L 08/01/23 09:07 Blood Pressure Position Sitting 08/01/23 09:07 Pulse Oximetry 99 08/01/23 09:07 Oxygen Delivery Method Room Air 08/01/23 09:07 Oxygen Flow Rate 0 08/01/23 09:07 Medical Decision Making Patient presenting to the emergency department for chief complaint of mechanical slip and fall with landing on her left shoulder. Patient denies any head injury, loss of consciousness, chest pain abdominal pain shortness of breath or other symptoms. Patient has past medical history of hypertension, elevated creatinine, multiple surgeries but none of the left upper arm. Physical exam shows tenderness to the proximal humerus mostly to the lateral aspect and inability to move upper extremity but distal to injury exam is otherwise unremarkable with full sensation and movement and cap refill along with pulses. Will perform radiological imaging for evaluation of fracture versus contusion. Review of radiological imaging shows a very minimal displaced proximal humerus fracture. Patient placed in sling. Discussed with patient risk versus benefit of limited narcotics for pain control and sleep otherwise to use zhgo-hns-gsmniws medication. Patient was agreeable to receiving limited supply otherwise states understanding of care. Patient placed on orthopedic follow-up list. After discussion of diagnosis and plan of care patient has no further needs, questions, or concerns and states clear understanding to return to the emergency department for any worsening symptoms. This documentation was generated using [employer] dictation system, please disregard any oddities of phrase or misspellings. Imaging Data Radiologic Study: Imaging: X-Ray Radiologist's impression: Exam(s) PROCEDURE INFORMATION: Exam: XR Left Humerus Exam date and time: 08/01/2023 9:53 AM Age: 77 years old Clinical indication: Other: Fall, mid humerus pain TECHNIQUE: Imaging protocol: Radiologic exam of the left humerus. Views: 2 or more views. COMPARISON: CR XR CHEST 2V PA LATERAL 05/03/2019 13:18 FINDINGS: Bones/joints: There is a fracture of the proximal humerus involving the neck and the greater tuberosity. The fracture is nondisplaced. The distal humerus is normal. The humeral head remains seated in the glenoid fossa. Soft tissues: Normal. IMPRESSION: Nondisplaced proximal humeral fracture. Dictated and Authenticated by: Oswald Leal MD. Radiologic Study #2: Imaging: X-Ray Radiologist's impression: Exam(s) PROCEDURE INFORMATION: Exam: XR Left Shoulder Exam date and time: 08/01/2023 10:01 AM Age: 77 years old Clinical indication: Other: Fall; Additional info: Fall, lt shoulder pain TECHNIQUE: Imaging protocol: Radiologic exam of the left shoulder. Views: 2 or more views. COMPARISON: CR XR HUMERUS LT 01/24/2024 09:53 FINDINGS: Bones/joints: There is a fracture of the surgical neck of the humerus which extends into the greater tuberosity. The fracture is nondisplaced. The humeral head remains seated in the glenoid fossa. The scapula, clavicle and acromioclavicular joints are normal. Soft tissues: Normal. No calcification. IMPRESSION: Proximal humerus fracture. Quality:SDOH Health Related Social Needs: No Data to Display Discharge Plan Disposition Patient Disposition: Home Discharge Details Clinical Impression: Fracture of proximal end of humerus Primary Care Provider: Marilyn Kidd ED Provider: Elbert Frias Home Meds and New Rx's Prescriptions: No Action magnesium 200 mg tablet See Rx Instructions PO DAILY PRN (Reason: bid) Rx Instructions: 3 tabs qAM and 2 tabs qHS orally daily PRN; melatonin 5 mg capsule PO HS omega 5-wsz-urt-fish oil 1,600-500-800 mg/5 mL liquid 5 ml PO DAILY red yeast rice 600 mg capsule 1,200 mg PO DAILY Rx Instructions: give with meal/snack albuterol sulfate [Ventolin HFA] 90 mcg/actuation HFA aerosol inhaler 2 puff inhalation Q6H PRN (Reason: shortness of breath or wheezing) Qty: 8.5 12RF cholecalciferol (vitamin D3) [Vitamin D3] 50 mcg (2,000 unit) capsule 2,000 unit PO DAILY Patient Comments: Per patient: 3 tabs Spring/Fall; 2 tabs Summer; 4 tabs Winter Co Q-10 (with Vit E) 50-5 mg-unit capsule 1 cap PO BID coriolus versicolor See Rx Instructions .ROUTE DAILY Rx Instructions: 2 tabs qAM; 3 tabs qPM daily; polyethylene glycol 3350 [Miralax] 17 gram powder in packet See Rx Instructions PO DAILY Qty: 255 Rx Instructions: 8.5gm orally daily; losartan 100 mg tablet 100 mg PO DAILY Qty: 90 6RF hydrochlorothiazide 12.5 mg tablet 12.5 mg PO QAM Qty: 90 4RF Discharge Instructions Instructions: Proximal Humerus Fracture (ED) Additional Instructions: Please keep your arm in the sling and use iyfo-bku-[id number] pain medication as needed. You have been given a limited supply of narcotics please use these for severe pain only. Take as directed. If you have any new or significant worsening of symptoms feel free to return the emergency department for reassessment otherwise call the orthopedic office tomorrow for arrangement of follow-up appointment. Referrals: [facility] [Provider Group] (Please call the office tomorrow afternoon to arrange follow-up appointment) Discharge Data Discharge Date/Time-TO BE ENTERED AT DEPARTURE: 08/01/23 11:01
== END 2023-08-01 11:01 | disposition home or self-care (01) ==
PROVIDERS: Emergency Provider Nurse Practitioner Family; PCP Family Medicine
DX: S42.202A Unspecified fracture of upper end of left humerus, initial encounter for closed fracture (principal); W00.9XXA Unspecified fall due to ice and snow, initial encounter
CPT/HCPCS: 99284; 73030; 73060; 99283

== ENCOUNTER 2023-08-11 02:42 | Outpatient (CLI) | payer MEDICARE, SELFPAY ==
[2023-08-11 10:46] LABS: ALT 27 U/L (14-59); AST 17 U/L (15-37); Albumin 3.1 g/dL (3.4-5.0); Alkaline Phosphatase 94 U/L (46-116); Anion Gap 5.5 mmol/L (3-11); BUN 34 mg/dL (7-18); Bilirubin, Total 0.5 mg/dL (0.2-1.0); CO2 31.5 mmol/L (21.0-32.0); CREATININE 1.4 mg/dL (0.55-1.02); Calcium 9.3 mg/dL (8.5-10.1); Calculated LDL 149 mg/dL (<100); Chloride 102 mmol/L (98-107); Cholesterol 232 mg/dL (<200); Estimated GFR 39.23 (mL/min/1.73m2); Glucose 87 mg/dL (74-106); HDL Cholesterol 70 mg/dL (40-60); Potassium 4.3 mmol/L (3.5-5.1); Sodium 139 mmol/L (136-145); Total Protein 6.7 g/dL (6.4-8.2); Triglyceride 65 mg/dL (<150)
== END 2023-08-11 02:43 | disposition home or self-care (01) ==
LOC: LBO 02:42
PROVIDERS: PCP Family Medicine; Visit Provider Family Medicine
DX: I10 Essential (primary) hypertension (principal)
CPT/HCPCS: 36415; 80053; 80061; 99213; 73030

== ENCOUNTER 2023-08-11 15:53 | Outpatient (CLI) | payer MEDICARE, SELFPAY ==
--- NOTE | 2023-08-11 11:23 | DI.RAD_ITS ---
Exam(s) XR SHOULDER LT COMPLETE 2+V EXAM: XR SHOULDER LT COMPLETE 2+V INDICATION: F/U FRACTURE. COMPARISON: CR,XR XR SHOULDER LT COMPLETE 2+V from 08/01/2023 TECHNIQUE: 2D digital imaging was performed. Two views. FINDINGS: There has been no change in the alignment of the comminuted fracture of the humeral head. No new fin dings. DATA REPOSITORY: RADIATION DOSE DELIVERED:
== END 2023-08-11 15:54 | disposition home or self-care (01) ==
LOC: DIORS 15:53
PROVIDERS: PCP Family Medicine; Visit Provider Student in an Organized Health Care Education/Training Program
DX: S42.202A Unspecified fracture of upper end of left humerus, initial encounter for closed fracture (principal); W19.XXXA Unspecified fall, initial encounter
CPT/HCPCS: 73030

== ENCOUNTER 2023-09-01 14:00 | Outpatient (CLI) | payer MEDICARE, SELFPAY ==
--- NOTE | 2023-09-01 09:00 | DI.RAD_ITS ---
Exam(s) XR SHOULDER LT COMPLETE 2+V EXAM: XR SHOULDER LT COMPLETE 2+V CLINICAL HISTORY: F/U FRACTURE. TECHNIQUE: 2D digital imaging was performed. COMPARISON: CR XR SHOULDER LT COMPLETE 2+V from 08/11/2023 FINDINGS: The comminuted fracture in the humeral head and neck appears unchanged from 08/11/2023. There is no further displacement of the fracture greater tuberosity. No new fracture fragments in the subacromia l space. Glenohumeral joint is intact as is the AC joint and clavicle. IMPRESSION: Stable appearance of the humeral head-neck fracture which also involves the greater tuberosity. No f urther displacement. No callus formation evident DATA REPOSITORY: RADIATION DOSE DELIVERED:
== END 2023-09-01 14:01 | disposition home or self-care (01) ==
LOC: DIORS 14:00
PROVIDERS: PCP Family Medicine; Referring Provider Family Medicine; Visit Provider Student in an Organized Health Care Education/Training Program
DX: S42.202D Unspecified fracture of upper end of left humerus, subsequent encounter for fracture with routine healing (principal); X58.XXXD Exposure to other specified factors, subsequent encounter
CPT/HCPCS: 99213; 73030

== ENCOUNTER 2023-09-28 11:18 | Outpatient (CLI) | payer MEDICARE, SELFPAY ==
[2023-09-28 10:59] LABS: Abs Immature Grans 0.01 10^3/uL (0.0-0.06); Absolute Basophil Count 0.04 10^3/uL (0.0-0.2); Absolute Eosinophil Count 0.06 10^3/uL (0.0-0.7); Absolute Lymphocyte Count 0.96 10^3/uL (1.2-3.4); Absolute Monocyte Count 0.42 10^3/uL (0.1-0.8); Eosinophils % 1.5; HGB 12.3 g/dL (11.2-15.7); Immature Grans % 0.3; Lymphocytes % 24.7; MCH 30.6 pg (27.0-33.0); MCHC 34.2 % (32.0-36.0); MCV 90 fL (80-95); MPV 10.1 fL (8.0-11.0); Monocytes % 10.8; Neutrophils % 61.7; Platelet Count 197 10^3/uL (130-400); RBC 4.02 10^6/uL (3.93-5.22); RDW 12.5 % (11.7-14.6); RDW-SD 41.7 fL; WBC 3.89 10^3/uL (4.4-10.8)
[2023-09-28 12:11] LABS: ALT 38 U/L (14-59); AST 25 U/L (15-37); Albumin 3.5 g/dL (3.4-5.0); Alkaline Phosphatase 91 U/L (46-116); Anion Gap 7.3 mmol/L (3-11); BUN 15 mg/dL (7-18); Bilirubin, Total 0.4 mg/dL (0.2-1.0); CO2 30.7 mmol/L (21.0-32.0); CREATININE 1.5 mg/dL (0.55-1.02); Calcium 9.3 mg/dL (8.5-10.1); Chloride 100 mmol/L (98-107); Estimated GFR 35.89 (mL/min/1.73m2); Glucose 94 mg/dL (74-106); Potassium 3.8 mmol/L (3.5-5.1); Sodium 138 mmol/L (136-145); TSH (W/Ref FT4) 1.23 uIU/mL (0.36-3.74); Total Protein 6.9 g/dL (6.4-8.2)
[2023-09-28 21:12] LABS: CA 125 15 U/mL (<30)
== END 2023-09-28 11:19 | disposition home or self-care (01) ==
LOC: LBO 11:18
PROVIDERS: PCP Family Medicine; Visit Provider Family Medicine
DX: Z85.43 Personal history of malignant neoplasm of ovary; E03.9 Hypothyroidism, unspecified; I10 Essential (primary) hypertension
CPT/HCPCS: 36415; 80053; 86304; 84443; 85025

== ENCOUNTER → 2023-10-12 03:12 | Outpatient (CLI) | payer MEDICARE, SELFPAY ==
--- NOTE | 2023-10-12 07:45 | DI.CT_ITS ---
Exam(s) CT ABDOMEN PELVIS W EXAM: CT ABDOMEN PELVIS W CLINICAL HISTORY: h/o bowel obstruction ovarian ca,BOWEL DYSFUNCTION,K59.9. TECHNIQUE: Imaging Protocol: Axial computed tomography images with coronal and sagittal reformatted images were created and reviewed CONTRAST MATERIAL: Intravenous: Omnipaque-350 100cc Oral: Yes. Oral contrast was also administered for bowel opacification. COMPARISON: CT ABD PELVIS WITH CONTRAST from 04/18/2016 FINDINGS: VISUALIZED LUNG BASES: No nodules nor pleural effusions evident. ABDOMEN: There is no ascites. LIVER: There are no significant focal hepatic lesions evident. Hypodensity consistent with fatty par enchymal changes noted adjacent to the inter lobar fissure. GALLBLADDER/BILIARY: No obvious gallbladder pathology. CBD is not dilated. PANCREAS: No evidence of pancreatic mass nor dilatation of the pancreatic duct. SPLEEN: Spleen is not enlarged. No obvious intrasplenic lesions. Splenic and portal veins are paten t. ADRENALS: There are no significant adrenal masses. KIDNEYS:No cysts evident. No solid renal masses. No calculi nor hydronephrosis.. ABDOMINAL AORTA: Calcified but not significantly enlarged. LYMPH NODES:There is no retroperitoneal nor paraaortic adenopathy. ABDOMINAL WALL: Again noted is a anterior abdominal wall right para umbilical hernia. The hernia sac measures 5.5 cm wide by 1.1 cm AP by 5 cm craniocaudal and is again noted to contain a small bowel l oop. This bowel loop does not appear edematous and there is no transition point evident at this leve l. There is a nearby bowel anastomosis which is most probably related to partial small bowel resecti on at this level following the CT scan of March 2016. There is no evidence of bowel obstruction, free air, nor abscess. The oral contrast has progressed to the level of the left side of the colon. PELVIS: GI: No evidence of appendicitis.No evidence of sigmoid diverticulitis.Mild edema in the wall of the r ectosigmoid has appearance of element of colitis. This may be exaggerated by the oral contrast not h aving reached this level at time of image acquisition. LYMPH NODES: There is no intrapelvic nor inguinal adenopathy. REPRODUCTIVE: Uterus is surgically absent. There are no abnormal adnexal masses and no free fluid. URINARY BLADDER: Urinary bladder wall is uniformly/diffusely thickened. Pelvic ureters are not dilat ed. OSSEOUS: No fractures. No lytic osseous lesions. However, there is a small sclerotic bone density i n the posterior right iliac bone which measures 4 x 4 mm and possibly benign bone island but was not evident on the prior study of 2016. No other sclerotic bone lesions evident. IMPRESSION: 1. Compared to the prior CT scan of March 2016 there is again noted an right para umbilical anter ior abdominal hernia which again contains a small bowel loop. However, on the present study this sma ll bowel loop does not appear edematous and there is no transition point/no bowel obstruction. No fr ee air. No abscess. There appears to be a nearby small bowel anastomosis implying that there was pr obably partial bowel resection following the CT scan of 04/18/2016. On that scan there appear to be some incarcerated bowel within this hernia sac. 2. Also evidence of prior hysterectomy. 3. Urinary bladder wall is uniformly thickened, more so than on the prior study and 1st consideration would be for cystitis. There are no radiopaque calculi in the urinary bladder lumen. No obvious fo arlet mass. 4. There is a solitary dense small 4 x 4 mm expansile bone lesion in the right pelvic bone-right isabell c bone which has appearance of a benign bone island but was not evident on the 2016 study. RADIATION DOSE DELIVERED: Total DLP DATA REPOSITORY: All CT scans at this facility are submitted to the National Radiology Data Registry (NRDR) Dose Index Registry (DIR) with the [employer] ([employer]). RADIATION OPTIMIZATION: All CT scans at this facility use at least one of these dose optimization te chniques: automated exposure control; mA and/or kV adjustment per patient size (includes targeted exa ms where dose is matched to clinical indication); or iterative reconstruction.
[2023-10-12] MEDS: Barium Sulfate 2% W/V-Berry Smoothie 450 ML BTL PO ×2 (09:11→09:12)
[2023-10-12 09:30] LABS: CREATININE 1.4 mg/dL (0.55-1.02); Estimated GFR 38.99 (mL/min/1.73m2)
[2023-10-12] MEDS: Normal Saline - Diluent 50 ML VIAL IJ (11:00)
[2023-10-12] MEDS: Omnipaque 350 MG/ML 100 ML BTL IJ (11:00)
== END ==
PROVIDERS: PCP Family Medicine; Visit Provider Family Medicine
DX: K59.9 Functional intestinal disorder, unspecified (principal); Z01.812 Encounter for preprocedural laboratory examination
CPT/HCPCS: 74177; 82565; J3490

== ENCOUNTER 2023-10-13 14:46 | Outpatient (CLI) | payer MEDICARE, SELFPAY ==
--- NOTE | 2023-10-13 10:15 | DI.RAD_ITS ---
Exam(s) XR SHOULDER LT COMPLETE 2+V EXAM: XR SHOULDER LT COMPLETE 2+V INDICATION: F/U FRACTURE. COMPARISON: CR XR SHOULDER LT COMPLETE 2+V from 09/01/2023 TECHNIQUE: 2D digital imaging was performed. Two views. FINDINGS: No change in alignment of the humeral head and neck fracture. No new abnormalities. DATA REPOSITORY: RADIATION DOSE DELIVERED:
== END 2023-10-13 14:47 | disposition home or self-care (01) ==
LOC: DIORS 14:46
PROVIDERS: PCP Family Medicine; Referring Provider Family Medicine; Visit Provider Student in an Organized Health Care Education/Training Program
DX: S42.202D Unspecified fracture of upper end of left humerus, subsequent encounter for fracture with routine healing (principal); X58.XXXD Exposure to other specified factors, subsequent encounter
CPT/HCPCS: 99213; 73030

== ENCOUNTER → 2023-11-22 01:09 | Outpatient (CLI) | payer MEDICARE, SELFPAY ==
--- NOTE | 2023-11-22 06:15 | ETT_ITS ---
APPROVED REPORT Exam: Exercise Treadmill Patient Location: Out-Patient Room/Bed: Stress Nurse: Daniel Madden RN Ordering Provider:VAN BACA, Contact Number: [phone] BMI: 24.37 Baseline Rhythm: Sinus Rhythm Indications: Chest pain. Medical History Medical History: HTN, Scarlet fever. Cardiac Medications: Hydralazine Allergies: CTZ, Losartan, Albuterol. Cardiac Risk Factors: HTN Pretest Chest Pain Characteristics: No chest pain Exercise History: Physically active Lung Sounds: Clear to auscultation Heart Sounds: Regular Stress Test Details Test: Exercise stress testing was performed using a Donnell protocol. Rest Stress HR Resting HR Supine: 63 bpm Max Heart Rate (APMHR): 144 bpm Resting HR Standin bpm Target HR (85% APMHR): 122 bpm Max HR Achieved: 141 bpm % of APMHR: 98 Recovery HR: 74 bpm HR response to stress: Normal HR response to stress BP Resting BP Supine: 98/48 mmHg Resting BP Standin/62 mmHg Max BP: 162/46 mmHg Recovery BP: 112/52 mmHg BP response to stress: Normal blood pressure response to stress. ECG Resting ECG: Sinus Rhythm Stress ECG: Sinus Tachycardia ST Change: No significant ST segment changes noted Arrhythmia: None Recovery ECG: Sinus Rhythm Recovery ST Change: No significant ST segment changes noted Recovery Arrhythmia: None Clinical Reason for Termination: Fatigue, Target HR Achieved Stress Symptoms: General Fatigue Exercise duration: 7 min20 sec Highest Stage Reached: Stage 2: 2.5 mph at 12% grade. Exercise capacity: 10.01 METs Angina Score: None Stevens Treadmill Score: 7.3 Rate Pressure Product: 78114 Stress ECG Conclusion 1. The resting EKG showed poor R wave progression 2. Patient exercised on the Donnell protocol completed a workload of 10 METS 3. Normal heart rate and blood pressure response to exercise. The patient achieved 98% of predicted heart rate for age 4. There was no electrocardiographic evidence of myocardial ischemia 5. There were no significant dysrhythmias Stevens Treadmill Score is 7.3 which is Low risk. Stress Test Summary STAGE Time (mins) Speed (mph) Grade (%) HR BP SpO2 SYMPTOMS METS Supine 63 98/48 99 Standing 69 102/62 99 1 3 1.7 10 111 112/60 96 4.5 2 6 2.5 12 130 120/52 96 7 1 min recovery 140 110/42 95 3 min recovery 88 162/46 98 6 min recovery 74 112/52 98
== END ==
PROVIDERS: PCP Family Medicine; Visit Provider Family Medicine
DX: R07.9 Chest pain, unspecified (principal); R94.31 Abnormal electrocardiogram [ECG] [EKG]
CPT/HCPCS: 93016; 93018; 93017

== ENCOUNTER 2023-12-22 15:57 | Outpatient (CLI) | payer MEDICARE, SELFPAY ==
--- NOTE | 2023-12-22 10:00 | DI.RAD_ITS ---
Exam(s) XR SHOULDER LT COMPLETE 2+V EXAM: XR SHOULDER LT COMPLETE 2+V CLINICAL HISTORY: F/U FRACTURE. TECHNIQUE: 2D digital imaging was performed of the left shoulder. Two images were obtained. Grashe y and Y views were obtained. COMPARISON: CR XR SHOULDER LT COMPLETE 2+V from 10/13/2023 FINDINGS: BONES: There is no change in alignment of the fracture involving the proximal left humerus. The frac ture appears to be healing well. No new fractures identified. No bony destructive lesion is seen. JOINTS: Degenerative changes are seen at the acromioclavicular joint. The glenohumeral joint is well maintained. SOFT TISSUE: Normal. IMPRESSION: No change in alignment of the proximal left humeral fracture which appears to be healing well. DATA REPOSITORY: RADIATION DOSE DELIVERED:
== END 2023-12-22 15:58 | disposition home or self-care (01) ==
LOC: DIORS 15:57
PROVIDERS: PCP Family Medicine; Visit Provider Student in an Organized Health Care Education/Training Program
DX: S42.202D Unspecified fracture of upper end of left humerus, subsequent encounter for fracture with routine healing (principal); X58.XXXD Exposure to other specified factors, subsequent encounter
CPT/HCPCS: 99213; 73030

== ENCOUNTER 2024-02-15 18:47 | Outpatient (REF) | payer MEDICARE, SELFPAY ==
--- NOTE | 2024-02-15 11:55 | SKI_PTH ---
PATIENT: Neisha Bustamante LOC: [facility] U#:[id number] AGE/SX: 78/F ROOM: RE02/15/[address]: Marilyn Kidd MD, DC : 1945 BED: DIS: 02/15/2024 SPEC #: [id number] RECD: 02/16/24 12:46 STATUS: SAMANTHA MOSLEY #: [id number] SHUKRI: 02/15/24 11:[address]: Marilyn Kidd DEPT: Surgical Specimen RECD BY: Debbie Eric Tissues: 1 - SKIN BIOPSY(SHAVE/PUNCH) Procedures: SKIN LEVEL 4 Comments: [id number]
== END 2024-02-15 18:48 | disposition home or self-care (01) ==
LOC: LBN 18:47
PROVIDERS: PCP Family Medicine; Visit Provider Family Medicine
DX: R21 Rash and other nonspecific skin eruption (principal)
CPT/HCPCS: 88305

== ENCOUNTER 2024-06-02 01:15 | Outpatient (CLI) | payer MEDICARE, SELFPAY ==
[2024-06-02 13:25] LABS: ALT 28 U/L (14-59); AST 19 U/L (15-37); Albumin 3.3 g/dL (3.4-5.0); Alkaline Phosphatase 100 U/L (46-116); Anion Gap 4.2 mmol/L (3-11); BUN 32 mg/dL (7-18); Bilirubin, Total 0.31 mg/dL (0.2-1.0); CO2 30.8 mmol/L (21.0-32.0); CREATININE 1.4 mg/dL (0.55-1.02); Calculated LDL 193 mg/dL (<100); Chloride 108 mmol/L (98-107); Cholesterol 278 mg/dL (<200); Estimated GFR 38.99 (mL/min/1.73m2); Glucose 88 mg/dL (74-106); HDL Cholesterol 73 mg/dL (40-60); Magnesium 2.3 mg/dL (1.8-2.4); Potassium 4.5 mmol/L (3.5-5.1); Sodium 143 mmol/L (136-145); Total Protein 6.8 g/dL (6.4-8.2); Triglyceride 60 mg/dL (<150)
== END 2024-06-02 01:16 | disposition home or self-care (01) ==
LOC: LOS 01:15
PROVIDERS: PCP Family Medicine; Visit Provider Family Medicine
DX: I10 Essential (primary) hypertension (principal)
CPT/HCPCS: 36415; 80053; 80061; 83735

== ENCOUNTER 2024-12-28 09:43 | Outpatient (CLI) | payer MEDICARE, SELFPAY ==
[2024-12-28 10:26] LABS: COMMENT (LAB VIEW ONLY) 162.26 mg/dL; Microalb ug/mg Crea 8.8 ug/mg Cr
[2024-12-28 10:30] LABS: ALT 21 U/L (14-59); AST 17 U/L (15-37); Albumin 3.3 g/dL (3.4-5.0); Alkaline Phosphatase 106 U/L (46-116); Anion Gap 3.6 mmol/L (3-11); BUN 27 mg/dL (7-18); Bilirubin, Total 0.5 mg/dL (0.2-1.0); CO2 30.4 mmol/L (21.0-32.0); CREATININE 1.4 mg/dL (0.55-1.02); Calcium 8.9 mg/dL (8.5-10.1); Calculated LDL 185 mg/dL (<100); Chloride 104 mmol/L (98-107); Cholesterol 270 mg/dL (<200); Estimated GFR 38.75 (mL/min/1.73m2); Glucose 87 mg/dL (74-106); HDL Cholesterol 74 mg/dL (>or=50); Potassium 4.4 mmol/L (3.5-5.1); Sodium 138 mmol/L (136-145); Total Protein 6.7 g/dL (6.4-8.2); Triglyceride 59 mg/dL (<150)
[2024-12-28 18:47] LABS: Hepatitis C Ab w Rflx HCV PCR Negative (Negative)
== END 2024-12-28 09:44 | disposition home or self-care (01) ==
LOC: LBO 09:44
PROVIDERS: PCP Family Medicine; Visit Provider Family Medicine
DX: I10 Essential (primary) hypertension; R79.89 Other specified abnormal findings of blood chemistry; R79.0 Abnormal level of blood mineral
CPT/HCPCS: 36415; 80053; 80061; 86803; 82043; 82570; 83735

== ENCOUNTER 2025-01-16 15:11 | Outpatient (CLI) | payer MEDICARE, SELFPAY ==
--- NOTE | 2025-01-16 14:45 | DI.RAD_ITS ---
Exam(s) XR WRIST RT LIMITED EXAM: XR WRIST RT LIMITED CLINICAL HISTORY: F/U FRACTURE. TECHNIQUE: 2D digital imaging was performed of the right wrist. Three views were obtained. PA and lateral views were obtained. COMPARISON: CR XR WRIST RT HW from 01/09/2025 FINDINGS: BONES: There has been no significant change in alignment of the mildly impacted and dorsally angulated fracture of the distal metaphysis of the right radius. There has been no change in alignment of the displaced ulnar styloid process fracture. No bony destructive lesion is seen. JOINTS: The carpal bones are normally aligned. SOFT TISSUE: There is soft tissue swelling around the wrist. IMPRESSION: Stable alignment of the distal radial and ulnar fractures. DATA REPOSITORY: RADIATION DOSE DELIVERED:
== END 2025-01-16 15:12 | disposition home or self-care (01) ==
LOC: DIORS 15:11
PROVIDERS: PCP Family Medicine; Referring Provider Family Medicine; Visit Provider Student in an Organized Health Care Education/Training Program
DX: S62.101A Fracture of unspecified carpal bone, right wrist, initial encounter for closed fracture (principal); S52.501A Unspecified fracture of the lower end of right radius, initial encounter for closed fracture; S52.611A Displaced fracture of right ulna styloid process, initial encounter for closed fracture; W19.XXXA Unspecified fall, initial encounter
CPT/HCPCS: 99213; 29125; 73100

== ENCOUNTER 2025-01-19 00:15 | Outpatient (CLI) | payer MEDICARE, SELFPAY ==
--- NOTE | 2025-01-19 07:30 | DI.DEXA_ITS ---
Exam(s) XR DEXA BONE DENSITY W/WO DINESH EXAM: XR DEXA BONE DENSITY W/WO DINESH CLINICAL HISTORY: post menopausal STATUS, ASYMPTOMATIC STATE, Z78.0 TECHNIQUE: COMPARISON: DX DINESH from 08/02/2008 FINDINGS: Lateral Spine Image: Unremarkable. No compression deformities identified. Left hip: Total T-Score: -1.4. This compares to -0.6 on the prior examination. Total Z-Score: 0.5 T- and Z-scores: Findings are consistent with osteopenia. Lumbar Spine: Total T-Score: -1.3. This compares to -1.1 on the prior examination. Total Z-Score: 1.3 findings are consistent with osteopenia. T- and Z-scores: Within normal limits. IMPRESSION: No evidence of osteoporosis.
== END 2025-01-19 00:35 ==
LOC: DI 00:16
PROVIDERS: PCP Family Medicine; Visit Provider Family Medicine
DX: Z13.820 Encounter for screening for osteoporosis (principal); Z78.0 Asymptomatic menopausal state
CPT/HCPCS: 77080

== ENCOUNTER 2025-02-13 11:13 | Outpatient (CLI) | payer MEDICARE, SELFPAY ==
--- NOTE | 2025-02-13 10:45 | DI.RAD_ITS ---
Exam(s) XR WRIST RT LIMITED EXAM: XR WRIST RT LIMITED CLINICAL HISTORY: F/U R DISTAL RAD FX. TECHNIQUE: 2D digital imaging was performed. Three views. COMPARISON: CR XR WRIST RT LIMITED from 01/16/2025 FINDINGS: BONES: No stable alignment of comminuted distal radial fracture. Stable alignment of ulnar styloid fracture. No bony destructive lesion is seen. JOINTS: Minimal degenerative changes. Dorsal tilt of the lunate. SOFT TISSUE: Normal swelling around wrist. IMPRESSION: Stable fracture alignment. DATA REPOSITORY: RADIATION DOSE DELIVERED:
== END 2025-02-13 11:14 | disposition home or self-care (01) ==
LOC: DIORS 11:13
PROVIDERS: PCP Family Medicine; Referring Provider Family Medicine; Visit Provider Student in an Organized Health Care Education/Training Program
DX: S52.591D Other fractures of lower end of right radius, subsequent encounter for closed fracture with routine healing (principal); S52.611D Displaced fracture of right ulna styloid process, subsequent encounter for closed fracture with routine healing; X58.XXXD Exposure to other specified factors, subsequent encounter
CPT/HCPCS: 99213; 73100

== ENCOUNTER 2025-03-27 12:53 | Outpatient (CLI) | payer MEDICARE, SELFPAY ==
--- NOTE | 2025-03-27 10:30 | DI.RAD_ITS ---
Exam(s) XR WRIST RT LIMITED EXAM: XR WRIST RT LIMITED CLINICAL HISTORY: F/U FRACTURE. TECHNIQUE: 2D digital imaging was performed. Three views. COMPARISON: CR XR WRIST RT LIMITED from 02/13/2025 FINDINGS: BONES: Stable alignment of distal radial and ulnar styloid fractures. Increase callus formation indicating some interval healing. No bony destructive lesion is seen. SOFT TISSUE: Swelling around the wrist IMPRESSION: Stable alignment of healing distal radial and ulnar styloid fractures. DATA REPOSITORY: RADIATION DOSE DELIVERED:
== END 2025-03-27 12:54 | disposition home or self-care (01) ==
LOC: DIORS 12:53
PROVIDERS: PCP Family Medicine; Referring Provider Family Medicine; Visit Provider Student in an Organized Health Care Education/Training Program
DX: S52.611A Displaced fracture of right ulna styloid process, initial encounter for closed fracture (principal); S52.501A Unspecified fracture of the lower end of right radius, initial encounter for closed fracture; X58.XXXA Exposure to other specified factors, initial encounter
CPT/HCPCS: 99214; 73100

== ENCOUNTER 2025-04-20 04:05 | Outpatient (CLI) | payer MEDICARE, SELFPAY ==
[2025-04-20 10:48] LABS: ALT 31 U/L (14-59); AST 18 U/L (15-37); Albumin 3.4 g/dL (3.4-5.0); Alkaline Phosphatase 81 U/L (46-116); Anion Gap 7.2 mmol/L (3-11); BUN 28 mg/dL (7-18); Bilirubin, Total 0.5 mg/dL (0.2-1.0); CO2 28.8 mmol/L (21.0-32.0); Calcium 9.3 mg/dL (8.5-10.1); Chloride 107 mmol/L (98-107); Estimated GFR 38.75 (mL/min/1.73m2); Glucose 83 mg/dL (74-106); Potassium 4.1 mmol/L (3.5-5.1); Sodium 143 mmol/L (136-145); TSH (W/Ref FT4) 2.45 uIU/mL (0.36-3.74); Total Protein 6.6 g/dL (6.4-8.2); Vitamin D 25 Total 81 ng/mL (30-100)
== END 2025-04-20 04:06 | disposition home or self-care (01) ==
LOC: LBO 04:05
PROVIDERS: PCP Family Medicine; Visit Provider Family Medicine
DX: M81.0 Age-related osteoporosis without current pathological fracture (principal); E07.9 Disorder of thyroid, unspecified
CPT/HCPCS: 36415; 80053; 82306; 83970; 84100; 84443

== ENCOUNTER 2025-04-23 17:39 | Outpatient (REF) | payer MEDICARE, SELFPAY ==
[2025-04-23 19:52] LABS: Creatinine,24hr Ur 0.82 g/24hr (0.60-1.80); Creatinine,Urine 51.26 mg/dL; Total Volume 1600 ml
[2025-04-25 10:11] LABS: Calcium Urine 4.9 mg/dL (See Note); Timed Urine Volume 1600 mL
== END 2025-04-23 17:40 | disposition home or self-care (01) ==
LOC: LBN 17:39
PROVIDERS: Visit Provider Family Medicine
DX: M81.0 Age-related osteoporosis without current pathological fracture (principal)
CPT/HCPCS: 81050; 82340; 82570

== ENCOUNTER 2025-05-08 11:41 | Outpatient (CLI) | payer MEDICARE, SELFPAY ==
--- NOTE | 2025-05-08 10:45 | DI.RAD_ITS ---
Exam(s) XR WRIST RT LIMITED EXAM: XR WRIST RT LIMITED INDICATION: F/U FRACTURE. COMPARISON: CR XR WRIST RT HW from 01/09/2025 CR XR WRIST RT LIMITED from 03/27/2025 TECHNIQUE: 2D digital imaging was performed. Two views. FINDINGS: There has been continued healing of the distal radial fracture. The alignment is unchanged. Ulnar styloid fracture is again noted. Soft tissue swelling remains present around the wrist. DATA REPOSITORY: RADIATION DOSE DELIVERED:
== END 2025-05-08 11:42 | disposition home or self-care (01) ==
LOC: DIORS 11:41
PROVIDERS: PCP Family Medicine; Referring Provider Family Medicine; Visit Provider Student in an Organized Health Care Education/Training Program
DX: S52.501D Unspecified fracture of the lower end of right radius, subsequent encounter for closed fracture with routine healing (principal); S52.611D Displaced fracture of right ulna styloid process, subsequent encounter for closed fracture with routine healing; X58.XXXD Exposure to other specified factors, subsequent encounter
CPT/HCPCS: 99214; 73100

== ENCOUNTER 2025-07-03 01:26 | Outpatient (CLI) | payer MEDICARE, SELFPAY ==
[2025-07-03 12:16] LABS: Abs Immature Grans 0.01 10^3/uL (0.0-0.06); HCT 37.7 % (36.0-46.0); HGB 12.3 g/dL (11.2-15.7); Immature Grans % 0.2 %; MCH 29.2 pg (27.0-33.0); MCHC 32.6 % (32.0-36.0); MCV 90 fL (80-95); MPV 10.5 fL (8.0-11.0); Platelet Count 175 10^3/uL (130-400); RBC 4.21 10^6/uL (3.93-5.22); RDW 13.2 % (11.7-14.6); RDW-SD 43.0 fL; WBC 4.43 10^3/uL (4.4-10.8)
[2025-07-03 12:39] LABS: Albumin 4.2 g/dL (3.2-5.0); Anion Gap 8 mmol/L (3-11); BUN 19 mg/dL (9-23); CO2 30.0 mmol/L (20.0-31.0); Calcium 9.8 mg/dL (8.3-10.6); Chloride 102 mmol/L (98-107); Glucose 123 mg/dL (74-106); Potassium 4.0 mmol/L (3.5-5.1); Sodium 140 mmol/L (136-145)
[2025-07-03 12:41] LABS: Vitamin D 25 Total 72 ng/mL (30-100)
[2025-07-03 14:53] LABS: Microalb ug/mg Crea 7.8 ug/mg Cr
== END 2025-07-03 01:27 | disposition home or self-care (01) ==
PROVIDERS: PCP Family Medicine; Visit Provider Internal Medicine Nephrology
DX: K59.9 Functional intestinal disorder, unspecified (principal); R11.2 Nausea with vomiting, unspecified; E21.3 Hyperparathyroidism, unspecified; N18.32 Chronic kidney disease, stage 3b; I10 Essential (primary) hypertension
CPT/HCPCS: 36415; 80048; 82306; 82784; 83516; 82040; 82043; 82570; 83970; 85025

== ENCOUNTER → 2025-07-25 08:09 | Outpatient (CLI) | payer MEDICARE, SELFPAY ==
--- NOTE | 2025-07-25 06:31 | DI.CT_ITS ---
Exam(s) CT ABDOMEN PELVIS W EXAM: CT ABDOMEN PELVIS W CLINICAL HISTORY: abdominal mass noted, periumbilical, bowel changes,R19.00. TECHNIQUE: Imaging Protocol: Axial computed tomography images with coronal and sagittal reformatted images were created and reviewed CONTRAST MATERIAL: Intravenous: Omnipaque 350 Contrast volume:75 ml Oral: yes COMPARISON: CT CT ABDOMEN PELVIS W from 10/12/2023 FINDINGS: ABDOMEN and PELVIS: Lung Bases: No acute findings. Liver: Normal density. No suspicious mass. Gallbladder and biliary tract: No radiodense calculus. No wall thickening or pericholecystic fluid. No biliary dilation. Pancreas: Normal density. No abnormal calcifications or inflammatory process. No evidence of mass. Spleen: Normal. Kidneys: Normal size, contour and axis. No radiodense stones. No obstructive uropathy. No suspicious masses seen. Adrenal glands: No masses seen. Vasculature: Abdominal aorta non-dilated. Atherosclerotic changes. Soft tissues: Stable appearance of infraumbilical hernia containing a nonobstructed loop of small bowel. Bladder: No gross wall thickening. No calculi.No focal mass. Bowel: No obstruction. No bowel wall thickening. Moderate quantity of stool. Peritoneal cavity: No ascites. No focal collection. No mesenteric inflammatory response. No free air. Bones: Unremarkable for age. Bone island is again noted in the right ilium. Reproductive organs: Hysterectomy. Lymph nodes: No pathologically enlarged lymph nodes. IMPRESSION:: No acute abnormality in the abdomen or pelvis. Stable appearance anterior abdominal wall infraumbilical hernia containing nonobstructed loop of small bowel. RADIATION DOSE DELIVERED: 377.92mGy.cm Total DLP DATA REPOSITORY: All CT scans at this facility are submitted to the National Radiology Data Registry (NRDR) Dose Index Registry (DIR) with the [employer] ([employer]). RADIATION OPTIMIZATION: All CT scans at this facility use at least one of these dose optimization techniques: automated exposure control; mA and/or kV adjustment per patient size (includes targeted exams where dose is matched to clinical indication); or iterative reconstruction.
[2025-07-25] MEDS: Barium Sulfate 2% W/V-Creamy Vanilla Smoothie 450 ML BTL PO (08:35)
[2025-07-25] MEDS: Barium Sulfate 2% W/V-Berry Smoothie 450 ML BTL PO (08:36)
[2025-07-25 08:55] LABS: Anion Gap 6.7 mmol/L (3-11); BUN 30 mg/dL (9-23); CO2 27.3 mmol/L (20.0-31.0); Calcium 9.1 mg/dL (8.3-10.6); Chloride 106 mmol/L (98-107); Glucose 85 mg/dL (74-106); Potassium 4.4 mmol/L (3.5-5.1); Sodium 140 mmol/L (136-145)
[2025-07-25] MEDS: Normal Saline - Diluent 50 ML VIAL IJ (10:32)
[2025-07-25] MEDS: Omnipaque 350 MG/ML 100 ML BTL IJ (10:32)
== END ==
LOC: DI 08:09
PROVIDERS: PCP Family Medicine; Visit Provider Physician Assistant
DX: R19.00 Intra-abdominal and pelvic swelling, mass and lump, unspecified site (principal); N28.9 Disorder of kidney and ureter, unspecified
CPT/HCPCS: 80048; 74177; J3490